=== PATIENT | male | born 1945 | race Caucasian/White ===

== ENCOUNTER → 2020-10-19 16:47 | Outpatient (CLI) | payer MEDICARE, SELFPAY ==
--- NOTE | 2020-10-19 16:49 | DI.CT.S_ITS ---
PROCEDURE: CT ABDOMEN PELVIS WO CON INDICATIONS: surgical planning prior to hernia repair TECHNIQUE: Noncontrast 5 mm thick sections acquired from the diaphragms to the symphysis. 5 mm coronal and sagittal reformats were then performed. For radiation dose reduction, the following was used: automated exposure control, adjustment of mA and/or kV according to patient size. COMPARISON: None. FINDINGS: ABDOMEN: Lung bases: Scattered subsegmental atelectasis and/or scarring. No focal consolidation. Heart: No significant findings. Liver: Normal. Gallbladder: Surgically absent Bile ducts: Normal. Pancreas: Normal. Spleen: Normal. Adrenals: Normal. Kidneys and Ureters: Normal. Stomach and duodenum: Normal. Bowel: Incidental colonic diverticulosis. Normal appendix. Other: No free fluid or air. Abdominal nodes: Normal. Aorta and IVC: Normal in size. Ventral wall: Supraumbilical right paramedian fat containing ventral hernia seen on image 25/2. This measures approximately 1.8 x 2.5 cm. Small periumbilical fat containing hernia seen on image 46/2. PELVIS: Bladder: Partially decompressed and otherwise unremarkable. Inguinal region: Small bilateral fat containing inguinal hernias although right slightly greater than left. Pelvic nodes: Normal. Bones: Spondylytic changes and facet arthropathy. No vertebral body compression fracture. Scoliosis also noted. IMPRESSION: Right paramedian fat containing supraumbilical ventral hernia, periumbilical and bilateral inguinal hernias Dictated by: Gunnar Barragan M.D. on 10/19/2020 at 17:18 Approved by: Gunnar Barragan M.D. on 10/19/2020 at 17:23
== END ==
PROVIDERS: PCP Family Medicine; Referring Provider Surgery; Visit Provider Surgery
DX: K40.20 Bilateral inguinal hernia, without obstruction or gangrene, not specified as recurrent (principal); K43.2 Incisional hernia without obstruction or gangrene; K42.9 Umbilical hernia without obstruction or gangrene; I25.10 Atherosclerotic heart disease of native coronary artery without angina pectoris; I10 Essential (primary) hypertension
CPT/HCPCS: 74176; 99214

== ENCOUNTER → 2020-11-04 11:58 | Outpatient (CLI) | payer MEDICARE, SELFPAY ==
[2020-11-04 12:35] LABS: COVID19 -Nasal RAPID Negative (Negative)
== END ==
PROVIDERS: PCP Family Medicine; Visit Provider Surgery
DX: Z20.822 Contact with and (suspected) exposure to COVID-19 (principal)
CPT/HCPCS: 87635; C9803

== ENCOUNTER 2020-11-07 10:35 | Day surgery (SDC) | payer MEDICARE, SELFPAY ==
[2020-11-01 13:10] VITALS: BMI 28.8
[2020-11-07] VITALS (7 sets, daily range): BP systolic 108–131; BP diastolic 40–82; PULSE 62–74; RESP 10–16; TEMP 36.5–37.4; O2SAT 93–97; BMI 27.9
[2020-11-07] MEDS: LACTATED RINGERS 1,000 ML 100 ML IV ×2 (11:17→14:39)
--- NOTE | 2020-11-07 11:44 | PM.PREOP ---
Pre-operative Note COVID-19 COVID-19 status: Negative Result date/Date tested (Pos, Neg/Pending): 11/04/20 Interval Note History & Physical reviewed/Exam performed by Physician: Yes Changes to H&P: No
[2020-11-07] MEDS: CEFAZOLIN 1 GM VIAL 2 GM IV (12:16)
--- NOTE | 2020-11-07 12:37 | SUR.OPER ---
Supine on padded OR bed, head on pillow, arms padded with gel and tucked at sides, legs uncrossed, safety belt at thigh, tape over blanket over lower legs .
[2020-11-07] MEDS: BUPIVACAINE 0.25% W/ EPI (PF) 10 ML VIAL 60 ML INJ (12:50)
[2020-11-07] MEDS: BUPIVACAINE LIPOSOME 266 MG/20 ML VIAL INJ (12:51)
--- NOTE | 2020-11-07 15:55 | P.OP_ITS ---
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, right upper quadrant ventral hernia) Procedure & Clinicians Procedure: Laparoscopic repair of bilateral inguinal hernias with mesh Removal of spermatic cord lipoma x2 Open primary repair of right upper quadrant ventral hernia Same procedure as scheduled: Yes Indications: Symptomatic inguinal and ventral hernias Surgeon: Christine Tillman Click Yes if Unassisted: Yes Anesthesia Type: General Operative Notes Findings: 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 Sequential compression devices were placed on both legs and turned on. Appropriate perioperative antibiotics were given prior to the start of surgery. General anesthesia was induced the patient was intubated. A Frankel catheter was placed sterilely in the bladder. The abdomen was prepped and draped in sterile fashion. Surgical time-out was conducted. Local anesthetic was injected under the skin just superior to the umbilicus and a 5 mm vertical incision was made at this site. The umbilical stalk was grasped with a Tae and elevated. A Veress needle was passed through the fascia into proper position. The position was tested with a saline drop test which was appropriate for intra-abdominal Veress needle placement. The abdomen was then insufflated in the usual fashion. Once insufflated to 15 mm Hg the Veress needle was removed and a 5 mm optical trocar was placed under direct vision using a 5 mm 30 degree scope. Once the camera was inside the abdomen I took a look around. There was no injury from port placement. Two additional ports were placed in a similar fashion in the right and left mid clavicular line at the level of the umbilicus, one handbreadth lateral to the umbilicus. The umbilical port was upsized to a 10mm port. Attention was turned to the pelvis, and both inguinal regions were evaluated. Beginning on the right side local anesthetic was in the infiltrated into the abd ominal wall using 0.25% Marcaine with epi, in the region of the expected peritoneal incision. Metzenbaum scissors attached to cautery were then used to incise the peritoneum transversely from the midline laterally to the ASIS, 10 cm superior to the inguinal hernia defect. The peritoneal flap was developed down to the inguinal hernia defects. When I reached the inguinal canal I found a large spermatic cord lipoma within an indirect inguinal defect. I dissected out the spermatic cord lipoma and removed it from the hernia defect. Once the flap had been fully developed and the cord structures were completely exposed, and the hernia defect had been fully evaluated, I then exposed the pubic tubercle and pushed down the bladder so that there was space for adequate mesh placement. A large 3DMax macro porous mesh was then brought into the field. I placed it through the 10 mm port and positioned it within the surgical defect covering the direct, indirect, and femoral space with 5 cm overlap in each direction. I then secured the mesh in 2 locations using dissolvable surgical tacks. Once the mesh was secured in place I brought up the peritoneal flap. There was no clam shelling or bending of the mesh when the peritoneal flap was brought up. I then secured the peritoneum up to the abdominal wall using the same surgical tacker, with dissolvable tacks. There was no gapping of the peritoneal flap or exposed mesh. Attention was then turned to the left side. Local anesthetic was in the infiltrated into the abdominal wall using 0.25% Marcaine with epi, in the region of the expected peritoneal incision. Metzenbaum scissors attached to cautery were then used to incise the peritoneum transversely from the midline laterally to the ASIS, 10 cm superior to the inguinal hernia defect. The peritoneal flap was developed down to the inguinal hernia defect. When I reached the inguinal canal I found a large spermatic cord lipoma within an indirect inguinal defect. I dissected out the spermatic cord lipoma and removed it from the hernia defect. Once the flap had been fully developed and the cord structures were completely exposed, and the hernia defect had been fully evaluated, I then exposed the pubic tubercle and pushed down the bladder so that there was space for adequate mesh placement. Another hernia defect was found in the femoral space. There was an incarcerated nodule of fat in the space, with associated blood vessels. I dissected this free, and placed clips across the associated vessels, prior to dividing the fat tissue. Once divided this was removed from the space with good hemostasis. A large 3DMax macro porous polypropelene mesh was then brought into the field. I placed it through the 10 mm port and positioned it within the surgical defect covering the direct, indirect, and femoral space with 5 cm overlap in each direction. I then secured the mesh in 2 locations using dissolvable surgical tacks. Once the mesh was secured in place I brought up the peritoneal flap. There was no clam shelling or bending of the mesh when the peritoneal flap was brought up. I then secured the peritoneum up to the abdominal wall using the same surgical tacker, with dissolvable tacks. There was no gapping of the peritoneal flap or exposed mesh. At this point the umbilical port site was closed with 0 Vicryl suture in the fascia using a Arturo-Georgie suture Passer. Insufflation was then removed from the abdomen, and the umbilical port site was closed with 3-0 Vicryl in the subcutaneous layers, and 4 Monocryl in the skin. The other 2 port sites were closed with 4 Monocryl in the skin. Each port site was sealed with Dermabond. Local anesthetic was given at each of the port sites and in the fascia. Attention was then turned to the right upper abdomen ventral hernia defect. At this point local anesthetic was injected using 0.25% Marcaine with epi, at the site of the planned incision. A 3cm oblique incision was then made in the skin overlying the hernia defect. Dissection was then carried down through the dermis and subcutaneous tissue, until the hernia sac was encountered. I dissected circumferentially around the hernia sac. I opened the hernia sac, and dissected back to the edge of the intact fascia. I closed the fascia primarily with running 0 Vicryl, and then reinforced it with interrupted figure of 8's using 0 Vicryl. I irrigated the wound, and then infiltrated the wound with 0.25% Marcaine with Epi and Exparel in small aliquots. A total of 60mL of 0.25% marcaine with epi was given for the entire case, and 2 0mL of Exparel was used for the entire case. I then closed the subcutaneous fat bringing it together with 3-0 Vicryl suture and closed the skin with subcuticular 4-0 Monocryl. The skin edges were then sealed with Dermabond. This concluded the procedure. At this point the needle sponge and instrument counts were correct. Patient was awakened from anesthesia and extubated. The Frankel catheter was removed, and the testicles were brought down to ensure they were in proper position. The patient was transferred to the postanesthesia care unit in stable condition. Complications: none Post-operative Condition: stable Disposition: PACU
[2020-11-07] MEDS: ACETAMINOPHEN 325 MG TABLET 975 MG PO (16:14)
== END 2020-11-07 17:15 | disposition home or self-care (01) ==
PROVIDERS: PCP Family Medicine; Referring Provider Surgery; Visit Provider Surgery
PROC: 0YQ64ZZ Repair Left Inguinal Region, Percutaneous Endoscopic Approach (ICD-10-PCS; CPT 49650; principal; 2020-11-07 11:45)
PROC: (CPT 49650; 2020-11-07 11:45)
DX: K40.20 Bilateral inguinal hernia, without obstruction or gangrene, not specified as recurrent (principal); K43.2 Incisional hernia without obstruction or gangrene; I25.10 Atherosclerotic heart disease of native coronary artery without angina pectoris; D17.6 Benign lipomatous neoplasm of spermatic cord
CPT/HCPCS: 49650; 49560; C1781; C9290; J0690; J1100; J2250; J2405; J2704; J3010

== ENCOUNTER → 2020-11-24 08:42 | Outpatient (CLI) | payer MEDICARE, SELFPAY ==
[2020-11-24 10:21] LABS: Add Manual Diff / Slide Review NO; Basophils Absolute Auto 100 /uL (0-100); Basophils Percent Auto 1.1 % (0-2); Eosinophils Absolute Auto 200 /uL (0-450); Hematocrit 42.6 % (41-53); Hemoglobin 14.5 g/dL (13.5-17.5); Lymphocytes Absolute Auto 1000 /uL (1100-4500); Lymphocytes Percent Auto 14.3 % (25-40); Mean Corpuscular HGB Conc 33.9 % (30-36); Mean Corpuscular Hemoglobin 33.1 PG (26-34); Mean Corpuscular Volume 97.4 fL (80-100); Monocytes Absolute Auto 800 /uL (0-900); Monocytes Percent Auto 10.8 % (3-14); Neutrophils Absolute Auto 5100 /uL (1500-7000); Neutrophils Percent Auto 70.8 % (50-75); Platelet Count 172 X10^3/uL (150-400); Red Blood Cell Count 4.38 X10^6/uL (4.5-5.9); Red Cell Distribution Width 13.1 % (11.6-14.8); White Blood Cell Count 7.2 X10^3/uL (4.5-11.0)
[2020-11-24 10:52] LABS: Erythrocyte Sedimentation Rate 14 MM/HR (0-15)
[2020-11-24 11:30] LABS: Alanine Aminotransferase 21 IU/L (<50); Albumin 3.9 g/dL (3.5-5.0); Albumin Globulin Ratio 1.4 (1.0-2.8); Alkaline Phosphatase 72 U/L (38-126); Aspartate Aminotransferase 29 IU/L (17-59); Bilirubin Total 1.4 mg/dL (0.2-1.3); Blood Urea Nitrogen 21 mg/dL (9-20); Calcium 9.4 mg/dL (8.4-10.2); Carbon Dioxide 23 mmol/L (22-32); Chloride 108 mmol/L (98-107); Cholesterol 142 mg/dL (140-199); Estimated Glomerular Filt Rate > 60.0 mL/min (>60); Globulin 2.7 g/dL (1.7-4.1); Glucose 101 mg/dL (80-110); HDL Cholesterol 44 mg/dL (40-60); HEMOLYSIS < 15 (0-50); LDL Cholesterol Calculated 70 mg/dL (<100); Potassium 4.3 mmol/L (3.4-5.1); Sodium 139 mmol/L (137-145); Total Protein 6.6 g/dL (6.3-8.2); Triglycerides 139 mg/dL (35-150)
[2020-11-24 11:35] LABS: High Sensitivity CRP - Cardiac 3.2 mg/L (1.0-3.0)
[2020-11-24 11:43] LABS: Vitamin D 25 Hydroxy (D3) 89.8 ng/mL (30.0-100.0)
[2020-11-24 11:54] LABS: Free T4, Direct Thyroxine 0.97 ng/dL (0.78-2.19)
[2020-11-24 12:21] LABS: Vitamin B12 763 pg/mL (239-931)
== END ==
PROVIDERS: PCP Family Medicine; Referring Provider Internal Medicine; Visit Provider Internal Medicine
DX: Z00.00 Encounter for general adult medical examination without abnormal findings (principal); E78.00 Pure hypercholesterolemia, unspecified; R10.9 Unspecified abdominal pain
CPT/HCPCS: 36415; 80053; 80061; 82306; 82607; 83036; 83090; 84439; 84443; 84481; 85025; 85651; 86140

== ENCOUNTER → 2020-12-29 07:46 | Outpatient (CLI) | payer MEDICARE, SELFPAY ==
[2020-12-29 08:35] LABS: Add Manual Diff / Slide Review NO; Basophils Absolute Auto 0 /uL (0-100); Basophils Percent Auto 0.5 % (0-2); Eosinophils Absolute Auto 200 /uL (0-450); Eosinophils Percent Auto 2.1 % (2-4); Hematocrit 42.3 % (41-53); Hemoglobin 14.1 g/dL (13.5-17.5); Lymphocytes Absolute Auto 1200 /uL (1100-4500); Mean Corpuscular HGB Conc 33.4 % (30-36); Mean Corpuscular Hemoglobin 32.3 PG (26-34); Mean Corpuscular Volume 96.7 fL (80-100); Monocytes Absolute Auto 800 /uL (0-900); Neutrophils Absolute Auto 5400 /uL (1500-7000); Neutrophils Percent Auto 71.4 % (50-75); Platelet Count 182 X10^3/uL (150-400); Red Blood Cell Count 4.37 X10^6/uL (4.5-5.9); Red Cell Distribution Width 13.5 % (11.6-14.8); White Blood Cell Count 7.5 X10^3/uL (4.5-11.0)
[2020-12-29 09:08] LABS: Alanine Aminotransferase 21 IU/L (<50); Albumin Globulin Ratio 1.4 (1.0-2.8); Alkaline Phosphatase 54 U/L (38-126); Aspartate Aminotransferase 31 IU/L (17-59); BUN Creatinine Ratio 19.6 (6-22); Bilirubin Total 0.9 mg/dL (0.2-1.3); Blood Urea Nitrogen 19 mg/dL (9-20); Calcium 9.2 mg/dL (8.4-10.2); Carbon Dioxide 24 mmol/L (22-32); Chloride 107 mmol/L (98-107); Cholesterol 181 mg/dL (140-199); Estimated Glomerular Filt Rate > 60.0 mL/min (>60); Globulin 2.9 g/dL (1.7-4.1); Glucose 103 mg/dL (80-110); HDL Cholesterol 45 mg/dL (40-60); HEMOLYSIS 34 (0-50); LDL Cholesterol Calculated 107 mg/dL (<100); Potassium 4.2 mmol/L (3.4-5.1); Sodium 138 mmol/L (137-145); Total Protein 6.9 g/dL (6.3-8.2); Triglycerides 145 mg/dL (35-150)
[2020-12-29 11:12] LABS: Creatinine Urine Random 151.7 mg/dL
[2020-12-29 11:17] LABS: Microalbumi Creatinin Ratio Ur 5.2 ug/mg CR (<30); Microalbumin Urine Random 0.8 mg/dL (0-1.6)
== END ==
PROVIDERS: PCP Family Medicine; Referring Provider Internal Medicine Interventional Cardiology; Visit Provider Internal Medicine Interventional Cardiology
DX: I25.10 Atherosclerotic heart disease of native coronary artery without angina pectoris (principal); I10 Essential (primary) hypertension
CPT/HCPCS: 36415; 80053; 80061; 82043; 82570; 85025

== ENCOUNTER → 2021-02-13 14:53 | Outpatient (CLI) | payer MEDICARE, SELFPAY ==
[2021-02-13 17:24] LABS: COVID19 -Nasal RAPID Negative (Negative)
== END ==
PROVIDERS: PCP Family Medicine; Visit Provider Nurse Practitioner Family
DX: Z01.812 Encounter for preprocedural laboratory examination (principal); Z20.822 Contact with and (suspected) exposure to COVID-19
CPT/HCPCS: 87635; C9803

== ENCOUNTER → 2021-02-15 08:02 | Outpatient (CLI) | payer MEDICARE, SELFPAY ==
--- NOTE | 2021-02-15 | DI.ECHO.S_ITS ---
[facility]---------+ [facility] +---------+ : : [address] : [place] [address] : : : : [id number] : : : : Phone: [phone]+ Echocardiogram Report + + :Name: GIACOMO PICKERING Study Date: 02/15/2021 Height: 66 in : :[facility] ReadingLocation: Weight: 182 lb : : Gender: Male BSA: 1.9 m2 : :: 1945 Age: 75 yrs BP: 153/94 mmHg: :Reason For Study: ATHEROSCLEROTIC HEART DISEASE OF [place] : :CORONARY ARTERY : :Ordering Physician: : :LOI RUBIO Performed By: Maria Ines Cespedes : :Referring: LOI RUBIO : + + Interpretation Summary Normal left ventricle size with ejection fraction 40%. There is a significant dyssynchronous contraction pattern, consistent with a conduction abnormality. Normal right ventricle and both atria. No valvular abnormality. Procedure: A two-dimensional transthoracic echocardiogram with color flow and Doppler was performed. The study quality was technically adequate. There is no prior echocardiogram noted for this patient. The patient had a bundle branch block rhythm during the exam. The heart rate ranged between 60-70 bpm during the study. Left Ventricle: The left ventricle is normal in size and wall thickness. The estimated left ventricular end diastolic volume is 121 ml. Left ventricular ejection fraction is estimated to be 40%. There is a significant dyssynchronous contraction pattern, consistent with a conduction abnormality. There are no other obvious focal wall motion abnormalities. Right Ventricle: The right ventricle is normal in size and function. Atria: Both atria are normal in size. There is no Doppler evidence for an interatrial shunt. Mitral Valve: The mitral valve is normal in structure and function. There is trace mitral regurgitation. Aortic Valve: The aortic valve is trileaflet. The aortic valve opens well. There is no aortic valve stenosis. No aortic regurgitation is present. Tricuspid Valve: The tricuspid valve is normal in structure and function. There is mild tricuspid regurgitation. The right ventricular systolic pressure is estimated to be at least 23 mmHg based on an estimated right atrial pressure of 3 mm Hg. Pulmonic Valve: The pulmonic valve is not well seen, but is grossly normal. There is no pulmonic valvular regurgitation. Great Vessels: The aortic root is normal size. The dimensions of the ascending aorta are normal. The IVC is of normal diameter and collapses greater than 50% with a sniff. This suggests a low right atrial pressure of 3 mm Hg. Pericardium/ Pleura There is no pericardial effusion. There is no pleural effusion. MMode/2D Measurements & Calculations LVIDd: 5.5 cm LVOT diam: 2.2 cm LVIDs: 4.5 cm Ao root diam: 3.4 cm FS: 17.7 % asc Aorta Diam: 3.0 cm EPSS: 1.6 cm Ao Arch Diam (Prox Trans): 3.1 cm IVSd: 0.70 cm LVPWd: 0.79 cm LV harvey. diameter/BSA (cm/m^2): 2.9 LV sys. diameter/BSA (cm/m^2): 2.4 LA A2 area: 19.3 cm2 RA long axis: 4.8 cm LA A4 area: 19.1 cm2 RA area: 15.2 cm2 LA length (vol): 5.3 cm RA vol: 41.2 ml LA vol: 59.3 ml RA : 21.5 ml/m2 LA vol index: 30.9 ml/m2 IVC diam: 1.3 cm RVD1 (basal): 3.6 cm TAPSE: 1.8 cm Doppler Measurements & Calculations Ao V2 max: 127.2 cm/sec LVOT Max Lalo: 90.4 cm/sec Ao V2 mean: 86.5 cm/sec LV V1 max P.3 mmHg Ao max P.5 mmHg LV V1 VTI: 17.5 cm Ao mean P.4 mmHg JAYE(I,D): 2.5 cm2 Ao V2 VTI: 25.7 cm JAYE(V,D): 2.6 cm2 sev ratio: 0.68 JAYE indexed to BSA (cm^2/m^2): 1.3 AI P1/2t: 686.0 msec AI dec slope: 122.3 cm/sec2 MV E max lalo: 48.8 cm/sec TR max lalo: 223.3 cm/sec MV A max lalo: 79.2 cm/sec TR max P.0 mmHg MV E/A: 0.62 PA V2 max: 123.2 cm/sec Med Peak E' Lalo: 5.5 cm/sec PA V2 mean: 85.1 cm/sec E/E' med: 8.8 PA mean P.2 mmHg Lat Peak E' Lalo: 5.8 cm/sec PA pr(Accel): 39.6 mmHg E/E' lat: 8.4 E/e' average: 8.6 MV dec time: 0.18 sec SV(OT): 65.1 ml Electronically signed by: Loi Carlos on Reading Physician:02/16/2021 03:13 PM
--- NOTE | 2021-02-15 19:10 | DI.NM.S_ITS ---
DATE OF SERVICE: 02/15/2021 PROCEDURE PERFORMED: Pharmacological perfusion study. INDICATIONS: CAD, status post PCI in the past, left bundle branch block. RADIOPHARMACEUTICAL: 24.4 millicurie technetium-99m Myoview IV was injected at stress and 13.0 millicurie technetium-99m Myoview IV was injected at rest. CARDIAC STRESS: The patient underwent IV Lexiscan perfusion study under the supervision of an attending staff. The patient received Lexiscan as per protocol. Remained hemodynamically stable. Baseline rhythm was sinus with left bundle branch block. During stress, no new significant arrhythmia is seen, other than rare PVCs or new ischemic changes. No chest pain or anginal symptoms. No aminophylline needed. RAW DATA: There is a increased subdiaphragmatic activity. There is a hot spot near the inferior border of the heart. The liver is at higher level than heart. GATED STUDY: Resting LV ejection fraction 51 percent and stress LV ejection fraction 63 percent with a resting end-diastolic volume 148 mL. TID ratio 0.91, which is within normal limits. Lung/heart ratio 0.22, which is within normal limits. MYOCARDIAL PERFUSION SCAN: Stress supine, resting supine and stress prone images were compared to each other. There appears to be predominantly fixed moderate to large size, moderate to severely decreased perfusion of inferior wall, as well as the entire septum, mid to distal anterior wall and the apex. No obvious reversible ischemia. CONCLUSION: 1. This is an abnormal myocardial perfusion study with moderate to severely decreased perfusion of inferior wall, entire septum, mid to distal anterior wall and apex. Anterolateral wall and inferolateral wall had normal myocardial perfusion. 2. Differential diagnosis: Multivessel myocardial infarction, however the patient has left bundle branch block. Left ventricular function almost preserved without any significant wall motion abnormalities on gated study. On raw data, there was a hot spot seen near the inferior border of the heart, in fact, involving the inferior border of the heart. Those findings could be due to left bundle branch block, as well as significant tissue attenuation artifact, as stated above. No obvious reversible ischemia. Clinical correlation is recommended. Juan Matthews - Shiva doc#: [id number]/job#: [id number] dd: 02/15/2021 17:30:00 dt: 02/15/2021 19:01:00 DICTATING MD/COPIES TO: Seht Vergara MD COPIES MNE: DAKOTAH;
== END ==
PROVIDERS: PCP Family Medicine; Referring Provider Internal Medicine Interventional Cardiology; Visit Provider Internal Medicine Interventional Cardiology
DX: I25.10 Atherosclerotic heart disease of native coronary artery without angina pectoris (principal); I44.7 Left bundle-branch block, unspecified
CPT/HCPCS: 78452; 93017; 93306; A9502; J2785

== ENCOUNTER → 2021-04-05 15:30 | Outpatient (CLI) | payer MEDICARE, SELFPAY ==
--- NOTE | 2021-04-05 15:31 | DI.US.S_ITS ---
PROCEDURE: US ABDOMEN LIMITED INDICATIONS: right inguinodynia TECHNIQUE: Real-time focused scanning was performed of the abdomen, with image documentation. COMPARISON: [facility], CT, CT ABDOMEN PELVIS WO CON, 10/19/2020, 17:11. FINDINGS: Scanning is performed at the area of clinical concern involving the right groin at the site of pain. Within the subcutaneous fat, there is a simple appearing fluid collection that measures 11 x 11 x 11 mm, without abnormal vascularity. Scanning is also performed of the right lower quadrant, at the site of hernia repair. At this site, there is no recurrent hernia seen, including with Valsalva maneuver. There is a simple appearing cyst without abnormal vascularity that measures 8 x 15 x 4 mm. IMPRESSION: No findings of hernia are seen. Nonvascular, simple appearing cysts are seen at the 2 areas of clinical concern. Dictated by: Oj Hill M.D. on 04/05/2021 at 15:38 Approved by: Oj Hill M.D. on 04/05/2021 at 15:39
== END ==
PROVIDERS: PCP Family Medicine; Referring Provider Family Medicine; Visit Provider Family Medicine
DX: R19.03 Right lower quadrant abdominal swelling, mass and lump (principal); Z98.890 Other specified postprocedural states; Z87.19 Personal history of other diseases of the digestive system
CPT/HCPCS: 76705

== ENCOUNTER → 2021-05-08 10:22 | Outpatient (CLI) | payer MEDICARE, SELFPAY ==
--- NOTE | 2021-05-08 10:24 | DI.CT.S_ITS ---
PROCEDURE: CT ABDOMEN PELVIS W CON INDICATIONS: ventral hernia TECHNIQUE: After the administration of oral and intravenous contrast, axial sections were acquired from the lung bases to the pubic symphysis. Coronal and sagittal reformats were performed. For radiation dose reduction, the following was used: automated exposure control, adjustment of mA and/or kV according to patient size. COMPARISON:[facility], US, US ABDOMEN LIMITED, 04/05/2021, 16:00. [facility], CT, CT ABDOMEN PELVIS WO CON, 10/19/2020, 17:11. FINDINGS: Image quality: Excellent. Lung bases: Unremarkable. Heart: No significant findings. ABDOMEN: Liver: Unremarkable. Gallbladder: Surgically removed. Biliary ducts: Unremarkable. Pancreas: Unremarkable. Spleen: Unremarkable. Adrenal Glands: Unremarkable. Kidneys and Ureters: Unremarkable. Stomach and Bowel: Stomach, small bowel loops, and colon are normal in caliber. Diverticulosis without diverticulitis. Peritoneum: No abnormal intraperitoneal fluid. No free air. Ventral Wall: A small fat containing ventral hernia is seen in the upper abdomen right of the midline anterior to the left hepatic lobe is present. The neck of the hernia measuring 3.1 cm transverse x 4.0 cm longitudinal. There is omental fat and mesenteric vessels within the hernia sac. There is a tiny fat containing umbilical hernia. Abdominal Nodes: No retroperitoneal or mesenteric adenopathy by size criteria. Vessels: Aorta and inferior vena cava are normal in size. PELVIS: Pelvic Organs: Prostate is enlarged. Bladder: Mild bladder wall thickening. Pelvic Nodes: No enlarged lymph nodes. Miscellaneous: No inguinal hernias are seen. There is a 0.9 cm soft tissue nodule in the right groin, correlating with a small cyst in the groin seen on ultrasound. Bones: Moderate scoliosis. Severe degenerative changes in lumbar spine.. IMPRESSION: 1. A small fat containing right upper abdominal wall ventral hernia and a tiny fat containing umbilical hernia. 2. No inguinal hernias. There is a 0.9 cm soft tissue nodule in the right groin, correlating with the ultrasound finding of a small cyst. 3. Diverticulosis without acute diverticulitis. 4. Small hiatal hernia. 5. Enlarged prostate. Mild bladder wall thickening suggests mild bladder outlet obstruction. Recommend clinical correlation. Dictated by: Raúl Nation M.D. on 05/08/2021 at 12:47 Approved by: Raúl Nation M.D. on 05/08/2021 at 14:51
[2021-05-08 11:06] LABS: BUN Creatinine Ratio 16.4 (6-22); Blood Urea Nitrogen 21 mg/dL (9-20); Estimated Glomerular Filt Rate 54.9 mL/min (>60)
[2021-05-10 14:13] LABS: Gabapentin 9.5 ug/mL (4.0-16.0)
== END ==
PROVIDERS: PCP Family Medicine; Referring Provider Surgery; Visit Provider Surgery
DX: K43.9 Ventral hernia without obstruction or gangrene (principal); K57.90 Diverticulosis of intestine, part unspecified, without perforation or abscess without bleeding; K44.9 Diaphragmatic hernia without obstruction or gangrene; N40.0 Benign prostatic hyperplasia without lower urinary tract symptoms; Z87.19 Personal history of other diseases of the digestive system; Z98.890 Other specified postprocedural states; Z90.49 Acquired absence of other specified parts of digestive tract
CPT/HCPCS: 36415; 74177; 80171; 82565; 84520

== ENCOUNTER 2021-06-05 09:44 | Day surgery (SDC) | payer MEDICARE, SELFPAY ==
--- NOTE | 2021-05-29 10:34 | SUR.PREOP ---
Pt notified of cancellation. Advised [facility] would be intouch to reshd at a later date
[2021-06-05] VITALS (7 sets, daily range): BP systolic 134–153; BP diastolic 78–90; PULSE 76–85; RESP 12–16; TEMP 36.3–36.6; O2SAT 92–97; BMI 28.8
[2021-06-05 10:51] LABS: COVID19 -Nasal RAPID Negative (Negative)
--- NOTE | 2021-06-05 11:04 | PM.HP.1 ---
History of Present Illness History of Present Illness Date Patient Seen: 06/05/21 Time Patient Seen: 11:04 Chief complaint: SDC Narrative: Mark is a 75-year-old gentleman who had a laparoscopic inguinal hernia repair as well as an open right upper quadrant incisional hernia repair without mesh in in November 2020. He has since developed a recurrent bulge the right upper quadrant location. He had a CT scan recently that showed a recurrent hernia containing some visceral fat. Patient History Medical History (Updated 06/05/21 @ 11:06 by Kingsley Salgado MD) Abdominal hernia Bilateral inguinal hernia CAD (coronary artery disease) Carpal tunnel syndrome Cataracts, bilateral Chronic back pain (~1977) CKD (chronic kidney disease) Hearing loss HLD (hyperlipidemia) Inguinal hernia LBBB (left bundle branch block) Suspected sleep apnea Tinnitus Surgical History (Updated 05/24/21 @ 10:24 by Taylor Mccormack RN) Anesthesia Hx of bilateral inguinal hernia repair (11/07/20) Hx of carpal tunnel repair Hx of cholecystectomy (~2019) Hx of heart artery stent (~2005) Hx of neck surgery (~2018) Family & Social History Family History Father Heart disease Sister Colon cancer Mother Cancer Grandmother Gallstones Social History: household members spouse Tobacco & Substance use: Smoking Status Former smoker alcohol intake current alcohol intake frequency a few times a month Substance Use Type does not use Meds Home Medications and Allergies Home Medications Medication Instructions Recorded Confirmed Type aspirin 81 mg tablet 81 mg PO DAILY 10/06/20 05/24/21 History atorvastatin 40 mg tablet 40 mg PO DAILY 10/06/20 05/24/21 History bisoprolol fumarate 5 mg tablet 5 mg PO DAILY 10/06/20 05/24/21 History cholecalciferol (vitamin D3) 25 25 mcg PO DAILY 10/19/20 05/24/21 History mcg (1,000 unit) capsule multivitamin 1 tab PO DAILY 10/19/20 05/24/21 History omeprazole 20 mg capsule,delayed 20 mg PO DAILY 10/19/20 05/24/21 History release gabapentin 300 mg capsule 600 mg PO TID #90 cap 04/07/21 05/24/21 Rx lisinopril 5 mg tablet 5 mg PO DAILY #90 tab 05/01/21 05/24/21 Rx Allergies Allergy/AdvReac Type Severity Reaction Status Date / Time Penicillins Allergy Severe Rash Verified 04/07/21 10:11 Exam Const General: healthy appearing Resp Effort & Inspection: normal respiratory effort GI Other: Recurrent ventral incisional hernia Objective Labs Labs: Laboratory Results - last 24 hr 06/05/21 09:48 SARS-CoV-2 (PCR) Negative Assessment & Plan Assessment and plan (1) Recurrent ventral incisional hernia: Status: Acute Plan 75-year-old man with a recurrent ventral incisional hernia. We reviewed risks and benefits of open hernia repair with mesh. He would like to proceed. COVID-19 COVID-19 status: Negative Result date/Date tested (Pos, Neg/Pending): 06/05/21 Time Spent With Patient Critical Care time: I spent a total of [] minutes of critical care time on this patient's care today; this time is exclusive of procedural time.
[2021-06-05] MEDS: LACTATED RINGERS 1,000 ML 42 ML IV ×2 (11:36→12:10)
[2021-06-05] MEDS: CEFAZOLIN 2 GM/20 ML SYRINGE IV (11:40)
--- NOTE | 2021-06-05 11:48 | SUR.OPER ---
Supine on padded OR bed, head on pillow, arms secured on padded arm boards at <90 degrees abduction, legs uncrossed, safety belt at thigh, tape over blanket over lower legs.
[2021-06-05] MEDS: LIDOCAINE 1% W/EPI 20 ML INJ (11:52)
[2021-06-05] MEDS: BUPIVACAINE 0.25% (PF) VIAL 30 ML INJ (11:52)
--- NOTE | 2021-06-05 13:29 | PM.OP.1 ---
Operative Date/Time/Diagnoses Date of procedure: 06/05/21 Time of procedure: 13:29 Pre-op diagnosis: Recurrent ventral incisional hernia Post-op diagnosis: same Procedure & Clinicians Procedure: Recurrent ventral incisional hernia repair with mesh Same procedure as scheduled: Yes Indications: Recurrent ventral incisional hernia Surgeon: Kingsley Salgado Click Yes if Unassisted: Yes Anesthesia Type: General Operative Notes Estimated Blood Loss (mL): 20 Procedure in detail: Ancef was administered. The patient was brought to the operating room, placed on the table in the supine position and general endotracheal anesthesia was induced. The abdomen was prepped and draped in the usual fashion. A time-out was performed. A 6 cm incision was made at the location of the old scar in the right upper quadrant and the old scar tissue was excised. Dissection was carried down to the hernia sac. The hernia sac was freed from the fascial ring and the peritoneal cavity was entered. There was no bowel or omentum adherent to the sac. We closed the peritoneum with a running 3-0 Vicryl. Lysis of adhesions was performed in order to properly identify the posterior sheath and the belly of the rectus muscle. The hernia was splitting the rectus muscle. Additional local was injected into the muscle belly. The posterior sheath and rectus muscle was closed with 3-0 Vicryl in an interrupted fashion. The anterior sheath was then closed with multiple interrupted 0 Ethibond sutures. The subcutaneous adipose tissue was cleared off of the anterior sheath circumferentially about 2 cm in each direction. A macro porous polypropylene mesh was trimmed to fit over the fascial closure and secured with Tisseel. Once the Tisseel was dried the subcutaneous adipose tissue was closed with interrupted 3-0 Vicryl sutures. The skin was closed with multiple interrupted 3-0 Vicryl dermal sutures followed by a running 4 Monocryl subcuticular closure. Steri-Strips were applied and an abdominal binder was applied. Post-operative Condition: stable Disposition: PACU
[2021-06-05] MEDS: OXYCODONE/ACETAMINOPHEN 5/325 TABLET 1 TAB PO (14:05)
== END 2021-06-05 14:30 | disposition home or self-care (01) ==
PROVIDERS: PCP Family Medicine; Referring Provider Surgery; Visit Provider Surgery
PROC: (CPT 49565; principal; 2021-06-05 11:45)
DX: K43.2 Incisional hernia without obstruction or gangrene (principal); I10 Essential (primary) hypertension; I25.10 Atherosclerotic heart disease of native coronary artery without angina pectoris; K21.9 Gastro-esophageal reflux disease without esophagitis; G47.33 Obstructive sleep apnea (adult) (pediatric); N18.9 Chronic kidney disease, unspecified; I44.7 Left bundle-branch block, unspecified; Z95.5 Presence of coronary angioplasty implant and graft; Z20.822 Contact with and (suspected) exposure to COVID-19
CPT/HCPCS: 49565; 49568; 87635; C1781; J0330; J0690; J1100; J2405; J2704; J3010

== ENCOUNTER → 2021-06-16 14:44 | Outpatient (CLI) | payer MEDICARE, SELFPAY ==
[2021-06-16 16:41] LABS: Alanine Aminotransferase 23 IU/L (<50); Albumin 4.1 g/dL (3.5-5.0); Albumin Globulin Ratio 1.5 (1.0-2.8); Alkaline Phosphatase 53 U/L (38-126); Aspartate Aminotransferase 31 IU/L (17-59); BUN Creatinine Ratio 13.3 (6-22); Bilirubin Total 1.2 mg/dL (0.2-1.3); Blood Urea Nitrogen 15 mg/dL (9-20); Calcium 9.1 mg/dL (8.4-10.2); Carbon Dioxide 25 mmol/L (22-32); Chloride 104 mmol/L (98-107); Estimated Glomerular Filt Rate > 60.0 mL/min (>60); Globulin 2.8 g/dL (1.7-4.1); Glucose 86 mg/dL (80-110); HEMOLYSIS 17 (0-50); Potassium 3.9 mmol/L (3.4-5.1); Sodium 137 mmol/L (137-145); Total Protein 6.9 g/dL (6.3-8.2)
== END ==
PROVIDERS: PCP Family Medicine; Referring Provider Family Medicine; Visit Provider Family Medicine
DX: R79.89 Other specified abnormal findings of blood chemistry (principal)
CPT/HCPCS: 36415; 80053

== ENCOUNTER → 2021-08-11 13:29 | Outpatient (CLI) | payer MEDICARE, SELFPAY ==
--- NOTE | 2021-08-11 13:33 | DI.RAD.S_ITS ---
PROCEDURE: XR HIP W PEL IF DONE RT 2V INDICATIONS: chronic right hip pain TECHNIQUE: AP pelvis with lateral view(s) of the right hip(s). COMPARISON: None. FINDINGS: Bones: No fractures or dislocations. Pelvic ring appears intact. No suspicious bony lesions. Mild joint space narrowing and periarticular osteophyte formation at the bilateral hip joints. Soft tissues: The visualized bowel gas pattern is normal. No suspicious soft tissue calcifications. IMPRESSION: Bilateral hip osteoarthritis. No acute fracture. No osseous lesion. If symptoms and/or clinical suspicion for pathology persist, further assessment with repeat, or advanced imaging (e.g., CT, MRI, or bone scan) may be helpful for further assessment. Dictated by: Aylin Lin M.D. on 08/11/2021 at 14:46 Approved by: Aylin Lin M.D. on 08/11/2021 at 14:47
--- NOTE | 2021-08-11 13:33 | DI.RAD.S_ITS ---
PROCEDURE: XR LUMBAR SPINE 2-3V INDICATIONS: chronic hip pain TECHNIQUE: 3 views of the lumbar spine were acquired. COMPARISON: None. FINDINGS: Bones: 5 exd-jyk-[id number] vertebrae are present. There is straightening of normal lumbar lordosis. Mild to moderate rightward curvature of lower lumbar spine centered at L4 level is seen. Degenerative endplate changes and bilateral facet arthrosis throughout lumbar spine is noted. No vertebral body compression fractures. No suspicious bony lesions. Soft tissues: Overlying bowel gas pattern is normal. No suspicious soft tissue calcifications. IMPRESSION: Degenerative disc disease throughout lumbar spine. No acute compression fracture or spondylolisthesis. [id number] scoliosis as above. Dictated by: Yovanny Caraballo M.D. on 08/11/2021 at 14:59 Approved by: Yovanny Caraballo M.D. on 08/11/2021 at 14:59
[2021-08-11 14:55] LABS: Add Manual Diff / Slide Review NO; Basophils Absolute Auto 100 /uL (0-100); Basophils Percent Auto 1.1 % (0-2); Eosinophils Absolute Auto 100 /uL (0-450); Eosinophils Percent Auto 1.4 % (2-4); Hematocrit 40.8 % (41-53); Lymphocytes Absolute Auto 1400 /uL (1100-4500); Lymphocytes Percent Auto 20.3 % (25-40); Mean Corpuscular HGB Conc 34.3 % (30-36); Mean Corpuscular Hemoglobin 32.3 PG (26-34); Mean Corpuscular Volume 94.1 fL (80-100); Monocytes Absolute Auto 700 /uL (0-900); Monocytes Percent Auto 11.2 % (3-14); Neutrophils Absolute Auto 4400 /uL (1500-7000); Platelet Count 163 X10^3/uL (150-400); Red Blood Cell Count 4.33 X10^6/uL (4.5-5.9); Red Cell Distribution Width 13.5 % (11.6-14.8); White Blood Cell Count 6.7 X10^3/uL (4.5-11.0)
[2021-08-11 15:10] LABS: Alanine Aminotransferase 23 IU/L (<50); Albumin 4.3 g/dL (3.5-5.0); Albumin Globulin Ratio 1.6 (1.0-2.8); Alkaline Phosphatase 54 U/L (38-126); Aspartate Aminotransferase 28 IU/L (17-59); BUN Creatinine Ratio 13.9 (6-22); Bilirubin Total 1.5 mg/dL (0.2-1.3); Blood Urea Nitrogen 19 mg/dL (9-20); Calcium 9.3 mg/dL (8.4-10.2); Carbon Dioxide 26 mmol/L (22-32); Chloride 109 mmol/L (98-107); Estimated Glomerular Filt Rate 50.7 mL/min (>60); Globulin 2.7 g/dL (1.7-4.1); Glucose 91 mg/dL (80-110); HEMOLYSIS < 15 (0-50); Potassium 4.1 mmol/L (3.4-5.1); Sodium 134 mmol/L (137-145)
== END ==
PROVIDERS: PCP Family Medicine; Referring Provider Family Medicine; Visit Provider Family Medicine
DX: I10 Essential (primary) hypertension (principal); Z12.5 Encounter for screening for malignant neoplasm of prostate; M54.9 Dorsalgia, unspecified; G89.29 Other chronic pain; M25.551 Pain in right hip
CPT/HCPCS: 36415; 72100; 73502; 80053; 85025; G0103

== ENCOUNTER → 2021-12-29 08:52 | Outpatient (CLI) | payer MEDICARE, SELFPAY ==
[2021-12-29 09:58] LABS: Alanine Aminotransferase 19 IU/L (<50); Albumin 4.5 g/dL (3.5-5.0); Albumin Globulin Ratio 1.9 (1.0-2.8); Alkaline Phosphatase 50 U/L (38-126); Aspartate Aminotransferase 26 IU/L (17-59); BUN Creatinine Ratio 20.4 (6-22); Bilirubin Total 1.7 mg/dL (0.2-1.3); Blood Urea Nitrogen 23 mg/dL (9-20); Carbon Dioxide 23 mmol/L (22-32); Chloride 107 mmol/L (98-107); Cholesterol 130 mg/dL (140-199); Estimated Glomerular Filt Rate > 60 mL/min (>60); Globulin 2.4 g/dL (1.7-4.1); Glucose 94 mg/dL (80-110); HDL Cholesterol 46 mg/dL (40-60); HEMOLYSIS < 15 (0-50); LDL Cholesterol Calculated 57 mg/dL (<100); Potassium 4.1 mmol/L (3.4-5.1); Sodium 140 mmol/L (137-145); Total Protein 6.9 g/dL (6.3-8.2); Triglycerides 133 mg/dL (35-150)
== END ==
PROVIDERS: PCP Family Medicine; Referring Provider Family Medicine; Visit Provider Family Medicine
DX: I10 Essential (primary) hypertension (principal); R17 Unspecified jaundice; G89.29 Other chronic pain; I25.10 Atherosclerotic heart disease of native coronary artery without angina pectoris; M25.551 Pain in right hip; R79.89 Other specified abnormal findings of blood chemistry
CPT/HCPCS: 36415; 80053; 80061; 82248

== ENCOUNTER → 2022-01-03 08:44 | Outpatient (CLI) | payer MEDICARE, SELFPAY ==
--- NOTE | 2022-01-03 08:45 | DI.MRI.S_ITS ---
PROCEDURE: MR LUMBAR SPINE WO CON INDICATIONS: chronic low back pain with right side radiculopathy TECHNIQUE: Noncontrast sagittal T1 spin echo and T2 fast echo, sagittal STIR, and T2 fast spin echo through the lumbar spine. In cases with scoliosis, additional coronal T2 fast spin echo may be performed. COMPARISON: [facility], CR, XR LUMBAR SPINE 2-3V, 08/11/2021, 13:37. FINDINGS: Image quality: Excellent. Alignment and Curvature: There is normal bony alignment. Mild convex right scoliosis. Bone Marrow: Mild Modic type 2 reactive endplate changes noted adjacent to the L1-L2, L2-L3 and L3-L4 discs. Mild mixed Modic type 1 and type 2 reactive endplate changes noted adjacent to the L5-S1 disc. No acute vertebral body compression fractures. Spinal Cord: Conus medullaris terminates at the L1-2 disc level. Visualized cord demonstrates normal signal and size. Paraspinous Soft Tissues: No paravertebral masses. T12-L1: Normal appearance. L1-L2: Loss of disc signal and height. Mild to moderate diffuse disc bulge. Mild narrowing of the central canal. Moderate right mild left neural foraminal narrowing. No neural compression. L2-L3: Loss of disc signal and height. Moderate, diffuse disc bulge. Small central disc protrusion. Mild bilateral facet hypertrophy. Mild to moderate narrowing of the central canal. Severe right and moderate left neural foraminal narrowing with slight compression of the exiting right L2 nerve root. L3-L4: Loss of disc signal. Mild to moderate diffuse disc bulge. Mild bilateral facet hypertrophy. Mild narrowing of the central canal. Moderate bilateral neural foraminal narrowing. No neural compression. L4-L5: Loss of disc signal and height. Mild to moderate diffuse disc bulge. Small right central disc protrusion. Mild bilateral facet hypertrophy. Mild narrowing of the central canal. Mild to moderate bilateral neural foraminal narrowing. No neural compression. L5-S1: Loss of disc signal. Mild, diffuse disc bulge. Mild bilateral facet hypertrophy. No central stenosis. Severe right and moderate left neural foraminal narrowing with slight compression of the exiting right L5 nerve root. IMPRESSION: 1. Multilevel degenerative disc disease. 2. Multilevel facet arthropathy. 3. No severe central canal narrowing. 4. Severe right L2-L3 and L5-S1 neural foraminal narrowing with slight compression of the exiting right L2 and right L5 nerve roots. Dictated by: Rubina Aguirre MD, PhD on 01/03/2022 at 12:17 Approved by: Rubina Aguirre MD, PhD on 01/03/2022 at 12:27
== END ==
PROVIDERS: PCP Family Medicine; Referring Provider Family Medicine; Visit Provider Family Medicine
DX: M51.16 Intervertebral disc disorders with radiculopathy, lumbar region (principal); M51.17 Intervertebral disc disorders with radiculopathy, lumbosacral region; M47.26 Other spondylosis with radiculopathy, lumbar region; M47.27 Other spondylosis with radiculopathy, lumbosacral region; M48.061 Spinal stenosis, lumbar region without neurogenic claudication; M48.07 Spinal stenosis, lumbosacral region; M25.551 Pain in right hip; G89.29 Other chronic pain
CPT/HCPCS: 72148

== ENCOUNTER 2022-03-06 12:40 | Outpatient (CLI) | payer MEDICARE, SELFPAY ==
[2022-03-06] VITALS (8 sets, daily range): BP systolic 130–165; BP diastolic 79–98; PULSE 66–74; RESP 12–22; TEMP 36.2; O2SAT 96–97
--- NOTE | 2022-03-06 12:42 | DI.RAD.S_ITS ---
PROCEDURE: PAIN L INTERLAMINAR/CAUDAL INJ INDICATIONS: SPONDYLOSIS COMPARISON: None. FINDINGS: Fluoroscopic spot filming was performed to verify placement of spinal needles at the right L2-3 level(s), as labeled on the films. Appropriate location(s) of the needle tip(s) was confirmed by injection of iodinated contrast. IMPRESSION: Right L2-3 foraminal injection. Dictated by: Lu Gary M.D. on 03/06/2022 at 18:15 Approved by: Lu Gary M.D. on 03/06/2022 at 18:16
[2022-03-06] MEDS: MIDAZOLAM 2 MG/2 ML VIAL IV (13:27)
[2022-03-06] MEDS: IOPAMIDOL 15 ML VIAL 3 ML INJ (13:33)
[2022-03-06] MEDS: BUPIVACAINE 0.25% (PF) VIAL 2 ML INJ (13:34)
[2022-03-06] MEDS: BETAMETHASONE 30 MG/5 ML MDV 12 MG IM (13:35)
[2022-03-06] MEDS: DEXAMETHASONE 10 MG/ML VIAL 20 MG INJ (13:35)
--- NOTE | 2022-03-06 13:42 | PM.PROC.IR.1 ---
Date/Time/Diagnoses Date of procedure: 03/06/22 Time of procedure: 13:42 Pre-procedure diagnosis: 1. HNP WITH RADICULAR FEATURES, 2. MULTILEVEL CENTRAL STENOSIS, Post-procedure diagnosis: same Procedure Notes Procedure: 1. FLUOROSCOPICALLY GUIDED CONTRAST CONTROLLED INTERLAMINAR EPIDURAL STEROID INJECTION - L2/3 Indications: Juan is referred by Dr. Claudio for treatment of Bilateral Foraminal Stenosis L>R LE symptoms. Physician: Anthony Zhang Total Fluoroscopy time (seconds): 9 Total sedation minutes: 11 Complications: none Procedure in detail & Post-procedure care: FINDINGS Multilevel Central Spinal Stenosis with Nerve Root Compression DESCRIPTION OF PROCEDURE Fluoroscopically guided, contrast-controlled L2/3 translaminar epidural steroid injection. Following review of allergy and review of potential side effects and complications, including, but not necessarily limited to, infection, allergic reaction, local tissue breakdown, temporary as well as permanent nerve injury, paralysis, stroke and possible , the patient indicated that the patient understood and agreed to proceed. An informed consent document was signed by the patient, witnessed by a nurse, and placed in the patient's chart. Additionally, other treatment options including modalities, medications, and physical therapy were reviewed with the patient. After review of previous anaesthesic history and IV conscious sedation the patient was deemed safe to proceed with today?s procedure with IV conscious sedation as ASA class II designation. Safety time-out was performed to confirm patient ID, procedure to be performed and site of procedure. IV sedation was accomplished with a combination of 2mg Versed administered by the RN after DO order, titrated to patient comfort during the course of the procedure while the patient remained responsive to all verbal commands. In the prone position, following sterile prep and drape of the lumbar region,the L2/3 translaminar space was identified fluoroscopically. The skin was anesthetized via a 25-gauge, 1.5-inch needle with 1% lidocaine solution. At this point, a 22-gauge short bevel spinal needle was atraumatically introduced and advanced under fluoroscopic guidance into the region of the L2/3 translaminar space. Depth was confirmed on lateral view. Radiological data, including multiple fluoroscopic views of the lumbar spine, reveal a spinal needle at the L2/3 translaminar space. Lateral views then show placement of the needle in the epidural space. Subsequent views show contrast material flowing superiorly and inferiorly in the epidural space. No vascular or intrathecal uptake is observed. At this point, using loss of resistance technique with saline and air, the epidural space was entered. This was confirmed following negative aspiration with injection of approximately 1.5 cc of Isovue 200, showing excellent epidural flow without vascular or intrathecal uptake. At this point, 1 cc of 1% lidocaine solution combined with 3cc or 20mg of dexamethasone and 6mg of betamethasone was injected without incident. The patient tolerated the procedure well without signs or symptoms of complications prior to transfer to the recovery area continued monitoring without incident. The patient was then transferred to the recovery area where they were observed for an appropriate period of time after the injection. The patient reported a VAS score of 6 prior to the procedure and a post-procedure VAS of 0. POST OP INSTRUCTIONS The patient was provided a Pain Log to continue to record their response to the target-specific procedure prior to follow-up visit with their referring physician. Additionally, specific post-injection care instructions and a contact number to our office were provided if concerns arise regarding possible complications associated with the procedure are suspected.
== END 2022-03-06 14:05 | disposition home or self-care (01) ==
PROVIDERS: PCP Family Medicine; Referring Provider Physical Medicine & Rehabilitation; Visit Provider Physical Medicine & Rehabilitation
DX: M51.16 Intervertebral disc disorders with radiculopathy, lumbar region (principal); M48.061 Spinal stenosis, lumbar region without neurogenic claudication
CPT/HCPCS: 62323; 99152; J0702; J1100; J2250; J3490

== ENCOUNTER → 2022-03-12 13:26 | Outpatient (CLI) | payer MEDICARE, SELFPAY ==
--- NOTE | 2022-03-12 13:27 | DI.RAD.S_ITS ---
PROCEDURE: XR HIP W PEL IF DONE RT 2V INDICATIONS: RIGHT HIP OSTEOARTHRITIS TECHNIQUE: 2 views of the hip were acquired. COMPARISON: [facility], CR, XR HIP W PEL IF DONE RT 2V, 08/11/2021, 13:37. FINDINGS: Bones: Moderate right and mild left hip arthrosis. Lumbosacral spondylosis partially seen. Soft tissues: No suspicious soft tissue calcifications or masses. IMPRESSION: Moderate right and mild left hip arthrosis. If there is high concern for further derangement, consider MRI evaluation. Dictated by: Polo Abdullahi M.D. on 03/12/2022 at 17:17 Approved by: Polo Abdullahi M.D. on 03/12/2022 at 17:18
== END ==
PROVIDERS: PCP Family Medicine; Referring Provider Family Medicine; Visit Provider Family Medicine
DX: M16.0 Bilateral primary osteoarthritis of hip (principal)
CPT/HCPCS: 73502

== ENCOUNTER 2022-06-01 09:45 | Outpatient (RCR) | payer MEDICARE, SELFPAY ==
--- NOTE | 2022-02-12 20:33 | PT.OIE ---
Current Diagnoses Other chronic pain (02/12/22) Pain in right hip (02/12/22) Lumbago with sciatica, right side (02/12/22) Lumbago with sciatica, left side (02/12/22) Past Medical History (Last Reviewed 01/24/22 @ 10:43 by Anthony Zhang DO) Abdominal hernia Bilateral inguinal hernia CAD (coronary artery disease) Carpal tunnel syndrome Cataracts, bilateral Chronic back pain (~1977) CKD (chronic kidney disease) Degenerative joint disease of right hip Hearing loss HLD (hyperlipidemia) Inguinal hernia LBBB (left bundle branch block) Lumbar radiculopathy Multilevel lumbosacral spondylosis with radiculopathy Suspected sleep apnea Tinnitus Past Surgical History (Last Reviewed 01/24/22 @ 10:43 by Anthony Zhang DO) Anesthesia Hx of bilateral inguinal hernia repair (11/07/20) Hx of carpal tunnel repair Hx of cholecystectomy (~2019) Hx of heart artery stent (~2005) Hx of neck surgery (~2018) Visit Care Team Role Provider Type Tim Claudio MD Attending Provider Physician Primary Care Provider Referring Provider Specialty: [facility] Address: [address] [place] [address] Email: [email or web address] Physical Therapy Initial Evaluation PT-OP-A Visit Information Start: 02/09/22 12:20 Freq: Status: Active Protocol: Document 02/12/22 08:57 AMB (Rec: 02/12/22 09:58 AMB [id number]) Out-Patient Physical Therapy Visit Information Visit Information Visit Type Initial Evaluation Visit Start Time 09:00 Visit Stop Time 09:45 Total Visit Minutes 45 Visit Number 1 Precautions Precautions Pt gets dizzy with lying completely flat without pillows, no vestibular cause was found during evaluation. PT-OP-B Current Condition Start: 02/09/22 12:20 Freq: Status: Active Protocol: Document 02/12/22 08:57 AMB (Rec: 02/12/22 09:58 AMB [id number]) Current Condition History of Current Condition Onset Date 3-4 years Current Complaints R anterior hip pain History of Current Condition STanding and walking increase back and right hip pain. Back has been a problem for a while , hip more recently but really has been years. Has had problems with the back since the 70's. Sitting/lying down helps the pain. Most concerned about pain in the front of the hip, not really the groin. Gets very dizzy when lying down flat, at least a year- motion sickness ( nausea), but is fine as long as he has some pillows. Treatment Goals Patient/Caregiver Goals Reduce anterior hip pain so can tolerate more walking/ standing. Personal Factors Other Personal Factors That May Effect Cardiac stent, C spine Therapy/Recovery laminectomy, carpal tunnel releases. PT-OP-C Subjective Start: 02/09/22 12:20 Freq: Status: Active Protocol: Document 02/12/22 09:00 AMB (Rec: 02/12/22 11:01 AMB [id number]) Patient Questionnaires Oswestry Low Back Index Oswestry Score 30 Oswestry Impairment 20 to 39% Impaired (Score 20- 39) PT-OP-J Posture/Palpation/Skin Start: 02/09/22 12:20 Freq: Status: Active Protocol: Document 02/12/22 09:00 AMB (Rec: 02/13/22 15:44 [facility] [id number]-) Posture Evaluation Comments Posture Comments Flat lumbar spine and forward head positioning PT-OP-K Range of Motion Start: 02/09/22 12:20 Freq: Status: Active Protocol: Document 02/12/22 09:00 AMB (Rec: 02/12/22 13:00 AMB [id number]) Lumbar Spine Range of Motion Lumbar Spine Active Degrees Flexion 60 Extension 5 Lateral Flexion Left 25 Lateral Flexion Right 15 Hip Goniometric Range of Motion Hip Right Passive Testing Position Supine Flexion w/Knee Flexed 108 Internal Rotation 0 External Rotation 35 Left Passive Flexion w/Knee Flexed 110 Internal Rotation 25 External Rotation 45 PT-OP-M Strength Start: 02/09/22 12:20 Freq: Status: Active Protocol: Document 02/12/22 09:00 AMB (Rec: 02/13/22 15:44 [facility] [id number]-) Hip Strength Hip Manual Muscle Testing Right Flexion (L2) 4- Good- Extension (S1) 4 Good Abduction 4 Good Left Flexion (L2) 4 Good Extension (S1) 4+ Good+ Abduction 4 Good Knee Strength Knee Manual Muscle Testing Right Flexion (S2) 5 Normal Extension (L3) 5 Normal Left Flexion (S2) 5 Normal Extension (L3) 5 Normal PT-OP-O Vestibular Start: 02/13/22 16:04 Freq: Status: Active Protocol: Document 02/13/22 20:25 AMB (Rec: 02/13/22 20:31 AMB [id number]-) Vestibular Assessment Positional Testing Nima-Hallpike Negative Left,Negative Right Comments Vestibular Comments Pt reported double vision with L dixhallpike but otherwise did not have dizziness or reproduction of sx that he gets when lying down flat. PT-OP-Q Treatments Start: 02/09/22 12:20 Freq: Status: Active Protocol: Document 02/12/22 09:00 AMB (Rec: 02/13/22 15:44 AMB [id number]-) Therapeutic Exercises Standing Exercises 1 Standing Exercise Name hip flexor stretch Side right Reps/Minutes 30x2 Comments gentle PT-OP-T Assessment and Plan Start: 02/09/22 12:20 Freq: Status: Active Protocol: Document 02/12/22 09:00 AMB (Rec: 02/13/22 16:03 AMB [id number]-) Physical Therapy Assessment Rehab Potential Rehabilitation Potential Good Evaluation Complexity Number of Personal Factors/Comorbidities 1-2 Number of Body Systems Impaired 4 or More Clinical Presentation at Evaluation Evolving Impairments Impairments Activity Tolerance,Functional Activities,Gait,Posture,ROM, Strength Goals Two Impairment Activity tolerance Short Term Goal (STG) Mark will move from sit to stand without hip pain. STG Duration 5 weeks Intermediate Goal (LTG) Mark will walk for 1 mile without an increase in baseline hip pain. LTG Duration 10 weeks One Impairment ROM Short Term Goal (STG) Mark will improve his hip flexion ROM to 115 degrees without an increase in pain. STG Duration 5 weeks Intermediate Goal (LTG) Mark will be independent and a HEP and self massage techniques to reduce his right hip pain. LTG Duration 10 weeks Assessment Summary Assessment Mark attends physical therapy with known lumbar and hip degenerative changes and long standing back pain. He had back pain most pronounced with MMT of the hip, and will therefore benefit from core stability training for his back pain. He is most concerned with his newer onset anterior hip pain. He did have tenderness and pain with stretching and palpation of iliopsoas and considerable loss of range with internal rotation and to a lesser degree hip flexion and external rotation. He will benefit from physical therapy to improve his standing and walking tolerance, improve his core stability and hip flexibility. Physical Therapy Plan Frequency and Duration Frequency of Treatment 2x/Week Duration of Treatment 10 weeks Plan of Care Start Date 02/12/22 Plan of Care End Date 04/23/22 Therapeutic Interventions Therapeutic Interventions Aquatic Therapy,Gait Training, Home Exercise Program,Manual Therapy,Neuromuscular Re- education,Self-Care/Home Management,Therapeutic Activities,Therapeutic Exercises Modalities Cold Pack/Ice Massage,Electric Stimulation,Hot Packs, Ultrasound Next Visit Focus/Plan Next Note Type Treatment Note Next Visit Plan Follow up on standing hip flexor stretch, begin core stabilization
--- NOTE | 2022-02-12 20:34 | PT.OPPOC ---
Physical, Occupational & Speech Therapy At [facility] Current Diagnoses Other chronic pain (02/12/22) Pain in right hip (02/12/22) Lumbago with sciatica, right side (02/12/22) Lumbago with sciatica, left side (02/12/22) Visit Care Team Role Provider Type Tim Claudio MD Attending Provider Physician Primary Care Provider Referring Provider Specialty: Family Practice Address: [address] [place] [address], [facility] Email: [email or web address] Plan Of Care PT-OP-T Assessment and Plan Start: 02/09/22 12:20 Freq: Status: Active Protocol: Document 02/12/22 09:00 AMB (Rec: 02/13/22 16:03 AMB [id number]) Physical Therapy Assessment Rehab Potential Rehabilitation Potential Good Evaluation Complexity Number of Personal Factors/Comorbidities 1-2 Number of Body Systems Impaired 4 or More Clinical Presentation at Evaluation Evolving Impairments Impairments Activity Tolerance,Functional Activities,Gait,Posture,ROM, Strength Goals Two Impairment Activity tolerance Short Term Goal (STG) Mark will move from sit to stand without hip pain. STG Duration 5 weeks [facility] Goal (LTG) Mark will walk for 1 mile without an increase in baseline hip pain. LTG Duration 10 weeks One Impairment ROM Short Term Goal (STG) Mark will improve his hip flexion ROM to 115 degrees without an increase in pain. STG Duration 5 weeks Sedimentationist Goal (LTG) Mark will be independent and a HEP and self massage techniques to reduce his right hip pain. LTG Duration 10 weeks Assessment Summary Assessment Mark attends physical therapy with known lumbar and hip degenerative changes and long standing back pain. He had back pain most pronounced with MMT of the hip, and will therefore benefit from core stability training for his back pain. He is most concerned with his newer onset anterior hip pain. He did have tenderness and pain with stretching and palpation of iliopsoas and considerable loss of range with internal rotation and to a lesser degree hip flexion and external rotation. He will benefit from physical therapy to improve his standing and walking tolerance, improve his core stability and hip flexibility. Physical Therapy Plan Frequency and Duration Frequency of Treatment 2x/Week Duration of Treatment 10 weeks Plan of Care Start Date 02/12/22 Plan of Care End Date 04/23/22 Therapeutic Interventions Therapeutic Interventions Aquatic Therapy,Gait Training, Home Exercise Program,Manual Therapy,Neuromuscular Re- education,Self-Care/Home Management,Therapeutic Activities,Therapeutic Exercises Modalities Cold Pack/Ice Massage,Electric Stimulation,Hot Packs, Ultrasound Next Visit Focus/Plan Next Note Type Treatment Note Next Visit Plan Follow up on standing hip flexor stretch, begin core stabilization Plan of Care Dates Plan of Care Start Date 02/12/22 Plan of Care End Date 04/23/22 Electronically Signed by: Taryn Mccollum, PT 02/13/220 If you are in agreement with this Plan of Care, please return a signed and dated copy. I have reviewed this Plan of Care and certify that the skilled therapy services above are required to meet the patient?s needs. Physician Signature Date Printed Name and Credentials Clinical Instructor Signature Printed Name and Credentials
--- NOTE | 2022-02-14 16:33 | PT.OTN ---
Current Diagnoses Other chronic pain (02/14/22) Pain in right hip (02/14/22) Lumbago with sciatica, right side (02/14/22) Lumbago with sciatica, left side (02/14/22) Physical Therapy Treatment Note PT-OP-A Visit Information Start: 02/09/22 12:20 Freq: Status: Active Protocol: Document 02/14/22 08:14 SAK (Rec: 02/14/22 09:04 SAK [id number]) Out-Patient Physical Therapy Visit Information Visit Information Visit Type Initial Evaluation Visit Start Time 08:15 Visit Stop Time 09:10 Total Visit Minutes 55 Visit Number 2 Precautions Precautions Pt gets dizzy with lying completely flat without pillows, no vestibular cause was found during evaluation. PT-OP-B Current Condition Start: 02/09/22 12:20 Freq: Status: Active Protocol: Document 02/12/22 08:57 AMB (Rec: 02/12/22 09:58 AMB [id number]) Current Condition History of Current Condition Onset Date 3-4 years Current Complaints R anterior hip pain History of Current Condition STanding and walking increase back and right hip pain. Back has been a problem for a while , hip more recently but really has been years. Has had problems with the back since the 70's. Sitting/lying down helps the pain. Most concerned about pain in the front of the hip, not really the groin. Gets very dizzy when lying down flat, at least a year- motion sickness ( nausea), but is fine as long as he has some pillows. Treatment Goals Patient/Caregiver Goals Reduce anterior hip pain so can tolerate more walking/ standing. Personal Factors Other Personal Factors That May Effect Cardiac stent, C spine Therapy/Recovery laminectomy, carpal tunnel releases. PT-OP-C Subjective Start: 02/09/22 12:20 Freq: Status: Active Protocol: Document 02/14/22 08:14 SAK (Rec: 02/14/22 09:04 SAK [id number]) OP-PT Subjective Patient Comments Patient Comments sore after first visit. States limping may be both due to pain as well as habit. PT-OP-J Posture/Palpation/Skin Start: 02/09/22 12:20 Freq: Status: Active Protocol: Document 02/12/22 09:00 AMB (Rec: 02/13/22 15:44 AMB [id number]) Posture Evaluation Comments Posture Comments Flat lumbar spine and forward head positioning PT-OP-K Range of Motion Start: 02/09/22 12:20 Freq: Status: Active Protocol: Document 02/12/22 09:00 AMB (Rec: 02/12/22 13:00 AMB [id number]) Lumbar Spine Range of Motion Lumbar Spine Active Degrees Flexion 60 Extension 5 Lateral Flexion Left 25 Lateral Flexion Right 15 Hip Goniometric Range of Motion Hip Right Passive Testing Position Supine Flexion w/Knee Flexed 108 Internal Rotation 0 External Rotation 35 Left Passive Flexion w/Knee Flexed 110 Internal Rotation 25 External Rotation 45 PT-OP-M Strength Start: 02/09/22 12:20 Freq: Status: Active Protocol: Document 02/12/22 09:00 AMB (Rec: 02/13/22 15:44 AMB [id number]) Hip Strength Hip Manual Muscle Testing Right Flexion (L2) 4- Good- Extension (S1) 4 Good Abduction 4 Good Left Flexion (L2) 4 Good Extension (S1) 4+ Good+ Abduction 4 Good Knee Strength Knee Manual Muscle Testing Right Flexion (S2) 5 Normal Extension (L3) 5 Normal Left Flexion (S2) 5 Normal Extension (L3) 5 Normal PT-OP-O Vestibular Start: 02/13/22 16:04 Freq: Status: Active Protocol: Document 02/13/22 20:25 AMB (Rec: 02/13/22 20:31 AMB [id number]) Vestibular Assessment Positional Testing Nima-Hallpike Negative Left,Negative Right Comments Vestibular Comments Pt reported double vision with L dixhallpike but otherwise did not have dizziness or reproduction of sx that he gets when lying down flat. PT-OP-Q Treatments Start: 02/09/22 12:20 Freq: Status: Active Protocol: Document 02/14/22 08:14 SAK (Rec: 02/14/22 09:04 SAK [id number]) Cardio Equipment Recumbent Stepper (Sci-Fit) Duration (Minutes) 5 Resistance 1 Other cues for neutral LE alignment Therapeutic Exercises Supine Exercises glut set Reps/Minutes 10x Comments cues for core engagement bent knee fall out Reps/Minutes 5x Comments cues for core engagement supine automatic core engagement Supine Exercise Name isometric resisted UE's (UE's at 90 deg flex) Resistance manual Reps/Minutes 5x Comments diagonal push 1 Supine Exercise Name SKTC Reps/Minutes 30x2 Standing Exercises resisted sidestepping Equipment Used yellow band Reps/Minutes 10 ft x 1 chair squzat Reps/Minutes 10x 2 Standing Exercise Name quad stretch Equipment Used chair Reps/Minutes 30 x 2 Comments gentle 1 Standing Exercise Name hip flexor stretch Side right Reps/Minutes 30x2 Comments gentle Gait Training Gait Activity 2 Description mirror for visual feedback Device Used none Level of Assistance verbal cues Surface firm Treatment Focus no limp Manual Therapy Treatment Soft Tissue Mobilization hip flexor Body Location right Mobilization Type Sustained Pressure Intensity/Depth Moderate Body Position Hooklying Self-Care/Home Management Treatment Education Patient Education Home Exercise Program,Pain Management PT-OP-T Assessment and Plan Start: 02/09/22 12:20 Freq: Status: Active Protocol: Document 02/14/22 08:14 [facility] (Rec: 02/14/22 09:04 [facility] [id number]) Physical Therapy Assessment Impairments Impairments Activity Tolerance,Functional Activities,Gait,Posture,ROM, Strength Goals Two Impairment Activity tolerance Short Term Goal (STG) Mark will move from sit to stand without hip pain. STG Duration 5 weeks Junior Account Manager Goal (LTG) Mark will walk for 1 mile without an increase in baseline hip pain. LTG Duration 10 weeks One Impairment ROM Short Term Goal (STG) Mark will improve his hip flexion ROM to 115 degrees without an increase in pain. STG Duration 5 weeks Junior Account Manager Goal (LTG) Mark will be independent and a HEP and self massage techniques to reduce his right hip pain. LTG Duration 10 weeks Assessment Summary Assessment Mark walked into PT with significant limp, though able to minimize with attention to gait, verbal and visual feedback. Progressed ther ex with hip strengthening and core strengthening/ stabilization with good tolerance. Trial hip flexor mobilization and ice pack to end treatment. Physical Therapy Plan Frequency and Duration Frequency of Treatment 2x/Week Duration of Treatment 10 weeks Plan of Care Start Date 02/12/22 Plan of Care End Date 04/23/22 Therapeutic Interventions Therapeutic Interventions Aquatic Therapy,Gait Training, Home Exercise Program,Manual Therapy,Neuromuscular Re- education,Self-Care/Home Management,Therapeutic Activities,Therapeutic Exercises Modalities Cold Pack/Ice Massage,Electric Stimulation,Hot Packs, Ultrasound Next Visit Focus/Plan Next Note Type Treatment Note Next Visit Plan assess response to today's treatment, progress as tolerated. Consider joint mobs right hip
--- NOTE | 2022-02-19 10:45 | PT.OTN ---
Current Diagnoses Other chronic pain (02/19/22) Pain in right hip (02/19/22) Lumbago with sciatica, right side (02/19/22) Lumbago with sciatica, left side (02/19/22) Physical Therapy Treatment Note PT-OP-A Visit Information Start: 02/09/22 12:20 Freq: Status: Active Protocol: Document 02/19/22 09:59 NBM (Rec: 02/19/22 10:36 NBM [id number]) Out-Patient Physical Therapy Visit Information Visit Information Visit Type Treatment Note Visit Start Time 09:47 Visit Stop Time 10:31 Total Visit Minutes 44 Visit Number 3 Number of VENEER MARKER Visits 1 PT-OP-B Current Condition Start: 02/09/22 12:20 Freq: Status: Active Protocol: Document 02/12/22 08:57 AMB (Rec: 02/12/22 09:58 AMB [id number]) Current Condition History of Current Condition Onset Date 3-4 years Current Complaints R anterior hip pain History of Current Condition STanding and walking increase back and right hip pain. Back has been a problem for a while , hip more recently but really has been years. Has had problems with the back since the 70's. Sitting/lying down helps the pain. Most concerned about pain in the front of the hip, not really the groin. Gets very dizzy when lying down flat, at least a year- motion sickness ( nausea), but is fine as long as he has some pillows. Treatment Goals Patient/Caregiver Goals Reduce anterior hip pain so can tolerate more walking/ standing. Personal Factors Other Personal Factors That May Effect Cardiac stent, C spine Therapy/Recovery laminectomy, carpal tunnel releases. PT-OP-C Subjective Start: 02/09/22 12:20 Freq: Status: Active Protocol: Document 02/19/22 09:59 NBM (Rec: 02/19/22 10:36 NBM [id number]) OP-PT Subjective Patient Comments Patient Comments Pt reports he had a good sore after last visit. He tried shortening his stride w/ walking but the hip pain was very painful and started sooner. PT-OP-J Posture/Palpation/Skin Start: 02/09/22 12:20 Freq: Status: Active Protocol: Document 02/12/22 09:00 AMB (Rec: 02/13/22 15:44 AMB [id number]) Posture Evaluation Comments Posture Comments Flat lumbar spine and forward head positioning PT-OP-K Range of Motion Start: 02/09/22 12:20 Freq: Status: Active Protocol: Document 02/12/22 09:00 AMB (Rec: 02/12/22 13:00 AMB [id number]) Lumbar Spine Range of Motion Lumbar Spine Active Degrees Flexion 60 Extension 5 Lateral Flexion Left 25 Lateral Flexion Right 15 Hip Goniometric Range of Motion Hip Right Passive Testing Position Supine Flexion w/Knee Flexed 108 Internal Rotation 0 External Rotation 35 Left Passive Flexion w/Knee Flexed 110 Internal Rotation 25 External Rotation 45 PT-OP-M Strength Start: 02/09/22 12:20 Freq: Status: Active Protocol: Document 02/12/22 09:00 AMB (Rec: 02/13/22 15:44 AMB [id number]) Hip Strength Hip Manual Muscle Testing Right Flexion (L2) 4- Good- Extension (S1) 4 Good Abduction 4 Good Left Flexion (L2) 4 Good Extension (S1) 4+ Good+ Abduction 4 Good Knee Strength Knee Manual Muscle Testing Right Flexion (S2) 5 Normal Extension (L3) 5 Normal Left Flexion (S2) 5 Normal Extension (L3) 5 Normal PT-OP-O Vestibular Start: 02/13/22 16:04 Freq: Status: Active Protocol: Document 02/13/22 20:25 AMB (Rec: 02/13/22 20:31 AMB [id number]) Vestibular Assessment Positional Testing [place]-Hallpike Negative Left,Negative Right Comments Vestibular Comments Pt reported double vision with L dixhallpike but otherwise did not have dizziness or reproduction of sx that he gets when lying down flat. PT-OP-Q Treatments Start: 02/09/22 12:20 Freq: Status: Active Protocol: Document 02/19/22 09:59 NBM (Rec: 02/19/22 10:36 NBM [id number]) Cardio Equipment Recumbent Stepper (Sci-Fit) Duration (Minutes) 6 Resistance 1 Other cues for neutral LE alignment Therapeutic Exercises Supine Exercises glut set Reps/Minutes 10x Comments cues for core engagement bent knee fall out Side bilateral Reps/Minutes 12x ea Comments tactile cues for core engagement Standing Exercises resisted sidestepping Equipment Used yellow band Reps/Minutes 10 ft x 4 chair squzat Reps/Minutes 2 x 10 Comments cues for knee alignment, hip hinge 2 Standing Exercise Name quad stretch - added to HEP Equipment Used chair>step so pt has MASSEUR/MASSEUSE like at home Reps/Minutes 30 x 2 Comments gentle 1 Standing Exercise Name hip flexor stretch Side right Reps/Minutes 30x2 Comments gentle Manual Therapy Treatment Soft Tissue Mobilization hip flexor Body Location right Mobilization Type Sustained Pressure Intensity/Depth Moderate Body Position Hooklying Comments illiopsoas release - good feedback response Self-Care/Home Management Treatment Education Patient Education Home Exercise Program Other Education Quad stretch w/ step and MASSEUR/MASSEUSE added to HEP - HO given PT-OP-T Assessment and Plan Start: 02/09/22 12:20 Freq: Status: Active Protocol: Document 02/19/22 09:59 NB (Rec: 02/19/22 10:36 NB [id number]) Physical Therapy Assessment Goals Two Impairment Activity tolerance Short Term Goal (STG) Skip will move from sit to stand without hip pain. STG Duration 5 weeks Long-Term Goal (LTG) Skip will walk for 1 mile without an increase in baseline hip pain. LTG Duration 10 weeks One Impairment ROM Short Term Goal (STG) Skip will improve his hip flexion ROM to 115 degrees without an increase in pain. STG Duration 5 weeks Knit Tubing Dyer Goal (LTG) Skip will be independent and a HEP and self massage techniques to reduce his right hip pain. LTG Duration 10 weeks Assessment Summary Assessment Decreased palpable tightness to hip flexors with manual therapy and good feedback response. Improved self- awareness of knee alignment w/ cueing and repetition. Pt challenged w/ core engagement w/ bent knee fall out ex. Quad stretch on stairs added to HEP - HO given. Physical Therapy Plan Next Visit Focus/Plan Next Note Type Treatment Note Next Visit Plan assess response to today's treatment, review HEP, progress as tolerated. Consider joint mobs right hip
--- NOTE | 2022-02-23 10:30 | PT.OTN ---
Current Diagnoses Other chronic pain (02/23/22) Pain in right hip (02/23/22) Lumbago with sciatica, right side (02/23/22) Lumbago with sciatica, left side (02/23/22) Physical Therapy Treatment Note PT-OP-A Visit Information Start: 02/09/22 12:20 Freq: Status: Active Protocol: Document 02/23/22 09:50 SP (Rec: 02/23/22 10:36 SP [id number]) Out-Patient Physical Therapy Visit Information Visit Information Visit Type Treatment Note Visit Start Time 09:50 Visit Stop Time 10:30 Total Visit Minutes 40 Visit Number 4 Number of BREAKFAST SERVER Visits 2 Precautions Precautions Pt gets dizzy with lying completely flat without pillows, no vestibular cause was found during evaluation. PT-OP-B Current Condition Start: 02/09/22 12:20 Freq: Status: Active Protocol: Document 02/12/22 08:57 AMB (Rec: 02/12/22 09:58 AMB [id number]) Current Condition History of Current Condition Onset Date 3-4 years Current Complaints R anterior hip pain History of Current Condition STanding and walking increase back and right hip pain. Back has been a problem for a while , hip more recently but really has been years. Has had problems with the back since the 70's. Sitting/lying down helps the pain. Most concerned about pain in the front of the hip, not really the groin. Gets very dizzy when lying down flat, at least a year- motion sickness ( nausea), but is fine as long as he has some pillows. Treatment Goals Patient/Caregiver Goals Reduce anterior hip pain so can tolerate more walking/ standing. Personal Factors Other Personal Factors That May Effect Cardiac stent, C spine Therapy/Recovery laminectomy, carpal tunnel releases. PT-OP-C Subjective Start: 02/09/22 12:20 Freq: Status: Active Protocol: Document 02/23/22 09:50 SP (Rec: 02/23/22 10:36 SP [id number]) OP-PT Subjective Patient Comments Patient Comments Pt reported still gets dizzy flat supine without pillows. He reported was really hurting miserable anterior R hip/ groin pain after last tx for 2 days affecting walking, sleeping positioning. He states is side sleeper and uses special pillow between legs. PT-OP-J Posture/Palpation/Skin Start: 02/09/22 12:20 Freq: Status: Active Protocol: Document 02/12/22 09:00 AMB (Rec: 02/13/22 15:44 AMB [id number]) Posture Evaluation Comments Posture Comments Flat lumbar spine and forward head positioning PT-OP-K Range of Motion Start: 02/09/22 12:20 Freq: Status: Active Protocol: Document 02/12/22 09:00 AMB (Rec: 02/12/22 13:00 AMB [id number]) Lumbar Spine Range of Motion Lumbar Spine Active Degrees Flexion 60 Extension 5 Lateral Flexion Left 25 Lateral Flexion Right 15 Hip Goniometric Range of Motion Hip Right Passive Testing Position Supine Flexion w/Knee Flexed 108 Internal Rotation 0 External Rotation 35 Left Passive Flexion w/Knee Flexed 110 Internal Rotation 25 External Rotation 45 PT-OP-M Strength Start: 02/09/22 12:20 Freq: Status: Active Protocol: Document 02/12/22 09:00 AMB (Rec: 02/13/22 15:44 AMB [id number]-) Hip Strength Hip Manual Muscle Testing Right Flexion (L2) 4- Good- Extension (S1) 4 Good Abduction 4 Good Left Flexion (L2) 4 Good Extension (S1) 4+ Good+ Abduction 4 Good Knee Strength Knee Manual Muscle Testing Right Flexion (S2) 5 Normal Extension (L3) 5 Normal Left Flexion (S2) 5 Normal Extension (L3) 5 Normal PT-OP-O Vestibular Start: 02/13/22 16:04 Freq: Status: Active Protocol: Document 02/13/22 20:25 AMB (Rec: 02/13/22 20:31 AMB [id number]-) Vestibular Assessment Positional Testing [place]-Hallpike Negative Left,Negative Right Comments Vestibular Comments Pt reported double vision with L dixhallpike but otherwise did not have dizziness or reproduction of sx that he gets when lying down flat. PT-OP-Q Treatments Start: 02/09/22 12:20 Freq: Status: Active Protocol: Document 02/23/22 09:50 SP (Rec: 02/23/22 10:36 SP [id number]) Cardio Equipment Recumbent Stepper (Sci-Fit) Duration (Minutes) 6 Resistance 2 Seat Position 10 Other good LE alignment, UEs/ LEs- 0 .80 miles Therapeutic Exercises Supine Exercises fig 4 stretch Supine Exercise Name added to HEP Side bilateral Equipment Used use strap on ankel Reps/Minutes 30 Comments intially ITB then got adductor stretch- zeferino shin stretch Supine Exercise Name added to HEP Side right Reps/Minutes 30 x2 Comments cued neutral TA needed LB allow anterior hip stretch bent knee fall out Supine Exercise Name HEP reviewed Side bilateral Reps/Minutes 12x ea Comments tactile cues for core engagement- little burning end range- told not far Manual Therapy Treatment Soft Tissue Mobilization hip flexor Body Location right iliacus, psoas, TFL, pectineus, glut med Mobilization Type Strumming,Sustained Pressure Intensity/Depth Moderate Body Position Hooklying Comments illiopsoas release - good feedback response, little sore over adductor and distal TFL better with time spent. Self-Care/Home Management Treatment Education Patient Education Home Exercise Program,Pain Management Other Education Intiated kip and fig 4 stretch, provided HOs and scanned in. PT-OP-T Assessment and Plan Start: 02/09/22 12:20 Freq: Status: Active Protocol: Document 02/23/22 09:50 SP (Rec: 02/23/22 10:36 SP [id number]) Physical Therapy Assessment Goals Two Impairment Activity tolerance Short Term Goal (STG) Skip will move from sit to stand without hip pain. STG Duration 5 weeks Assisted Goal (LTG) Skip will walk for 1 mile without an increase in baseline hip pain. LTG Duration 10 weeks One Impairment ROM Short Term Goal (STG) Skip will improve his hip flexion ROM to 115 degrees without an increase in pain. STG Duration 5 weeks Assisted Goal (LTG) Skip will be independent and a HEP and self massage techniques to reduce his right hip pain. LTG Duration 10 weeks Assessment Summary Assessment Pt reports feels better end and after tx, but has latent response. Pt reported little more movement post manual today, maybe little soreness R anterolateral hip with manual /stretch but not pain. Cues for proper form and mechanics painfree range, instructed continue HEP given in past. Physical Therapy Plan Frequency and Duration Frequency of Treatment 2x/Week Duration of Treatment 10 weeks Plan of Care Start Date 02/12/22 Plan of Care End Date 04/23/22 Therapeutic Interventions Therapeutic Interventions Aquatic Therapy,Gait Training, Home Exercise Program,Manual Therapy,Neuromuscular Re- education,Self-Care/Home Management,Therapeutic Activities,Therapeutic Exercises Modalities Cold Pack/Ice Massage,Electric Stimulation,Hot Packs, Ultrasound Next Visit Focus/Plan Next Note Type Treatment Note Next Visit Plan *Has latent response to new activities/tx. Review HEP. POC: Consider joint mobs right hip progress as tolerated.
--- NOTE | 2022-02-26 11:11 | PT.OTN ---
Current Diagnoses Other chronic pain (02/26/22) Pain in right hip (02/26/22) Lumbago with sciatica, right side (02/26/22) Lumbago with sciatica, left side (02/26/22) Physical Therapy Treatment Note PT-OP-A Visit Information Start: 02/09/22 12:20 Freq: Status: Active Protocol: Document 02/26/22 09:48 NBM (Rec: 02/26/22 11:11 NBM [id number]) Out-Patient Physical Therapy Visit Information Visit Information Visit Type Treatment Note Visit Start Time 09:48 Visit Stop Time 10:45 Total Visit Minutes 57 Visit Number 5 Number of GIS TECHNICIAN Visits 3 PT-OP-B Current Condition Start: 02/09/22 12:20 Freq: Status: Active Protocol: Document 02/12/22 08:57 AMB (Rec: 02/12/22 09:58 AMB [id number]) Current Condition History of Current Condition Onset Date 3-4 years Current Complaints R anterior hip pain History of Current Condition STanding and walking increase back and right hip pain. Back has been a problem for a while , hip more recently but really has been years. Has had problems with the back since the 70's. Sitting/lying down helps the pain. Most concerned about pain in the front of the hip, not really the groin. Gets very dizzy when lying down flat, at least a year- motion sickness ( nausea), but is fine as long as he has some pillows. Treatment Goals Patient/Caregiver Goals Reduce anterior hip pain so can tolerate more walking/ standing. Personal Factors Other Personal Factors That May Effect Cardiac stent, C spine Therapy/Recovery laminectomy, carpal tunnel releases. PT-OP-C Subjective Start: 02/09/22 12:20 Freq: Status: Active Protocol: Document 02/26/22 09:48 NBM (Rec: 02/26/22 11:11 NBM [id number]) OP-PT Subjective Patient Comments Patient Comments Pt reports R hip pain and soreness are affecting his sleep. He was sore after last treatment session and R hip is sore today. 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 He is sleeping on side w/ pillows between legs. PT-OP-J Posture/Palpation/Skin Start: 02/09/22 12:20 Freq: Status: Active Protocol: Document 02/12/22 09:00 AMB (Rec: 02/13/22 15:44 AMB [id number]) Posture Evaluation Comments Posture Comments Flat lumbar spine and forward head positioning PT-OP-K Range of Motion Start: 02/09/22 12:20 Freq: Status: Active Protocol: Document 02/12/22 09:00 AMB (Rec: 02/12/22 13:00 AMB [id number]) Lumbar Spine Range of Motion Lumbar Spine Active Degrees Flexion 60 Extension 5 Lateral Flexion Left 25 Lateral Flexion Right 15 Hip Goniometric Range of Motion Hip Right Passive Testing Position Supine Flexion w/Knee Flexed 108 Internal Rotation 0 External Rotation 35 Left Passive Flexion w/Knee Flexed 110 Internal Rotation 25 External Rotation 45 PT-OP-M Strength Start: 02/09/22 12:20 Freq: Status: Active Protocol: Document 02/12/22 09:00 AMB (Rec: 02/13/22 15:44 AMB [id number]) Hip Strength Hip Manual Muscle Testing Right Flexion (L2) 4- Good- Extension (S1) 4 Good Abduction 4 Good Left Flexion (L2) 4 Good Extension (S1) 4+ Good+ Abduction 4 Good Knee Strength Knee Manual Muscle Testing Right Flexion (S2) 5 Normal Extension (L3) 5 Normal Left Flexion (S2) 5 Normal Extension (L3) 5 Normal PT-OP-O Vestibular Start: 02/13/22 16:04 Freq: Status: Active Protocol: Document 02/13/22 20:25 AMB (Rec: 02/13/22 20:31 AMB [id number]-) Vestibular Assessment Positional Testing [place]ima-Hallpike Negative Left,Negative Right Comments Vestibular Comments Pt reported double vision with L dixhallpike but otherwise did not have dizziness or reproduction of sx that he gets when lying down flat. PT-OP-Q Treatments Start: 02/09/22 12:20 Freq: Status: Active Protocol: Document 02/26/22 09:48 NBM (Rec: 02/26/22 11:11 NBM [id number]) Cardio Equipment Recumbent Stepper (Sci-Fit) Duration (Minutes) 6 Resistance 2 Seat Position 10 Other good LE alignment, UEs/ LEs-1. 12 mi Therapeutic Exercises Supine Exercises glut set Reps/Minutes 10x Comments cues for core focus - bridge attempted dc'd d/t LBP bent knee fall out Side bilateral Reps/Minutes 12x ea Comments tactile cues for core engagement- challenging d/t LBP supine automatic core engagement Supine Exercise Name Tabletop core isometrics: Push /Cross/Pull - added to HEP Resistance manual Reps/Minutes x30s ea Comments Pt able to tolerate w/o increase in baseline symptoms 1 Supine Exercise Name SKTC - R side more uncomfortable than L Reps/Minutes 30x2 Comments Pt notes back is tender but not painful Standing Exercises Calf stretch Standing Exercise Name lunge position Side bilateral Equipment Used rail Reps/Minutes x 45s ea Comments cue for square hips resisted sidestepping Side bilateral Equipment Used yellow band Reps/Minutes 10 ft x 3 ea Comments cue to reach w/ heel/toes fwd Manual Therapy Treatment Soft Tissue Mobilization hip flexor Body Location right TFL, IT band, glute med Mobilization Type Strumming,Sustained Pressure Intensity/Depth Moderate Body Position Hooklying Self-Care/Home Management Treatment Education Patient Education Home Exercise Program,Pain Management Other Education Added tapletop core isometrics (Push, Cross, Pull) to HEP - HO given. Pt encouraged to avoid exercise or stretch into pain above baseline symptoms. PT-OP-R Modalities Start: 02/09/22 12:20 Freq: Status: Active Protocol: Document 02/26/22 09:48 NB (Rec: 02/26/22 11:11 [facility] [id number]) Electric Stimulation Electric Stimulation Interferential Current (IFC) Body Location Lumbar Duration (Minutes) 10 Intensity 13 Patient Position Sidelying Hot Pack/Cold Pack Treatment Cold Pack Location R hip Patient Position Sidelying Treatment Duration (minutes) 10 Patient Tolerance Good Comments during IFC to low back PT-OP-T Assessment and Plan Start: 02/09/22 12:20 Freq: Status: Active Protocol: Document 02/26/22 09:48 NEIL (Rec: 02/26/22 11:11 [facility] [id number]) Physical Therapy Assessment Goals Two Impairment Activity tolerance Short Term Goal (STG) Skip will move from sit to stand without hip pain. STG Duration 5 weeks Knitter Helper Goal (LTG) Skip will walk for 1 mile without an increase in baseline hip pain. LTG Duration 10 weeks One Impairment ROM Short Term Goal (STG) Skip will improve his hip flexion ROM to 115 degrees without an increase in pain. STG Duration 5 weeks Knitter Helper Goal (LTG) Mark will be independent and a HEP and self massage techniques to reduce his right hip pain. LTG Duration 10 weeks Assessment Summary Assessment Treatment focus on hip strengthening to improve R hip pain, core stability to improve low back pain, and IFC E-stim to low back for pain managemnt. Pt demosntrates R hip external rotation with resisted sidestepping which improves with initial cues. Treatment today largely pain- limited due to R hip pain or low back pain and is challenged to engage core with supine exercises. Pt was able to tolerated core isometrics - added to HEP and HO given. Physical Therapy Plan Frequency and Duration Frequency of Treatment 2x/Week Plan of Care Start Date 02/12/22 Therapeutic Interventions Therapeutic Interventions Aquatic Therapy,Gait Training, Home Exercise Program,Manual Therapy,Neuromuscular Re- education,Self-Care/Home Management,Therapeutic Activities,Therapeutic Exercises Modalities Cold Pack/Ice Massage,Electric Stimulation,Hot Packs, Ultrasound Next Visit Focus/Plan Next Note Type Treatment Note Next Visit Plan Assess response to last treatment/e-stim: Review supine HEP: Ferny flores, Figure 4, Tabletop core isometrics *Has latent response to new activities/tx. POC: Consider joint mobs right hip progress as tolerated.
--- NOTE | 2022-03-02 20:32 | PT.OTN ---
Current Diagnoses Other chronic pain (03/02/22) Pain in right hip (03/02/22) Lumbago with sciatica, right side (03/02/22) Lumbago with sciatica, left side (03/02/22) Physical Therapy Treatment Note PT-OP-A Visit Information Start: 02/09/22 12:20 Freq: Status: Active Protocol: Document 03/02/22 09:49 AMB (Rec: 03/02/22 10:32 AMB [id number]) Out-Patient Physical Therapy Visit Information Visit Information Visit Type Treatment Note Visit Start Time 09:48 Visit Stop Time 10:45 Total Visit Minutes 57 Visit Number 6 Number of FIELD COLLECTOR Visits 0 PT-OP-B Current Condition Start: 02/09/22 12:20 Freq: Status: Active Protocol: Document 02/12/22 08:57 AMB (Rec: 02/12/22 09:58 AMB [id number]) Current Condition History of Current Condition Onset Date 3-4 years Current Complaints R anterior hip pain History of Current Condition STanding and walking increase back and right hip pain. Back has been a problem for a while , hip more recently but really has been years. Has had problems with the back since the s. Sitting/lying down helps the pain. Most concerned about pain in the front of the hip, not really the groin. Gets very dizzy when lying down flat, at least a year- motion sickness ( nausea), but is fine as long as he has some pillows. Treatment Goals Patient/Caregiver Goals Reduce anterior hip pain so can tolerate more walking/ standing. Personal Factors Other Personal Factors That May Effect Cardiac stent, C spine Therapy/Recovery laminectomy, carpal tunnel releases. PT-OP-C Subjective Start: 02/09/22 12:20 Freq: Status: Active Protocol: Document 03/02/22 09:49 AMB (Rec: 03/02/22 10:32 AMB [id number]) OP-PT Subjective Patient Comments Patient Comments Pt is getting injections for the pain March 07. PT-OP-J Posture/Palpation/Skin Start: 02/09/22 12:20 Freq: Status: Active Protocol: Document 02/12/22 09:00 AMB (Rec: 02/13/22 15:44 AMB [id number]) Posture Evaluation Comments Posture Comments Flat lumbar spine and forward head positioning PT-OP-K Range of Motion Start: 02/09/22 12:20 Freq: Status: Active Protocol: Document 02/12/22 09:00 AMB (Rec: 02/12/22 13:00 AMB [id number]) Lumbar Spine Range of Motion Lumbar Spine Active Degrees Flexion 60 Extension 5 Lateral Flexion Left 25 Lateral Flexion Right 15 Hip Goniometric Range of Motion Hip Right Passive Testing Position Supine Flexion w/Knee Flexed 108 Internal Rotation 0 External Rotation 35 Left Passive Flexion w/Knee Flexed 110 Internal Rotation 25 External Rotation 45 PT-OP-M Strength Start: 02/09/22 12:20 Freq: Status: Active Protocol: Document 02/12/22 09:00 AMB (Rec: 02/13/22 15:44 AMB [id number]) Hip Strength Hip Manual Muscle Testing Right Flexion (L2) 4- Good- Extension (S1) 4 Good Abduction 4 Good Left Flexion (L2) 4 Good Extension (S1) 4+ Good+ Abduction 4 Good Knee Strength Knee Manual Muscle Testing Right Flexion (S2) 5 Normal Extension (L3) 5 Normal Left Flexion (S2) 5 Normal Extension (L3) 5 Normal PT-OP-O Vestibular Start: 02/13/22 16:04 Freq: Status: Active Protocol: Document 02/13/22 20:25 AMB (Rec: 02/13/22 20:31 AMB [id number]) Vestibular Assessment Positional Testing [place]-Hallpike Negative Left,Negative Right Comments Vestibular Comments Pt reported double vision with L dixhallpike but otherwise did not have dizziness or reproduction of sx that he gets when lying down flat. PT-OP-Q Treatments Start: 02/09/22 12:20 Freq: Status: Active Protocol: Document 03/02/22 09:49 AMB (Rec: 03/02/22 10:32 AMB [id number]) Cardio Equipment Recumbent Stepper (Sci-Fit) Duration (Minutes) 6 Resistance 2 Seat Position 10 Other good LE alignment, UEs/ LEs-1. 12 mi Therapeutic Exercises Supine Exercises fig 4 stretch Supine Exercise Name added to HEP Side bilateral Equipment Used use strap on ankel Reps/Minutes 30 Comments intially ITB then got adductor stretch- ok ferny stretch Supine Exercise Name added to HEP Side right Reps/Minutes 30 x2 Comments cued neutral TA needed LB allow anterior hip stretch 1 Supine Exercise Name SKTC - R side more uncomfortable than L Reps/Minutes 30x2 Comments Pt notes back is tender but not painful Standing Exercises Calf stretch Standing Exercise Name lunge position Side bilateral Equipment Used rail Reps/Minutes x 45s ea Comments cue for square hips 2 Standing Exercise Name quad stretch - added to HEP Equipment Used chair>step so pt has [employer] like at home Reps/Minutes 30 x 2 Comments gentle 1 Standing Exercise Name hip flexor stretch Side right Reps/Minutes 30x2 Comments gentle Manual Therapy Treatment Soft Tissue Mobilization hip flexor Body Location right TFL, IT band, glute med Mobilization Type Strumming,Sustained Pressure Intensity/Depth Moderate Body Position Hooklying PT-OP-R Modalities Start: 02/09/22 12:20 Freq: Status: Active Protocol: Document 03/02/22 09:45 AMB (Rec: 03/04/22 20:32 AMB [id number]) Electric Stimulation Electric Stimulation Interferential Current (IFC) Body Location Lumbar Duration (Minutes) 10 Intensity 13 Patient Position Sidelying Combined With Heat/Cold Cold Pack PT-OP-T Assessment and Plan Start: 02/09/22 12:20 Freq: Status: Active Protocol: Document 03/02/22 09:49 AMB (Rec: 03/02/22 10:32 AMB [id number]) Physical Therapy Assessment Goals Two Impairment Activity tolerance Short Term Goal (STG) Mark will move from sit to stand without hip pain. STG Duration 5 weeks Informaticist Goal (LTG) Mark will walk for 1 mile without an increase in baseline hip pain. LTG Duration 10 weeks One Impairment ROM Short Term Goal (STG) Mark will improve his hip flexion ROM to 115 degrees without an increase in pain. STG Duration 5 weeks Correction Goal (LTG) Mark will be independent and a HEP and self massage techniques to reduce his right hip pain. LTG Duration 10 weeks Assessment Summary Assessment Mark really has not had signficant change in pain/ function yet. He is getting an injection on Mar 07, and the timing of this could be beneficial, as hopefully he will be better able to tolerate PT after injection. Even gentle manual therapy over right hip continues to be painful for him. Did find IFC helpful and thinks has a TENS unit at home. Physical Therapy Plan Next Visit Focus/Plan Next Note Type Treatment Note Next Visit Plan Assess response to last treatment/e-stim: Review supine HEP: Ferny flores, Figure 4, Tabletop core isometrics *Has latent response to new activities/tx. POC: Consider joint mobs right hip progress as tolerated.
--- NOTE | 2022-03-05 18:19 | PT.OTN ---
Current Diagnoses Other chronic pain (03/05/22) Pain in right hip (03/05/22) Lumbago with sciatica, right side (03/05/22) Lumbago with sciatica, left side (03/05/22) Physical Therapy Treatment Note PT-OP-A Visit Information Start: 02/09/22 12:20 Freq: Status: Active Protocol: Document 03/05/22 09:51 NBM (Rec: 03/05/22 10:33 NBM [id number]) Out-Patient Physical Therapy Visit Information Visit Information Visit Type Treatment Note Visit Start Time 09:47 Visit Stop Time 10:40 Total Visit Minutes 53 Visit Number 7 Number of ROTOG[employer] PRESS OPERATOR Visits 1 PT-OP-B Current Condition Start: 02/09/22 12:20 Freq: Status: Active Protocol: Document 02/12/22 08:57 AMB (Rec: 02/12/22 09:58 AMB [id number]) Current Condition History of Current Condition Onset Date 3-4 years Current Complaints R anterior hip pain History of Current Condition STanding and walking increase back and right hip pain. Back has been a problem for a while , hip more recently but really has been years. Has had problems with the back since the 70's. Sitting/lying down helps the pain. Most concerned about pain in the front of the hip, not really the groin. Gets very dizzy when lying down flat, at least a year- motion sickness ( nausea), but is fine as long as he has some pillows. Treatment Goals Patient/Caregiver Goals Reduce anterior hip pain so can tolerate more walking/ standing. Personal Factors Other Personal Factors That May Effect Cardiac stent, C spine Therapy/Recovery laminectomy, carpal tunnel releases. PT-OP-C Subjective Start: 02/09/22 12:20 Freq: Status: Active Protocol: Document 03/05/22 09:51 NBM (Rec: 03/05/22 10:33 NBM [id number]) OP-PT Subjective Patient Comments Patient Comments Pt report R front hip pain high 6/10 today and radiating down the front of his right leg which is numb. He is not sure why and not been doing much at home, but has been doing stretches. He gets injection tomorrow so has not taken any pain medication . [place] so has not found TENS. PT-OP-J Posture/Palpation/Skin Start: 02/09/22 12:20 Freq: Status: Active Protocol: Document 02/12/22 09:00 AMB (Rec: 02/13/22 15:44 AMB [id number]-) Posture Evaluation Comments Posture Comments Flat lumbar spine and forward head positioning PT-OP-K Range of Motion Start: 02/09/22 12:20 Freq: Status: Active Protocol: Document 02/12/22 09:00 AMB (Rec: 02/12/22 13:00 AMB [id number]) Lumbar Spine Range of Motion Lumbar Spine Active Degrees Flexion 60 Extension 5 Lateral Flexion Left 25 Lateral Flexion Right 15 Hip Goniometric Range of Motion Hip Right Passive Testing Position Supine Flexion w/Knee Flexed 108 Internal Rotation 0 External Rotation 35 Left Passive Flexion w/Knee Flexed 110 Internal Rotation 25 External Rotation 45 PT-OP-M Strength Start: 02/09/22 12:20 Freq: Status: Active Protocol: Document 02/12/22 09:00 AMB (Rec: 02/13/22 15:44 AMB [id number]-) Hip Strength Hip Manual Muscle Testing Right Flexion (L2) 4- Good- Extension (S1) 4 Good Abduction 4 Good Left Flexion (L2) 4 Good Extension (S1) 4+ Good+ Abduction 4 Good Knee Strength Knee Manual Muscle Testing Right Flexion (S2) 5 Normal Extension (L3) 5 Normal Left Flexion (S2) 5 Normal Extension (L3) 5 Normal PT-OP-O Vestibular Start: 02/13/22 16:04 Freq: Status: Active Protocol: Document 02/13/22 20:25 AMB (Rec: 02/13/22 20:31 AMB [id number]-) Vestibular Assessment Positional Testing [place]-Hallpike Negative Left,Negative Right Comments Vestibular Comments Pt reported double vision with L dixhallpike but otherwise did not have dizziness or reproduction of sx that he gets when lying down flat. PT-OP-Q Treatments Start: 02/09/22 12:20 Freq: Status: Active Protocol: Document 03/05/22 09:51 NBM (Rec: 03/05/22 10:33 NBM [id number]) Cardio Equipment Recumbent Stepper (Sci-Fit) Duration (Minutes) 8 Resistance 2.0 Seat Position 10 Other good LE alignment, UEs/ LEs-1. 12 mi Therapeutic Exercises Supine Exercises LTR Side bilateral Equipment Used 65cm green physioball Reps/Minutes 3 min Comments improved range and tolerance w / repetition fig 4 stretch Supine Exercise Name cued pain-free range - limited today, no strap Side bilateral Equipment Used use strap on ankle Reps/Minutes 30 ferny stretch Supine Exercise Name attempted - dc'd d/t c/o R hip pain Side right Reps/Minutes 30 x2 Comments cued neutral TA needed LB allow anterior hip stretch bent knee fall out Side bilateral Reps/Minutes 15x ea Comments tactile cues for core engagement- challenging d/t LBP, cues for PPT supine automatic core engagement Supine Exercise Name Tabletop core isometrics: Push /Cross/Pull Resistance manual Reps/Minutes x30s ea Comments discussed Sidelying Exercises Open Book stretch Side left Equipment Used pillow support between knees/ ankles Reps/Minutes x3 Comments L s/l attempted, dc'd d/t c/o pain also w/ cue for TrA Self-Care/Home Management Treatment Education Patient Education Home Exercise Program,Pain Management Other Education Discussed sitting posture and core engagement w/ PPT in sitting, as pt has been sitting more than usual over the weekend PT-OP-R Modalities Start: 02/09/22 12:20 Freq: Status: Active Protocol: Document 03/05/22 09:51 [facility] (Rec: 03/05/22 10:33 [facility] [id number]) Electric Stimulation Electric Stimulation Interferential Current (IFC) Body Location Lumbar Duration (Minutes) 10 Intensity 12 Patient Position Sidelying Comments L s/l w/ pillow support between knees/ankles Hot Pack/Cold Pack Treatment Cold Pack Location R hip Patient Position Sidelying Treatment Duration (minutes) 10 Patient Tolerance Good Comments during IFC to low back PT-OP-T Assessment and Plan Start: 02/09/22 12:20 Freq: Status: Active Protocol: Document 03/05/22 09:51 NEIL (Rec: 03/05/22 10:33 [facility] [id number]) Physical Therapy Assessment Goals Two Impairment Activity tolerance Short Term Goal (STG) Skip will move from sit to stand without hip pain. STG Duration 5 weeks Residential Goal (LTG) Skip will walk for 1 mile without an increase in baseline hip pain. LTG Duration 10 weeks One Impairment ROM Short Term Goal (STG) Skijosh will improve his hip flexion ROM to 115 degrees without an increase in pain. STG Duration 5 weeks Residential Goal (LTG) Skip will be independent and a HEP and self massage techniques to reduce his right hip pain. LTG Duration 10 weeks Assessment Summary Assessment Pt presents with increased R hip pain today and treatment is pain-limited. Treatment focus on core stability and improving hip mobility. Pt requires consistent cues for deep breathing and posterior pelvic tilt due to lumbar hyperextension. Pt is unable to tolerate hip flexor stretch due to R anterior hip pain. Lower thoracic rotation ROM and pain improves with repetition. Open Book stretch is attempted w/ cueing for TrA but discontinued due to low back and hip pain down posterior of R thigh. Discussed sitting posture and core engagement w/ PPT in sitting, as pt has been sitting more than usual over the weekend, possibly contributing to pain presentation. Pt finds IFC and ice helpful. Pt is hopeful injection tomorrow will help rehabilitation. Physical Therapy Plan Frequency and Duration Frequency of Treatment 2x/Week Duration of treatment (weeks) 10 Plan of Care Start Date 02/12/22 Plan of Care End Date 04/23/22 Therapeutic Interventions Therapeutic Interventions Aquatic Therapy,Gait Training, Home Exercise Program,Manual Therapy,Neuromuscular Re- education,Self-Care/Home Management,Therapeutic Activities,Therapeutic Exercises Modalities Cold Pack/Ice Massage,Electric Stimulation,Hot Packs, Ultrasound Next Visit Focus/Plan Next Note Type Treatment Note Next Visit Plan Assess response to last treatment/e-stim: Review supine HEP as tolerated: Ferny flores, Figure 4, Tabletop core isometrics *Has latent response to new activities/tx. POC: Consider joint mobs right hip progress as tolerated.
--- NOTE | 2022-03-09 20:24 | PT.OTN ---
Current Diagnoses Other chronic pain (03/09/22) Pain in right hip (03/09/22) Lumbago with sciatica, right side (03/09/22) Lumbago with sciatica, left side (03/09/22) Physical Therapy Treatment Note PT-OP-A Visit Information Start: 02/09/22 12:20 Freq: Status: Active Protocol: Document 03/09/22 10:21 AMB (Rec: 03/09/22 10:31 AMB [id number]) Out-Patient Physical Therapy Visit Information Visit Information Visit Type Treatment Note Visit Start Time 09:47 Visit Stop Time 10:40 Total Visit Minutes 53 Visit Number 8 Number of BREASTFEEDING PROGRAM COORDINATOR Visits 0 PT-OP-B Current Condition Start: 02/09/22 12:20 Freq: Status: Active Protocol: Document 02/12/22 08:57 AMB (Rec: 02/12/22 09:58 AMB [id number]) Current Condition History of Current Condition Onset Date 3-4 years Current Complaints R anterior hip pain History of Current Condition STanding and walking increase back and right hip pain. Back has been a problem for a while , hip more recently but really has been years. Has had problems with the back since the 70s. Sitting/lying down helps the pain. Most concerned about pain in the front of the hip, not really the groin. Gets very dizzy when lying down flat, at least a year- motion sickness ( nausea), but is fine as long as he has some pillows. Treatment Goals Patient/Caregiver Goals Reduce anterior hip pain so can tolerate more walking/ standing. Personal Factors Other Personal Factors That May Effect Cardiac stent, C spine Therapy/Recovery laminectomy, carpal tunnel releases. PT-OP-C Subjective Start: 02/09/22 12:20 Freq: Status: Active Protocol: Document 03/09/22 10:21 AMB (Rec: 03/09/22 10:31 AMB [id number]) OP-PT Subjective Patient Comments Patient Comments hip 4/10 today. PT-OP-J Posture/Palpation/Skin Start: 02/09/22 12:20 Freq: Status: Active Protocol: Document 02/12/22 09:00 AMB (Rec: 02/13/22 15:44 AMB [id number]) Posture Evaluation Comments Posture Comments Flat lumbar spine and forward head positioning PT-OP-K Range of Motion Start: 02/09/22 12:20 Freq: Status: Active Protocol: Document 02/12/22 09:00 AMB (Rec: 02/12/22 13:00 AMB [id number]) Lumbar Spine Range of Motion Lumbar Spine Active Degrees Flexion 60 Extension 5 Lateral Flexion Left 25 Lateral Flexion Right 15 Hip Goniometric Range of Motion Hip Right Passive Testing Position Supine Flexion w/Knee Flexed 108 Internal Rotation 0 External Rotation 35 Left Passive Flexion w/Knee Flexed 110 Internal Rotation 25 External Rotation 45 PT-OP-M Strength Start: 02/09/22 12:20 Freq: Status: Active Protocol: Document 02/12/22 09:00 AMB (Rec: 02/13/22 15:44 AMB [id number]) Hip Strength Hip Manual Muscle Testing Right Flexion (L2) 4- Good- Extension (S1) 4 Good Abduction 4 Good Left Flexion (L2) 4 Good Extension (S1) 4+ Good+ Abduction 4 Good Knee Strength Knee Manual Muscle Testing Right Flexion (S2) 5 Normal Extension (L3) 5 Normal Left Flexion (S2) 5 Normal Extension (L3) 5 Normal PT-OP-O Vestibular Start: 02/13/22 16:04 Freq: Status: Active Protocol: Document 02/13/22 20:25 AMB (Rec: 02/13/22 20:31 AMB [id number] Vestibular Assessment Positional Testing [place]-Hallpike Negative Left,Negative Right Comments Vestibular Comments Pt reported double vision with L dixhallpike but otherwise did not have dizziness or reproduction of sx that he gets when lying down flat. PT-OP-Q Treatments Start: 02/09/22 12:20 Freq: Status: Active Protocol: Document 03/09/22 09:45 AMB (Rec: 03/11/22 20:24 AMB [id number]) Therapeutic Exercises Supine Exercises LTR Side bilateral Equipment Used 65cm green physioball Reps/Minutes 3 min Comments improved range and tolerance w / repetition ferny stretch Supine Exercise Name attempted -very minimal, really to just neutral hip extension Side right Reps/Minutes 30 x2 Comments cued neutral TA needed LB allow anterior hip stretch bent knee fall out Side bilateral Reps/Minutes 15x ea Comments tactile cues for core engagement- challenging d/t LBP, cues for PPT Manual Therapy Treatment Soft Tissue Mobilization hip flexor Body Location right iliopsoas Mobilization Type Strumming,Sustained Pressure Intensity/Depth Moderate Body Position Hooklying Joint Mobilizations 2 Joint R hip Direction inferior glide Grade III Body Position Hooklying Comments with mobilization belt 1 Joint R hip Direction AP Grade II Body Position Hooklying Reps/Duration s Manual Techniques long axis distraction Type R hip PT-OP-R Modalities Start: 02/09/22 12:20 Freq: Status: Active Protocol: Document 03/05/22 09:51 NBM (Rec: 03/05/22 10:33 NBM [id number]) Electric Stimulation Electric Stimulation Interferential Current (IFC) Body Location Lumbar Duration (Minutes) 10 Intensity 12 Patient Position Sidelying Comments L s/l w/ pillow support between knees/ankles Hot Pack/Cold Pack Treatment Cold Pack Location R hip Patient Position Sidelying Treatment Duration (minutes) 10 Patient Tolerance Good Comments during IFC to low back PT-OP-T Assessment and Plan Start: 02/09/22 12:20 Freq: Status: Active Protocol: Document 03/09/22 09:45 AMB (Rec: 03/11/22 20:24 AMB [id number]) Physical Therapy Assessment Goals Two Impairment Activity tolerance Short Term Goal (STG) Mark will move from sit to stand without hip pain. STG Duration 5 weeks Oil Winterizer Goal (LTG) Mark will walk for 1 mile without an increase in baseline hip pain. LTG Duration 10 weeks One Impairment ROM Short Term Goal (STG) Mark will improve his hip flexion ROM to 115 degrees without an increase in pain. STG Duration 5 weeks Oil Winterizer Goal (LTG) Mark will be independent and a HEP and self massage techniques to reduce his right hip pain. LTG Duration 10 weeks Assessment Summary Assessment Mark continues to have anterior hip pain, improved back pain after pain medicine epidural, but unfortunately hip is continuing to be painful. Pt considering intra articular hip injection in near future vs evaluation with orthopedics. Was able to briefly tolerate hip flexor stretches but really just to neutral hip positioning. Hip joint mobilizations better tolerated. IFC not done today due to time restrictions/ no aides available for clean up. Aquatic exercise discussed today, but pt very hesitant due to disliking cold water. Physical Therapy Plan Frequency and Duration Frequency of Treatment 2x/Week Duration of treatment (weeks) 10 Plan of Care Start Date 02/12/22 Plan of Care End Date 04/23/22 Therapeutic Interventions Therapeutic Interventions Aquatic Therapy,Gait Training, Home Exercise Program,Manual Therapy,Neuromuscular Re- education,Self-Care/Home Management,Therapeutic Activities,Therapeutic Exercises Modalities Cold Pack/Ice Massage,Electric Stimulation,Hot Packs, Ultrasound Next Visit Focus/Plan Next Note Type Treatment Note Next Visit Plan Assess response to last treatment/e-stim: Review supine HEP as tolerated: Ferny flores, Figure 4, Tabletop core isometrics *Has latent response to new activities/tx. POC: Consider joint mobs right hip progress as tolerated.
--- NOTE | 2022-03-14 10:20 | PT.OTN ---
Current Diagnoses Other chronic pain (03/14/22) Pain in right hip (03/14/22) Lumbago with sciatica, right side (03/14/22) Lumbago with sciatica, left side (03/14/22) Physical Therapy Treatment Note PT-OP-A Visit Information Start: 02/09/22 12:20 Freq: Status: Active Protocol: Document 03/14/22 07:25 AMB (Rec: 03/14/22 07:44 AMB [id number]) Out-Patient Physical Therapy Visit Information Visit Information Visit Type Treatment Note Visit Start Time 07:30 Visit Stop Time 08:15 Total Visit Minutes 45 Visit Number 9 Number of ENGRAVER SET UP OPERATOR Visits 0 PT-OP-B Current Condition Start: 02/09/22 12:20 Freq: Status: Active Protocol: Document 02/12/22 08:57 AMB (Rec: 02/12/22 09:58 AMB [id number]) Current Condition History of Current Condition Onset Date 3-4 years Current Complaints R anterior hip pain History of Current Condition STanding and walking increase back and right hip pain. Back has been a problem for a while , hip more recently but really has been years. Has had problems with the back since the 70's. Sitting/lying down helps the pain. Most concerned about pain in the front of the hip, not really the groin. Gets very dizzy when lying down flat, at least a year- motion sickness ( nausea), but is fine as long as he has some pillows. Treatment Goals Patient/Caregiver Goals Reduce anterior hip pain so can tolerate more walking/ standing. Personal Factors Other Personal Factors That May Effect Cardiac stent, C spine Therapy/Recovery laminectomy, carpal tunnel releases. PT-OP-C Subjective Start: 02/09/22 12:20 Freq: Status: Active Protocol: Document 03/14/22 07:25 AMB (Rec: 03/14/22 07:44 AMB [id number]) OP-PT Subjective Patient Comments Patient Comments Had an Xray- moderate arthritis in the R hip. PT-OP-J Posture/Palpation/Skin Start: 02/09/22 12:20 Freq: Status: Active Protocol: Document 02/12/22 09:00 AMB (Rec: 02/13/22 15:44 AMB [id number]) Posture Evaluation Comments Posture Comments Flat lumbar spine and forward head positioning PT-OP-K Range of Motion Start: 02/09/22 12:20 Freq: Status: Active Protocol: Document 02/12/22 09:00 AMB (Rec: 02/12/22 13:00 AMB [id number]) Lumbar Spine Range of Motion Lumbar Spine Active Degrees Flexion 60 Extension 5 Lateral Flexion Left 25 Lateral Flexion Right 15 Hip Goniometric Range of Motion Hip Right Passive Testing Position Supine Flexion w/Knee Flexed 108 Internal Rotation 0 External Rotation 35 Left Passive Flexion w/Knee Flexed 110 Internal Rotation 25 External Rotation 45 PT-OP-M Strength Start: 02/09/22 12:20 Freq: Status: Active Protocol: Document 02/12/22 09:00 AMB (Rec: 02/13/22 15:44 AMB [id number]) Hip Strength Hip Manual Muscle Testing Right Flexion (L2) 4- Good- Extension (S1) 4 Good Abduction 4 Good Left Flexion (L2) 4 Good Extension (S1) 4+ Good+ Abduction 4 Good Knee Strength Knee Manual Muscle Testing Right Flexion (S2) 5 Normal Extension (L3) 5 Normal Left Flexion (S2) 5 Normal Extension (L3) 5 Normal PT-OP-O Vestibular Start: 02/13/22 16:04 Freq: Status: Active Protocol: Document 02/13/22 20:25 AMB (Rec: 02/13/22 20:31 AMB [id number]) Vestibular Assessment Positional Testing [place]-Hallpike Negative Left,Negative Right Comments Vestibular Comments Pt reported double vision with L dixhallpike but otherwise did not have dizziness or reproduction of sx that he gets when lying down flat. PT-OP-Q Treatments Start: 02/09/22 12:20 Freq: Status: Active Protocol: Document 03/14/22 07:25 AMB (Rec: 03/14/22 07:44 AMB [id number]) Cardio Equipment Recumbent Stepper (Sci-Fit) Duration (Minutes) 8 Resistance 2.0 Seat Position 10 Other good LE alignment, UEs/ LEs-1. 12 mi Therapeutic Exercises Supine Exercises SLR Reps/Minutes 2x10 LTR Side bilateral Equipment Used 65cm green physioball Reps/Minutes 3 min Comments improved range and tolerance w / repetition fig 4 stretch Supine Exercise Name cued pain-free range - limited today, no strap Side bilateral Equipment Used use strap on ankle Reps/Minutes 30 bent knee fall out Side bilateral Reps/Minutes 15x ea Comments tactile cues for core engagement- challenging d/t LBP, cues for PPT supine automatic core engagement Supine Exercise Name Tabletop core isometrics: Push /Cross/Pull Resistance manual Reps/Minutes x30s ea Comments discussed Manual Therapy Treatment Soft Tissue Mobilization hip flexor Body Location right iliopsoas Mobilization Type Strumming,Sustained Pressure Intensity/Depth Moderate Body Position Hooklying Joint Mobilizations 2 Joint R hip Direction inferior glide Grade III Body Position Hooklying Comments with mobilization belt 1 Joint R hip Direction AP Grade II Body Position Hooklying Reps/Duration s Manual Techniques long axis distraction Type R hip PT-OP-R Modalities Start: 02/09/22 12:20 Freq: Status: Active Protocol: Document 03/14/22 10:05 AMB (Rec: 03/14/22 10:12 AMB [id number]) Electric Stimulation Electric Stimulation Interferential Current (IFC) Body Location Lumbar Duration (Minutes) 10 Intensity 12 Patient Position Sidelying Combined With Heat/Cold Cold Pack Comments L s/l w/ pillow support between knees/ankles PT-OP-T Assessment and Plan Start: 02/09/22 12:20 Freq: Status: Active Protocol: Document 03/14/22 07:25 AMB (Rec: 03/14/22 07:44 AMB [id number]) Physical Therapy Assessment Goals Two Impairment Activity tolerance Short Term Goal (STG) Skip will move from sit to stand without hip pain. STG Duration 5 weeks Kiln Firer Goal (LTG) Skip will walk for 1 mile without an increase in baseline hip pain. LTG Duration 10 weeks One Impairment ROM Short Term Goal (STG) Skip will improve his hip flexion ROM to 115 degrees without an increase in pain. STG Duration 5 weeks Retirement Goal (LTG) Skip will be independent and a HEP and self massage techniques to reduce his right hip pain. LTG Duration 10 weeks Assessment Summary Assessment Skip feels like the hip is a little better, but can still feel it. Going to see lizett Bernard in May for the hip. Does not think that PT makes it worse Physical Therapy Plan Next Visit Focus/Plan Next Note Type Treatment Note Next Visit Plan Assess response to last treatment/e-stim: Review supine HEP as tolerated: Ferny flores, Figure 4, Tabletop core isometrics *Has latent response to new activities/tx. POC: Consider joint mobs right hip progress as tolerated.
--- NOTE | 2022-03-16 08:17 | PT.OPPN ---
Current Diagnoses Other chronic pain (03/19/22) Pain in right hip (03/19/22) Lumbago with sciatica, right side (03/19/22) Lumbago with sciatica, left side (03/19/22) Physical Therapy Progress Note PT-OP-A Visit Information Start: 02/09/22 12:20 Freq: Status: Active Protocol: Document 03/16/22 14:30 AMB (Rec: 03/16/22 15:28 AMB [id number]) Out-Patient Physical Therapy Visit Information Visit Information Visit Type Progress Note Visit Start Time 14:30 Visit Stop Time 15:15 Total Visit Minutes 45 Visit Number 10 PT-OP-B Current Condition Start: 02/09/22 12:20 Freq: Status: Active Protocol: Document 02/12/22 08:57 AMB (Rec: 02/12/22 09:58 AMB [id number]) Current Condition History of Current Condition Onset Date 3-4 years Current Complaints R anterior hip pain History of Current Condition STanding and walking increase back and right hip pain. Back has been a problem for a while , hip more recently but really has been years. Has had problems with the back since the 70's. Sitting/lying down helps the pain. Most concerned about pain in the front of the hip, not really the groin. Gets very dizzy when lying down flat, at least a year- motion sickness ( nausea), but is fine as long as he has some pillows. Treatment Goals Patient/Caregiver Goals Reduce anterior hip pain so can tolerate more walking/ standing. Personal Factors Other Personal Factors That May Effect Cardiac stent, C spine Therapy/Recovery laminectomy, carpal tunnel releases. PT-OP-C Subjective Start: 02/09/22 12:20 Freq: Status: Active Protocol: Document 03/16/22 14:30 AMB (Rec: 03/16/22 15:29 AMB [id number]) OP-PT Subjective Patient Comments Patient Comments Pt reports hip is feeling a little better, back has been stiff though. PT-OP-J Posture/Palpation/Skin Start: 02/09/22 12:20 Freq: Status: Active Protocol: Document 02/12/22 09:00 AMB (Rec: 02/13/22 15:44 AMB [id number]) Posture Evaluation Comments Posture Comments Flat lumbar spine and forward head positioning PT-OP-K Range of Motion Start: 02/09/22 12:20 Freq: Status: Active Protocol: Document 02/12/22 09:00 AMB (Rec: 02/12/22 13:00 AMB [id number]) Lumbar Spine Range of Motion Lumbar Spine Active Degrees Flexion 60 Extension 5 Lateral Flexion Left 25 Lateral Flexion Right 15 Hip Goniometric Range of Motion Hip Measured in Degrees Right Passive Testing Position Supine Flexion w/Knee Flexed 108 Internal Rotation 0 External Rotation 35 Left Passive Flexion w/Knee Flexed 110 Internal Rotation 25 External Rotation 45 PT-OP-M Strength Start: 02/09/22 12:20 Freq: Status: Active Protocol: Document 02/12/22 09:00 AMB (Rec: 02/13/22 15:44 AMB [id number]) Hip Strength Hip Manual Muscle Testing Right Flexion (L2) 4- Good- Extension (S1) 4 Good Abduction 4 Good Left Flexion (L2) 4 Good Extension (S1) 4+ Good+ Abduction 4 Good Knee Strength Knee Manual Muscle Testing Right Flexion (S2) 5 Normal Extension (L3) 5 Normal Left Flexion (S2) 5 Normal Extension (L3) 5 Normal PT-OP-O Vestibular Start: 02/13/22 16:04 Freq: Status: Active Protocol: Document 02/13/22 20:25 AMB (Rec: 02/13/22 20:31 AMB [id number]) Vestibular Assessment Positional Testing [place]-Hallpike Negative Left,Negative Right Comments Vestibular Comments Pt reported double vision with L dixhallpike but otherwise did not have dizziness or reproduction of sx that he gets when lying down flat. PT-OP-T Assessment and Plan Start: 02/09/22 12:20 Freq: Status: Active Protocol: Document 03/16/22 14:30 AMB (Rec: 03/16/22 15:28 AMB [id number]) Physical Therapy Assessment Goals Two Impairment Activity tolerance Short Term Goal (STG) Skip will move from sit to stand without hip pain. STG Duration MET Residential Goal (LTG) Skip will walk for 1 mile without an increase in baseline hip pain. LTG Duration 10 weeks One Impairment ROM Short Term Goal (STG) Skip will improve his hip flexion ROM to 115 degrees without an increase in pain. STG Duration 5 weeks Residential Goal (LTG) Skip will be independent and a HEP and self massage techniques to reduce his right hip pain. LTG Duration 10 weeks Assessment Summary Assessment Overall pain is getting mildly better, hip can still flare up a lot and then it's bad. Going up and down a ladder is especially bad. reports hip pain is 2/10, but back is a problem. Physical Therapy Plan Next Visit Focus/Plan Next Note Type Treatment Note Next Visit Plan Assess response to last treatment/e-stim: Review supine HEP as tolerated: Ferny flores, Figure 4, Tabletop core isometrics *Has latent response to new activities/tx. POC: Consider joint mobs right hip progress as tolerated.
--- NOTE | 2022-03-16 15:29 | PT.OTN ---
Current Diagnoses Other chronic pain (03/16/22) Pain in right hip (03/16/22) Lumbago with sciatica, right side (03/16/22) Lumbago with sciatica, left side (03/16/22) Physical Therapy Treatment Note PT-OP-A Visit Information Start: 02/09/22 12:20 Freq: Status: Active Protocol: Document 03/16/22 14:30 AMB (Rec: 03/16/22 15:28 AMB [id number]) Out-Patient Physical Therapy Visit Information Visit Information Visit Type Progress Note Visit Start Time 14:30 Visit Stop Time 15:15 Total Visit Minutes 45 Visit Number 10 PT-OP-B Current Condition Start: 02/09/22 12:20 Freq: Status: Active Protocol: Document 02/12/22 08:57 AMB (Rec: 02/12/22 09:58 AMB [id number]) Current Condition History of Current Condition Onset Date 3-4 years Current Complaints R anterior hip pain History of Current Condition STanding and walking increase back and right hip pain. Back has been a problem for a while , hip more recently but really has been years. Has had problems with the back since the 70's. Sitting/lying down helps the pain. Most concerned about pain in the front of the hip, not really the groin. Gets very dizzy when lying down flat, at least a year- motion sickness ( nausea), but is fine as long as he has some pillows. Treatment Goals Patient/Caregiver Goals Reduce anterior hip pain so can tolerate more walking/ standing. Personal Factors Other Personal Factors That May Effect Cardiac stent, C spine Therapy/Recovery laminectomy, carpal tunnel releases. PT-OP-C Subjective Start: 02/09/22 12:20 Freq: Status: Active Protocol: Document 03/16/22 14:30 AMB (Rec: 03/16/22 15:29 AMB [id number]) OP-PT Subjective Patient Comments Patient Comments Pt reports hip is feeling a little better, back has been stiff though. PT-OP-J Posture/Palpation/Skin Start: 02/09/22 12:20 Freq: Status: Active Protocol: Document 02/12/22 09:00 AMB (Rec: 02/13/22 15:44 AMB [id number]) Posture Evaluation Comments Posture Comments Flat lumbar spine and forward head positioning PT-OP-K Range of Motion Start: 02/09/22 12:20 Freq: Status: Active Protocol: Document 02/12/22 09:00 AMB (Rec: 02/12/22 13:00 AMB [id number]) Lumbar Spine Range of Motion Lumbar Spine Active Degrees Flexion 60 Extension 5 Lateral Flexion Left 25 Lateral Flexion Right 15 Hip Goniometric Range of Motion Hip Right Passive Testing Position Supine Flexion w/Knee Flexed 108 Internal Rotation 0 External Rotation 35 Left Passive Flexion w/Knee Flexed 110 Internal Rotation 25 External Rotation 45 PT-OP-M Strength Start: 02/09/22 12:20 Freq: Status: Active Protocol: Document 02/12/22 09:00 AMB (Rec: 02/13/22 15:44 AMB [id number]) Hip Strength Hip Manual Muscle Testing Right Flexion (L2) 4- Good- Extension (S1) 4 Good Abduction 4 Good Left Flexion (L2) 4 Good Extension (S1) 4+ Good+ Abduction 4 Good Knee Strength Knee Manual Muscle Testing Right Flexion (S2) 5 Normal Extension (L3) 5 Normal Left Flexion (S2) 5 Normal Extension (L3) 5 Normal PT-OP-O Vestibular Start: 02/13/22 16:04 Freq: Status: Active Protocol: Document 02/13/22 20:25 AMB (Rec: 02/13/22 20:31 AMB [id number]) Vestibular Assessment Positional Testing [place]-Hallpike Negative Left,Negative Right Comments Vestibular Comments Pt reported double vision with L dixhallpike but otherwise did not have dizziness or reproduction of sx that he gets when lying down flat. PT-OP-Q Treatments Start: 02/09/22 12:20 Freq: Status: Active Protocol: Document 03/16/22 14:30 AMB (Rec: 03/16/22 15:28 AMB [id number]) Cardio Equipment Recumbent Stepper (Sci-Fit) Duration (Minutes) 8 Resistance 2.0 Seat Position 10 Other good LE alignment, UEs/ LEs-1. 12 mi Gym Equipment Shuttle Recovery Bilateral Squats Details 62 Reps/Time 2x12 Therapeutic Exercises Supine Exercises fig 4 stretch Supine Exercise Name cued pain-free range - limited today, no strap Side bilateral Equipment Used use strap on ankle Reps/Minutes 30 ferny stretch Supine Exercise Name attempted -very minimal, really to just neutral hip extension Side right Reps/Minutes 30 x2 Comments cued neutral TA needed LB allow anterior hip stretch Manual Therapy Treatment Soft Tissue Mobilization hip flexor Body Location right iliopsoas Mobilization Type Strumming,Sustained Pressure Intensity/Depth Moderate Body Position Hooklying PT-OP-R Modalities Start: 02/09/22 12:20 Freq: Status: Active Protocol: Document 03/14/22 10:05 AMB (Rec: 03/14/22 10:12 AMB [id number]) Electric Stimulation Electric Stimulation Interferential Current (IFC) Body Location Lumbar Duration (Minutes) 10 Intensity 12 Patient Position Sidelying Combined With Heat/Cold Cold Pack Comments L s/l w/ pillow support between knees/ankles PT-OP-T Assessment and Plan Start: 02/09/22 12:20 Freq: Status: Active Protocol: Document 03/16/22 14:30 AMB (Rec: 03/16/22 15:28 AMB [id number]) Physical Therapy Assessment Goals Two Impairment Activity tolerance Short Term Goal (STG) Skip will move from sit to stand without hip pain. STG Duration MET Mc[facility] Goal (LTG) Skip will walk for 1 mile without an increase in baseline hip pain. LTG Duration 10 weeks One Impairment ROM Short Term Goal (STG) Skip will improve his hip flexion ROM to 115 degrees without an increase in pain. 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 LTG Duration 10 weeks Assessment Summary Assessment Overall pain is getting mildly better, hip can still flare up a lot and then it's bad. Going up and down a ladder is especially bad. reports hip pain is 2/10, but back is a problem. Physical Therapy Plan Next Visit Focus/Plan Next Note Type Treatment Note Next Visit Plan Assess response to last treatment/e-stim: Review supine HEP as tolerated: Ferny flores, Figure 4, Tabletop core isometrics *Has latent response to new activities/tx. POC: Consider joint mobs right hip progress as tolerated.
--- NOTE | 2022-03-19 08:58 | PT.OTN ---
Current Diagnoses Other chronic pain (03/19/22) Pain in right hip (03/19/22) Lumbago with sciatica, right side (03/19/22) Lumbago with sciatica, left side (03/19/22) Physical Therapy Treatment Note PT-OP-A Visit Information Start: 02/09/22 12:20 Freq: Status: Active Protocol: Document 03/19/22 08:14 AMB (Rec: 03/19/22 08:54 AMB [id number]) Out-Patient Physical Therapy Visit Information Visit Information Visit Type Treatment Note Visit Start Time 08:15 Visit Stop Time 09:00 Total Visit Minutes 45 Visit Number 11 PT-OP-B Current Condition Start: 02/09/22 12:20 Freq: Status: Active Protocol: Document 02/12/22 08:57 AMB (Rec: 02/12/22 09:58 AMB [id number]) Current Condition History of Current Condition Onset Date 3-4 years Current Complaints R anterior hip pain History of Current Condition STanding and walking increase back and right hip pain. Back has been a problem for a while , hip more recently but really has been years. Has had problems with the back since the 70's. Sitting/lying down helps the pain. Most concerned about pain in the front of the hip, not really the groin. Gets very dizzy when lying down flat, at least a year- motion sickness ( nausea), but is fine as long as he has some pillows. Treatment Goals Patient/Caregiver Goals Reduce anterior hip pain so can tolerate more walking/ standing. Personal Factors Other Personal Factors That May Effect Cardiac stent, C spine Therapy/Recovery laminectomy, carpal tunnel releases. PT-OP-C Subjective Start: 02/09/22 12:20 Freq: Status: Active Protocol: Document 03/19/22 08:14 AMB (Rec: 03/19/22 08:54 AMB [id number]) OP-PT Subjective Patient Comments Patient Comments Hip isn't too bad today as it is early in the mornign. PT-OP-J Posture/Palpation/Skin Start: 02/09/22 12:20 Freq: Status: Active Protocol: Document 02/12/22 09:00 AMB (Rec: 02/13/22 15:44 AMB [id number]) Posture Evaluation Comments Posture Comments Flat lumbar spine and forward head positioning PT-OP-K Range of Motion Start: 02/09/22 12:20 Freq: Status: Active Protocol: Document 02/12/22 09:00 AMB (Rec: 02/12/22 13:00 AMB [id number]) Lumbar Spine Range of Motion Lumbar Spine Active Degrees Flexion 60 Extension 5 Lateral Flexion Left 25 Lateral Flexion Right 15 Hip Goniometric Range of Motion Hip Right Passive Testing Position Supine Flexion w/Knee Flexed 108 Internal Rotation 0 External Rotation 35 Left Passive Flexion w/Knee Flexed 110 Internal Rotation 25 External Rotation 45 PT-OP-M Strength Start: 02/09/22 12:20 Freq: Status: Active Protocol: Document 02/12/22 09:00 AMB (Rec: 02/13/22 15:44 AMB [id number]) Hip Strength Hip Manual Muscle Testing Right Flexion (L2) 4- Good- Extension (S1) 4 Good Abduction 4 Good Left Flexion (L2) 4 Good Extension (S1) 4+ Good+ Abduction 4 Good Knee Strength Knee Manual Muscle Testing Right Flexion (S2) 5 Normal Extension (L3) 5 Normal Left Flexion (S2) 5 Normal Extension (L3) 5 Normal PT-OP-O Vestibular Start: 02/13/22 16:04 Freq: Status: Active Protocol: Document 02/13/22 20:25 AMB (Rec: 02/13/22 20:31 AMB [id number]) Vestibular Assessment Positional Testing [place]-Hallpike Negative Left,Negative Right Comments Vestibular Comments Pt reported double vision with L dixhallpike but otherwise did not have dizziness or reproduction of sx that he gets when lying down flat. PT-OP-Q Treatments Start: 02/09/22 12:20 Freq: Status: Active Protocol: Document 03/19/22 08:14 AMB (Rec: 03/19/22 08:54 AMB [id number]) Cardio Equipment Recumbent Stepper (Sci-Fit) Duration (Minutes) 8 Resistance 2.0 Seat Position 10 Other good LE alignment, UEs/ LEs-1. 12 mi Therapeutic Exercises Supine Exercises SLR Reps/Minutes 2x10 LTR Side bilateral Equipment Used 65cm green physioball Reps/Minutes 3 min Comments improved range and tolerance w / repetition fig 4 stretch Supine Exercise Name cued pain-free range - limited today, no strap Side bilateral Equipment Used use strap on ankle Reps/Minutes 30 ferny stretch Supine Exercise Name attempted -very minimal, really to just neutral hip extension Side right Reps/Minutes 30 x2 Comments cued neutral TA needed LB allow anterior hip stretch bent knee fall out Side bilateral Reps/Minutes 15x ea Comments tactile cues for core engagement- challenging d/t LBP, cues for PPT Manual Therapy Treatment Soft Tissue Mobilization hip flexor Body Location right iliopsoas Mobilization Type Strumming,Sustained Pressure Intensity/Depth Moderate Body Position Hooklying Manual Techniques long axis distraction Type R hip PT-OP-R Modalities Start: 02/09/22 12:20 Freq: Status: Active Protocol: Document 03/14/22 10:05 AMB (Rec: 03/14/22 10:12 AMB [id number]) Electric Stimulation Electric Stimulation Interferential Current (IFC) Body Location Lumbar Duration (Minutes) 10 Intensity 12 Patient Position Sidelying Combined With Heat/Cold Cold Pack Comments L s/l w/ pillow support between knees/ankles PT-OP-T Assessment and Plan Start: 02/09/22 12:20 Freq: Status: Active Protocol: Document 03/19/22 08:14 AMB (Rec: 03/19/22 08:54 AMB [id number]) Physical Therapy Assessment Goals Two Impairment Activity tolerance Short Term Goal (STG) Skip will move from sit to stand without hip pain. STG Duration MET Intermediate Goal (LTG) Skip will walk for 1 mile without an increase in baseline hip pain. LTG Duration 10 weeks One Impairment ROM Short Term Goal (STG) Skip will improve his hip flexion ROM to 115 degrees without an increase in pain. STG Duration 5 weeks Intermediate Goal (LTG) Skip will be independent and a HEP and self massage techniques to reduce his right hip pain. LTG Duration 10 weeks Assessment Summary Assessment Overall hip is tolerable today , back has calmed back down. Physical Therapy Plan Next Visit Focus/Plan Next Note Type Treatment Note Next Visit Plan Assess response to last treatment/e-stim: Review supine HEP as tolerated: Ferny flores, Figure 4, Tabletop core isometrics *Has latent response to new activities/tx. POC: Consider joint mobs right hip progress as tolerated.
--- NOTE | 2022-03-21 11:00 | PT.OTN ---
Current Diagnoses Other chronic pain (03/21/22) Pain in right hip (03/21/22) Lumbago with sciatica, right side (03/21/22) Lumbago with sciatica, left side (03/21/22) Physical Therapy Treatment Note PT-OP-A Visit Information Start: 02/09/22 12:20 Freq: Status: Active Protocol: Document 03/21/22 09:55 AMB (Rec: 03/21/22 10:59 AMB [id number]) Out-Patient Physical Therapy Visit Information Visit Information Visit Type Treatment Note Visit Start Time 09:45 Visit Stop Time 10:30 Total Visit Minutes 45 Visit Number 12 PT-OP-B Current Condition Start: 02/09/22 12:20 Freq: Status: Active Protocol: Document 02/12/22 08:57 AMB (Rec: 02/12/22 09:58 AMB [id number]) Current Condition History of Current Condition Onset Date 3-4 years Current Complaints R anterior hip pain History of Current Condition STanding and walking increase back and right hip pain. Back has been a problem for a while , hip more recently but really has been years. Has had problems with the back since the 70's. Sitting/lying down helps the pain. Most concerned about pain in the front of the hip, not really the groin. Gets very dizzy when lying down flat, at least a year- motion sickness ( nausea), but is fine as long as he has some pillows. Treatment Goals Patient/Caregiver Goals Reduce anterior hip pain so can tolerate more walking/ standing. Personal Factors Other Personal Factors That May Effect Cardiac stent, C spine Therapy/Recovery laminectomy, carpal tunnel releases. PT-OP-C Subjective Start: 02/09/22 12:20 Freq: Status: Active Protocol: Document 03/21/22 09:55 AMB (Rec: 03/21/22 10:59 AMB [id number]) OP-PT Subjective Patient Comments Patient Comments Hip is hurting today. NOt as much nerve pain but more muscular pain. PT-OP-J Posture/Palpation/Skin Start: 02/09/22 12:20 Freq: Status: Active Protocol: Document 02/12/22 09:00 AMB (Rec: 02/13/22 15:44 AMB [id number]) Posture Evaluation Comments Posture Comments Flat lumbar spine and forward head positioning PT-OP-K Range of Motion Start: 02/09/22 12:20 Freq: Status: Active Protocol: Document 02/12/22 09:00 AMB (Rec: 02/12/22 13:00 AMB [id number]) Lumbar Spine Range of Motion Lumbar Spine Active Degrees Flexion 60 Extension 5 Lateral Flexion Left 25 Lateral Flexion Right 15 Hip Goniometric Range of Motion Hip Right Passive Testing Position Supine Flexion w/Knee Flexed 108 Internal Rotation 0 External Rotation 35 Left Passive Flexion w/Knee Flexed 110 Internal Rotation 25 External Rotation 45 PT-OP-M Strength Start: 02/09/22 12:20 Freq: Status: Active Protocol: Document 02/12/22 09:00 AMB (Rec: 02/13/22 15:44 AMB [id number]) Hip Strength Hip Manual Muscle Testing Right Flexion (L2) 4- Good- Extension (S1) 4 Good Abduction 4 Good Left Flexion (L2) 4 Good Extension (S1) 4+ Good+ Abduction 4 Good Knee Strength Knee Manual Muscle Testing Right Flexion (S2) 5 Normal Extension (L3) 5 Normal Left Flexion (S2) 5 Normal Extension (L3) 5 Normal PT-OP-O Vestibular Start: 02/13/22 16:04 Freq: Status: Active Protocol: Document 02/13/22 20:25 AMB (Rec: 02/13/22 20:31 AMB [id number]) Vestibular Assessment Positional Testing [place]-Hallpike Negative Left,Negative Right Comments Vestibular Comments Pt reported double vision with L dixhallpike but otherwise did not have dizziness or reproduction of sx that he gets when lying down flat. PT-OP-Q Treatments Start: 02/09/22 12:20 Freq: Status: Active Protocol: Document 03/21/22 09:55 AMB (Rec: 03/21/22 10:59 AMB [id number]) Therapeutic Exercises Supine Exercises LTR Side bilateral Equipment Used 65cm green physioball Reps/Minutes 3 min Comments improved range and tolerance w / repetition fig 4 stretch Supine Exercise Name cued pain-free range - limited today, no strap Side bilateral Equipment Used use strap on ankle Reps/Minutes 30 ferny stretch Supine Exercise Name attempted -very minimal, really to just neutral hip extension Side right Reps/Minutes 30 x2 Comments cued neutral TA needed LB allow anterior hip stretch bent knee fall out Side bilateral Reps/Minutes 15x ea Comments tactile cues for core engagement- challenging d/t LBP, cues for PPT Standing Exercises Calf stretch Standing Exercise Name lunge position Side bilateral Equipment Used rail Reps/Minutes x 45s ea Comments cue for square hips Manual Therapy Treatment Soft Tissue Mobilization hip flexor Body Location right iliopsoas Mobilization Type Strumming,Sustained Pressure Intensity/Depth Moderate Body Position Hooklying Joint Mobilizations 2 Joint R hip Direction inferior glide Grade III Body Position Hooklying Comments with mobilization belt 1 Joint R hip Direction AP Grade II Body Position Hooklying Reps/Duration s Manual Techniques long axis distraction Type R hip PT-OP-R Modalities Start: 02/09/22 12:20 Freq: Status: Active Protocol: Document 03/21/22 10:59 AMB (Rec: 03/21/22 11:00 AMB [id number]) Electric Stimulation Electric Stimulation Interferential Current (IFC) Body Location Lumbar Duration (Minutes) 10 Intensity 12 Patient Position Sidelying Combined With Heat/Cold Cold Pack Comments L s/l w/ pillow support between knees/ankles PT-OP-T Assessment and Plan Start: 02/09/22 12:20 Freq: Status: Active Protocol: Document 03/21/22 09:55 AMB (Rec: 03/21/22 10:59 AMB [id number]) Physical Therapy Assessment Goals Two Impairment Activity tolerance Short Term Goal (STG) Skip will move from sit to stand without hip pain. 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 LTG Duration 10 weeks One Impairment ROM Short Term Goal (STG) Skip will improve his hip flexion ROM to 115 degrees without an increase in pain. STG Duration 5 weeks Snf Goal (LTG) Skip will be independent and a HEP and self massage techniques to reduce his right hip pain. LTG Duration 10 weeks Assessment Summary Assessment Skip is noticing progress with intensity of hip pain. Will be going to [place] and encouraged to continue stretching, careful of sitting posutre while on vacation. Physical Therapy Plan Next Visit Focus/Plan Next Note Type Treatment Note Next Visit Plan Assess response to last treatment/e-stim: Review supine HEP as tolerated: Ferny stretch, Figure 4, Tabletop core isometrics *Has latent response to new activities/tx. POC: Consider joint mobs right hip progress as tolerated.
--- NOTE | 2022-03-26 12:49 | PT.OTN ---
Current Diagnoses Other chronic pain (03/26/22) Pain in right hip (03/26/22) Lumbago with sciatica, right side (03/26/22) Lumbago with sciatica, left side (03/26/22) Physical Therapy Treatment Note PT-OP-A Visit Information Start: 02/09/22 12:20 Freq: Status: Active Protocol: Document 03/26/22 09:54 AMB (Rec: 03/26/22 11:03 AMB [id number]) Out-Patient Physical Therapy Visit Information Visit Information Visit Type Treatment Note Visit Start Time 09:50 Visit Stop Time 10:30 Total Visit Minutes 40 Visit Number 13 PT-OP-B Current Condition Start: 02/09/22 12:20 Freq: Status: Active Protocol: Document 02/12/22 08:57 AMB (Rec: 02/12/22 09:58 AMB [id number]) Current Condition History of Current Condition Onset Date 3-4 years Current Complaints R anterior hip pain History of Current Condition STanding and walking increase back and right hip pain. Back has been a problem for a while , hip more recently but really has been years. Has had problems with the back since the 70's. Sitting/lying down helps the pain. Most concerned about pain in the front of the hip, not really the groin. Gets very dizzy when lying down flat, at least a year- motion sickness ( nausea), but is fine as long as he has some pillows. Treatment Goals Patient/Caregiver Goals Reduce anterior hip pain so can tolerate more walking/ standing. Personal Factors Other Personal Factors That May Effect Cardiac stent, C spine Therapy/Recovery laminectomy, carpal tunnel releases. PT-OP-C Subjective Start: 02/09/22 12:20 Freq: Status: Active Protocol: Document 03/26/22 09:54 AMB (Rec: 03/26/22 11:03 AMB [id number]) OP-PT Subjective Patient Comments Patient Comments Pt attends with some limping. PT-OP-J Posture/Palpation/Skin Start: 02/09/22 12:20 Freq: Status: Active Protocol: Document 02/12/22 09:00 AMB (Rec: 02/13/22 15:44 AMB [id number]) Posture Evaluation Comments Posture Comments Flat lumbar spine and forward head positioning PT-OP-K Range of Motion Start: 02/09/22 12:20 Freq: Status: Active Protocol: Document 02/12/22 09:00 AMB (Rec: 02/12/22 13:00 AMB [id number]) Lumbar Spine Range of Motion Lumbar Spine Active Degrees Flexion 60 Extension 5 Lateral Flexion Left 25 Lateral Flexion Right 15 Hip Goniometric Range of Motion Hip Right Passive Testing Position Supine Flexion w/Knee Flexed 108 Internal Rotation 0 External Rotation 35 Left Passive Flexion w/Knee Flexed 110 Internal Rotation 25 External Rotation 45 PT-OP-M Strength Start: 02/09/22 12:20 Freq: Status: Active Protocol: Document 02/12/22 09:00 AMB (Rec: 02/13/22 15:44 AMB [id number]) Hip Strength Hip Manual Muscle Testing Right Flexion (L2) 4- Good- Extension (S1) 4 Good Abduction 4 Good Left Flexion (L2) 4 Good Extension (S1) 4+ Good+ Abduction 4 Good Knee Strength Knee Manual Muscle Testing Right Flexion (S2) 5 Normal Extension (L3) 5 Normal Left Flexion (S2) 5 Normal Extension (L3) 5 Normal PT-OP-O Vestibular Start: 02/13/22 16:04 Freq: Status: Active Protocol: Document 02/13/22 20:25 AMB (Rec: 02/13/22 20:31 AMB [id number]) Vestibular Assessment Positional Testing [place]-Hallpike Negative Left,Negative Right Comments Vestibular Comments Pt reported double vision with L dixhallpike but otherwise did not have dizziness or reproduction of sx that he gets when lying down flat. PT-OP-Q Treatments Start: 02/09/22 12:20 Freq: Status: Active Protocol: Document 03/26/22 09:54 AMB (Rec: 03/26/22 11:03 AMB [id number]) Therapeutic Exercises Supine Exercises ferny stretch Supine Exercise Name attempted -very minimal, really to just neutral hip extension Side right Reps/Minutes 30 x2 Comments cued neutral TA needed LB allow anterior hip stretch glut set Reps/Minutes 10x Comments cues for core focus - bridge attempted dc'd d/t LBP bent knee fall out Side bilateral Reps/Minutes 15x ea Comments tactile cues for core engagement- challenging d/t LBP, cues for PPT 1 Supine Exercise Name posterior pelvic titl Comments increased back pain with multiple different cues. Sidelying Exercises clam Side right Reps/Minutes 2x10 Sitting Exercises hip flexor stretch Sitting Exercise Name leg off table Reps/Minutes 2x10 Manual Therapy Treatment Soft Tissue Mobilization hip flexor Body Location right iliopsoas Mobilization Type Strumming,Sustained Pressure Intensity/Depth Moderate Body Position Hooklying PT-OP-R Modalities Start: 02/09/22 12:20 Freq: Status: Active Protocol: Document 03/26/22 12:44 AMB (Rec: 03/26/22 12:44 AMB [id number]) Electric Stimulation Electric Stimulation Interferential Current (IFC) Body Location Lumbar Duration (Minutes) 10 Intensity 12 Patient Position Sidelying Combined With Heat/Cold Cold Pack Comments L s/l w/ pillow support between knees/ankles PT-OP-T Assessment and Plan Start: 02/09/22 12:20 Freq: Status: Active Protocol: Document 03/26/22 09:54 AMB (Rec: 03/26/22 11:03 AMB [id number]) Physical Therapy Assessment Goals Two Impairment Activity tolerance Short Term Goal (STG) Skip will move from sit to stand without hip pain. STG Duration MET [facility] Goal (LTG) Skip will walk for 1 mile without an increase in baseline hip pain. LTG Duration 10 weeks One Impairment ROM Short Term Goal (STG) Skip will improve his hip flexion ROM to 115 degrees without an increase in pain. 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 LTG Duration 10 weeks Assessment Summary Assessment Pt with difficulty with posterior pelvic tilt today, increased back pain even though pt has been having less back pain since injection. Does get burning with hip flexor stretch. Physical Therapy Plan Next Visit Focus/Plan Next Note Type Treatment Note Next Visit Plan Review supine HEP as tolerated : Ferny flores, Figure 4, Tabletop core isometrics *Has latent response to new activities/tx. POC: Consider joint mobs right hip progress as tolerated.
--- NOTE | 2022-04-17 21:44 | PT.OTN ---
Current Diagnoses Other chronic pain (04/17/22) Pain in right hip (04/17/22) Lumbago with sciatica, right side (04/17/22) Lumbago with sciatica, left side (04/17/22) Physical Therapy Treatment Note PT-OP-A Visit Information Start: 02/09/22 12:20 Freq: Status: Active Protocol: Document 04/17/22 09:50 AMB (Rec: 04/17/22 10:31 AMB [id number]) Out-Patient Physical Therapy Visit Information Visit Information Visit Type Treatment Note Visit Start Time 09:50 Visit Stop Time 10:30 Total Visit Minutes 40 Visit Number 14 PT-OP-B Current Condition Start: 02/09/22 12:20 Freq: Status: Active Protocol: Document 02/12/22 08:57 AMB (Rec: 02/12/22 09:58 AMB [id number]) Current Condition History of Current Condition Onset Date 3-4 years Current Complaints R anterior hip pain History of Current Condition STanding and walking increase back and right hip pain. Back has been a problem for a while , hip more recently but really has been years. Has had problems with the back since the 70's. Sitting/lying down helps the pain. Most concerned about pain in the front of the hip, not really the groin. Gets very dizzy when lying down flat, at least a year- motion sickness ( nausea), but is fine as long as he has some pillows. Treatment Goals Patient/Caregiver Goals Reduce anterior hip pain so can tolerate more walking/ standing. Personal Factors Other Personal Factors That May Effect Cardiac stent, C spine Therapy/Recovery laminectomy, carpal tunnel releases. PT-OP-C Subjective Start: 02/09/22 12:20 Freq: Status: Active Protocol: Document 04/17/22 09:50 AMB (Rec: 04/17/22 10:31 AMB [id number]) OP-PT Subjective Patient Comments Patient Comments Pt is considering hip replacement surgery. On the trip there were days where the hip was pretty bad, the back hasn't been too bad. Goign to talk with MD to see if he can get an ortho referral. PT-OP-J Posture/Palpation/Skin Start: 02/09/22 12:20 Freq: Status: Active Protocol: Document 02/12/22 09:00 AMB (Rec: 02/13/22 15:44 AMB [id number]) Posture Evaluation Comments Posture Comments Flat lumbar spine and forward head positioning PT-OP-K Range of Motion Start: 02/09/22 12:20 Freq: Status: Active Protocol: Document 02/12/22 09:00 AMB (Rec: 02/12/22 13:00 AMB [id number]) Lumbar Spine Range of Motion Lumbar Spine Active Degrees Flexion 60 Extension 5 Lateral Flexion Left 25 Lateral Flexion Right 15 Hip Goniometric Range of Motion Hip Right Passive Testing Position Supine Flexion w/Knee Flexed 108 Internal Rotation 0 External Rotation 35 Left Passive Flexion w/Knee Flexed 110 Internal Rotation 25 External Rotation 45 PT-OP-M Strength Start: 02/09/22 12:20 Freq: Status: Active Protocol: Document 02/12/22 09:00 AMB (Rec: 02/13/22 15:44 AMB [id number]) Hip Strength Hip Manual Muscle Testing Right Flexion (L2) 4- Good- Extension (S1) 4 Good Abduction 4 Good Left Flexion (L2) 4 Good Extension (S1) 4+ Good+ Abduction 4 Good Knee Strength Knee Manual Muscle Testing Right Flexion (S2) 5 Normal Extension (L3) 5 Normal Left Flexion (S2) 5 Normal Extension (L3) 5 Normal PT-OP-O Vestibular Start: 02/13/22 16:04 Freq: Status: Active Protocol: Document 02/13/22 20:25 AMB (Rec: 02/13/22 20:31 AMB [id number]-) Vestibular Assessment Positional Testing Nima-Hallpike Negative Left,Negative Right Comments Vestibular Comments Pt reported double vision with L dixhallpike but otherwise did not have dizziness or reproduction of sx that he gets when lying down flat. PT-OP-Q Treatments Start: 02/09/22 12:20 Freq: Status: Active Protocol: Document 04/17/22 09:45 AMB (Rec: 04/19/22 21:44 AMB [id number]-) Cardio Equipment Recumbent Stepper (Sci-Fit) Duration (Minutes) 8 Resistance 2.0 Seat Position 10 Other good LE alignment, UEs/ LEs-1. 12 mi Therapeutic Exercises Supine Exercises LTR Side bilateral Equipment Used 65cm green physioball Reps/Minutes 3 min Comments improved range and tolerance w / repetition fig 4 stretch Supine Exercise Name cued pain-free range - limited today, no strap Side bilateral Equipment Used use strap on ankle Reps/Minutes 30 ferny stretch Supine Exercise Name attempted -very minimal, really to just neutral hip extension Side right Reps/Minutes 30 x2 Comments cued neutral TA needed LB allow anterior hip stretch Manual Therapy Treatment Soft Tissue Mobilization hip flexor Body Location right iliopsoas Mobilization Type Strumming,Sustained Pressure Intensity/Depth Moderate Body Position Hooklying PT-OP-R Modalities Start: 02/09/22 12:20 Freq: Status: Active Protocol: Document 04/17/22 09:45 AMB (Rec: 04/19/22 21:31 AMB [id number]) Hot Pack/Cold Pack Treatment Cold Pack Location hip Treatment Duration (minutes) 10 PT-OP-T Assessment and Plan Start: 02/09/22 12:20 Freq: Status: Active Protocol: Document 04/17/22 09:50 AMB (Rec: 04/17/22 10:31 AMB [id number]) Physical Therapy Assessment Goals Two Impairment Activity tolerance Short Term Goal (STG) Skip will move from sit to stand without hip pain. STG Duration MET [facility] Goal (LTG) Skip will walk for 1 mile without an increase in baseline hip pain. LTG Duration 10 weeks One Impairment ROM Short Term Goal (STG) Skip will improve his hip flexion ROM to 115 degrees without an increase in pain. STG Duration 5 weeks [facility] Goal (LTG) Skip will be independent and a HEP and self massage techniques to reduce his right hip pain. LTG Duration 10 weeks Assessment Summary Assessment Discussed PT. Pt to continue stretching and strengthening, but if MD is receptive to referring to ortho, may hold on more PT until after surgery . However pt would benefit from review of HEP and progression at next visit and to discuss what his plans are. Physical Therapy Plan Frequency and Duration Frequency of Treatment 2x/Week Duration of treatment (weeks) 10 Plan of Care Start Date 02/12/22 Plan of Care End Date 04/23/22 Therapeutic Interventions Therapeutic Interventions Aquatic Therapy,Gait Training, Home Exercise Program,Manual Therapy,Neuromuscular Re- education,Self-Care/Home Management,Therapeutic Activities,Therapeutic Exercises Modalities Cold Pack/Ice Massage,Electric Stimulation,Hot Packs, Ultrasound Next Visit Focus/Plan Next Note Type Treatment Note Next Visit Plan Review supine HEP as tolerated : Ferny stretch, Figure 4, Tabletop core isometrics *Has latent response to new activities/tx. POC: Consider joint mobs right hip progress as tolerated.
--- NOTE | 2022-04-20 13:40 | PT.OTN ---
Current Diagnoses Other chronic pain (04/20/22) Pain in right hip (04/20/22) Lumbago with sciatica, right side (04/20/22) Lumbago with sciatica, left side (04/20/22) Physical Therapy Treatment Note PT-OP-A Visit Information Start: 02/09/22 12:20 Freq: Status: Active Protocol: Document 04/20/22 13:01 AMB (Rec: 04/20/22 13:38 AMB [id number]) Out-Patient Physical Therapy Visit Information Visit Information Visit Type Treatment Note Visit Start Time 13:00 Visit Stop Time 13:45 Total Visit Minutes 40 Visit Number 15 PT-OP-B Current Condition Start: 02/09/22 12:20 Freq: Status: Active Protocol: Document 02/12/22 08:57 AMB (Rec: 02/12/22 09:58 AMB [id number]) Current Condition History of Current Condition Onset Date 3-4 years Current Complaints R anterior hip pain History of Current Condition STanding and walking increase back and right hip pain. Back has been a problem for a while , hip more recently but really has been years. Has had problems with the back since the 70's. Sitting/lying down helps the pain. Most concerned about pain in the front of the hip, not really the groin. Gets very dizzy when lying down flat, at least a year- motion sickness ( nausea), but is fine as long as he has some pillows. Treatment Goals Patient/Caregiver Goals Reduce anterior hip pain so can tolerate more walking/ standing. Personal Factors Other Personal Factors That May Effect Cardiac stent, C spine Therapy/Recovery laminectomy, carpal tunnel releases. PT-OP-C Subjective Start: 02/09/22 12:20 Freq: Status: Active Protocol: Document 04/20/22 13:01 AMB (Rec: 04/20/22 13:38 AMB [id number]) OP-PT Subjective Patient Comments Patient Comments Pt is seeing pain mangement on Saturday and will decide about hip surgery then. PT-OP-J Posture/Palpation/Skin Start: 02/09/22 12:20 Freq: Status: Active Protocol: Document 02/12/22 09:00 AMB (Rec: 02/13/22 15:44 AMB [id number]) Posture Evaluation Comments Posture Comments Flat lumbar spine and forward head positioning PT-OP-K Range of Motion Start: 02/09/22 12:20 Freq: Status: Active Protocol: Document 02/12/22 09:00 AMB (Rec: 02/12/22 13:00 AMB [id number]) Lumbar Spine Range of Motion Lumbar Spine Active Degrees Flexion 60 Extension 5 Lateral Flexion Left 25 Lateral Flexion Right 15 Hip Goniometric Range of Motion Hip Right Passive Testing Position Supine Flexion w/Knee Flexed 108 Internal Rotation 0 External Rotation 35 Left Passive Flexion w/Knee Flexed 110 Internal Rotation 25 External Rotation 45 PT-OP-M Strength Start: 02/09/22 12:20 Freq: Status: Active Protocol: Document 02/12/22 09:00 AMB (Rec: 02/13/22 15:44 AMB [id number]) Hip Strength Hip Manual Muscle Testing Right Flexion (L2) 4- Good- Extension (S1) 4 Good Abduction 4 Good Left Flexion (L2) 4 Good Extension (S1) 4+ Good+ Abduction 4 Good Knee Strength Knee Manual Muscle Testing Right Flexion (S2) 5 Normal Extension (L3) 5 Normal Left Flexion (S2) 5 Normal Extension (L3) 5 Normal PT-OP-O Vestibular Start: 02/13/22 16:04 Freq: Status: Active Protocol: Document 02/13/22 20:25 AMB (Rec: 02/13/22 20:31 AMB [id number]) Vestibular Assessment Positional Testing Chuckey-Hallpike Negative Left,Negative Right Comments Vestibular Comments Pt reported double vision with L dixhallpike but otherwise did not have dizziness or reproduction of sx that he gets when lying down flat. PT-OP-Q Treatments Start: 02/09/22 12:20 Freq: Status: Active Protocol: Document 04/20/22 13:01 AMB (Rec: 04/20/22 13:38 AMB [id number]) Cardio Equipment Recumbent Stepper (Sci-Fit) Duration (Minutes) 8 Resistance 3.0 Seat Position 10 Other good LE alignment, UEs/ LEs-1. 12 mi Therapeutic Exercises Supine Exercises SLR Reps/Minutes 2x10 LTR Side bilateral Equipment Used 65cm green physioball Reps/Minutes 3 min Comments improved range and tolerance w / repetition fig 4 stretch Supine Exercise Name cued pain-free range - limited today, no strap Side bilateral Equipment Used use strap on ankle Reps/Minutes 30 ferny stretch Supine Exercise Name attempted -very minimal, really to just neutral hip extension Side right Reps/Minutes 30 x2 Comments cued neutral TA needed LB allow anterior hip stretch glut set Reps/Minutes 10x Comments cues for core focus - bridge attempted dc'd d/t LBP Manual Therapy Treatment Soft Tissue Mobilization hip flexor Body Location right iliopsoas Mobilization Type Strumming,Sustained Pressure Intensity/Depth Moderate Body Position Hooklying PT-OP-R Modalities Start: 02/09/22 12:20 Freq: Status: Active Protocol: Document 04/20/22 13:01 AMB (Rec: 04/20/22 13:38 AMB [id number]) Hot Pack/Cold Pack Treatment Cold Pack Location hip Treatment Duration (minutes) 10 PT-OP-T Assessment and Plan Start: 02/09/22 12:20 Freq: Status: Active Protocol: Document 04/20/22 13:01 AMB (Rec: 04/20/22 13:38 AMB [id number]) Physical Therapy Assessment Goals Two Impairment Activity tolerance Short Term Goal (STG) Skip will move from sit to stand without hip pain. STG Duration MET Assisted Goal (LTG) Skip will walk for 1 mile without an increase in baseline hip pain. LTG Duration 10 weeks One Impairment ROM Short Term Goal (STG) Skijosh will improve his hip flexion ROM to 115 degrees without an increase in pain. STG Duration Progress made 110 [employer] Goal (LTG) Skip will be independent and a HEP and self massage techniques to reduce his right hip pain. LTG Duration 10 weeks Assessment Summary Assessment Pt to continue with hip strengthening. Standing and twisting continues to be painful. Physical Therapy Plan Frequency and Duration Frequency of Treatment 2x/Week Duration of treatment (weeks) 10 Plan of Care Start Date 02/12/22 Plan of Care End Date 04/23/22 Therapeutic Interventions Therapeutic Interventions Aquatic Therapy,Gait Training, Home Exercise Program,Manual Therapy,Neuromuscular Re- education,Self-Care/Home Management,Therapeutic Activities,Therapeutic Exercises Modalities Cold Pack/Ice Massage,Electric Stimulation,Hot Packs, Ultrasound Next Visit Focus/Plan Next Note Type Treatment Note Next Visit Plan Review supine HEP as tolerated : Ferny stretch, Figure 4, Tabletop core isometrics *Has latent response to new activities/tx. POC: Consider joint mobs right hip progress as tolerated.
--- NOTE | 2022-04-24 12:58 | PT.OTN ---
Current Diagnoses Other chronic pain (04/24/22) Pain in right hip (04/24/22) Lumbago with sciatica, right side (04/24/22) Lumbago with sciatica, left side (04/24/22) Physical Therapy Treatment Note PT-OP-A Visit Information Start: 02/09/22 12:20 Freq: Status: Active Protocol: Document 04/24/22 09:52 AMB (Rec: 04/24/22 10:29 AMB [id number]) Out-Patient Physical Therapy Visit Information Visit Information Visit Type Progress Note Visit Start Time 09:45 Visit Stop Time 10:30 Total Visit Minutes 45 Visit Number 16 PT-OP-B Current Condition Start: 02/09/22 12:20 Freq: Status: Active Protocol: Document 02/12/22 08:57 AMB (Rec: 02/12/22 09:58 AMB [id number]) Current Condition History of Current Condition Onset Date 3-4 years Current Complaints R anterior hip pain History of Current Condition STanding and walking increase back and right hip pain. Back has been a problem for a while , hip more recently but really has been years. Has had problems with the back since the 70's. Sitting/lying down helps the pain. Most concerned about pain in the front of the hip, not really the groin. Gets very dizzy when lying down flat, at least a year- motion sickness ( nausea), but is fine as long as he has some pillows. Treatment Goals Patient/Caregiver Goals Reduce anterior hip pain so can tolerate more walking/ standing. Personal Factors Other Personal Factors That May Effect Cardiac stent, C spine Therapy/Recovery laminectomy, carpal tunnel releases. PT-OP-C Subjective Start: 02/09/22 12:20 Freq: Status: Active Protocol: Document 04/24/22 09:52 AMB (Rec: 04/24/22 10:29 AMB [id number]) OP-PT Subjective Patient Comments Patient Comments Pt saw pain specialist, waiting for insurance authorization for injection and orthopedic surgeon. PT-OP-J Posture/Palpation/Skin Start: 02/09/22 12:20 Freq: Status: Active Protocol: Document 02/12/22 09:00 AMB (Rec: 02/13/22 15:44 AMB [id number]) Posture Evaluation Comments Posture Comments Flat lumbar spine and forward head positioning PT-OP-K Range of Motion Start: 02/09/22 12:20 Freq: Status: Active Protocol: Document 02/12/22 09:00 AMB (Rec: 02/12/22 13:00 AMB [id number]) Lumbar Spine Range of Motion Lumbar Spine Active Degrees Flexion 60 Extension 5 Lateral Flexion Left 25 Lateral Flexion Right 15 Hip Goniometric Range of Motion Hip Right Passive Testing Position Supine Flexion w/Knee Flexed 108 Internal Rotation 0 External Rotation 35 Left Passive Flexion w/Knee Flexed 110 Internal Rotation 25 External Rotation 45 PT-OP-M Strength Start: 02/09/22 12:20 Freq: Status: Active Protocol: Document 02/12/22 09:00 AMB (Rec: 02/13/22 15:44 AMB [id number]) Hip Strength Hip Manual Muscle Testing Right Flexion (L2) 4- Good- Extension (S1) 4 Good Abduction 4 Good Left Flexion (L2) 4 Good Extension (S1) 4+ Good+ Abduction 4 Good Knee Strength Knee Manual Muscle Testing Right Flexion (S2) 5 Normal Extension (L3) 5 Normal Left Flexion (S2) 5 Normal Extension (L3) 5 Normal PT-OP-O Vestibular Start: 02/13/22 16:04 Freq: Status: Active Protocol: Document 02/13/22 20:25 AMB (Rec: 02/13/22 20:31 AMB [id number]) Vestibular Assessment Positional Testing Nima-Hallpike Negative Left,Negative Right Comments Vestibular Comments Pt reported double vision with L dixhallpike but otherwise did not have dizziness or reproduction of sx that he gets when lying down flat. PT-OP-Q Treatments Start: 02/09/22 12:20 Freq: Status: Active Protocol: Document 04/24/22 09:45 AMB (Rec: 04/24/22 12:57 AMB [id number]) Cardio Equipment Recumbent Stepper (Sci-Fit) Duration (Minutes) 8 Resistance 3.0 Seat Position 10 Other good LE alignment, UEs/ LEs-1. 12 mi Therapeutic Exercises Supine Exercises ferny stretch Supine Exercise Name better- tolerance today Side right Reps/Minutes 30 x2 Comments cued neutral TA needed LB allow anterior hip stretch Standing Exercises chair squzat Reps/Minutes 3 x 10 Comments cues for knee alignment, hip hinge 1 Standing Exercise Name hip flexor stretch Side right Reps/Minutes 30x2 Comments gentle Manual Therapy Treatment Soft Tissue Mobilization hip flexor Body Location right iliopsoas Mobilization Type Strumming,Sustained Pressure Intensity/Depth Moderate Body Position Hooklying PT-OP-R Modalities Start: 02/09/22 12:20 Freq: Status: Active Protocol: Document 04/24/22 09:45 AMB (Rec: 04/24/22 12:58 AMB [id number]) Hot Pack/Cold Pack Treatment Cold Pack Location hip Treatment Duration (minutes) 10 PT-OP-T Assessment and Plan Start: 02/09/22 12:20 Freq: Status: Active Protocol: Document 04/24/22 09:52 AMB (Rec: 04/24/22 10:29 AMB [id number]) Physical Therapy Assessment Goals Two Impairment Activity tolerance Short Term Goal (STG) Skip will move from sit to stand without hip pain. STG Duration MET [employer] Snipper Goal (LTG) Skip will walk for 1 mile without an increase in baseline hip pain. LTG Duration 10 weeks One Impairment ROM Short Term Goal (STG) Skip will improve his hip flexion ROM to 115 degrees without an increase in pain. STG Duration Progress made 110 Bean Snipper Goal (LTG) Skip will be independent and a HEP and self massage techniques to reduce his right hip pain. LTG Duration 10 weeks Assessment Summary Assessment Pt reports he is making concious effort to avoid twisting the hip and that is helping with the pain. Physical Therapy Plan Frequency and Duration Frequency of Treatment 2x/Week Duration of treatment (weeks) 8 Plan of Care Start Date 04/24/22 Plan of Care End Date 06/19/22 Therapeutic Interventions Therapeutic Interventions Aquatic Therapy,Gait Training, Home Exercise Program,Manual Therapy,Neuromuscular Re- education,Self-Care/Home Management,Therapeutic Activities,Therapeutic Exercises Modalities Cold Pack/Ice Massage,Electric Stimulation,Hot Packs, Ultrasound Next Visit Focus/Plan Next Note Type Treatment Note Next Visit Plan Review supine HEP as tolerated : Ferny flores, Figure 4, Tabletop core isometrics *Has latent response to new activities/tx. POC: Consider joint mobs right hip progress as tolerated.
--- NOTE | 2022-04-24 22:41 | PT.OTN ---
Current Diagnoses Other chronic pain (04/24/22) Pain in right hip (04/24/22) Lumbago with sciatica, right side (04/24/22) Lumbago with sciatica, left side (04/24/22) Physical Therapy Treatment Note PT-OP-A Visit Information Start: 02/09/22 12:20 Freq: Status: Active Protocol: Document 04/24/22 09:52 AMB (Rec: 04/24/22 10:29 AMB [id number]) Out-Patient Physical Therapy Visit Information Visit Information Visit Type Progress Note Visit Start Time 09:45 Visit Stop Time 10:30 Total Visit Minutes 45 Visit Number 16 PT-OP-B Current Condition Start: 02/09/22 12:20 Freq: Status: Active Protocol: Document 02/12/22 08:57 AMB (Rec: 02/12/22 09:58 AMB [id number]) Current Condition History of Current Condition Onset Date 3-4 years Current Complaints R anterior hip pain History of Current Condition STanding and walking increase back and right hip pain. Back has been a problem for a while , hip more recently but really has been years. Has had problems with the back since the 70's. Sitting/lying down helps the pain. Most concerned about pain in the front of the hip, not really the groin. Gets very dizzy when lying down flat, at least a year- motion sickness ( nausea), but is fine as long as he has some pillows. Treatment Goals Patient/Caregiver Goals Reduce anterior hip pain so can tolerate more walking/ standing. Personal Factors Other Personal Factors That May Effect Cardiac stent, C spine Therapy/Recovery laminectomy, carpal tunnel releases. PT-OP-C Subjective Start: 02/09/22 12:20 Freq: Status: Active Protocol: Document 04/24/22 09:52 AMB (Rec: 04/24/22 10:29 AMB [id number]) OP-PT Subjective Patient Comments Patient Comments Pt saw pain specialist, waiting for insurance authorization for injection and orthopedic surgeon. PT-OP-J Posture/Palpation/Skin Start: 02/09/22 12:20 Freq: Status: Active Protocol: Document 02/12/22 09:00 AMB (Rec: 02/13/22 15:44 AMB [id number]) Posture Evaluation Comments Posture Comments Flat lumbar spine and forward head positioning PT-OP-K Range of Motion Start: 02/09/22 12:20 Freq: Status: Active Protocol: Document 02/12/22 09:00 AMB (Rec: 02/12/22 13:00 AMB [id number]) Lumbar Spine Range of Motion Lumbar Spine Active Degrees Flexion 60 Extension 5 Lateral Flexion Left 25 Lateral Flexion Right 15 Hip Goniometric Range of Motion Hip Right Passive Testing Position Supine Flexion w/Knee Flexed 108 Internal Rotation 0 External Rotation 35 Left Passive Flexion w/Knee Flexed 110 Internal Rotation 25 External Rotation 45 PT-OP-M Strength Start: 02/09/22 12:20 Freq: Status: Active Protocol: Document 02/12/22 09:00 AMB (Rec: 02/13/22 15:44 AMB [id number]) Hip Strength Hip Manual Muscle Testing Right Flexion (L2) 4- Good- Extension (S1) 4 Good Abduction 4 Good Left Flexion (L2) 4 Good Extension (S1) 4+ Good+ Abduction 4 Good Knee Strength Knee Manual Muscle Testing Right Flexion (S2) 5 Normal Extension (L3) 5 Normal Left Flexion (S2) 5 Normal Extension (L3) 5 Normal PT-OP-O Vestibular Start: 02/13/22 16:04 Freq: Status: Active Protocol: Document 02/13/22 20:25 AMB (Rec: 02/13/22 20:31 AMB [id number]) Vestibular Assessment Positional Testing [place]-Hallpike Negative Left,Negative Right Comments Vestibular Comments Pt reported double vision with L dixhallpike but otherwise did not have dizziness or reproduction of sx that he gets when lying down flat. PT-OP-Q Treatments Start: 02/09/22 12:20 Freq: Status: Active Protocol: Document 04/24/22 09:45 AMB (Rec: 04/24/22 12:57 AMB [id number]) Cardio Equipment Recumbent Stepper (Sci-Fit) Duration (Minutes) 8 Resistance 3.0 Seat Position 10 Other good LE alignment, UEs/ LEs-1. 12 mi Therapeutic Exercises Supine Exercises ferny stretch Supine Exercise Name better- tolerance today Side right Reps/Minutes 30 x2 Comments cued neutral TA needed LB allow anterior hip stretch Standing Exercises chair squzat Reps/Minutes 3 x 10 Comments cues for knee alignment, hip hinge 1 Standing Exercise Name hip flexor stretch Side right Reps/Minutes 30x2 Comments gentle Manual Therapy Treatment Soft Tissue Mobilization hip flexor Body Location right iliopsoas Mobilization Type Strumming,Sustained Pressure Intensity/Depth Moderate Body Position Hooklying PT-OP-R Modalities Start: 02/09/22 12:20 Freq: Status: Active Protocol: Document 04/24/22 09:45 AMB (Rec: 04/24/22 12:58 AMB [id number]) Hot Pack/Cold Pack Treatment Cold Pack Location hip Treatment Duration (minutes) 10 PT-OP-T Assessment and Plan Start: 02/09/22 12:20 Freq: Status: Active Protocol: Document 04/24/22 09:52 AMB (Rec: 04/24/22 10:29 AMB [id number]) Physical Therapy Assessment Goals Two Impairment Activity tolerance Short Term Goal (STG) Skip will move from sit to stand without hip pain. STG Duration MET Commercial Sewing Instructor Goal (LTG) Skip will walk for 1 mile without an increase in baseline hip pain. LTG Duration 10 weeks One Impairment ROM Short Term Goal (STG) Skip will improve his hip flexion ROM to 115 degrees without an increase in pain. STG Duration Progress made 110 Commercial Sewing Instructor Goal (LTG) Skip will be independent and a HEP and self massage techniques to reduce his right hip pain. LTG Duration 10 weeks Assessment Summary Assessment Pt reports he is making concious effort to avoid twisting the hip and that is helping with the pain. Overall pt improving his ROM, but pain continues with twisting activities and can be quite painful. Overall progress is slow, pt considering injection planning on seeing orthopedic surgery to consider hip replacement, as most days he has some antalgic gait and it is difficult to want to walk for any distance due to the pain. Hip extension ROM is improving slowly, but pain if he twists wrong remains. Physical Therapy Plan Frequency and Duration Frequency of Treatment 2x/Week Duration of treatment (weeks) 8 Plan of Care Start Date 04/24/22 Plan of Care End Date 06/19/22 Therapeutic Interventions Therapeutic Interventions Aquatic Therapy,Gait Training, Home Exercise Program,Manual Therapy,Neuromuscular Re- education,Self-Care/Home Management,Therapeutic Activities,Therapeutic Exercises Modalities Cold Pack/Ice Massage,Electric Stimulation,Hot Packs, Ultrasound Next Visit Focus/Plan Next Note Type Treatment Note Next Visit Plan Review supine HEP as tolerated : Ferny stretch, Figure 4, Tabletop core isometrics *Has latent response to new activities/tx. POC: Consider joint mobs right hip progress as tolerated.
--- NOTE | 2022-04-24 22:42 | PT.OPPOC ---
Physical, Occupational & Speech Therapy At [facility] Current Diagnoses Other chronic pain (04/24/22) Pain in right hip (04/24/22) Lumbago with sciatica, right side (04/24/22) Lumbago with sciatica, left side (04/24/22) Visit Care Team Role Provider Type Tim Claudio MD Attending Provider Physician Primary Care Provider Referring Provider Specialty: Family Practice Address: [address] [place] [address], [facility] Email: [email or web address] Plan Of Care PT-OP-T Assessment and Plan Start: 02/09/22 12:20 Freq: Status: Active Protocol: Document 04/24/22 09:52 AMB (Rec: 04/24/22 10:29 AMB [id number]) Physical Therapy Assessment Goals Two Impairment Activity tolerance Short Term Goal (STG) Skip will move from sit to stand without hip pain. STG Duration MET International Specialist Goal (LTG) Skip will walk for 1 mile without an increase in baseline hip pain. LTG Duration 10 weeks One Impairment ROM Short Term Goal (STG) Skip will improve his hip flexion ROM to 115 degrees without an increase in pain. STG Duration Progress made 110 International Specialist Goal (LTG) Skip will be independent and a HEP and self massage techniques to reduce his right hip pain. LTG Duration 10 weeks Assessment Summary Assessment Pt reports he is making concious effort to avoid twisting the hip and that is helping with the pain. Overall pt improving his ROM, but pain continues with twisting activities and can be quite painful. Overall progress is slow, pt considering injection planning on seeing orthopedic surgery to consider hip replacement, as most days he has some antalgic gait and it is difficult to want to walk for any distance due to the pain. Hip extension ROM is improving slowly, but pain if he twists wrong remains. Physical Therapy Plan Frequency and Duration Frequency of Treatment 2x/Week Duration of treatment (weeks) 8 Plan of Care Start Date 04/24/22 Plan of Care End Date 06/19/22 Therapeutic Interventions Therapeutic Interventions Aquatic Therapy,Gait Training, Home Exercise Program,Manual Therapy,Neuromuscular Re- education,Self-Care/Home Management,Therapeutic Activities,Therapeutic Exercises Modalities Cold Pack/Ice Massage,Electric Stimulation,Hot Packs, Ultrasound Next Visit Focus/Plan Next Note Type Treatment Note Next Visit Plan Review supine HEP as tolerated : Ferny flores, Figure 4, Tabletop core isometrics *Has latent response to new activities/tx. POC: Consider joint mobs right hip progress as tolerated. Plan of Care Dates Plan of Care Start Date 04/24/22 Plan of Care End Date 06/19/22 Electronically Signed by: Taryn Mccollum, PT 04/29/22 [id number] If you are in agreement with this Plan of Care, please return a signed and dated copy. I have reviewed this Plan of Care and certify that the skilled therapy services above are required to meet the patient?s needs. Physician Signature Date Printed Name and Credentials Clinical Instructor Signature Printed Name and Credentials
--- NOTE | 2022-05-01 10:38 | PT.OTN ---
Current Diagnoses Other chronic pain (05/01/22) Pain in right hip (05/01/22) Lumbago with sciatica, right side (05/01/22) Lumbago with sciatica, left side (05/01/22) Physical Therapy Treatment Note PT-OP-A Visit Information Start: 02/09/22 12:20 Freq: Status: Active Protocol: Document 05/01/22 09:50 AMB (Rec: 05/01/22 10:37 AMB [id number]) Out-Patient Physical Therapy Visit Information Visit Information Visit Type Treatment Note Visit Start Time 09:45 Visit Stop Time 10:30 Total Visit Minutes 45 Visit Number 17 PT-OP-B Current Condition Start: 02/09/22 12:20 Freq: Status: Active Protocol: Document 02/12/22 08:57 AMB (Rec: 02/12/22 09:58 AMB [id number]) Current Condition History of Current Condition Onset Date 3-4 years Current Complaints R anterior hip pain History of Current Condition STanding and walking increase back and right hip pain. Back has been a problem for a while , hip more recently but really has been years. Has had problems with the back since the 70's. Sitting/lying down helps the pain. Most concerned about pain in the front of the hip, not really the groin. Gets very dizzy when lying down flat, at least a year- motion sickness ( nausea), but is fine as long as he has some pillows. Treatment Goals Patient/Caregiver Goals Reduce anterior hip pain so can tolerate more walking/ standing. Personal Factors Other Personal Factors That May Effect Cardiac stent, C spine Therapy/Recovery laminectomy, carpal tunnel releases. PT-OP-C Subjective Start: 02/09/22 12:20 Freq: Status: Active Protocol: Document 05/01/22 09:50 AMB (Rec: 05/01/22 10:37 AMB [id number]) OP-PT Subjective Patient Comments Patient Comments Pt went to over the weekend went for some long walks and did ok. Does need to take some breaks. Is sore after PT . PT-OP-J Posture/Palpation/Skin Start: 02/09/22 12:20 Freq: Status: Active Protocol: Document 02/12/22 09:00 AMB (Rec: 02/13/22 15:44 AMB [id number]-) Posture Evaluation Comments Posture Comments Flat lumbar spine and forward head positioning PT-OP-K Range of Motion Start: 02/09/22 12:20 Freq: Status: Active Protocol: Document 02/12/22 09:00 AMB (Rec: 02/12/22 13:00 AMB [id number]) Lumbar Spine Range of Motion Lumbar Spine Active Degrees Flexion 60 Extension 5 Lateral Flexion Left 25 Lateral Flexion Right 15 Hip Goniometric Range of Motion Hip Right Passive Testing Position Supine Flexion w/Knee Flexed 108 Internal Rotation 0 External Rotation 35 Left Passive Flexion w/Knee Flexed 110 Internal Rotation 25 External Rotation 45 PT-OP-M Strength Start: 02/09/22 12:20 Freq: Status: Active Protocol: Document 02/12/22 09:00 AMB (Rec: 02/13/22 15:44 AMB [id number]-) Hip Strength Hip Manual Muscle Testing Right Flexion (L2) 4- Good- Extension (S1) 4 Good Abduction 4 Good Left Flexion (L2) 4 Good Extension (S1) 4+ Good+ Abduction 4 Good Knee Strength Knee Manual Muscle Testing Right Flexion (S2) 5 Normal Extension (L3) 5 Normal Left Flexion (S2) 5 Normal Extension (L3) 5 Normal PT-OP-O Vestibular Start: 02/13/22 16:04 Freq: Status: Active Protocol: Document 02/13/22 20:25 AMB (Rec: 02/13/22 20:31 AMB [id number]-) Vestibular Assessment Positional Testing [place]-Hallpike Negative Left,Negative Right Comments Vestibular Comments Pt reported double vision with L dixhallpike but otherwise did not have dizziness or reproduction of sx that he gets when lying down flat. PT-OP-Q Treatments Start: 02/09/22 12:20 Freq: Status: Active Protocol: Document 05/01/22 09:50 AMB (Rec: 05/01/22 10:37 AMB [id number]) Cardio Equipment Recumbent Stepper (Sci-Fit) Duration (Minutes) 8 Resistance 3.0 Seat Position 10 Other good LE alignment, UEs/ LEs-1. 12 mi Therapeutic Exercises Supine Exercises SLR Reps/Minutes 2x10 LTR Side bilateral Equipment Used 65cm green physioball Reps/Minutes 3 min Comments improved range and tolerance w / repetition ferny stretch Supine Exercise Name better- tolerance today Side right Reps/Minutes 30 x2 Comments cued neutral TA needed LB allow anterior hip stretch Sidelying Exercises clam Side right Reps/Minutes 2x10 Standing Exercises resisted sidestepping Side bilateral Equipment Used yellow band Reps/Minutes 10 ft x 3 ea Comments cue to reach w/ heel/toes fwd chair squzat Reps/Minutes 3 x 10 Comments cues for knee alignment, hip hinge Manual Therapy Treatment Soft Tissue Mobilization hip flexor Body Location right iliopsoas, adductor Mobilization Type Strumming,Sustained Pressure Intensity/Depth Moderate Body Position Hooklying PT-OP-R Modalities Start: 02/09/22 12:20 Freq: Status: Active Protocol: Document 05/01/22 09:50 AMB (Rec: 05/01/22 10:37 AMB [id number]) Hot Pack/Cold Pack Treatment Cold Pack Location hip Treatment Duration (minutes) 10 PT-OP-T Assessment and Plan Start: 02/09/22 12:20 Freq: Status: Active Protocol: Document 05/01/22 09:50 AMB (Rec: 05/01/22 10:37 AMB [id number]) Physical Therapy Assessment Goals Two Impairment Activity tolerance Short Term Goal (STG) Skip will move from sit to stand without hip pain. STG Duration MET Hot Car Operator Goal (LTG) Skip will walk for 1 mile without an increase in baseline hip pain. LTG Duration 10 weeks One Impairment ROM Short Term Goal (STG) Skip will improve his hip flexion ROM to 115 degrees without an increase in pain. STG Duration Progress made 110 Longterm Goal (LTG) Skip will be independent and a HEP and self massage techniques to reduce his right hip pain. LTG Duration 10 weeks Assessment Summary Assessment Pt felt fatigue with sidestepping and SLR but is toleraing more resistance. Encouraged pt to avoid ladder for Kristine lights. Physical Therapy Plan Frequency and Duration Frequency of Treatment 2x/Week Duration of treatment (weeks) 8 Plan of Care Start Date 04/24/22 Plan of Care End Date 06/19/22 Therapeutic Interventions Therapeutic Interventions Aquatic Therapy,Gait Training, Home Exercise Program,Manual Therapy,Neuromuscular Re- education,Self-Care/Home Management,Therapeutic Activities,Therapeutic Exercises Modalities Cold Pack/Ice Massage,Electric Stimulation,Hot Packs, Ultrasound Next Visit Focus/Plan Next Note Type Treatment Note Next Visit Plan Review supine HEP as tolerated : Ferny flores, Figure 4, Tabletop core isometrics *Has latent response to new activities/tx. POC: Consider joint mobs right hip progress as tolerated.
--- NOTE | 2022-05-04 22:17 | PT.OTN ---
Current Diagnoses Other chronic pain (05/04/22) Pain in right hip (05/04/22) Lumbago with sciatica, right side (05/04/22) Lumbago with sciatica, left side (05/04/22) Physical Therapy Treatment Note PT-OP-A Visit Information Start: 02/09/22 12:20 Freq: Status: Active Protocol: Document 05/04/22 09:45 AMB (Rec: 05/04/22 10:34 AMB [id number]) Out-Patient Physical Therapy Visit Information Visit Information Visit Type Treatment Note Visit Start Time 09:45 Visit Stop Time 10:30 Total Visit Minutes 45 Visit Number 18 PT-OP-B Current Condition Start: 02/09/22 12:20 Freq: Status: Active Protocol: Document 02/12/22 08:57 AMB (Rec: 02/12/22 09:58 AMB [id number]) Current Condition History of Current Condition Onset Date 3-4 years Current Complaints R anterior hip pain History of Current Condition STanding and walking increase back and right hip pain. Back has been a problem for a while , hip more recently but really has been years. Has had problems with the back since the 70's. Sitting/lying down helps the pain. Most concerned about pain in the front of the hip, not really the groin. Gets very dizzy when lying down flat, at least a year- motion sickness ( nausea), but is fine as long as he has some pillows. Treatment Goals Patient/Caregiver Goals Reduce anterior hip pain so can tolerate more walking/ standing. Personal Factors Other Personal Factors That May Effect Cardiac stent, C spine Therapy/Recovery laminectomy, carpal tunnel releases. PT-OP-C Subjective Start: 02/09/22 12:20 Freq: Status: Active Protocol: Document 05/04/22 09:45 AMB (Rec: 05/04/22 10:34 AMB [id number]) OP-PT Subjective Patient Comments Patient Comments Pt reports increased hip pain last night. Was up on his feet a lot yesterday and thinks maybe that was the problem. Seeing ortho on Saturday. PT-OP-J Posture/Palpation/Skin Start: 02/09/22 12:20 Freq: Status: Active Protocol: Document 02/12/22 09:00 AMB (Rec: 02/13/22 15:44 AMB [id number]-) Posture Evaluation Comments Posture Comments Flat lumbar spine and forward head positioning PT-OP-K Range of Motion Start: 02/09/22 12:20 Freq: Status: Active Protocol: Document 02/12/22 09:00 AMB (Rec: 02/12/22 13:00 AMB [id number]) Lumbar Spine Range of Motion Lumbar Spine Active Degrees Flexion 60 Extension 5 Lateral Flexion Left 25 Lateral Flexion Right 15 Hip Goniometric Range of Motion Hip Right Passive Testing Position Supine Flexion w/Knee Flexed 108 Internal Rotation 0 External Rotation 35 Left Passive Flexion w/Knee Flexed 110 Internal Rotation 25 External Rotation 45 PT-OP-M Strength Start: 02/09/22 12:20 Freq: Status: Active Protocol: Document 02/12/22 09:00 AMB (Rec: 02/13/22 15:44 AMB [id number]-) Hip Strength Hip Manual Muscle Testing Right Flexion (L2) 4- Good- Extension (S1) 4 Good Abduction 4 Good Left Flexion (L2) 4 Good Extension (S1) 4+ Good+ Abduction 4 Good Knee Strength Knee Manual Muscle Testing Right Flexion (S2) 5 Normal Extension (L3) 5 Normal Left Flexion (S2) 5 Normal Extension (L3) 5 Normal PT-OP-O Vestibular Start: 02/13/22 16:04 Freq: Status: Active Protocol: Document 02/13/22 20:25 AMB (Rec: 02/13/22 20:31 AMB [id number]-) Vestibular Assessment Positional Testing [place]-Hallpike Negative Left,Negative Right Comments Vestibular Comments Pt reported double vision with L dixhallpike but otherwise did not have dizziness or reproduction of sx that he gets when lying down flat. PT-OP-Q Treatments Start: 02/09/22 12:20 Freq: Status: Active Protocol: Document 05/04/22 09:45 AMB (Rec: 05/04/22 10:34 AMB [id number]) Cardio Equipment Recumbent Stepper (Sci-Fit) Duration (Minutes) 8 Resistance 2 Seat Position 10 Other good LE alignment, UEs/ LEs-1. 12 mi Therapeutic Exercises Supine Exercises LTR Side bilateral Equipment Used 65cm green physioball Reps/Minutes 3 min Comments improved range and tolerance w / repetition ferny stretch Supine Exercise Name better- tolerance today Side right Reps/Minutes 30 x2 Comments cued neutral TA needed LB allow anterior hip stretch Manual Therapy Treatment Soft Tissue Mobilization hip flexor Body Location right iliopsoas, adductor Mobilization Type Strumming,Sustained Pressure Intensity/Depth Moderate Body Position Hooklying Joint Mobilizations 2 Joint R hip Direction inferior glide Grade III Body Position Hooklying Comments with mobilization belt PT-OP-R Modalities Start: 02/09/22 12:20 Freq: Status: Active Protocol: Document 05/01/22 09:50 AMB (Rec: 05/01/22 10:37 AMB [id number]) Hot Pack/Cold Pack Treatment Cold Pack Location hip Treatment Duration (minutes) 10 PT-OP-T Assessment and Plan Start: 02/09/22 12:20 Freq: Status: Active Protocol: Document 05/04/22 09:45 AMB (Rec: 05/06/22 22:17 AMB [id number]) Physical Therapy Assessment Goals Two Impairment Activity tolerance Short Term Goal (STG) Skip will move from sit to stand without hip pain. STG Duration MET Assistant Clinical Nurse Manager Goal (LTG) Skip will walk for 1 mile without an increase in baseline hip pain. LTG Duration 10 weeks One Impairment ROM Short Term Goal (STG) Skip will improve his hip flexion ROM to 115 degrees without an increase in pain. STG Duration Progress made 110 Correction Goal (LTG) Skip will be independent and a HEP and self massage techniques to reduce his right hip pain. LTG Duration 10 weeks Assessment Summary Assessment Pt with less tolerance to exercise today since he feels he overdid it at home, walking , lifting Kristine decoration boxes encouraged to continue stretching. Pt to see ortho, discuss plan after that. Physical Therapy Plan Frequency and Duration Frequency of Treatment 2x/Week Duration of treatment (weeks) 8 Plan of Care Start Date 04/24/22 Plan of Care End Date 06/19/22 Therapeutic Interventions Therapeutic Interventions Aquatic Therapy,Gait Training, Home Exercise Program,Manual Therapy,Neuromuscular Re- education,Self-Care/Home Management,Therapeutic Activities,Therapeutic Exercises Modalities Cold Pack/Ice Massage,Electric Stimulation,Hot Packs, Ultrasound Next Visit Focus/Plan Next Note Type Treatment Note Next Visit Plan Review supine HEP as tolerated : Ferny stretch, Figure 4, Tabletop core isometrics *Has latent response to new activities/tx. POC: Consider joint mobs right hip progress as tolerated.
--- NOTE | 2022-05-08 10:35 | PT.OTN ---
Current Diagnoses Other chronic pain (05/08/22) Pain in right hip (05/08/22) Lumbago with sciatica, right side (05/08/22) Lumbago with sciatica, left side (05/08/22) Physical Therapy Treatment Note PT-OP-A Visit Information Start: 02/09/22 12:20 Freq: Status: Active Protocol: Document 05/08/22 09:45 AMB (Rec: 05/08/22 10:34 AMB [id number]) Out-Patient Physical Therapy Visit Information Visit Information Visit Type Treatment Note Visit Start Time 09:45 Visit Stop Time 10:30 Total Visit Minutes 45 Visit Number 19 PT-OP-B Current Condition Start: 02/09/22 12:20 Freq: Status: Active Protocol: Document 02/12/22 08:57 AMB (Rec: 02/12/22 09:58 AMB [id number]) Current Condition History of Current Condition Onset Date 3-4 years Current Complaints R anterior hip pain History of Current Condition STanding and walking increase back and right hip pain. Back has been a problem for a while , hip more recently but really has been years. Has had problems with the back since the 70's. Sitting/lying down helps the pain. Most concerned about pain in the front of the hip, not really the groin. Gets very dizzy when lying down flat, at least a year- motion sickness ( nausea), but is fine as long as he has some pillows. Treatment Goals Patient/Caregiver Goals Reduce anterior hip pain so can tolerate more walking/ standing. Personal Factors Other Personal Factors That May Effect Cardiac stent, C spine Therapy/Recovery laminectomy, carpal tunnel releases. PT-OP-C Subjective Start: 02/09/22 12:20 Freq: Status: Active Protocol: Document 05/08/22 09:45 AMB (Rec: 05/08/22 10:34 AMB [id number]) OP-PT Subjective Patient Comments Patient Comments Went shopping yesterday and the hip wasn't too bad. Did see ortho, but not someone who does hips, so has to wait to see Dr. West in early June . PT-OP-J Posture/Palpation/Skin Start: 02/09/22 12:20 Freq: Status: Active Protocol: Document 02/12/22 09:00 AMB (Rec: 02/13/22 15:44 AMB [id number]) Posture Evaluation Comments Posture Comments Flat lumbar spine and forward head positioning PT-OP-K Range of Motion Start: 02/09/22 12:20 Freq: Status: Active Protocol: Document 02/12/22 09:00 AMB (Rec: 02/12/22 13:00 AMB [id number]) Lumbar Spine Range of Motion Lumbar Spine Active Degrees Flexion 60 Extension 5 Lateral Flexion Left 25 Lateral Flexion Right 15 Hip Goniometric Range of Motion Hip Right Passive Testing Position Supine Flexion w/Knee Flexed 108 Internal Rotation 0 External Rotation 35 Left Passive Flexion w/Knee Flexed 110 Internal Rotation 25 External Rotation 45 PT-OP-M Strength Start: 02/09/22 12:20 Freq: Status: Active Protocol: Document 02/12/22 09:00 AMB (Rec: 02/13/22 15:44 AMB [id number]) Hip Strength Hip Manual Muscle Testing Right Flexion (L2) 4- Good- Extension (S1) 4 Good Abduction 4 Good Left Flexion (L2) 4 Good Extension (S1) 4+ Good+ Abduction 4 Good Knee Strength Knee Manual Muscle Testing Right Flexion (S2) 5 Normal Extension (L3) 5 Normal Left Flexion (S2) 5 Normal Extension (L3) 5 Normal PT-OP-O Vestibular Start: 02/13/22 16:04 Freq: Status: Active Protocol: Document 02/13/22 20:25 AMB (Rec: 02/13/22 20:31 AMB [id number]) Vestibular Assessment Positional Testing Nima-Hallpike Negative Left,Negative Right Comments Vestibular Comments Pt reported double vision with L dixhallpike but otherwise did not have dizziness or reproduction of sx that he gets when lying down flat. PT-OP-Q Treatments Start: 02/09/22 12:20 Freq: Status: Active Protocol: Document 05/08/22 09:45 AMB (Rec: 05/08/22 10:34 AMB [id number]) Therapeutic Exercises Supine Exercises LTR Side bilateral Equipment Used 65cm green physioball Reps/Minutes 3 min Comments improved range and tolerance w / repetition ferny stretch Supine Exercise Name better- tolerance today Side right Reps/Minutes 30 x2 Comments cued neutral TA needed LB allow anterior hip stretch Sitting Exercises hip flexor stretch Sitting Exercise Name leg off table Reps/Minutes 2x10 Standing Exercises Calf stretch Standing Exercise Name lunge position Side bilateral Equipment Used rail Reps/Minutes x 45s ea Comments cue for square hips resisted sidestepping Side bilateral Equipment Used yellow band Reps/Minutes 10 ft x 3 ea Comments cue to reach w/ heel/toes fwd chair squzat Reps/Minutes 3 x 10 Comments cues for knee alignment, hip hinge Manual Therapy Treatment Soft Tissue Mobilization hip flexor Body Location right iliopsoas, adductor Mobilization Type Strumming,Sustained Pressure Intensity/Depth Moderate Body Position Hooklying PT-OP-R Modalities Start: 02/09/22 12:20 Freq: Status: Active Protocol: Document 05/08/22 10:34 AMB (Rec: 05/08/22 10:35 AMB [id number]) Hot Pack/Cold Pack Treatment Cold Pack Location R hip Treatment Duration (minutes) 10 PT-OP-T Assessment and Plan Start: 02/09/22 12:20 Freq: Status: Active Protocol: Document 05/08/22 09:45 AMB (Rec: 05/08/22 10:34 AMB [id number]) Physical Therapy Assessment Goals Two Impairment Activity tolerance Short Term Goal (STG) Mark will move from sit to stand without hip pain. STG Duration [facility] Goal (LTG) Skijosh will walk for 1 mile without an increase in baseline hip pain. LTG Duration 10 weeks One Impairment ROM Short Term Goal (STG) Mark will improve his hip flexion ROM to 115 degrees without an increase in pain. STG Duration Progress made 110 [employer] Economist Goal (LTG) Mark will be independent and a HEP and self massage techniques to reduce his right hip pain. LTG Duration 10 weeks Assessment Summary Assessment Mark is noticing increases ability to walk around big stores without as much hip pain. Continues to be interested in hip surgery, meeting with surgeon in a month. Physical Therapy Plan Frequency and Duration Frequency of Treatment 2x/Week Duration of treatment (weeks) 8 Plan of Care Start Date 04/24/22 Plan of Care End Date 06/19/22 Therapeutic Interventions Therapeutic Interventions Aquatic Therapy,Gait Training, Home Exercise Program,Manual Therapy,Neuromuscular Re- education,Self-Care/Home Management,Therapeutic Activities,Therapeutic Exercises Modalities Cold Pack/Ice Massage,Electric Stimulation,Hot Packs, Ultrasound Next Visit Focus/Plan Next Note Type Treatment Note Next Visit Plan Review supine HEP as tolerated : Ferny flores, Figure 4, Tabletop core isometrics *Has latent response to new activities/tx. POC: Consider joint mobs right hip progress as tolerated.
--- NOTE | 2022-05-11 10:28 | PT.OTN ---
Current Diagnoses Other chronic pain (05/11/22) Pain in right hip (05/11/22) Lumbago with sciatica, right side (05/11/22) Lumbago with sciatica, left side (05/11/22) Physical Therapy Treatment Note PT-OP-A Visit Information Start: 02/09/22 12:20 Freq: Status: Active Protocol: Document 05/11/22 09:48 AMB (Rec: 05/11/22 10:28 AMB [id number]) Out-Patient Physical Therapy Visit Information Visit Information Visit Type Treatment Note Visit Start Time 09:45 Visit Stop Time 10:30 Total Visit Minutes 45 Visit Number 20 PT-OP-B Current Condition Start: 02/09/22 12:20 Freq: Status: Active Protocol: Document 02/12/22 08:57 AMB (Rec: 02/12/22 09:58 AMB [id number]) Current Condition History of Current Condition Onset Date 3-4 years Current Complaints R anterior hip pain History of Current Condition STanding and walking increase back and right hip pain. Back has been a problem for a while , hip more recently but really has been years. Has had problems with the back since the 70's. Sitting/lying down helps the pain. Most concerned about pain in the front of the hip, not really the groin. Gets very dizzy when lying down flat, at least a year- motion sickness ( nausea), but is fine as long as he has some pillows. Treatment Goals Patient/Caregiver Goals Reduce anterior hip pain so can tolerate more walking/ standing. Personal Factors Other Personal Factors That May Effect Cardiac stent, C spine Therapy/Recovery laminectomy, carpal tunnel releases. PT-OP-C Subjective Start: 02/09/22 12:20 Freq: Status: Active Protocol: Document 05/11/22 09:48 AMB (Rec: 05/11/22 10:28 AMB [id number]) OP-PT Subjective Patient Comments Patient Comments [place] hip pain today when twisting the leg to put it in the shoe. PT-OP-J Posture/Palpation/Skin Start: 02/09/22 12:20 Freq: Status: Active Protocol: Document 02/12/22 09:00 AMB (Rec: 02/13/22 15:44 AMB [id number]) Posture Evaluation Comments Posture Comments Flat lumbar spine and forward head positioning PT-OP-K Range of Motion Start: 02/09/22 12:20 Freq: Status: Active Protocol: Document 02/12/22 09:00 AMB (Rec: 02/12/22 13:00 AMB [id number]) Lumbar Spine Range of Motion Lumbar Spine Active Degrees Flexion 60 Extension 5 Lateral Flexion Left 25 Lateral Flexion Right 15 Hip Goniometric Range of Motion Hip Right Passive Testing Position Supine Flexion w/Knee Flexed 108 Internal Rotation 0 External Rotation 35 Left Passive Flexion w/Knee Flexed 110 Internal Rotation 25 External Rotation 45 PT-OP-M Strength Start: 02/09/22 12:20 Freq: Status: Active Protocol: Document 02/12/22 09:00 AMB (Rec: 02/13/22 15:44 AMB [id number]) Hip Strength Hip Manual Muscle Testing Right Flexion (L2) 4- Good- Extension (S1) 4 Good Abduction 4 Good Left Flexion (L2) 4 Good Extension (S1) 4+ Good+ Abduction 4 Good Knee Strength Knee Manual Muscle Testing Right Flexion (S2) 5 Normal Extension (L3) 5 Normal Left Flexion (S2) 5 Normal Extension (L3) 5 Normal PT-OP-O Vestibular Start: 02/13/22 16:04 Freq: Status: Active Protocol: Document 02/13/22 20:25 AMB (Rec: 02/13/22 20:31 AMB [id number]) Vestibular Assessment Positional Testing Nima-Hallpike Negative Left,Negative Right Comments Vestibular Comments Pt reported double vision with L dixhallpike but otherwise did not have dizziness or reproduction of sx that he gets when lying down flat. PT-OP-Q Treatments Start: 02/09/22 12:20 Freq: Status: Active Protocol: Document 05/11/22 09:48 AMB (Rec: 05/11/22 10:28 AMB [id number]) Cardio Equipment Recumbent Stepper (Sci-Fit) Duration (Minutes) 8 Resistance 3 Seat Position 10 Other good LE alignment, UEs/ LEs-1. 12 mi Therapeutic Exercises Supine Exercises LTR Side bilateral Equipment Used 65cm green physioball Reps/Minutes 3 min Comments improved range and tolerance w / repetition fig 4 stretch Supine Exercise Name cued pain-free range - limited today, no strap Side bilateral Equipment Used use strap on ankle Reps/Minutes 30 kip stretch Supine Exercise Name better- tolerance today Side right Reps/Minutes 30 x2 Comments cued neutral TA needed LB allow anterior hip stretch bent knee fall out Side bilateral Reps/Minutes 15x ea Comments tactile cues for core engagement- challenging d/t LBP, cues for PPT Manual Therapy Treatment Soft Tissue Mobilization hip flexor Body Location right iliopsoas, adductor Mobilization Type Strumming,Sustained Pressure Intensity/Depth Moderate Body Position Hooklying Joint Mobilizations 2 Joint R hip Direction inferior glide Grade III Body Position Hooklying Comments with mobilization belt 1 Joint R hip Direction AP Grade II Body Position Hooklying Reps/Duration s PT-OP-R Modalities Start: 02/09/22 12:20 Freq: Status: Active Protocol: Document 05/11/22 10:28 AMB (Rec: 05/11/22 10:28 AMB [id number]) Hot Pack/Cold Pack Treatment Cold Pack Location R hip Treatment Duration (minutes) 10 PT-OP-T Assessment and Plan Start: 02/09/22 12:20 Freq: Status: Active Protocol: Document 05/11/22 09:48 AMB (Rec: 05/11/22 10:28 AMB [id number]) Physical Therapy Assessment Goals Two Impairment Activity tolerance Short Term Goal (STG) Skip will move from sit to stand without hip pain. STG Duration [facility] [employer] Goal (LTG) Skip will walk for 1 mile without an increase in baseline hip pain. LTG Duration 10 weeks One Impairment ROM Short Term Goal (STG) Skip will improve his hip flexion ROM to 115 degrees without an increase in pain. STG Duration Progress made 110 Custodial Goal (LTG) Skip will be independent and a HEP and self massage techniques to reduce his right hip pain. LTG Duration 10 weeks Physical Therapy Plan Frequency and Duration Frequency of Treatment 2x/Week Duration of treatment (weeks) 8 Plan of Care Start Date 04/24/22 Plan of Care End Date 06/19/22 Therapeutic Interventions Therapeutic Interventions Aquatic Therapy,Gait Training, Home Exercise Program,Manual Therapy,Neuromuscular Re- education,Self-Care/Home Management,Therapeutic Activities,Therapeutic Exercises Modalities Cold Pack/Ice Massage,Electric Stimulation,Hot Packs, Ultrasound Next Visit Focus/Plan Next Note Type Treatment Note Next Visit Plan Work on rotational tolerance at the hip
--- NOTE | 2022-05-15 10:25 | PT.OTN ---
Current Diagnoses Other chronic pain (05/15/22) Pain in right hip (05/15/22) Lumbago with sciatica, right side (05/15/22) Lumbago with sciatica, left side (05/15/22) Physical Therapy Treatment Note PT-OP-A Visit Information Start: 02/09/22 12:20 Freq: Status: Active Protocol: Document 05/15/22 09:47 AMB (Rec: 05/15/22 10:24 AMB [id number]) Out-Patient Physical Therapy Visit Information Visit Information Visit Type Treatment Note Visit Start Time 09:45 Visit Stop Time 10:30 Total Visit Minutes 45 Visit Number 21 PT-OP-B Current Condition Start: 02/09/22 12:20 Freq: Status: Active Protocol: Document 02/12/22 08:57 AMB (Rec: 02/12/22 09:58 AMB [id number]) Current Condition History of Current Condition Onset Date 3-4 years Current Complaints R anterior hip pain History of Current Condition STanding and walking increase back and right hip pain. Back has been a problem for a while , hip more recently but really has been years. Has had problems with the back since the 70's. Sitting/lying down helps the pain. Most concerned about pain in the front of the hip, not really the groin. Gets very dizzy when lying down flat, at least a year- motion sickness ( nausea), but is fine as long as he has some pillows. Treatment Goals Patient/Caregiver Goals Reduce anterior hip pain so can tolerate more walking/ standing. Personal Factors Other Personal Factors That May Effect Cardiac stent, C spine Therapy/Recovery laminectomy, carpal tunnel releases. PT-OP-C Subjective Start: 02/09/22 12:20 Freq: Status: Active Protocol: Document 05/15/22 09:47 AMB (Rec: 05/15/22 10:24 AMB [id number]) OP-PT Subjective Patient Comments Patient Comments Has been feeling ok back and hip nobles. PT-OP-J Posture/Palpation/Skin Start: 02/09/22 12:20 Freq: Status: Active Protocol: Document 02/12/22 09:00 AMB (Rec: 02/13/22 15:44 AMB [id number]) Posture Evaluation Comments Posture Comments Flat lumbar spine and forward head positioning PT-OP-K Range of Motion Start: 02/09/22 12:20 Freq: Status: Active Protocol: Document 02/12/22 09:00 AMB (Rec: 02/12/22 13:00 AMB [id number]) Lumbar Spine Range of Motion Lumbar Spine Active Degrees Flexion 60 Extension 5 Lateral Flexion Left 25 Lateral Flexion Right 15 Hip Goniometric Range of Motion Hip Right Passive Testing Position Supine Flexion w/Knee Flexed 108 Internal Rotation 0 External Rotation 35 Left Passive Flexion w/Knee Flexed 110 Internal Rotation 25 External Rotation 45 PT-OP-M Strength Start: 02/09/22 12:20 Freq: Status: Active Protocol: Document 02/12/22 09:00 AMB (Rec: 02/13/22 15:44 AMB [id number]) Hip Strength Hip Manual Muscle Testing Right Flexion (L2) 4- Good- Extension (S1) 4 Good Abduction 4 Good Left Flexion (L2) 4 Good Extension (S1) 4+ Good+ Abduction 4 Good Knee Strength Knee Manual Muscle Testing Right Flexion (S2) 5 Normal Extension (L3) 5 Normal Left Flexion (S2) 5 Normal Extension (L3) 5 Normal PT-OP-O Vestibular Start: 02/13/22 16:04 Freq: Status: Active Protocol: Document 02/13/22 20:25 AMB (Rec: 02/13/22 20:31 AMB [id number]) Vestibular Assessment Positional Testing Nima-Hallpike Negative Left,Negative Right Comments Vestibular Comments Pt reported double vision with L dixhallpike but otherwise did not have dizziness or reproduction of sx that he gets when lying down flat. PT-OP-Q Treatments Start: 02/09/22 12:20 Freq: Status: Active Protocol: Document 05/15/22 09:47 AMB (Rec: 05/15/22 10:24 AMB [id number]) Cardio Equipment Recumbent Stepper (Sci-Fit) Duration (Minutes) 8 Resistance 3 Seat Position 10 Other good LE alignment, UEs/ LEs-1. 12 mi Therapeutic Exercises Supine Exercises LTR Side bilateral Equipment Used 65cm green physioball Reps/Minutes 3 min Comments improved range and tolerance w / repetition kip stretch Supine Exercise Name better- tolerance today Side right Reps/Minutes 30 x2 Comments cued neutral TA needed LB allow anterior hip stretch bent knee fall out Side bilateral Reps/Minutes 15x ea Comments tactile cues for core engagement- challenging d/t LBP, cues for PPT Sidelying Exercises clam Side right Reps/Minutes 2x10 Standing Exercises hamstring stretch Standing Exercise Name on stair Reps/Minutes 30x2 Calf stretch Standing Exercise Name lunge position Side bilateral Equipment Used rail Reps/Minutes x 45s ea Comments cue for square hips 2 Standing Exercise Name quad stretch - added to HEP Equipment Used chair>step so pt has GLOBAL REGULATORY LEAD like at home Reps/Minutes 30 x 2 Comments gentle 1 Standing Exercise Name hip flexor stretch Side right Reps/Minutes 30x2 Comments gentle Manual Therapy Treatment Soft Tissue Mobilization hip flexor Body Location right iliopsoas, adductor Mobilization Type Strumming,Sustained Pressure Intensity/Depth Moderate Body Position Hooklying Joint Mobilizations 2 Joint R hip Direction inferior glide Grade III Body Position Hooklying Comments with mobilization belt 1 Joint R hip Direction AP Grade II Body Position Hooklying Manual Techniques long axis distraction Type R hip PT-OP-R Modalities Start: 02/09/22 12:20 Freq: Status: Active Protocol: Document 05/15/22 09:47 AMB (Rec: 05/15/22 10:24 AMB [id number]) Hot Pack/Cold Pack Treatment Cold Pack Location R hip Treatment Duration (minutes) 10 PT-OP-T Assessment and Plan Start: 02/09/22 12:20 Freq: Status: Active Protocol: Document 05/15/22 09:47 AMB (Rec: 05/15/22 10:24 AMB [id number]) Physical Therapy Assessment Goals Two Impairment Activity tolerance Short Term Goal (STG) Mark will move from sit to stand without hip pain. STG Duration MET [employer] Servicer Goal (LTG) Mark will walk for 1 mile without an increase in baseline hip pain. LTG Duration 10 weeks One Impairment ROM Short Term Goal (STG) Mark will improve his hip flexion ROM to 115 degrees without an increase in pain. STG Duration Progress made 110 Inter [employer] Servicer Goal (LTG) Mark will be independent and a HEP and self massage techniques to reduce his right hip pain. LTG Duration 10 weeks Assessment Summary Assessment Mark is doing well, tolerating more strengthening and stretching. Did have pain in hip when returning to neutral from hip flexor stretch, but pain passed quickly. Physical Therapy Plan Frequency and Duration Frequency of Treatment 2x/Week Duration of treatment (weeks) 8 Plan of Care Start Date 04/24/22 Plan of Care End Date 06/19/22 Therapeutic Interventions Therapeutic Interventions Aquatic Therapy,Gait Training, Home Exercise Program,Manual Therapy,Neuromuscular Re- education,Self-Care/Home Management,Therapeutic Activities,Therapeutic Exercises Modalities Cold Pack/Ice Massage,Electric Stimulation,Hot Packs, Ultrasound Next Visit Focus/Plan Next Note Type Treatment Note Next Visit Plan Work on rotational tolerance at the hip
--- NOTE | 2022-05-18 14:01 | PT.OTN ---
Current Diagnoses Other chronic pain (05/18/22) Pain in right hip (05/18/22) Lumbago with sciatica, right side (05/18/22) Lumbago with sciatica, left side (05/18/22) Physical Therapy Treatment Note PT-OP-A Visit Information Start: 02/09/22 12:20 Freq: Status: Active Protocol: Document 05/18/22 09:45 AMB (Rec: 05/18/22 10:23 AMB [id number]) Out-Patient Physical Therapy Visit Information Visit Information Visit Type Treatment Note Visit Start Time 09:45 Visit Stop Time 10:30 Total Visit Minutes 45 Visit Number 22 PT-OP-B Current Condition Start: 02/09/22 12:20 Freq: Status: Active Protocol: Document 02/12/22 08:57 AMB (Rec: 02/12/22 09:58 AMB [id number]) Current Condition History of Current Condition Onset Date 3-4 years Current Complaints R anterior hip pain History of Current Condition STanding and walking increase back and right hip pain. Back has been a problem for a while , hip more recently but really has been years. Has had problems with the back since the 70's. Sitting/lying down helps the pain. Most concerned about pain in the front of the hip, not really the groin. Gets very dizzy when lying down flat, at least a year- motion sickness ( nausea), but is fine as long as he has some pillows. Treatment Goals Patient/Caregiver Goals Reduce anterior hip pain so can tolerate more walking/ standing. Personal Factors Other Personal Factors That May Effect Cardiac stent, C spine Therapy/Recovery laminectomy, carpal tunnel releases. PT-OP-C Subjective Start: 02/09/22 12:20 Freq: Status: Active Protocol: Document 05/18/22 09:45 AMB (Rec: 05/18/22 14:00 AMB [id number]) OP-PT Subjective Patient Comments Patient Comments Skip reports he has been trying not to think about the hip too much. PT-OP-J Posture/Palpation/Skin Start: 02/09/22 12:20 Freq: Status: Active Protocol: Document 02/12/22 09:00 AMB (Rec: 02/13/22 15:44 AMB [id number]) Posture Evaluation Comments Posture Comments Flat lumbar spine and forward head positioning PT-OP-K Range of Motion Start: 02/09/22 12:20 Freq: Status: Active Protocol: Document 02/12/22 09:00 AMB (Rec: 02/12/22 13:00 AMB [id number]) Lumbar Spine Range of Motion Lumbar Spine Active Degrees Flexion 60 Extension 5 Lateral Flexion Left 25 Lateral Flexion Right 15 Hip Goniometric Range of Motion Hip Right Passive Testing Position Supine Flexion w/Knee Flexed 108 Internal Rotation 0 External Rotation 35 Left Passive Flexion w/Knee Flexed 110 Internal Rotation 25 External Rotation 45 PT-OP-M Strength Start: 02/09/22 12:20 Freq: Status: Active Protocol: Document 02/12/22 09:00 AMB (Rec: 02/13/22 15:44 AMB [id number]) Hip Strength Hip Manual Muscle Testing Right Flexion (L2) 4- Good- Extension (S1) 4 Good Abduction 4 Good Left Flexion (L2) 4 Good Extension (S1) 4+ Good+ Abduction 4 Good Knee Strength Knee Manual Muscle Testing Right Flexion (S2) 5 Normal Extension (L3) 5 Normal Left Flexion (S2) 5 Normal Extension (L3) 5 Normal PT-OP-O Vestibular Start: 02/13/22 16:04 Freq: Status: Active Protocol: Document 02/13/22 20:25 AMB (Rec: 02/13/22 20:31 AMB [id number]) Vestibular Assessment Positional Testing [place]-Hallpike Negative Left,Negative Right Comments Vestibular Comments Pt reported double vision with L dixhallpike but otherwise did not have dizziness or reproduction of sx that he gets when lying down flat. PT-OP-Q Treatments Start: 02/09/22 12:20 Freq: Status: Active Protocol: Document 05/18/22 09:45 AMB (Rec: 05/18/22 14:00 AMB [id number]) Cardio Equipment Recumbent Stepper (Sci-Fit) Duration (Minutes) 8 Resistance 3 Seat Position 10 Other good LE alignment, UEs/ LEs-1. 12 mi Therapeutic Exercises Supine Exercises SLR Reps/Minutes 2x10 LTR Side bilateral Equipment Used 65cm green physioball Reps/Minutes 3 min Comments improved range and tolerance w / repetition fig 4 stretch Supine Exercise Name cued pain-free range - limited today, no strap Side bilateral Equipment Used use strap on ankle Reps/Minutes 30 bent knee fall out Side bilateral Resistance #3 band Reps/Minutes 15x ea Comments tactile cues for core engagement- challenging d/t LBP, cues for PPT Sidelying Exercises clam Side right Reps/Minutes 2x10 Sitting Exercises hip flexor stretch Sitting Exercise Name leg off table Reps/Minutes 2x10 PT-OP-R Modalities Start: 02/09/22 12:20 Freq: Status: Active Protocol: Document 05/15/22 09:47 AMB (Rec: 05/15/22 10:24 AMB [id number]) Hot Pack/Cold Pack Treatment Cold Pack Location R hip Treatment Duration (minutes) 10 PT-OP-T Assessment and Plan Start: 02/09/22 12:20 Freq: Status: Active Protocol: Document 05/18/22 09:45 AMB (Rec: 05/18/22 14:00 AMB [id number]) Physical Therapy Assessment Goals Two Impairment Activity tolerance Short Term Goal (STG) Mark will move from sit to stand without hip pain. STG Duration MET Medical Payment Poster Goal (LTG) Mark will walk for 1 mile without an increase in baseline hip pain. LTG Duration 10 weeks One Impairment ROM Short Term Goal (STG) Mark will improve his hip flexion ROM to 115 degrees without an increase in pain. STG Duration Progress made 110 Alf Goal (LTG) Mark will be independent and a HEP and self massage techniques to reduce his right hip pain. LTG Duration 10 weeks Assessment Summary Assessment Mark is doing better, tolerated exercises well today . Still going to see ortho later this month. Would continue to benefit from strengthening. Physical Therapy Plan Frequency and Duration Frequency of Treatment 2x/Week Duration of treatment (weeks) 8 Plan of Care Start Date 04/24/22 Plan of Care End Date 06/19/22 Therapeutic Interventions Therapeutic Interventions Aquatic Therapy,Gait Training, Home Exercise Program,Manual Therapy,Neuromuscular Re- education,Self-Care/Home Management,Therapeutic Activities,Therapeutic Exercises Modalities Cold Pack/Ice Massage,Electric Stimulation,Hot Packs, Ultrasound Next Visit Focus/Plan Next Note Type Treatment Note Next Visit Plan Work on rotational tolerance at the hip
--- NOTE | 2022-05-29 11:00 | PT.OTN ---
Current Diagnoses Other chronic pain (05/29/22) Pain in right hip (05/29/22) Lumbago with sciatica, right side (05/29/22) Lumbago with sciatica, left side (05/29/22) Physical Therapy Treatment Note PT-OP-A Visit Information Start: 02/09/22 12:20 Freq: Status: Active Protocol: Document 05/29/22 09:05 AMB (Rec: 05/29/22 09:23 AMB [id number]) Out-Patient Physical Therapy Visit Information Visit Information Visit Type Treatment Note Visit Start Time 09:00 Visit Stop Time 09:45 Total Visit Minutes 45 Visit Number 23 PT-OP-B Current Condition Start: 02/09/22 12:20 Freq: Status: Active Protocol: Document 02/12/22 08:57 AMB (Rec: 02/12/22 09:58 AMB [id number]) Current Condition History of Current Condition Onset Date 3-4 years Current Complaints R anterior hip pain History of Current Condition STanding and walking increase back and right hip pain. Back has been a problem for a while , hip more recently but really has been years. Has had problems with the back since the 70's. Sitting/lying down helps the pain. Most concerned about pain in the front of the hip, not really the groin. Gets very dizzy when lying down flat, at least a year- motion sickness ( nausea), but is fine as long as he has some pillows. Treatment Goals Patient/Caregiver Goals Reduce anterior hip pain so can tolerate more walking/ standing. Personal Factors Other Personal Factors That May Effect Cardiac stent, C spine Therapy/Recovery laminectomy, carpal tunnel releases. PT-OP-C Subjective Start: 02/09/22 12:20 Freq: Status: Active Protocol: Document 05/29/22 09:05 AMB (Rec: 05/29/22 09:23 AMB [id number]) OP-PT Subjective Patient Comments Patient Comments Pt states the hip is a lot different then it was, better was able to walk [place] [employer] [place] PT-OP-J Posture/Palpation/Skin Start: 02/09/22 12:20 Freq: Status: Active Protocol: Document 02/12/22 09:00 AMB (Rec: 02/13/22 15:44 AMB [id number]) Posture Evaluation Comments Posture Comments Flat lumbar spine and forward head positioning PT-OP-K Range of Motion Start: 02/09/22 12:20 Freq: Status: Active Protocol: Document 02/12/22 09:00 AMB (Rec: 02/12/22 13:00 AMB [id number]) Lumbar Spine Range of Motion Lumbar Spine Active Degrees Flexion 60 Extension 5 Lateral Flexion Left 25 Lateral Flexion Right 15 Hip Goniometric Range of Motion Hip Right Passive Testing Position Supine Flexion w/Knee Flexed 108 Internal Rotation 0 External Rotation 35 Left Passive Flexion w/Knee Flexed 110 Internal Rotation 25 External Rotation 45 PT-OP-M Strength Start: 02/09/22 12:20 Freq: Status: Active Protocol: Document 02/12/22 09:00 AMB (Rec: 02/13/22 15:44 AMB [id number]) Hip Strength Hip Manual Muscle Testing Right Flexion (L2) 4- Good- Extension (S1) 4 Good Abduction 4 Good Left Flexion (L2) 4 Good Extension (S1) 4+ Good+ Abduction 4 Good Knee Strength Knee Manual Muscle Testing Right Flexion (S2) 5 Normal Extension (L3) 5 Normal Left Flexion (S2) 5 Normal Extension (L3) 5 Normal PT-OP-O Vestibular Start: 02/13/22 16:04 Freq: Status: Active Protocol: Document 02/13/22 20:25 AMB (Rec: 02/13/22 20:31 AMB [id number]) Vestibular Assessment Positional Testing [place]-Hallpike Negative Left,Negative Right Comments Vestibular Comments Pt reported double vision with L dixhallpike but otherwise did not have dizziness or reproduction of sx that he gets when lying down flat. PT-OP-Q Treatments Start: 02/09/22 12:20 Freq: Status: Active Protocol: Document 05/29/22 09:05 AMB (Rec: 05/29/22 09:23 AMB [id number]) Cardio Equipment Recumbent Stepper (Sci-Fit) Duration (Minutes) 8 Resistance 3 Seat Position 10 Other good LE alignment, UEs/ LEs-1. 12 mi Therapeutic Exercises Supine Exercises LTR Side bilateral Equipment Used 65cm green physioball Reps/Minutes 3 min Comments improved range and tolerance w / repetition fig 4 stretch Supine Exercise Name cued pain-free range - limited today, no strap Side bilateral Equipment Used use strap on ankle Reps/Minutes 30 kip stretch Supine Exercise Name better- tolerance today Side right Reps/Minutes 30 x2 Comments cued neutral TA needed LB allow anterior hip stretch Sidelying Exercises clam Side right Reps/Minutes 2x10 Standing Exercises hamstring stretch Standing Exercise Name on stair Reps/Minutes 30x2 Calf stretch Standing Exercise Name lunge position Side bilateral Equipment Used rail Reps/Minutes x 45s ea Comments cue for square hips resisted sidestepping Side bilateral Equipment Used yellow band Reps/Minutes 10 ft x 3 ea Comments cue to reach w/ heel/toes fwd 2 Standing Exercise Name quad stretch - added to HEP Equipment Used chair>step so pt has MECHANICAL CAR CHECKER like at home Reps/Minutes 30 x 2 Comments gentle 1 Standing Exercise Name hip flexor stretch Side right Reps/Minutes 30x2 Comments gentle Manual Therapy Treatment Soft Tissue Mobilization hip flexor Body Location right iliopsoas, adductor Mobilization Type Strumming,Sustained Pressure Intensity/Depth Moderate Body Position Hooklying Joint Mobilizations 2 Joint R hip Direction inferior glide Grade III Body Position Hooklying Comments with mobilization belt 1 Joint R hip Direction AP Grade II Body Position Hooklying PT-OP-R Modalities Start: 02/09/22 12:20 Freq: Status: Active Protocol: Document 05/15/22 09:47 AMB (Rec: 05/15/22 10:24 AMB [id number]) Hot Pack/Cold Pack Treatment Cold Pack Location R hip Treatment Duration (minutes) 10 PT-OP-T Assessment and Plan Start: 02/09/22 12:20 Freq: Status: Active Protocol: Document 05/29/22 09:05 AMB (Rec: 05/29/22 09:23 AMB [id number]) Physical Therapy Assessment Goals Two Impairment Activity tolerance Short Term Goal (STG) Mark will move from sit to stand without hip pain. STG Duration MET Usp Goal (LTG) Mark will walk for 1 mile without an increase in baseline hip pain. LTG Duration 10 weeks One Impairment ROM Short Term Goal (STG) Mark will improve his hip flexion ROM to 115 degrees without an increase in pain. STG Duration Progress made 110 Reimbursement Analyst Goal (LTG) Mark will be independent and a HEP and self massage techniques to reduce his right hip pain. LTG Duration 10 weeks Assessment Summary Assessment Mark is tolerating more, but continues to get sharp pain with certain movements so is going to see ortho in a couple of weeks. Physical Therapy Plan Frequency and Duration Frequency of Treatment 2x/Week Duration of treatment (weeks) 8 Plan of Care Start Date 04/24/22 Plan of Care End Date 06/19/22 Therapeutic Interventions Therapeutic Interventions Aquatic Therapy,Gait Training, Home Exercise Program,Manual Therapy,Neuromuscular Re- education,Self-Care/Home Management,Therapeutic Activities,Therapeutic Exercises Modalities Cold Pack/Ice Massage,Electric Stimulation,Hot Packs, Ultrasound Next Visit Focus/Plan Next Note Type Treatment Note Next Visit Plan Work on rotational tolerance at the hip
--- NOTE | 2022-06-01 15:00 | PT.OTN ---
Current Diagnoses Other chronic pain (06/01/22) Pain in right hip (06/01/22) Lumbago with sciatica, right side (06/01/22) Lumbago with sciatica, left side (06/01/22) Physical Therapy Treatment Note PT-OP-A Visit Information Start: 02/09/22 12:20 Freq: Status: Active Protocol: Document 06/01/22 09:50 AMB (Rec: 06/01/22 10:19 AMB [id number]) Out-Patient Physical Therapy Visit Information Visit Information Visit Type Treatment Note Visit Start Time 09:45 Visit Stop Time 10:30 Total Visit Minutes 45 Visit Number 24 PT-OP-B Current Condition Start: 02/09/22 12:20 Freq: Status: Active Protocol: Document 02/12/22 08:57 AMB (Rec: 02/12/22 09:58 AMB [id number]) Current Condition History of Current Condition Onset Date 3-4 years Current Complaints R anterior hip pain History of Current Condition STanding and walking increase back and right hip pain. Back has been a problem for a while , hip more recently but really has been years. Has had problems with the back since the 70's. Sitting/lying down helps the pain. Most concerned about pain in the front of the hip, not really the groin. Gets very dizzy when lying down flat, at least a year- motion sickness ( nausea), but is fine as long as he has some pillows. Treatment Goals Patient/Caregiver Goals Reduce anterior hip pain so can tolerate more walking/ standing. Personal Factors Other Personal Factors That May Effect Cardiac stent, C spine Therapy/Recovery laminectomy, carpal tunnel releases. PT-OP-C Subjective Start: 02/09/22 12:20 Freq: Status: Active Protocol: Document 06/01/22 09:50 AMB (Rec: 06/01/22 10:19 AMB [id number]) OP-PT Subjective Patient Comments Patient Comments Pt reports the hip is overall feeling better, but it can still be problematic if he rotates the leg the wrong way and then the pain can be sharp . PT-OP-J Posture/Palpation/Skin Start: 02/09/22 12:20 Freq: Status: Active Protocol: Document 02/12/22 09:00 AMB (Rec: 02/13/22 15:44 AMB [id number]) Posture Evaluation Comments Posture Comments Flat lumbar spine and forward head positioning PT-OP-K Range of Motion Start: 02/09/22 12:20 Freq: Status: Active Protocol: Document 02/12/22 09:00 AMB (Rec: 02/12/22 13:00 AMB [id number]) Lumbar Spine Range of Motion Lumbar Spine Active Degrees Flexion 60 Extension 5 Lateral Flexion Left 25 Lateral Flexion Right 15 Hip Goniometric Range of Motion Hip Right Passive Testing Position Supine Flexion w/Knee Flexed 108 Internal Rotation 0 External Rotation 35 Left Passive Flexion w/Knee Flexed 110 Internal Rotation 25 External Rotation 45 PT-OP-M Strength Start: 02/09/22 12:20 Freq: Status: Active Protocol: Document 02/12/22 09:00 AMB (Rec: 02/13/22 15:44 AMB [id number]) Hip Strength Hip Manual Muscle Testing Right Flexion (L2) 4- Good- Extension (S1) 4 Good Abduction 4 Good Left Flexion (L2) 4 Good Extension (S1) 4+ Good+ Abduction 4 Good Knee Strength Knee Manual Muscle Testing Right Flexion (S2) 5 Normal Extension (L3) 5 Normal Left Flexion (S2) 5 Normal Extension (L3) 5 Normal PT-OP-O Vestibular Start: 02/13/22 16:04 Freq: Status: Active Protocol: Document 02/13/22 20:25 AMB (Rec: 02/13/22 20:31 AMB [id number]) Vestibular Assessment Positional Testing [place]-Hallpike Negative Left,Negative Right Comments Vestibular Comments Pt reported double vision with L dixhallpike but otherwise did not have dizziness or reproduction of sx that he gets when lying down flat. PT-OP-Q Treatments Start: 02/09/22 12:20 Freq: Status: Active Protocol: Document 06/01/22 09:50 AMB (Rec: 06/01/22 10:19 AMB [id number]) Cardio Equipment Recumbent Stepper (Sci-Fit) Duration (Minutes) 10 Resistance 5 Seat Position 10 Other good LE alignment, UEs/ LEs-1. 12 mi Therapeutic Exercises Supine Exercises LTR Side bilateral Equipment Used 65cm green physioball Reps/Minutes 3 min Comments improved range and tolerance w / repetition Sidelying Exercises clam Side right Reps/Minutes 2x10 Standing Exercises hamstring stretch Standing Exercise Name on stair Reps/Minutes 30x2 Calf stretch Standing Exercise Name lunge position Side bilateral Equipment Used rail Reps/Minutes x 45s ea Comments cue for square hips resisted sidestepping Side bilateral Equipment Used yellow band Reps/Minutes 10 ft x 3 ea Comments cue to reach w/ heel/toes fwd Manual Therapy Treatment Soft Tissue Mobilization hip flexor Body Location right iliopsoas, adductor Mobilization Type Strumming,Sustained Pressure Intensity/Depth Moderate Body Position Hooklying Joint Mobilizations 1 Joint R hip Direction AP Grade II Body Position Hooklying PT-OP-R Modalities Start: 02/09/22 12:20 Freq: Status: Active Protocol: Document 05/15/22 09:47 AMB (Rec: 05/15/22 10:24 AMB [id number]) Hot Pack/Cold Pack Treatment Cold Pack Location R hip Treatment Duration (minutes) 10 PT-OP-T Assessment and Plan Start: 02/09/22 12:20 Freq: Status: Active Protocol: Document 06/01/22 09:50 AMB (Rec: 06/01/22 10:19 AMB [id number]) Physical Therapy Assessment Goals Two Impairment Activity tolerance Short Term Goal (STG) Skip will move from sit to stand without hip pain. STG Duration MET Fdc Goal (LTG) Skip will walk for 1 mile without an increase in baseline hip pain. LTG Duration MET One Impairment ROM Short Term Goal (STG) Skip will improve his hip flexion ROM to 115 degrees without an increase in pain. STG Duration MET Dental Chair Assembler Goal (LTG) Skip will be independent and a HEP and self massage techniques to reduce his right hip pain. LTG Duration MET Assessment Summary Assessment 5 degrees of IR, and 114 degrees of flexion in the right hip. Pt can still feel some discomfort at and range but overall improved range. Pt continues to be careful to avoid twisting motions and is therefore going to be evaluated by ortho. He is doing his HEP focusing on stretching and glute/hip abduction strengthening. Depending on ortho recommendation he would be welcome to return before/after hip replacement surgery if that is the route he chooses. Physical Therapy Plan Frequency and Duration Frequency of Treatment 2x/Week Duration of treatment (weeks) 8 Plan of Care Start Date 04/24/22 Plan of Care End Date 06/19/22 Therapeutic Interventions Therapeutic Interventions Aquatic Therapy,Gait Training, Home Exercise Program,Manual Therapy,Neuromuscular Re- education,Self-Care/Home Management,Therapeutic Activities,Therapeutic Exercises Modalities Cold Pack/Ice Massage,Electric Stimulation,Hot Packs, Ultrasound Discharge Physical Therapy Discharge Reasons Plateau in Progress
--- NOTE | 2022-06-01 16:00 | PT.OPDS ---
Current Diagnoses Other chronic pain (06/01/22) Pain in right hip (06/01/22) Lumbago with sciatica, right side (06/01/22) Lumbago with sciatica, left side (06/01/22) Visit Care Team Role Provider Type Tim Claudio MD Attending Provider Physician Primary Care Provider Referring Provider Specialty: [facility] Practice Address: [address] [place] [address] Email: [email or web address] Visit Number Visit Number 24 Discharge Summary PT-OP-B Current Condition Start: 02/09/22 12:20 Freq: Status: Active Protocol: Document 02/12/22 08:57 AMB (Rec: 02/12/22 09:58 AMB [id number]) Current Condition History of Current Condition Onset Date 3-4 years Current Complaints R anterior hip pain History of Current Condition STanding and walking increase back and right hip pain. Back has been a problem for a while , hip more recently but really has been years. Has had problems with the back since the 70s. Sitting/lying down helps the pain. Most concerned about pain in the front of the hip, not really the groin. Gets very dizzy when lying down flat, at least a year- motion sickness ( nausea), but is fine as long as he has some pillows. Treatment Goals Patient/Caregiver Goals Reduce anterior hip pain so can tolerate more walking/ standing. Personal Factors Other Personal Factors That May Effect Cardiac stent, C spine Therapy/Recovery laminectomy, carpal tunnel releases. PT-OP-C Subjective Start: 02/09/22 12:20 Freq: Status: Active Protocol: Document 06/01/22 09:50 AMB (Rec: 06/01/22 10:19 AMB [id number]) OP-PT Subjective Patient Comments Patient Comments Pt reports the hip is overall feeling better, but it can still be problematic if he rotates the leg the wrong way and then the pain can be sharp . PT-OP-J Posture/Palpation/Skin Start: 02/09/22 12:20 Freq: Status: Active Protocol: Document 02/12/22 09:00 AMB (Rec: 02/13/22 15:44 AMB [id number]) Posture Evaluation Comments Posture Comments Flat lumbar spine and forward head positioning PT-OP-K Range of Motion Start: 02/09/22 12:20 Freq: Status: Active Protocol: Document 02/12/22 09:00 AMB (Rec: 02/12/22 13:00 AMB [id number]) Lumbar Spine Range of Motion Lumbar Spine Active Degrees Flexion 60 Extension 5 Lateral Flexion Left 25 Lateral Flexion Right 15 Hip Goniometric Range of Motion Hip Right Passive Testing Position Supine Flexion w/Knee Flexed 108 Internal Rotation 0 External Rotation 35 Left Passive Flexion w/Knee Flexed 110 Internal Rotation 25 External Rotation 45 PT-OP-M Strength Start: 02/09/22 12:20 Freq: Status: Active Protocol: Document 02/12/22 09:00 AMB (Rec: 02/13/22 15:44 AMB [id number]) Hip Strength Hip Manual Muscle Testing Right Flexion (L2) 4- Good- Extension (S1) 4 Good Abduction 4 Good Left Flexion (L2) 4 Good Extension (S1) 4+ Good+ Abduction 4 Good Knee Strength Knee Manual Muscle Testing Right Flexion (S2) 5 Normal Extension (L3) 5 Normal Left Flexion (S2) 5 Normal Extension (L3) 5 Normal PT-OP-O Vestibular Start: 02/13/22 16:04 Freq: Status: Active Protocol: Document 02/13/22 20:25 AMB (Rec: 02/13/22 20:31 AMB [id number]) Vestibular Assessment Positional Testing Nima-Hallpike Negative Left,Negative Right Comments Vestibular Comments Pt reported double vision with L dixhallpike but otherwise did not have dizziness or reproduction of sx that he gets when lying down flat. PT-OP-T Assessment and Plan Start: 02/09/22 12:20 Freq: Status: Active Protocol: Document 06/01/22 09:50 AMB (Rec: 06/01/22 10:19 AMB [id number]) Physical Therapy Assessment Goals Two Impairment Activity tolerance Short Term Goal (STG) Skip will move from sit to stand without hip pain. STG Duration MET Longterm Goal (LTG) Skip will walk for 1 mile without an increase in baseline hip pain. LTG Duration MET One Impairment ROM Short Term Goal (STG) Skip will improve his hip flexion ROM to 115 degrees without an increase in pain. STG Duration MET Forming Machine Upkeep Mechanic Helper Goal (LTG) Skip will be independent and a HEP and self massage techniques to reduce his right hip pain. LTG Duration MET Assessment Summary Assessment 5 degrees of IR, and 114 degrees of flexion in the right hip. Pt can still feel some discomfort at and range but overall improved range. Pt continues to be careful to avoid twisting motions and is therefore going to be evaluated by ortho. He is doing his HEP focusing on stretching and glute/hip abduction strengthening. Depending on ortho recommendation he would be welcome to return before/after hip replacement surgery if that is the route he chooses. Physical Therapy Plan Frequency and Duration Frequency of Treatment 2x/Week Duration of treatment (weeks) 8 Plan of Care Start Date 04/24/22 Plan of Care End Date 06/19/22 Therapeutic Interventions Therapeutic Interventions Aquatic Therapy,Gait Training, Home Exercise Program,Manual Therapy,Neuromuscular Re- education,Self-Care/Home Management,Therapeutic Activities,Therapeutic Exercises Modalities Cold Pack/Ice Massage,Electric Stimulation,Hot Packs, Ultrasound Discharge Physical Therapy Discharge Reasons Plateau in Progress
--- NOTE | 2022-06-01 16:00 | PT.OPDS ---
Current Diagnoses Other chronic pain (06/01/22) Pain in right hip (06/01/22) Lumbago with sciatica, right side (06/01/22) Lumbago with sciatica, left side (06/01/22) Visit Care Team Role Provider Type Tim Claudio MD Attending Provider Physician Primary Care Provider Referring Provider Specialty: [facility] Practice Address: [address] [place] [address] Email: [email or web address] Visit Number Visit Number 24 Discharge Summary PT-OP-B Current Condition Start: 02/09/22 12:20 Freq: Status: Active Protocol: Document 02/12/22 08:57 AMB (Rec: 02/12/22 09:58 AMB [id number]) Current Condition History of Current Condition Onset Date 3-4 years Current Complaints R anterior hip pain History of Current Condition STanding and walking increase back and right hip pain. Back has been a problem for a while , hip more recently but really has been years. Has had problems with the back since the 70s. Sitting/lying down helps the pain. Most concerned about pain in the front of the hip, not really the groin. Gets very dizzy when lying down flat, at least a year- motion sickness ( nausea), but is fine as long as he has some pillows. Treatment Goals Patient/Caregiver Goals Reduce anterior hip pain so can tolerate more walking/ standing. Personal Factors Other Personal Factors That May Effect Cardiac stent, C spine Therapy/Recovery laminectomy, carpal tunnel releases. PT-OP-C Subjective Start: 02/09/22 12:20 Freq: Status: Active Protocol: Document 06/01/22 09:50 AMB (Rec: 06/01/22 10:19 AMB [id number]) OP-PT Subjective Patient Comments Patient Comments Pt reports the hip is overall feeling better, but it can still be problematic if he rotates the leg the wrong way and then the pain can be sharp . PT-OP-J Posture/Palpation/Skin Start: 02/09/22 12:20 Freq: Status: Active Protocol: Document 02/12/22 09:00 AMB (Rec: 02/13/22 15:44 AMB [id number]) Posture Evaluation Comments Posture Comments Flat lumbar spine and forward head positioning PT-OP-K Range of Motion Start: 02/09/22 12:20 Freq: Status: Active Protocol: Document 02/12/22 09:00 AMB (Rec: 02/12/22 13:00 AMB [id number]) Lumbar Spine Range of Motion Lumbar Spine Active Degrees Flexion 60 Extension 5 Lateral Flexion Left 25 Lateral Flexion Right 15 Hip Goniometric Range of Motion Hip Right Passive Testing Position Supine Flexion w/Knee Flexed 108 Internal Rotation 0 External Rotation 35 Left Passive Flexion w/Knee Flexed 110 Internal Rotation 25 External Rotation 45 PT-OP-M Strength Start: 02/09/22 12:20 Freq: Status: Active Protocol: Document 02/12/22 09:00 AMB (Rec: 02/13/22 15:44 AMB [id number]) Hip Strength Hip Manual Muscle Testing Right Flexion (L2) 4- Good- Extension (S1) 4 Good Abduction 4 Good Left Flexion (L2) 4 Good Extension (S1) 4+ Good+ Abduction 4 Good Knee Strength Knee Manual Muscle Testing Right Flexion (S2) 5 Normal Extension (L3) 5 Normal Left Flexion (S2) 5 Normal Extension (L3) 5 Normal PT-OP-O Vestibular Start: 02/13/22 16:04 Freq: Status: Active Protocol: Document 02/13/22 20:25 AMB (Rec: 02/13/22 20:31 AMB [id number]) Vestibular Assessment Positional Testing Nima-Hallpike Negative Left,Negative Right Comments Vestibular Comments Pt reported double vision with L dixhallpike but otherwise did not have dizziness or reproduction of sx that he gets when lying down flat. PT-OP-T Assessment and Plan Start: 02/09/22 12:20 Freq: Status: Active Protocol: Document 06/01/22 09:50 AMB (Rec: 06/01/22 10:19 AMB [id number]) Physical Therapy Assessment Goals Two Impairment Activity tolerance Short Term Goal (STG) Skip will move from sit to stand without hip pain. STG Duration MET Long-Term Goal (LTG) Skip will walk for 1 mile without an increase in baseline hip pain. LTG Duration MET One Impairment ROM Short Term Goal (STG) Skip will improve his hip flexion ROM to 115 degrees without an increase in pain. STG Duration MET Composer Teaching Artist Goal (LTG) Skip will be independent and a HEP and self massage techniques to reduce his right hip pain. LTG Duration MET Assessment Summary Assessment 5 degrees of IR, and 114 degrees of flexion in the right hip. Pt can still feel some discomfort at and range but overall improved range. Pt continues to be careful to avoid twisting motions and is therefore going to be evaluated by ortho. He is doing his HEP focusing on stretching and glute/hip abduction strengthening. Depending on ortho recommendation he would be welcome to return before/after hip replacement surgery if that is the route he chooses. Physical Therapy Plan Frequency and Duration Frequency of Treatment 2x/Week Duration of treatment (weeks) 8 Plan of Care Start Date 04/24/22 Plan of Care End Date 06/19/22 Therapeutic Interventions Therapeutic Interventions Aquatic Therapy,Gait Training, Home Exercise Program,Manual Therapy,Neuromuscular Re- education,Self-Care/Home Management,Therapeutic Activities,Therapeutic Exercises Modalities Cold Pack/Ice Massage,Electric Stimulation,Hot Packs, Ultrasound Discharge Physical Therapy Discharge Reasons Plateau in Progress
== END 2022-06-12 09:13 | disposition home or self-care (01) ==
LOC: PHYS 09:45
PROVIDERS: PCP Family Medicine; Referring Provider Family Medicine; Visit Provider Family Medicine
DX: G89.29 Other chronic pain (principal); M25.551 Pain in right hip; M54.41 Lumbago with sciatica, right side; M54.42 Lumbago with sciatica, left side
CPT/HCPCS: 97010; 97014; 97110; 97140; 97162; 97535; G0283

== ENCOUNTER → 2022-06-05 07:37 | Outpatient (CLI) | payer MEDICARE, SELFPAY ==
[2022-06-05 08:34] LABS: Alanine Aminotransferase 26 IU/L (<50); BUN Creatinine Ratio 15.1 (6-22); Blood Urea Nitrogen 16 mg/dL (9-20); Calcium 9.1 mg/dL (8.4-10.2); Carbon Dioxide 24 mmol/L (22-32); Chloride 105 mmol/L (98-107); Cholesterol 132 mg/dL (140-199); Estimated Glomerular Filt Rate > 60 mL/min (>60); Glucose 102 mg/dL (80-110); HDL Cholesterol 49 mg/dL (40-60); HEMOLYSIS < 15 (0-50); LDL Cholesterol Calculated 51 mg/dL (<100); Potassium 4.1 mmol/L (3.4-5.1); Sodium 140 mmol/L (137-145); Triglycerides 159 mg/dL (35-150)
== END ==
PROVIDERS: PCP Family Medicine; Referring Provider Internal Medicine Interventional Cardiology; Visit Provider Internal Medicine Interventional Cardiology
DX: I25.10 Atherosclerotic heart disease of native coronary artery without angina pectoris (principal); E78.2 Mixed hyperlipidemia
CPT/HCPCS: 36415; 80048; 80061; 84460

== ENCOUNTER → 2022-06-14 10:55 | Outpatient (CLI) | payer MEDICARE, SELFPAY ==
[2022-06-14 11:43] LABS: Add Manual Diff / Slide Review NO; Basophils Absolute Auto 100 /uL (0-100); Basophils Percent Auto 0.8 % (0-2); Eosinophils Absolute Auto 200 /uL (0-450); Eosinophils Percent Auto 2.3 % (2-4); Hematocrit 44.8 % (41-53); Hemoglobin 15.6 g/dL (13.5-17.5); Lymphocytes Absolute Auto 1400 /uL (1100-4500); Lymphocytes Percent Auto 18.7 % (25-40); Mean Corpuscular HGB Conc 34.9 % (30-36); Mean Corpuscular Hemoglobin 32.9 PG (26-34); Mean Corpuscular Volume 94.3 fL (80-100); Monocytes Absolute Auto 800 /uL (0-900); Monocytes Percent Auto 10.2 % (3-14); Neutrophils Absolute Auto 5200 /uL (1500-7000); Platelet Count 173 X10^3/uL (150-400); Red Blood Cell Count 4.75 X10^6/uL (4.5-5.9); Red Cell Distribution Width 13.8 % (11.6-14.8); White Blood Cell Count 7.6 X10^3/uL (4.5-11.0)
[2022-06-14 12:05] LABS: INR 1.1 (0.9-1.3); Prothrombin Time 12.8 SECONDS (10.1-12.7)
[2022-06-14 12:08] LABS: PTT Partial Thromboplastin Tim 31 SECONDS (26-36)
[2022-06-14 12:12] LABS: BUN Creatinine Ratio 16.8 (6-22); Blood Urea Nitrogen 20 mg/dL (9-20); Calcium 9.2 mg/dL (8.4-10.2); Carbon Dioxide 25 mmol/L (22-32); Chloride 104 mmol/L (98-107); Estimated Glomerular Filt Rate > 60 mL/min (>60); Glucose 92 mg/dL (80-110); HEMOLYSIS < 15 (0-50); Potassium 4.3 mmol/L (3.4-5.1); Sodium 138 mmol/L (137-145)
== END ==
PROVIDERS: PCP Family Medicine; Referring Provider Orthopaedic Surgery; Visit Provider Orthopaedic Surgery
DX: Z51.81 Encounter for therapeutic drug level monitoring (principal); Z01.812 Encounter for preprocedural laboratory examination
CPT/HCPCS: 36415; 80048; 85025; 85610; 85730

== ENCOUNTER 2022-08-03 09:30 | Observation (INO) | payer MEDICARE, SELFPAY ==
[2022-07-23 09:40] VITALS: BMI 28.9
[2022-08-02] VITALS (13 sets, daily range): BP systolic 111–148; BP diastolic 62–88; PULSE 68–86; RESP 14–18; TEMP 35.6–37.7; O2SAT 77–98; BMI 29.0; BMI 29.7
--- NOTE | 2022-08-02 06:00 | DI.RAD.S_ITS ---
PROCEDURE: XR HIP W PEL IF DONE RT 2V INDICATIONS: YADIRA INNER OP FILMS TECHNIQUE: Single-view of the hip acquired. COMPARISON: [facility], CR, XR HIP W PEL IF DONE RT 2V, 03/12/2022, 13:48. FINDINGS: Bones: Single fluoroscopic image demonstrates intraoperative right total hip arthroplasty. IMPRESSION: Single intraoperative image of a right total hip arthroplasty. Dictated by: Lu Gary M.D. on 08/02/2022 at 12:47 Approved by: Lu Gary M.D. on 08/02/2022 at 12:48
[2022-08-02] MEDS: VANCOMYCIN 1,000 MG/200 ML PIGGYBACK 200 MG IV (06:53)
[2022-08-02] MEDS: ACETAMINOPHEN 325 MG TABLET 975 MG PO (07:13)
[2022-08-02] MEDS: CELECOXIB 200 MG CAPSULE PO (07:13)
[2022-08-02 07:15] LABS: COVID19 -Nasal RAPID Negative (Negative)
[2022-08-02] MEDS: LACTATED RINGERS 1,000 ML 42 ML IV ×2 (07:15→09:02)
--- NOTE | 2022-08-02 07:46 | PM.PREOP ---
Pre-operative Note COVID-19 COVID-19 status: Negative Interval Note History & Physical reviewed/Exam performed by Physician: Yes Changes to H&P: No
--- NOTE | 2022-08-02 07:47 | P.OP_ITS ---
Operative Date/Time/Diagnoses Date of procedure: 08/02/22 Time of procedure: 07:50 Pre-op diagnosis: right hip OA Post-op diagnosis: same Procedure & Clinicians Procedure: right total hip arthroplasty anterior approach Same procedure as scheduled: Yes Indications: The patient has had progressively worsening right hip pain with radiographic c hanges consistent with arthritis. Non-operative management has failed and the patient has requested total hip replacement. The risks, benefits and alternatives to surgery were discussed with the patient prior to proceeding. Risks discussed included, but were not limited to, failure to relieve pain, leg length discrepancy, dislocation, stiffness, infection, nerve damage, deep venous thrombosis, pulmonary embolism, stroke, coma, heart attack, permanent paralysis and , as well as the potential need for eventual revision of the prosthetic. Surgeon: Mikayla West Consumer Relations Complaint Clerk: Joana Candelaria Click Yes if Unassisted: Yes Anesthesia Type: General Operative Notes Findings: Severe right hip arthritis, hard bone, adequate stability moderate canal bleeding Closure Type: primary Specimen(s): none sent Prosthetic devices, grafts, tissues, transplants, or devices: [employer]hew R3 54, neutral poly liner,one 6.5 mm screw, size 6 high offset anthology a fit, 36+ 0 cobalt Estimated Blood Loss (mL): 250 Blood products transfused: none Procedure in detail: The patient was brought to the operating room. Patient was carefully positioned in the supine position. Time-out was performed and antibiotics were given. Anesthesia was induced. He was positioned in the on the table in order to allow hyperextension of the hip. The right lower extremity was prepped and draped in a standard sterile fashion. An anterior right hip incision was made 1 fingerbreadth lateral to the anterior superior iliac spine and extended distally towards the greater trochanter. Dissection was carried out through skin and subcutaneous tissues. Superficial hemostasis was achieved. The fascia over the tensor fascia yisel was defined and incised with a knife. Two Allis clamps were used to grasp the fascia. Tensor fascia yisel was retracted laterally. A gelpi retractor was placed. Dissection was carried out down along the neck. The circumflex vessels were carefully identified and cauterized with the Aqua Mantis. There was good visualization of the femoral neck. A Cobra was placed superior to the neck and the gluteus fibers were carefully stripped from that superior aspect of the capsule. A 2nd retractor was placed along the inferior aspect of the neck. The rectus insertion along the capsule was partially released. A 3rd retractor that was then gently placed over the rim of the acetabulum under the rectus. Capsule was carefully incised and released from the intertrochanteric line circumferentially superior to the mid sagittal line and inferiorly to the mid sagittal line until the lesser trochanter was palpable. A tag stitch was p laced both in the superior and inferior limb of the capsular insertion. Along the acetabulum capsule was also released up to the mid sagittal 12:00 position. A portion of the labrum was resected. A saw was used to perform an osteotomy at the level of the intertrochanteric line and the junction of the superior femoral neck leaving approximately 1 finger breath of residual inferior neck above the lesser trochanter. A 2nd cut was made along the femoral neck at the base of the head and a napkin ring of neck was removed. Corkscrew was placed in the femoral head and the head was removed without difficulty. Retractors were then repositioned around the acetabulum. Residual labrum was resected and additional osteophytes were removed. A reamer that was 4 mm below the templated size was placed by hand in the acetabulum and it was reamed to centralize the acetabulum. It was then reamed up to 2 under the templated size and fluoroscopy was brought in to confirm the position of the reaming and depth of reaming. I reamed 1 under the anticipated size. A trial cup was placed and noted that it was appropriately sized and fluoroscopy confirmed position and depth. The component was open and inserted without difficulty fluoroscopic imaging was used to confirm that the cup had been adequately seated and was well positioned. It was further stabilized with a single screw. Neutral poly liner was placed. The cup was tested and noted to be stable. Attention was then directed to the femur. The femur was gently hyperextended additional capsular release was performed as needed in order to allow adequate visualization of the proximal femur with elevation of the femur. Patient was placed in a hyperextended slightly adducted position with maximum external rotation. Box osteotome was used to check for any residual neck as well as sclerotic bone along the trochanter. [place] pepper was placed in the femur. Additional broaching was performed. Canal finder was used to determine the alignment of the canal and position. Size 1 broach was placed. The canal was then appropriately broached up to the templated size as long as there was adequate stability of the broach and serial advancement of the broach without excessive impingement. Specific attention was directed at avoiding varus attempting to direct the distal aspect of the broach more anteriorly and avoiding excessive anteversion. Trial reduction showed acceptable range of motion, good stability, no posterior impingement, anabaptist of leg length and appropriate lateral shuck. I also hyperflexed the hip and checked that there was no impingement anteriorly and there was good stability with flexion, adduction and internal rotation. There was moderate active bleeding from the intramedullary canal during the broaching. We irrigated it with normal saline. Ultimately I used FloSeal at the time that I place the femoral prosthesis. There was no active arterial bleeding in the wound but there was some generalized ooze. Additional FloSeal was also placed in the wound. Marcaine was injected. The stem was placed without difficulty. Repeat trial reduction and x-ray showed acceptable overall position, length, and no evidence of the femoral fracture. Final head was placed. Wound was meticulously irrigated with normal saline. The hip was reduced and additional Marcaine was injected. The capsule was closed with interrupted nonabsorbable sutures. The fascia of the tensor was closed with interrupted and running Vicryl. No drain was placed. Any tensor fascia yisel muscle that appeared to be contused or injured which was a minimal amount was carefully resected. Capsule around the tensor was injected with Marcaine. The skin was closed with barbed stitches for the subcutaneous tissue and skin. We also used surgical glue. The wound was dressed sterilely. The wound was meticulously irrigated with normal saline. Patient was transferred to recovery room in satisfactory condition. Complications: none Post-operative Condition: stable Disposition: Acute Care Plan for aftercare: The patient will be maintained on a standard total hip replacement protocol with weight bearing as tolerated and anterior hip precautions. The patient will receive Aspirin and sequential compression devices for DVT prophylaxis. The patient will be discharged home when safe for the home environment.
[2022-08-02] MEDS: CEFAZOLIN 2 GM/100 ML PREMIX 100 ML IV ×3 (07:59→23:36)
[2022-08-02] MEDS: TRANEXAMIC ACID 1,000 MG VIAL 2000 MG INJ ×2 (08:24→10:32)
--- NOTE | 2022-08-02 08:36 | SUR.OPER ---
Supine on padded [place] table with bilateral legs secured in padded positioning boots and suspended in positioning spars, operative leg in traction per surgeon. Head on one pillow. Arm on non-operative side secured on padded armboard <90 degrees abduction. Arm on operative side padded and resting across chest then secured with tape over sheet and a soft padded strap wrapped around wrist and tied to table. Padded perineal post in place per surgeon.
[2022-08-02] MEDS: MORPHINE 4 MG/ML INJ SUBCUT (08:41)
[2022-08-02] MEDS: BUPIVACAINE 0.5% W/ EPI (PF) 10 ML VIAL 30 ML INJ (08:42)
--- NOTE | 2022-08-02 10:37 | DI.RAD.S_ITS ---
PROCEDURE: XR HIP W PEL IF DONE RT 2V INDICATIONS: RIGHT ANTERIOR TOTAL HIP TECHNIQUE: 2 view(s) of the hip acquired. COMPARISON: [facility], [place], XR HIP W PEL IF DONE RT 2V, 08/02/2022, 10:33. FINDINGS: Bones: Patient is status post right total hip arthroplasty, with hardware components in expected positions. The hip joint appears congruent. The visualized bony structures appear intact. Soft tissues: Overlying postoperative changes are noted. No suspicious soft tissue densities. IMPRESSION: Expected postoperative appearance. Dictated by: Lu Gary M.D. on 08/02/2022 at 11:50 Approved by: Lu Gary M.D. on 08/02/2022 at 11:50
[2022-08-02] MEDS: LACTATED RINGERS 1,000 ML 125 ML IV ×2 (12:05→21:03)
[2022-08-02] MEDS: OXYCODONE IR 5 MG TABLET PO ×2 (15:36→21:10)
[2022-08-02] MEDS: GABAPENTIN 300 MG CAPSULE PO ×2 (15:37→21:10)
--- NOTE | 2022-08-02 16:50 | PC.NURSE ---
Patient still needs to do stairs. PT said she will have to do it tomorrow. Pt also does not feel safe going home without doing stairs.
--- NOTE | 2022-08-02 17:09 | PT.IIE ---
Current Diagnoses Unilateral primary osteoarthritis, right hip (08/02/22) Surgery Performed Operation Date: 08/02/22 07:45 Actual Procedures p Total Hip Arthroplasty/Anterior Approach(Right) - Mikayla West MD Surgical History (Last Updated 07/23/22 @ 11:36 by Taylor Mccormack, RN) Anesthesia H/O vasectomy Hx of bilateral cataract extraction Hx of bilateral inguinal hernia repair (11/07/20) Hx of carpal tunnel repair Hx of cholecystectomy (~2019) Hx of heart artery stent (~2005) Hx of neck surgery (~2018) Medical History (Last Updated 07/23/22 @ 10:17 by Taylor Mccormack, RN) Abdominal hernia Bilateral inguinal hernia CAD (coronary artery disease) Carpal tunnel syndrome Cataracts, bilateral Chronic back pain (~1977) Degenerative joint disease of right hip Hearing loss HLD (hyperlipidemia) Inguinal hernia LBBB (left bundle branch block) Lumbar radiculopathy Multilevel lumbosacral spondylosis with radiculopathy Obstructive sleep apnea of adult SCOTTIE (obstructive sleep apnea) Suspected sleep apnea Tinnitus Physical Therapy Inpatient Evaluation/Re-Eval M1 PT/OT-IP Prior Functional Status Start: 08/02/22 16:18 Freq: NEEDED Status: Active Protocol: Document 08/02/22 16:19 [facility] (Rec: 08/02/22 17:08 [facility] [id number]) Medical Review Prior Functional Status Medical History Reviewed Yes Diet/Fluid Consistency Regular Activities of Daily Living and IADL's pt was ind with ADL's prior to surgery Social History Household Members spouse Living Arrangements House Number of Floors (Floors) Two Floors Number of Stairs To Enter/Railing? 2 steps with railing Home Environment Standard Height Toilet,Tub/ Shower Home Equipment Front Wheel Walker Employment Status Retired M2 PT-IP Current Condition Start: 08/02/22 16:18 Freq: NEEDED Status: Active Protocol: Document 08/02/22 16:19 [facility] (Rec: 08/02/22 17:08 [facility] [id number]) Physical Therapy Current Condition Current Condition Evaluation Date 08/02/22 Treatment Diagnosis s/p R YADIRA anterior approach Onset Date 08/02/22 M3 PT-IP Subjective Start: 08/02/22 16:18 Freq: NEEDED Status: Active Protocol: Document 08/02/22 16:19 [facility] (Rec: 08/02/22 17:08 [facility] [id number]) Subjective Physical Therapy Visit Type Type Initial Evaluation Visit Start Time 16:20 Visit Stop Time 16:55 Total Visit Minutes 35 Physical Therapy Visit Comments Patient Comments pt reports his pain is a 5/10 at this point and he is ready to work with PT. He notes he needs to use the bathroom Therapy Pain Assessment Pain When Pain Assessed At Rest Pain Present Pain Present Pain Reported Location Right Hip Intensity 5 Scale Used Numeric (0 - 10) M4 PT-IP Mobility and Gait Start: 08/02/22 16:18 Freq: NEEDED Status: Active Protocol: Document 08/02/22 16:19 [facility] (Rec: 08/02/22 17:08 [facility] [id number]) PT-Bed Mobility Assessment Rolling Type of Rolling Roll to Right Level of Assist Contact Guard Assistance Supine to Sit Supine to Sit Minimal Assistance Scooting Scooting to Edge of Bed Contact Guard Assistance PT-Transfer Assessment Sit to and From Stand Sit to and from Stand Contact Guard Assistance Equipment Transfer Assistive Device Gait Belt,Front Wheeled Walker Orthotic/Prosthetic Devices or Brace: No Transfers Transfer Destination Toilet Transfer Technique pt ambulated with FWW Transfer Ability Level of Assist Contact Guard Assistance Comments Mobility Comments pt is mainly CGA for mobility, he did require min A for supine to sit transfer. He was able to ambulate to the bathroom to void and then ambulated to the bedside chair . He was positioned comfortably in the chair with call light within reach and ice placed over his right anterior hip. Gait Assessment Gait Gait Assistance Required: Contact Guard Assist Distance (Feet) 10 Able to Maintain Weight Bearing Status Yes During Gait Assistive Devices Assistive Device Gait Belt,Front Wheeled Walker Gait Deviations General Gait Pattern Decreased Stride Length,Step- to Gait Factors Limiting Gait Function Factors Limiting Gait Function Decreased Activity Tolerance, Decreased Strength,Limited Range of Motion,Pain Comments Gait Comments pt is ambulating with CGA with fww PT-Balance Assessment Sitting Balance and Reactions Static Sitting Balance Ability Good Dynamic Sitting Balance Ability Good Standing Balance and Reactions Static Standing Balance Ability Good Dynamic Standing Balance Ability Good M5 PT-IP Objective Assessments Start: 08/02/22 16:18 Freq: NEEDED Status: Active Protocol: Document 08/02/22 16:19 [facility] (Rec: 08/02/22 17:08 [facility] [id number]) Orientation Orientation/Cognition Level of Alertness Alert Gross Range of Motion Upper Extremity ROM Assessment Within Functional Limits Lower Extremity ROM Assessment Right Impaired Strength Upper Extremity Strength Assessment Within Functional Limits Lower Extremity Strength Assessment Right Impaired Coordination Assessment Gross Coordination Gross Coordination WNL Muscle Tone Muscle Tone WNL Yes M6 PT-IP Treatment Start: 08/02/22 16:18 Freq: NEEDED Status: Active Protocol: Document 08/02/22 16:19 [facility] (Rec: 08/02/22 17:08 [facility] [id number]) Physical Therapy Treatment Exercises Exercises Ankle Pumps,Gluteal Sets,Quad Sets,Heel Slides Education Education Provided Precautions,Post-Op Packet, Safety Brace Education Caregiver M7 PT-IP Assessment and Plan Start: 08/02/22 16:18 Freq: NEEDED Status: Active Protocol: Document 08/02/22 16:19 [facility] (Rec: 08/02/22 17:08 [facility] [id number]) PT Summary Assessment and Plan Potential Rehabilitation Potential Excellent Status of Condition at Evaluation Stable Summary Impairments Pain,ROM,Strength,Balance,Bed Mobility,Transfers,Gait, Activity Tolerance Assessment Summary 77 year old male s/p day 1 YADIRA anterior approach R hip, pt did well with mobilization out of bed with CGA-Min A for supine to sit. He transfered with fww and CGA, ambulated to the bathroom and was able to stand to void and then ambulated to the bed side chair. He was not ready to attempt stairs today so this needs to be done prior to DC in the AM. His hip precautions were reviewed and he understands then well. He was given a HEP handout and exercises were reviewed. Pt will be DC most likely tomorrow with his Goals Bed Mobility Goal Standby Assistance Transfer Goal Standby Assistance Gait Distance 100 Other Goals pt will safely ambulate up and down 2 steps prior to DC Days to Meet Goals 5 Frequency of Treatment Frequency Of Treatment Twice a Day Treatment Plan Physical Therapy Treatment Plan Bed Mobility Training,Transfer Training,Gait Training, Therapeutic Exercise Other Recommendations and Next Treatment Do steps with pt next teatment Focus . Pt most likely leaving in the AM if PT can see first thing tomorrow Precautions Anterior Hip Precautions No Hip Extension,No Hip External Rotation Weight Bearing Status Weight Bearing Status Full Weight Bearing Recommendations To Nursing Amount of Assist Needed 1 Person Assist Discharge Recommendations PT Discharge Recommendations Home with Assistance Transportation Needs at Discharge Private Vehicle
[2022-08-02] MEDS: IBUPROFEN 400 MG TABLET PO ×2 (17:24→23:37)
[2022-08-02] MEDS: ACETAMINOPHEN 325 MG TABLET 650 MG PO ×2 (17:24→23:36)
[2022-08-02] MEDS: OXYCODONE IR 10 MG TABLET PO (18:41)
[2022-08-02] MEDS: DOCUSATE 100 MG CAPSULE PO (21:10)
[2022-08-02] MEDS: ASPIRIN EC 81 MG TABLET PO (21:10)
[2022-08-03 00:42] VITALS: BP 80/44; PULSE 89; RESP 18; TEMP 38.3; O2SAT 93
[2022-08-03 02:51] VITALS: BP 124/72; PULSE 85; RESP 18; TEMP 37; O2SAT 97
[2022-08-03 04:46] LABS: Hematocrit 34.6 % (41-53); Hemoglobin 11.8 g/dL (13.5-17.5)
[2022-08-03] MEDS: ACETAMINOPHEN 325 MG TABLET 650 MG PO ×2 (06:23→12:46)
[2022-08-03] MEDS: IBUPROFEN 400 MG TABLET PO ×2 (06:23→12:46)
[2022-08-03] MEDS: PANTOPRAZOLE DR 20 MG TABLET PO (06:24)
[2022-08-03 07:35] VITALS: BP 125/68; PULSE 90; RESP 16; TEMP 37.6; O2SAT 94
--- NOTE | 2022-08-03 07:37 | PM.DS.1 ---
History of Present Illness History of Present Illness Date Patient Seen: 08/03/22 Time Patient Seen: 07:37 Chief complaint: RIGHT YADIRA ANTERIOR Narrative: Patient is complaining of [id number] right hip pain this morning. His main complaint is headache, but denies dizziness or lightheadedness. He notes it is not particularly worse when he sits up. He usually drinks 2-3 cups of coffee a day and he is not had coffee for the last 36 hours. We will get him a cup of coffee this morning. He had he is not worked with physical therapy yet, he has stairs at home. Overall he is feeling well and would like to be discharged home today. Discharge Providers Provider Discharge Date: 08/03/22 Primary care physician: Tim Claudio MD Consults: 08/02/22 06:00 Consult to Anesthesiology Routine Comment: Consulting Provider: Anesthesiologist Reason for consultation: Regional block for post operative pain control 08/02/22 11:50 Consult to Discharge Planning Routine Comment: Consult to Physical Therapy Evaluate & Treat Comment: Physician Instructions: post op YADIRA protocol Discharge provider: Destiney Mitchell PA-C Summary Hospital Course Discharge Diagnosis: Right hip osteoarthritis Hospital Course: Operative Date/Time/Diagnoses Date of procedure: 08/02/22 Time of procedure: 07:50 Procedure & Clinicians Procedure: right total hip arthroplasty anterior approach Same procedure as scheduled: Yes Indications: The patient has had progressively worsening right hip pain with radiographic changes consistent with arthritis. Non-operative management has failed and the patient has requested total hip replacement. The risks, benefits and alternatives to surgery were discussed with the patient prior to proceeding. Risks discussed included, but were not limited to, failure to relieve pain, leg length discrepancy, dislocation, stiffness, infection, nerve damage, deep venous thrombosis, pulmonary embolism, stroke, coma, heart attack, permanent paralysis and , as well as the potential need for eventual revision of the prosthetic. Surgeon: Mikayla West Cartridge Loading Operator: Joana Candelaria Click Yes if Unassisted: Yes Anesthesia Type: General Operative Notes Findings: Severe right hip arthritis, hard bone, adequate stability moderate canal bleeding Closure Type: primary Specimen(s): none sent Prosthetic devices, grafts, tissues, transplants, or devices: West and Nephew R3 54, neutral poly liner,one 6.5 mm screw, size 6 high offset anthology a fit, 36+ 0 cobalt Estimated Blood Loss (mL): 250 Blood products transfused: none Status at Discharge Cognitive/behavioral status at discharge: at baseline, oriented Functional status at discharge: uses cane/walker Overall status at discharge: patient is progressing back to baseline Exam Vital Signs (past 8 hours): - 08/03/22 00:42 08/03/22 02:51 Temperature 100.9 F H 98.6 F Pulse Rate 89 85 Respiratory Rate 18 18 Blood Pressure 80/44 L 124/72 Pulse Oximetry 93 97 Oxygen Flow Rate 0 Oxygen Delivery Method Room Air Oxygen Flow Rate 0 Narrative Exam Narrative: Pleasant 77-year-old male, resting comfortably in bed, no acute distress. Right hip anterior incision with Aquacel dressing in place is clean, dry, intact. No surrounding erythema, induration, or raúl pus. Bilateral lower extremity: Motor functions are grossly intact, sensation is grossly intact to light touch, calves are soft and nontender to palpation. Objective Labs 08/03/22 04:27 Labs: Laboratory Results - last 24 hr 08/03/22 04:27 Hgb 11.8 L Hct 34.6 L PFSH Medical History Abdominal hernia Bilateral inguinal hernia CAD (coronary artery disease) Carpal tunnel syndrome Cataracts, bilateral Chronic back pain (~1977) Degenerative joint disease of right hip Hearing loss HLD (hyperlipidemia) Inguinal hernia LBBB (left bundle branch block) Lumbar radiculopathy Multilevel lumbosacral spondylosis with radiculopathy Obstructive sleep apnea of adult SCOTTIE (obstructive sleep apnea) Suspected sleep apnea Tinnitus Surgical History Anesthesia H/O vasectomy Hx of bilateral cataract extraction Hx of bilateral inguinal hernia repair (11/07/20) Hx of carpal tunnel repair Hx of cholecystectomy (~2019) Hx of heart artery stent (~2005) Hx of neck surgery (~2018) Family History Father Heart disease Sister Colon cancer Mother Cancer Grandmother Gallstones Social History marital status: household members: spouse occupational status: previously employed Smoking Status: Former smoker alcohol intake: current substance use type: does not use Discharge Assessment & Plan Assessment and Plan Assessment: -stable status post right total hip arthroplasty, anterior approach -hypotension, currently asymptomatic Plan of Treatment: -mobilize with PT. Weightbearing as tolerated with front wheel walker cane. Maintain anterior hip precautions x6 weeks -continue with multimodal pain management -aspirin 81 mg b.i.d. x6 weeks for DVT prophylaxis -hold lisinopril this morning until diastolic blood pressures greater than 80 -DC home today once cleared by PT Discharge Plan Discharge Plan Patient Disposition: Home Provider Discharge Comment: Discharge to home if cleared by therapy and able to urinate. Discharge orders & Medications Discharge Orders: Discharge (Order); Ordered 08/03/22 Ordered By: Destiney Mitchell Prescriptions: New aspirin 81 mg Tablet,Delayed Release (Dr/Ec) 81 mg PO BID Qty: 90 0RF polyethylene glycol 3350 17 gram Powder In Packet 17 gm PO DAILY PRN (Reason: Constipation) Qty: 20 0RF ibuprofen 400 mg Tablet 400 mg PO Q6HR Qty: 100 0RF oxycodone 5 mg Tablet 5 mg PO Q3HR PRN (Reason: Pain, Moderate (4-6)) Qty: 40 0RF Continued (DME) Parking Permit... See Rx Instructions .Route .MEDSUPPLY Qty: 1 0RF Rx Instructions: I find this patient to be medically disabled and qualified for disabled Parking as indicated, and signed, on the Accompanying Disabled parking Application for Individuals. rosuvastatin 10 mg tablet 10 mg PO DAILY Qty: 90 3RF gabapentin 300 mg capsule 300 mg PO TID Qty: 90 3RF celecoxib [Celebrex] 200 mg capsule 200 mg PO DAILY Qty: 30 2RF aspirin 81 mg tablet 81 mg PO DAILY omega-3 fatty acids 1,000 mg capsule 2,000 mg PO DAILY lisinopril 5 mg tablet 5 mg PO DAILY Qty: 90 3RF omeprazole 20 mg capsule,delayed release(DR/EC) 20 mg PO DAILY Qty: 90 3RF multivitamin Tablet 1 tab PO DAILY cholecalciferol (vitamin D3) 25 mcg (1,000 unit) capsule 15,000 unit PO DAILY diazepam [Valium] 10 mg tablet 10 mg PO .COMPLEX MDD 3 tabs PRN (Reason: 1-2 prior to MRI and for possible steroid flare) Qty: 10 0RF Rx Instructions: 10 mg PO PRN; Follow up/Referrals: Tim Claudio MD [Primary Care Provider] - Mikayla West MD [Physician] - As previously scheduled (10-14 days for postoperative visit) Diet/Activity/Treatments Diet: Diet as Tolerated Activity: Walk multiple times a day. Cold/Heat Therapy: Apply ice to hip multiple times a day. Other treatments: Medications: -Aspirin 81mg twice daily x6 weeks to prevent blood clots. -OTC Tylenol 500 mg 1 tablet every 4 hours as needed for pain/fever. Max 6 tablets per day. -Celebrex daily for pain/inflammation. -Oxycodone 5 mg take 1-2 tablets every 4 hours as needed for moderate-severe pain (narcotic pain medication). -Vistaril (hydroxyine) 25mg 1 tab every 4 hours as needed for spasms/pain/nausea. -As needed medications: -Ducolax and /or MiraLax as needed for constipation from narcotic pain medications. -Pepcid AC as needed for stomach upset (usually from aspirin or ibuprofen). Dressing/Wound care: -Keep Aquacell dressing in place until postoperative follow-up office visit. -Okay to shower. Keep wound out of direct water stream. No soaking or submerging until all the scabs fall off (approximately 6 weeks). -No lotions, ointments, or scar creams directly to the incision until the wound is healed (4-6 weeks), -Please call the office if dressing becomes wet, soiled, or saturated. Activities: -Maintain anterior hip precautions x6 weeks. -Weight-bearing as tolerated. Use front wheeled walker, and progress to cane when safe. -Continue with home exercises as directed by your physical therapist. -Elevate ?toes above the nose if you have significant swelling in your lower leg. (A wedge pillow is easiest.) -Ice your incision as needed for pain/inflammation/swelling. Protect your skin with a folded pillowcase. Follow-up: -Follow-up with your surgeon or PA in the office in 10-14 days after surgery. -Follow-up with your surgeon 6 weeks postoperatively. Call the office if you have chest pain, shortness of breath, significant swelling that will not resolve with elevating, fever over 101?, significantly worsening pain, or are concerned you might need to go to the Emergency Room. [facility]: [phone] Skin/Wound/Dressing Care Report to your healthcare provider any signs of infection, such as:: chills, fever, night sweats, increased pain, unusual drainage and unusual redness Dressing: Leave dressing on. Okay to shower. Visit Report/Discharge Packet Instructions: DI for Hip Replacement Stand Alone Forms: Patient Portal/API, Surgery Discharge Discharge Data Primary Care Provider: Tim Claudio Attending Provider: Mikayla West VTE Deep Vein Thrombosis/Pulmonary Embolism Present on Admission: No
[2022-08-03] MEDS: GABAPENTIN 300 MG CAPSULE PO (08:32)
[2022-08-03] MEDS: ATORVASTATIN 20 MG TABLET PO (08:32)
[2022-08-03] MEDS: ASPIRIN EC 81 MG TABLET PO (08:32)
[2022-08-03] MEDS: DOCUSATE 100 MG CAPSULE PO (08:32)
[2022-08-03] MEDS: CHOLECALCIFEROL (VITAMIN D3) 1,000 UNIT TABLET 1000 UNIT PO (08:32)
[2022-08-03] MEDS: MULTIVITAMIN 1 TABLET 1 TAB PO (08:33)
[2022-08-03] MEDS: FISH OIL 1,000 MG CAPSULE 2000 MG PO (08:33)
--- NOTE | 2022-08-03 11:48 | PT.IPTN ---
Current Diagnoses Unilateral primary osteoarthritis, right hip (08/03/22) Surgery Performed Operation Date: 08/02/22 07:45 Actual Procedures p Total Hip Arthroplasty/Anterior Approach(Right) - Mikayla West MD Physical Therapy Treatment Note M2 PT-IP Current Condition Start: 08/02/22 16:18 Freq: NEEDED Status: Discharge Protocol: Document 08/03/22 10:50 LRN (Rec: 08/03/22 13:06 LRN [id number]) Physical Therapy Current Condition Current Condition Evaluation Date 08/02/22 Treatment Diagnosis s/p R YADIRA anterior approach Onset Date 08/02/22 M3 PT-IP Subjective Start: 08/02/22 16:18 Freq: NEEDED Status: Discharge Protocol: Document 08/03/22 10:50 LRN (Rec: 08/03/22 13:06 LRN [id number]) Subjective Physical Therapy Visit Type Type Treatment Note Visit Start Time 10:50 Visit Stop Time 11:45 Total Visit Minutes 55 Physical Therapy Visit Comments Patient Comments Pain rated 5/10 Therapy Pain Assessment Pain When Pain Assessed At Rest Pain Present Pain Present Pain Reported Location Right Hip Intensity 5 Scale Used Numeric (0 - 10) M4 PT-IP Mobility and Gait Start: 08/02/22 16:18 Freq: NEEDED Status: Discharge Protocol: Document 08/03/22 10:50 LRN (Rec: 08/03/22 13:06 LRN [id number]) PT-Bed Mobility Assessment Rolling Type of Rolling Roll to Right Level of Assist Standby Assistance Supine to Sit Supine to Sit Independent,Standby Assistance Scooting Scooting to Edge of Bed Independent PT-Transfer Assessment Sit to and From Stand Sit to and from Stand Independent Equipment Transfer Assistive Device Gait Belt,Front Wheeled Walker Orthotic/Prosthetic Devices or Brace: No Transfer Ability Level of Assist Independent,Standby Assistance Comments Mobility Comments Pt required v. cuing for first attempt, but was independent with remaining transfers. Gait Assessment Gait Gait Assistance Required: Independent,Standby Assistance ,1 Person Assist Distance (Feet) 50 Assistive Devices Assistive Device Gait Belt,Front Wheeled Walker Gait Deviations General Gait Pattern Decreased Stride Length,Step- to Gait Factors Limiting Gait Function Factors Limiting Gait Function Decreased Activity Tolerance, Decreased Strength,Limited Range of Motion,Pain Comments Gait Comments Pt ambs with step to gait. V. cuing given to stay w/in center of walker and to do step to gait. Gt is with WBing as tolerated. Stair Climbing Assessment Evaluation Level of Assist On Stairs Independent Devices Stair Climbing Assistive Devices Left Railing,Right Railing Technique/Endurance Stair Climbing Direction Ascend and Descend Number of Steps Climbed 4 Stair Climbing Set # Repetitions (reps) 1 Comments Stair Climbing Comments Pt given training for proper step to gait pattern, and needed training to use hands of UE's for WBing vs Forearms. Gait is WBAT. PT-Balance Assessment Sitting Balance and Reactions Static Sitting Balance Ability Good Dynamic Sitting Balance Ability Good Standing Balance and Reactions Static Standing Balance Ability Good Dynamic Standing Balance Ability Good M5 PT-IP Objective Assessments Start: 08/02/22 16:18 Freq: NEEDED Status: Discharge Protocol: Document 08/02/22 16:19 AMH (Rec: 08/02/22 17:08 AMH [id number]) Orientation Orientation/Cognition Level of Alertness Alert Gross Range of Motion Upper Extremity ROM Assessment Within Functional Limits Lower Extremity ROM Assessment Right Impaired Strength Upper Extremity Strength Assessment Within Functional Limits Lower Extremity Strength Assessment Right Impaired Coordination Assessment Gross Coordination Gross Coordination WNL Muscle Tone Muscle Tone WNL Yes M6 PT-IP Treatment Start: 08/02/22 16:18 Freq: NEEDED Status: Discharge Protocol: Document 08/03/22 10:50 LRN (Rec: 08/03/22 13:06 LRN [id number]) Physical Therapy Treatment Exercises Exercises Ankle Pumps,Gluteal Sets,Quad Sets,Heel Slides,Short Arc Quads Education Education Provided Precautions,Weight Bearing Status,Safety M7 PT-IP Assessment and Plan Start: 08/02/22 16:18 Freq: NEEDED Status: Discharge Protocol: Document 08/03/22 10:50 LRN (Rec: 08/03/22 13:06 LRN [id number]) PT Summary Assessment and Plan Potential Rehabilitation Potential Excellent Status of Condition at Evaluation Stable Summary Impairments Pain,ROM,Strength,Balance,Gait ,Activity Tolerance Assessment Summary 77 year old male s/p day 2 YADIRA anterior approach R hip. His hip precautions were reviewed. Exercises were reviewed. Pt was able to ambulate up/down 4 steps independently and showed independence with gait after stair training; therefore the pt is safe to be DC'd with his Goals Bed Mobility Goal Standby Assistance Transfer Goal Standby Assistance Gait Distance 100 Other Goals pt will safely ambulate up and down 2 steps prior to DC Frequency of Treatment Frequency Of Treatment Discharge Precautions Anterior Hip Precautions No Hip Extension,No Hip External Rotation Weight Bearing Status Weight Bearing Status Weight Bear as Tolerated Recommendations To Nursing Amount of Assist Needed 1 Person Assist Discharge Recommendations PT Discharge Recommendations Home with Assistance Transportation Needs at Discharge Private Vehicle
[2022-08-03] MEDS: OXYCODONE IR 10 MG TABLET PO (12:46)
--- NOTE | 2022-08-03 12:55 | CM.DANOTE ---
Discharge Planning/Care Management CM Discharge Assessment Start: 08/03/22 12:52 Freq: Status: Active Protocol: Document 08/03/22 12:52 JUANY (Rec: 08/03/22 12:55 JUANY [id number]) Discharge Planning Assessment Assigned Fruit Peeler RANJAN Biswas DPOA/Assigned Designee Name Kathya Matthews, spouse Contact Information [phone] Advance Directives? Yes Advance Directives on File Yes History Provided By Patient,Medical Record Prior Living Arrangements House Household Members spouse Type of transporation used prior to Drives own vehicle admit Independent with ADL's Yes Is patient alert and oriented? Yes Patient/Family Preference OP PT Therapy Barriers to Discharge No Comment 77 yo male, resident of [place], POD1 from right total hip arthroplasty, anterior approach by Dr West. Patient has planned for discharge home w/spouse and family to assist and PT has cleared patient for this plan. No needs identified from this CM team Discharge Plan Home Transportation Arrangement Spouse Referrals Initiated None needed Additional Comment Outpatient PT
--- NOTE | 2022-08-03 13:06 | PC.NURSE ---
Discharge Note Patient A&O, VSS, RA, no complaints of pain/discomfort. Discharge packet reviewed with patient, all questions/concerns addressed. PIV discontinued. Patient able to dress self and pack all belongings with spouse's assistance. Patient taken down via wheelchair to POV.
== END 2022-08-03 13:05 | disposition home or self-care (01) ==
LOC: OR 10:19 → AC 10:19
PROVIDERS: Admitting Provider Orthopaedic Surgery; Family Provider Family Medicine; PCP Family Medicine; Referring Provider Orthopaedic Surgery; Visit Provider Orthopaedic Surgery
PROC: (CPT 27130; principal; 2022-08-02 07:45)
DX: M16.11 Unilateral primary osteoarthritis, right hip (principal); I11.0 Hypertensive heart disease with heart failure; E78.5 Hyperlipidemia, unspecified; Z20.822 Contact with and (suspected) exposure to COVID-19
CPT/HCPCS: 27130; 36415; 73502; 76000; 85014; 85018; 87635; 97110; 97116; 97161; 97530; C1776; C9803; G0378; A9270; J0690; J2250; J2270; J2704; J3010

== ENCOUNTER → 2022-09-01 08:34 | Outpatient (CLI) | payer MEDICARE, SELFPAY ==
[2022-08-02 11:51] VITALS: BMI 29.7
[2022-09-01 10:23] LABS: Alanine Aminotransferase 20 IU/L (<50); BUN Creatinine Ratio 17.1 (6-22); Blood Urea Nitrogen 19 mg/dL (9-20); Calcium 9.4 mg/dL (8.4-10.2); Carbon Dioxide 25 mmol/L (22-32); Chloride 105 mmol/L (98-107); Cholesterol 111 mg/dL (140-199); Estimated Glomerular Filt Rate > 60 mL/min (>60); Glucose 101 mg/dL (80-110); HDL Cholesterol 47 mg/dL (40-60); HEMOLYSIS < 15 (0-50); LDL Cholesterol Calculated 39 mg/dL (<100); Potassium 4.3 mmol/L (3.4-5.1); Sodium 139 mmol/L (137-145); Triglycerides 126 mg/dL (35-150)
== END ==
PROVIDERS: Family Provider Family Medicine; PCP Family Medicine; Referring Provider Internal Medicine Interventional Cardiology; Visit Provider Internal Medicine Interventional Cardiology
DX: I25.10 Atherosclerotic heart disease of native coronary artery without angina pectoris (principal)
CPT/HCPCS: 36415; 80048; 80061; 84460

== ENCOUNTER 2022-09-21 08:15 | Outpatient (RCR) | payer MEDICARE, SELFPAY ==
--- NOTE | 2022-07-02 18:08 | PT.OIE ---
Current Diagnoses Unilateral primary osteoarthritis, right hip (07/02/22) Past Medical History (Last Reviewed 04/23/22 @ 09:04 by Anthony Zhang DO) Abdominal hernia Bilateral inguinal hernia CAD (coronary artery disease) Carpal tunnel syndrome Cataracts, bilateral Chronic back pain (~1977) CKD (chronic kidney disease) Degenerative joint disease of right hip Hearing loss HLD (hyperlipidemia) Inguinal hernia LBBB (left bundle branch block) Lumbar radiculopathy Multilevel lumbosacral spondylosis with radiculopathy Obstructive sleep apnea of adult Suspected sleep apnea Tinnitus Past Surgical History (Last Reviewed 04/23/22 @ 09:04 by Anthony Zhang DO) Anesthesia Hx of bilateral inguinal hernia repair (11/07/20) Hx of carpal tunnel repair Hx of cholecystectomy (~2019) Hx of heart artery stent (~2005) Hx of neck surgery (~2018) Visit Care Team Role Provider Type Tim Claudio MD Family Provider Physician Primary Care Provider Specialty: Family Practice Address: [address] [place] [address], [id number] Email: [email or web address] Mikayla West MD Attending Provider Physician Referring Provider Specialty: Orthopedics Orthopedic Surgery Address: [address] [place] [address], [id number] Email: [email or web address] Initial Evaluation PT-OP-A Visit Information Start: 07/02/22 12:45 Freq: Status: Active Protocol: Document 07/02/22 13:52 LRN (Rec: 07/02/22 15:07 LRN [id number]) Out-Patient Physical Therapy Visit Information Visit Information Visit Type Initial Evaluation Visit Start Time 13:52 Visit Stop Time 14:48 Total Visit Minutes 56 Visit Number 1 Evaluation Information Evaluation Date 07/02/22 Precautions Precautions Pt gets dizzy with lying completely flat without pillows, no vestibular cause. Neck double laminectomy ~2017 PT-OP-B Current Condition Start: 07/02/22 12:45 Freq: Status: Active Protocol: Document 07/02/22 13:52 LRN (Rec: 07/02/22 15:07 LRN [id number]) Current Condition History of Current Condition Onset Date 4-5 yrs ago. Current Complaints R hip pain radiating down the back of leg walking & ADLs. History of Current Condition Pt Scheduled for R YADIRA surgery 08/02/22. He had PT last year to get more mobility out of the R hip in prep for the surgery. Pt found PT helpful to lessen the R hip pain and improve mobility. Had friend who recovered from an anterior YADIRA and reports he was up walking/hiking 6 days after surgery, so pt hopes for same outcome. 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 Has 21 stairs from 1st floor to 2nd. 1 railing on R side ascending. Ambs stairs normal. Prior Treatments and Tests Physical therapy Mar to May 2022. Future Testing and Treatments Planned R YADIRA anterior approach 08/02/22 . Treatment Goals Patient/Caregiver Goals Pt goals is to get rid of pain , walk normal, walk trails with , and be ready for travel to [place] in mid-october. Personal Factors Other Personal Factors That May Effect History of back pain with Therapy/Recovery epidural 03/2022. Controlled HBP, Cardiac stent placed 2005, [place] Carpal tunnel release, Hernia of R abdomen from gall bladder surgery - 2019, 2020, Inguinal Hernia surgery bilaterally, Gall bladder removed-1999. PT-OP-C Subjective Start: 07/02/22 12:45 Freq: Status: Active Protocol: Document 07/02/22 13:52 LRN (Rec: 07/02/22 15:07 LRN [id number]) Patient Questionnaires Lower Extremity Functional Scale LEFS Score 63 LEFS Impairment 1 to 19% Impaired (Score 63-79 ) OP-PT Pain Assessment Pain Assessment Grid Paper Pain Assessment Grid Completed Yes Location R hip Pain Location Details Anterior and lateral hip radiating into posterior & lateral Intensity 5 Scale Used Numeric (0 - 10) Description Aching,Burning Frequency Frequent Other Pain Aggravating Factors Sleeping on the R hip. Pain Alleviating Factors Inactivity PT-OP-E Functional Tests Start: 07/02/22 12:45 Freq: Status: Active Protocol: Document 07/02/22 13:52 LRN (Rec: 07/02/22 15:07 LRN [id number]) Functional Tests 30 Second Sit to Stand Test Score 8 Comments Exam room chair used. Norm is 11-17 for ages 75-79 yo males. Timed Up and Go (TUG) Score 11 Comments Exam room chair used. Norm is 11.6 secs for ages 70-79 yo males TUG Impairment Rating 1 to <20% Impaired (Score 11) PT-OP-K Range of Motion Start: 07/02/22 12:45 Freq: Status: Active Protocol: Document 07/02/22 13:52 LRN (Rec: 07/02/22 15:07 LRN [id number]) Hip Goniometric Range of Motion Hip Right Passive Hip ROM WFL No Testing Position Supine Flexion w/Knee Flexed 110 Straight Leg Raise 80 Abduction 10 Internal Rotation 10 External Rotation 50 Left Passive Hip ROM WFL Yes Testing Position Supine Flexion w/Knee Flexed 120 Straight Leg Raise 70 Abduction 29 Internal Rotation 20 External Rotation 60 PT-OP-M Strength Start: 07/02/22 12:45 Freq: Status: Active Protocol: Document 07/02/22 13:52 LRN (Rec: 07/02/22 15:07 LRN [id number]) Hip Strength Hip Manual Muscle Testing Right Comments Generally 5/5. Left Adduction 3 Fair Comments Generally 5/5 except as indicated above. PT-OP-Q Treatments Start: 07/02/22 12:45 Freq: Status: Active Protocol: Document 07/02/22 13:52 LRN (Rec: 07/02/22 15:07 LRN [id number]) Self-Care/Home Management Treatment Education Patient Education Joint Protection Other Education AMb w/FWW & crutches Amb on stairs Pt Education with discussion given for: Transfers in/out of bed Anterior YADIRA Precautions. Discussed use of hose wrapper. Pt able to get up/down from regular chair without difficulty; therefore getting up/down from regular commode is not expected to be difficult. Discussed results of evaluation, goals, and plan of care (POC). Pt agreeable to goals and POC. Activities Self-Care/Home Management Activities Issued post-op anterior YADIRA precautions. Recommended pt continue HEP as previously instructed during his prior therapy program. Included ankle pumps and knee flex/ext sitting. PT-OP-T Assessment and Plan Start: 07/02/22 12:45 Freq: Status: Active Protocol: Document 07/02/22 13:52 LRN (Rec: 07/02/22 15:07 LRN [id number]) Physical Therapy Assessment Rehab Potential Rehabilitation Potential Good Evaluation Complexity Number of Personal Factors/Comorbidities 3 or More Number of Body Systems Impaired 4 or More Clinical Presentation at Evaluation Evolving Impairments Impairments Activity Tolerance,Gait,Pain, ROM,Transfers Goals Four Impairment Decreased Activity tolerance Impairment Pt not able to walk trails with spouse. Pt not prepared to participate in travel to [place] due to difficulty/R hip pain with walking. Short Term Goal (STG) Improve R hip strength to no less than 3/5 post-op. STG Duration 08/17/22 Half-Way Goal (LTG) Improve tolerance to walking/ hiking with pt feeling ready to walk on trails and prepared to participate in his planned trip to [place] in October. LTG Duration 10/05/22 Three Impairment Antalgic gait. Impairment 30 sec STS = 8x (Norm is 11-17 for ages 75-79 yo males.) TUG score is 11 secs (Norm is 11.6 secs for ages 70-79 yo males) Short Term Goal (STG) Pt will be able to ambulate without the use an assistive device with normal gait mechanics. STG Duration 08/17/22 Print Shop Stenographer Goal (LTG) Pt will be able to ambulate stairs with step over step pattern 21 stairs with 1 railing on R side ascending. LTG Duration 10/05/22 Two Impairment R hip pain/decreased LE function Impairment R hip/LE posterior and lateral pain rated 4-5/10. LEFS is 63/80 = 1-19% impaired . Short Term Goal (STG) Decrease R hip pain to baseline (4-5/10) or less post surgically. STG Duration 08/17/22 Half-Way Goal (LTG) Improve function to pre-op baseline or more per LEFS score of 63 or greater and improve endurance per 30 sec STS test of 11-17x or greater. LTG Duration 10/05/22 One Impairment Lacks appropriate self care HEP. Short Term Goal (STG) Pt will be educated in R hip care (YADIRA precautions and self care pain management), proper use of assistive devices for gait and stair ambulation. STG Duration 07/02/22 Print Shop Stenographer Goal (LTG) Pt will be independent with a self care HEP of hip/core strengthening and balance ex's to achieve baseline gait ability and confidence. LTG Duration 10/05/22 Assessment Summary Assessment Pt presents for a pre-op assessment for his R anterior YADIRA surgery scheduled for ; and training for post-op care. Most of pt appointment was spent on pt education and training for post-op care. Pt did demonstrate the ability to ambulate independently with antalgic gait and was independent in functional mobility for transfers. The pt was very receptive to information and training given . It was recommended that the pt obtain a FWW or crutches for use with post-operative gait. He was I/S to continue pre-op strengthening ex's as I /S in his most recent physical therapy rehab program, with addition of ankle pumps and active knee flex/ext ROM. He appeared to have a good understanding of reviewed post -op mvmt precautions. The pt demonstrated limited R hip mobility but strength was normal except for L hip AD. Pt will greatly benefit from skilled outpatient PT upon d/c home with from the hospital after his R anterior YADIRA when deemed appropriate. Physical Therapy Plan Frequency and Duration Frequency of Treatment 2x/Week Plan of Care Start Date 07/02/22 Plan of Care End Date 10/05/22 Therapeutic Interventions Therapeutic Interventions Balance Training,Gait Training ,Home Exercise Program,Manual Therapy,Neuromuscular Re- education,Patient/Caregiver Education,Self-Care/Home Management,Soft Tissue Mobilization,Taping, Therapeutic Activities, Therapeutic Exercises Modalities Cold Pack/Ice Massage,Hot Packs Next Visit Focus/Plan Next Note Type Treatment Note Next Visit Plan R anterior YADIRA rehabilitation post-op surgery. Pt to be Re -Evaluated post-op R anterior YADIRA, and goals modified as needed. Rehab to consist of ROM, strengthening, gait & stair training, transfer training, endurance and aerobic exercise when appropriate.
--- NOTE | 2022-07-02 18:09 | PT.OPPOC ---
Physical, Occupational & Speech Therapy At [facility] Current Diagnoses Unilateral primary osteoarthritis, right hip (07/02/22) Visit Care Team Role Provider Type Tim Claudio MD Family Provider Physician Primary Care Provider Specialty: Family Practice Address: [address] [place] [address], [id number] Email: [email or web address] Mikayla West MD Attending Provider Physician Referring Provider Specialty: Orthopedics Orthopedic Surgery Address: [address] [place] [address], [id number] Email: [email or web address] Plan Of Care PT-OP-T Assessment and Plan Start: 07/02/22 12:45 Freq: Status: Active Protocol: Document 07/02/22 13:52 LRN (Rec: 07/02/22 15:07 LRN [id number]) Physical Therapy Assessment Rehab Potential Rehabilitation Potential Good Evaluation Complexity Number of Personal Factors/Comorbidities 3 or More Number of Body Systems Impaired 4 or More Clinical Presentation at Evaluation Evolving Impairments Impairments Activity Tolerance,Gait,Pain, ROM,Transfers Goals Four Impairment Decreased Activity tolerance Impairment Pt not able to walk trails with spouse. Pt not prepared to participate in travel to [place] due to difficulty/R hip pain with walking. Short Term Goal (STG) Improve R hip strength to no less than 3/5 post-op. STG Duration 08/17/22 Plant Protection Officer Goal (LTG) Improve tolerance to walking/ hiking with pt feeling ready to walk on trails and prepared to participate in his planned trip to [place] in October. LTG Duration 10/05/22 Three Impairment Antalgic gait. Impairment 30 sec STS = 8x (Norm is 11-17 for ages 75-79 yo males.) TUG score is 11 secs (Norm is 11.6 secs for ages 70-79 yo males) Short Term Goal (STG) Pt will be able to ambulate without the use an assistive device with normal gait mechanics. STG Duration 08/17/22 Plant Protection Officer Goal (LTG) Pt will be able to ambulate stairs with step over step pattern 21 stairs with 1 railing on R side ascending. LTG Duration 10/05/22 Two Impairment R hip pain/decreased LE function Impairment R hip/LE posterior and lateral pain rated 4-5/10. LEFS is 63/80 = 1-19% impaired . Short Term Goal (STG) Decrease R hip pain to baseline (4-5/10) or less post surgically. STG Duration 08/17/22 Plant Protection Officer Goal (LTG) Improve function to pre-op baseline or more per LEFS score of 63 or greater and improve endurance per 30 sec STS test of 11-17x or greater. LTG Duration 10/05/22 One Impairment Lacks appropriate self care HEP. Short Term Goal (STG) Pt will be educated in R hip care (YADIRA precautions and self care pain management), proper use of assistive devices for gait and stair ambulation. STG Duration 07/02/22 Assisted Goal (LTG) Pt will be independent with a self care HEP of hip/core strengthening and balance ex's to achieve baseline gait ability and confidence. LTG Duration 10/05/22 Assessment Summary Assessment Pt presents for a pre-op assessment for his R anterior YADIRA surgery scheduled for ; and training for post-op care. Most of pt appointment was spent on pt education and training for post-op care. Pt did demonstrate the ability to ambulate independently with antalgic gait and was independent in functional mobility for transfers. The pt was very receptive to information and training given . It was recommended that the pt obtain a FWW or crutches for use with post-operative gait. He was I/S to continue pre-op strengthening ex's as I /S in his most recent physical therapy rehab program, with addition of ankle pumps and active knee flex/ext ROM. He appeared to have a good understanding of reviewed post -op mvmt precautions. The pt demonstrated limited R hip mobility but strength was normal except for L hip AD. Pt will greatly benefit from skilled outpatient PT upon d/c home with from the hospital after his R anterior YADIRA when deemed appropriate. Physical Therapy Plan Frequency and Duration Frequency of Treatment 2x/Week Plan of Care Start Date 07/02/22 Plan of Care End Date 10/05/22 Therapeutic Interventions Therapeutic Interventions Balance Training,Gait Training ,Home Exercise Program,Manual Therapy,Neuromuscular Re- education,Patient/Caregiver Education,Self-Care/Home Management,Soft Tissue Mobilization,Taping, Therapeutic Activities, Therapeutic Exercises Modalities Cold Pack/Ice Massage,Hot Packs Next Visit Focus/Plan Next Note Type Treatment Note Next Visit Plan R anterior YADIRA rehabilitation post-op surgery. Pt to be Re -Evaluated post-op R anterior YADIRA, and goals modified as needed. Rehab to consist of ROM, strengthening, gait & stair training, transfer training, endurance and aerobic exercise when appropriate. Plan of Care Dates Plan of Care Start Date 07/02/22 Plan of Care End Date 10/05/22 Electronically Signed by: Lu Rodriguez, PT 07/03/22 5250 If you are in agreement with this Plan of Care, please return a signed and dated copy. I have reviewed this Plan of Care and certify that the skilled therapy services above are required to meet the patient?s needs. Physician Signature Date Printed Name and Credentials Clinical Instructor Signature Printed Name and Credentials
--- NOTE | 2022-08-14 16:28 | PT.OTRE ---
Current Diagnoses Unilateral primary osteoarthritis, right hip (08/14/22) Past Medical History (Last Reviewed 08/03/22 @ 07:40 by Destiney Mitchell PA-C) Abdominal hernia Bilateral inguinal hernia CAD (coronary artery disease) Carpal tunnel syndrome Cataracts, bilateral Chronic back pain (~1977) Degenerative joint disease of right hip Hearing loss HLD (hyperlipidemia) Inguinal hernia LBBB (left bundle branch block) Lumbar radiculopathy Multilevel lumbosacral spondylosis with radiculopathy Obstructive sleep apnea of adult SCOTTIE (obstructive sleep apnea) Suspected sleep apnea Tinnitus Surgical History (Last Reviewed 08/03/22 @ 07:40 by Destiney Mitchell PA-C) Anesthesia H/O vasectomy Hx of bilateral cataract extraction Hx of bilateral inguinal hernia repair (11/07/20) Hx of carpal tunnel repair Hx of cholecystectomy (~2019) Hx of heart artery stent (~2005) Hx of neck surgery (~2018) Visit Care Team Role Provider Type Tim Claudio MD Family Provider Physician Primary Care Provider Specialty: Family Practice Address: [address] [place] [address], [id number] Email: [email or web address] Mikayla West MD Attending Provider Physician Referring Provider Specialty: Orthopedics Orthopedic Surgery Address: [address] [place] [address], [id number] Email: [email or web address] Physical Therapy Re-Evaluation PT-OP-A Visit Information Start: 07/02/22 12:45 Freq: Status: Active Protocol: Document 08/14/22 09:45 AMB (Rec: 08/14/22 10:25 AMB [id number]) Out-Patient Physical Therapy Visit Information Visit Information Visit Type Re-Evaluation Visit Start Time 09:45 Visit Stop Time 10:30 Total Visit Minutes 45 Visit Number 2 PT-OP-B Current Condition Start: 07/02/22 12:45 Freq: Status: Active Protocol: Document 08/14/22 09:45 AMB (Rec: 08/14/22 10:25 AMB [id number]) Current Condition History of Current Condition Onset Date 08/02/22 Current Complaints Anterior approach YADIRA History of Current Condition Anterior surgery 08/02/22. Noticing pain/burning in R quad. Difficulty with ambulation and getting shoe on and off. PT-OP-C Subjective Start: 07/02/22 12:45 Freq: Status: Active Protocol: Document 07/02/22 13:52 LRN (Rec: 07/02/22 15:07 LRN [id number]) Patient Questionnaires Lower Extremity Functional Scale LEFS Score 63 LEFS Impairment 1 to 19% Impaired (Score 63-79 ) OP-PT Pain Assessment Pain Assessment Grid Paper Pain Assessment Grid Completed Yes Location R hip Pain Location Details Anterior and lateral hip radiating into posterior & lateral Intensity 5 Scale Used Numeric (0 - 10) Description Aching,Burning Frequency Frequent Other Pain Aggravating Factors Sleeping on the R hip. Pain Alleviating Factors Inactivity PT-OP-E Functional Tests Start: 07/02/22 12:45 Freq: Status: Active Protocol: Document 07/02/22 13:52 LRN (Rec: 07/02/22 15:07 LRN [id number]) Functional Tests 30 Second Sit to Stand Test Score 8 Comments Exam room chair used. Norm is 11-17 for ages 75-79 yo males. Timed Up and Go (TUG) Score 11 Comments Exam room chair used. Norm is 11.6 secs for ages 70-79 yo males TUG Impairment Rating 1 to <20% Impaired (Score 11) PT-OP-K Range of Motion Start: 07/02/22 12:45 Freq: Status: Active Protocol: Document 08/14/22 09:45 AMB (Rec: 08/14/22 10:25 AMB [id number]) Hip Goniometric Range of Motion Hip Measured in Degrees Right Passive Flexion w/Knee Flexed 95 Left Passive Flexion w/Knee Flexed 115 PT-OP-M Strength Start: 07/02/22 12:45 Freq: Status: Active Protocol: Document 08/14/22 09:45 AMB (Rec: 08/14/22 10:25 AMB [id number]) Hip Strength Hip Manual Muscle Testing Right Flexion (L2) 3 Fair Extension (S1) 4 Good PT-OP-Q Treatments Start: 07/02/22 12:45 Freq: Status: Active Protocol: Document 08/14/22 09:45 AMB (Rec: 08/14/22 12:57 AMB [id number]) Therapeutic Exercises Supine Exercises PPT Side bilateral Reps/Minutes 2x10 PT-OP-T Assessment and Plan Start: 07/02/22 12:45 Freq: Status: Active Protocol: Document 08/14/22 09:45 AMB (Rec: 08/14/22 10:25 AMB [id number]) Physical Therapy Assessment Goals Four Impairment Decreased Activity tolerance Impairment Pt not able to walk trails with spouse. Pt not prepared to participate in travel to [place] due to difficulty/R hip pain with walking. Short Term Goal (STG) Improve R hip strength to no less than 3/5 post-op. STG Duration 08/17/22 Senior Care Goal (LTG) Improve tolerance to walking/ hiking with pt feeling ready to walk on trails and prepared to participate in his planned trip to [place] in October. LTG Duration 10/05/22 Three Impairment Antalgic gait. Impairment 30 sec STS = 8x (Norm is 11-17 for ages 75-79 yo males.) TUG score is 11 secs (Norm is 11.6 secs for ages 70-79 yo males) Short Term Goal (STG) Pt will be able to ambulate without the use an assistive device with normal gait mechanics. STG Duration 08/17/22 Loading Unit Operator Crimping Goal (LTG) Pt will be able to ambulate stairs with step over step pattern 21 stairs with 1 railing on R side ascending. LTG Duration 10/05/22 Two Impairment R hip pain/decreased LE function Impairment R hip/LE posterior and lateral pain rated 4-5/10. LEFS is 63/80 = 1-19% impaired . Short Term Goal (STG) Decrease R hip pain to baseline (4-5/10) or less post surgically. STG Duration 08/17/22 Loading Unit Operator Crimping Goal (LTG) Improve function to pre-op baseline or more per LEFS score of 63 or greater and improve endurance per 30 sec STS test of 11-17x or greater. LTG Duration 10/05/22 One Impairment Lacks appropriate self care HEP. Short Term Goal (STG) Pt will be educated in R hip care (YADIRA precautions and self care pain management), proper use of assistive devices for gait and stair ambulation. STG Duration 07/02/22 Loading Unit Operator Crimping Goal (LTG) Pt will be independent with a self care HEP of hip/core strengthening and balance ex's to achieve baseline gait ability and confidence. LTG Duration 10/05/22 Assessment Summary Assessment Skip returns to physical therapy. He was not using a SPC, states he has been working on not limping, is concerned about leg length discrepancy, but does endorse having scoliosis. Overall is doing well, with weakness and reduced ROM as would be expected, will benefit from continued PT to progress his strengthening so he can ambulate without antalgia over uneven surfaces as needed. Physical Therapy Plan Frequency and Duration Frequency of Treatment 2x/Week Plan of Care Start Date 07/02/22 Plan of Care End Date 10/05/22 Therapeutic Interventions Therapeutic Interventions Balance Training,Gait Training ,Home Exercise Program,Manual Therapy,Neuromuscular Re- education,Patient/Caregiver Education,Self-Care/Home Management,Soft Tissue Mobilization,Taping, Therapeutic Activities, Therapeutic Exercises Modalities Cold Pack/Ice Massage,Hot Packs Next Visit Focus/Plan Next Note Type Treatment Note Next Visit Plan Rehab to consist of ROM, strengthening, gait & stair training, transfer training, endurance and aerobic exercise when appropriate.
--- NOTE | 2022-08-14 16:29 | PT.OPPOC ---
Physical, Occupational & Speech Therapy At [facility] Current Diagnoses Unilateral primary osteoarthritis, right hip (08/14/22) Visit Care Team Role Provider Type Tim Claudio MD Family Provider Physician Primary Care Provider Specialty: Family Practice Address: [address] [place] [address], [id number] Email: [email or web address] Mikayla West MD Attending Provider Physician Referring Provider Specialty: Orthopedics Orthopedic Surgery Address: [address] [place] [address], [id number] Email: [email or web address] Plan Of Care PT-OP-T Assessment and Plan Start: 07/02/22 12:45 Freq: Status: Active Protocol: Document 08/14/22 09:45 AMB (Rec: 08/14/22 10:25 AMB [id number]) Physical Therapy Assessment Goals Four Impairment Decreased Activity tolerance Impairment Pt not able to walk trails with spouse. Pt not prepared to participate in travel to [place] due to difficulty/R hip pain with walking. Short Term Goal (STG) Improve R hip strength to no less than 3/5 post-op. STG Duration 08/17/22 Long-Term Goal (LTG) Improve tolerance to walking/ hiking with pt feeling ready to walk on trails and prepared to participate in his planned trip to [place] in October. LTG Duration 10/05/22 Three Impairment Antalgic gait. Impairment 30 sec STS = 8x (Norm is 11-17 for ages 75-79 yo males.) TUG score is 11 secs (Norm is 11.6 secs for ages 70-79 yo males) Short Term Goal (STG) Pt will be able to ambulate without the use an assistive device with normal gait mechanics. STG Duration 08/17/22 Long-Term Goal (LTG) Pt will be able to ambulate stairs with step over step pattern 21 stairs with 1 railing on R side ascending. LTG Duration 10/05/22 Two Impairment R hip pain/decreased LE function Impairment R hip/LE posterior and lateral pain rated 4-5/10. LEFS is 63/80 = 1-19% impaired . Short Term Goal (STG) Decrease R hip pain to baseline (4-5/10) or less post surgically. STG Duration 08/17/22 Long-Term Goal (LTG) Improve function to pre-op baseline or more per LEFS score of 63 or greater and improve endurance per 30 sec STS test of 11-17x or greater. LTG Duration 10/05/22 One Impairment Lacks appropriate self care HEP. Short Term Goal (STG) Pt will be educated in R hip care (YADIRA precautions and self care pain management), proper use of assistive devices for gait and stair ambulation. STG Duration 07/02/22 Social Worker Delinquency Prevention Goal (LTG) Pt will be independent with a self care HEP of hip/core strengthening and balance ex's to achieve baseline gait ability and confidence. LTG Duration 10/05/22 Assessment Summary Assessment Skip returns to physical therapy. He was not using a SPC, states he has been working on not limping, is concerned about leg length discrepancy, but does endorse having scoliosis. Overall is doing well, with weakness and reduced ROM as would be expected, will benefit from continued PT to progress his strengthening so he can ambulate without antalgia over uneven surfaces as needed. Physical Therapy Plan Frequency and Duration Frequency of Treatment 2x/Week Plan of Care Start Date 07/02/22 Plan of Care End Date 10/05/22 Therapeutic Interventions Therapeutic Interventions Balance Training,Gait Training ,Home Exercise Program,Manual Therapy,Neuromuscular Re- education,Patient/Caregiver Education,Self-Care/Home Management,Soft Tissue Mobilization,Taping, Therapeutic Activities, Therapeutic Exercises Modalities Cold Pack/Ice Massage,Hot Packs Next Visit Focus/Plan Next Note Type Treatment Note Next Visit Plan Rehab to consist of ROM, strengthening, gait & stair training, transfer training, endurance and aerobic exercise when appropriate. Plan of Care Dates Plan of Care Start Date 07/02/22 Plan of Care End Date 10/05/22 Electronically Signed by: Taryn Mccollum, PT 08/14/22 1093 If you are in agreement with this Plan of Care, please return a signed and dated copy. I have reviewed this Plan of Care and certify that the skilled therapy services above are required to meet the patient?s needs. Physician Signature Date Printed Name and Credentials Clinical Instructor Signature Printed Name and Credentials
--- NOTE | 2022-08-17 14:29 | PT-OP ANOTE ---
No show: pt very apologetic. States apt was not in his technical planner and did not get a reminder call.
--- NOTE | 2022-08-21 16:03 | PT.OTN ---
Current Diagnoses Unilateral primary osteoarthritis, right hip (08/21/22) Physical Therapy Treatment Note PT-OP-A Visit Information Start: 07/02/22 12:45 Freq: Status: Active Protocol: Document 08/21/22 08:16 AMB (Rec: 08/21/22 09:03 AMB [id number]) Out-Patient Physical Therapy Visit Information Visit Information Visit Type Treatment Note Visit Start Time 08:15 Visit Stop Time 09:00 Total Visit Minutes 45 Visit Number 3 PT-OP-B Current Condition Start: 07/02/22 12:45 Freq: Status: Active Protocol: Document 08/21/22 08:16 AMB (Rec: 08/21/22 09:03 AMB [id number]) Current Condition History of Current Condition Onset Date 08/02/22 Current Complaints R Anterior approach YADIRA History of Current Condition Anterior surgery 08/02/22. Noticing pain/burning in R quad. Difficulty with ambulation and getting shoe on and off. PT-OP-C Subjective Start: 07/02/22 12:45 Freq: Status: Active Protocol: Document 07/02/22 13:52 LRN (Rec: 07/02/22 15:07 LRN [id number]) Patient Questionnaires Lower Extremity Functional Scale LEFS Score 63 LEFS Impairment 1 to 19% Impaired (Score 63-79 ) OP-PT Pain Assessment Pain Assessment Grid Paper Pain Assessment Grid Completed Yes Location R hip Pain Location Details Anterior and lateral hip radiating into posterior & lateral Intensity 5 Scale Used Numeric (0 - 10) Description Aching,Burning Frequency Frequent Other Pain Aggravating Factors Sleeping on the R hip. Pain Alleviating Factors Inactivity PT-OP-E Functional Tests Start: 07/02/22 12:45 Freq: Status: Active Protocol: Document 07/02/22 13:52 LRN (Rec: 07/02/22 15:07 LRN [id number]) Functional Tests 30 Second Sit to Stand Test Score 8 Comments Exam room chair used. Norm is 11-17 for ages 75-79 yo males. Timed Up and Go (TUG) Score 11 Comments Exam room chair used. Norm is 11.6 secs for ages 70-79 yo males TUG Impairment Rating 1 to <20% Impaired (Score 11) PT-OP-K Range of Motion Start: 07/02/22 12:45 Freq: Status: Active Protocol: Document 08/14/22 09:45 AMB (Rec: 08/14/22 10:25 AMB [id number]) Hip Goniometric Range of Motion Hip Right Passive Flexion w/Knee Flexed 95 Left Passive Flexion w/Knee Flexed 115 PT-OP-M Strength Start: 07/02/22 12:45 Freq: Status: Active Protocol: Document 08/14/22 09:45 AMB (Rec: 08/14/22 10:25 AMB [id number]) Hip Strength Hip Manual Muscle Testing Right Flexion (L2) 3 Fair Extension (S1) 4 Good PT-OP-Q Treatments Start: 07/02/22 12:45 Freq: Status: Active Protocol: Document 08/21/22 08:16 AMB (Rec: 08/21/22 09:03 AMB [id number]) Cardio Equipment Recumbent Elliptical ([employer]) Duration (Minutes) 5 Therapeutic Exercises Supine Exercises bridge Supine Exercise Name with theraband around knees Resistance #2 Reps/Minutes 2x10 PPT Side bilateral Reps/Minutes 2x10 Standing Exercises squat Standing Exercise Name gentle at railing Reps/Minutes 10 lunge Standing Exercise Name gentle at railing Reps/Minutes 10x2 1 Standing Exercise Name sit to stand Reps/Minutes 10 Manual Therapy Treatment Soft Tissue Mobilization R hip Body Location IT Band, hip flexor PT-OP-T Assessment and Plan Start: 07/02/22 12:45 Freq: Status: Active Protocol: Document 08/21/22 08:16 AMB (Rec: 08/21/22 09:03 AMB [id number]) Physical Therapy Assessment Goals Four Impairment Decreased Activity tolerance Impairment Pt not able to walk trails with spouse. Pt not prepared to participate in travel to [place] due to difficulty/R hip pain with walking. Short Term Goal (STG) Improve R hip strength to no less than 3/5 post-op. STG Duration 08/17/22 Fdc Goal (LTG) Improve tolerance to walking/ hiking with pt feeling ready to walk on trails and prepared to participate in his planned trip to [place] in October. LTG Duration 10/05/22 Three Impairment Antalgic gait. Impairment 30 sec STS = 8x (Norm is 11-17 for ages 75-79 yo males.) TUG score is 11 secs (Norm is 11.6 secs for ages 70-79 yo males) Short Term Goal (STG) Pt will be able to ambulate without the use an assistive device with normal gait mechanics. STG Duration 08/17/22 Deputy Treasurer Goal (LTG) Pt will be able to ambulate stairs with step over step pattern 21 stairs with 1 railing on R side ascending. LTG Duration 10/05/22 Two Impairment R hip pain/decreased LE function Impairment R hip/LE posterior and lateral pain rated 4-5/10. LEFS is 63/80 = 1-19% impaired . Short Term Goal (STG) Decrease R hip pain to baseline (4-5/10) or less post surgically. STG Duration 08/17/22 Fdc Goal (LTG) Improve function to pre-op baseline or more per LEFS score of 63 or greater and improve endurance per 30 sec STS test of 11-17x or greater. LTG Duration 10/05/22 One Impairment Lacks appropriate self care HEP. Short Term Goal (STG) Pt will be educated in R hip care (YADIRA precautions and self care pain management), proper use of assistive devices for gait and stair ambulation. STG Duration 07/02/22 Deputy Treasurer Goal (LTG) Pt will be independent with a self care HEP of hip/core strengthening and balance ex's to achieve baseline gait ability and confidence. LTG Duration 10/05/22 Assessment Summary Assessment Skip tolerated increased resistance exercises well. Is having soem discomfort sleeping on the right Physical Therapy Plan Frequency and Duration Frequency of Treatment 2x/Week Plan of Care Start Date 07/02/22 Plan of Care End Date 10/05/22 Therapeutic Interventions Therapeutic Interventions Balance Training,Gait Training ,Home Exercise Program,Manual Therapy,Neuromuscular Re- education,Patient/Caregiver Education,Self-Care/Home Management,Soft Tissue Mobilization,Taping, Therapeutic Activities, Therapeutic Exercises Modalities Cold Pack/Ice Massage,Hot Packs
--- NOTE | 2022-08-24 13:55 | PT.OTN ---
Current Diagnoses Unilateral primary osteoarthritis, right hip (08/24/22) Physical Therapy Treatment Note PT-OP-A Visit Information Start: 07/02/22 12:45 Freq: Status: Active Protocol: Document 08/24/22 13:02 AMB (Rec: 08/24/22 13:26 AMB [id number]) Out-Patient Physical Therapy Visit Information Visit Information Visit Type Treatment Note Visit Start Time 13:00 Visit Stop Time 13:45 Total Visit Minutes 45 Visit Number 4 PT-OP-B Current Condition Start: 07/02/22 12:45 Freq: Status: Active Protocol: Document 08/21/22 08:16 AMB (Rec: 08/21/22 09:03 AMB [id number]) Current Condition History of Current Condition Onset Date 08/02/22 Current Complaints R Anterior approach YADIRA History of Current Condition Anterior surgery 08/02/22. Noticing pain/burning in R quad. Difficulty with ambulation and getting shoe on and off. PT-OP-C Subjective Start: 07/02/22 12:45 Freq: Status: Active Protocol: Document 08/24/22 13:02 AMB (Rec: 08/24/22 13:26 AMB [id number]) OP-PT Subjective Patient Comments Patient Comments Skip reports no increased sx after last visit, so noticing some stiffness with first step after being stationary for a while. PT-OP-E Functional Tests Start: 07/02/22 12:45 Freq: Status: Active Protocol: Document 07/02/22 13:52 LRN (Rec: 07/02/22 15:07 LRN [id number]) Functional Tests 30 Second Sit to Stand Test Score 8 Comments Exam room chair used. Norm is 11-17 for ages 75-79 yo males. Timed Up and Go (TUG) Score 11 Comments Exam room chair used. Norm is 11.6 secs for ages 70-79 yo males TUG Impairment Rating 1 to <20% Impaired (Score 11) PT-OP-K Range of Motion Start: 07/02/22 12:45 Freq: Status: Active Protocol: Document 08/14/22 09:45 AMB (Rec: 08/14/22 10:25 AMB [id number]) Hip Goniometric Range of Motion Hip Right Passive Flexion w/Knee Flexed 95 Left Passive Flexion w/Knee Flexed 115 PT-OP-M Strength Start: 07/02/22 12:45 Freq: Status: Active Protocol: Document 08/14/22 09:45 AMB (Rec: 08/14/22 10:25 AMB [id number]) Hip Strength Hip Manual Muscle Testing Right Flexion (L2) 3 Fair Extension (S1) 4 Good PT-OP-Q Treatments Start: 07/02/22 12:45 Freq: Status: Active Protocol: Document 08/24/22 13:02 AMB (Rec: 08/24/22 13:26 AMB [id number]) Therapeutic Exercises Supine Exercises bridge Supine Exercise Name with theraband around knees Resistance #2 Reps/Minutes 2x10 Sidelying Exercises clam Side right Reps/Minutes 2x10 Standing Exercises squat Standing Exercise Name gentle at railing Reps/Minutes 10 lunge Standing Exercise Name gentle at railing--forward and lateral Reps/Minutes 10x2 1 Standing Exercise Name sit to stand Reps/Minutes 10 Manual Therapy Treatment Soft Tissue Mobilization R hip Body Location IT Band, hip flexor PT-OP-T Assessment and Plan Start: 07/02/22 12:45 Freq: Status: Active Protocol: Document 08/24/22 13:02 AMB (Rec: 08/24/22 13:26 AMB [id number]) Physical Therapy Assessment Goals Four Impairment Decreased Activity tolerance Impairment Pt not able to walk trails with spouse. Pt not prepared to participate in travel to [place] due to difficulty/R hip pain with walking. Short Term Goal (STG) Improve R hip strength to no less than 3/5 post-op. STG Duration 08/17/22 Exercise Science Instructor Goal (LTG) Improve tolerance to walking/ hiking with pt feeling ready to walk on trails and prepared to participate in his planned trip to [place] in October. LTG Duration 10/05/22 Three Impairment Antalgic gait. Impairment 30 sec STS = 8x (Norm is 11-17 for ages 75-79 yo males.) TUG score is 11 secs (Norm is 11.6 secs for ages 70-79 yo males) Short Term Goal (STG) Pt will be able to ambulate without the use an assistive device with normal gait mechanics. STG Duration 08/17/22 Mcc Goal (LTG) Pt will be able to ambulate stairs with step over step pattern 21 stairs with 1 railing on R side ascending. LTG Duration 10/05/22 Two Impairment R hip pain/decreased LE function Impairment R hip/LE posterior and lateral pain rated 4-5/10. LEFS is 63/80 = 1-19% impaired . Short Term Goal (STG) Decrease R hip pain to baseline (4-5/10) or less post surgically. STG Duration 08/17/22 Mcc Goal (LTG) Improve function to pre-op baseline or more per LEFS score of 63 or greater and improve endurance per 30 sec STS test of 11-17x or greater. LTG Duration 10/05/22 One Impairment Lacks appropriate self care HEP. Short Term Goal (STG) Pt will be educated in R hip care (YADIRA precautions and self care pain management), proper use of assistive devices for gait and stair ambulation. STG Duration 07/02/22 Mcc Goal (LTG) Pt will be independent with a self care HEP of hip/core strengthening and balance ex's to achieve baseline gait ability and confidence. LTG Duration 10/05/22 Assessment Summary Assessment Skip is doing well, tolerating more and more exercises without pain. Lateral movements are weak. Physical Therapy Plan Frequency and Duration Frequency of Treatment 2x/Week Plan of Care Start Date 07/02/22 Plan of Care End Date 10/05/22 Therapeutic Interventions Therapeutic Interventions Balance Training,Gait Training ,Home Exercise Program,Manual Therapy,Neuromuscular Re- education,Patient/Caregiver Education,Self-Care/Home Management,Soft Tissue Mobilization,Taping, Therapeutic Activities, Therapeutic Exercises Modalities Cold Pack/Ice Massage,Hot Packs Next Visit Focus/Plan Next Note Type Treatment Note Next Visit Plan Rehab to consist of ROM, strengthening, gait & stair training, transfer training, endurance and aerobic exercise when appropriate.
--- NOTE | 2022-08-28 09:03 | PT.OTN ---
Current Diagnoses Unilateral primary osteoarthritis, right hip (08/28/22) Physical Therapy Treatment Note PT-OP-A Visit Information Start: 07/02/22 12:45 Freq: Status: Active Protocol: Document 08/28/22 08:16 AMB (Rec: 08/28/22 09:02 AMB [id number]) Out-Patient Physical Therapy Visit Information Visit Information Visit Type Treatment Note Visit Start Time 08:15 Visit Stop Time 09:00 Total Visit Minutes 45 Visit Number 5 PT-OP-B Current Condition Start: 07/02/22 12:45 Freq: Status: Active Protocol: Document 08/21/22 08:16 AMB (Rec: 08/21/22 09:03 AMB [id number]) Current Condition History of Current Condition Onset Date 08/02/22 Current Complaints R Anterior approach YADIRA History of Current Condition Anterior surgery 08/02/22. Noticing pain/burning in R quad. Difficulty with ambulation and getting shoe on and off. PT-OP-C Subjective Start: 07/02/22 12:45 Freq: Status: Active Protocol: Document 08/28/22 08:16 AMB (Rec: 08/28/22 09:02 AMB [id number]) OP-PT Subjective Patient Comments Patient Comments Skip reports hip is doing well , a bit concerned about difficulty kneeling on the right knee. PT-OP-E Functional Tests Start: 07/02/22 12:45 Freq: Status: Active Protocol: Document 07/02/22 13:52 LRN (Rec: 07/02/22 15:07 LRN [id number]) Functional Tests 30 Second Sit to Stand Test Score 8 Comments Exam room chair used. Norm is 11-17 for ages 75-79 yo males. Timed Up and Go (TUG) Score 11 Comments Exam room chair used. Norm is 11.6 secs for ages 70-79 yo males TUG Impairment Rating 1 to <20% Impaired (Score 11) PT-OP-K Range of Motion Start: 07/02/22 12:45 Freq: Status: Active Protocol: Document 08/14/22 09:45 AMB (Rec: 08/14/22 10:25 AMB [id number]) Hip Goniometric Range of Motion Hip Right Passive Flexion w/Knee Flexed 95 Left Passive Flexion w/Knee Flexed 115 PT-OP-M Strength Start: 07/02/22 12:45 Freq: Status: Active Protocol: Document 08/14/22 09:45 AMB (Rec: 08/14/22 10:25 AMB [id number]) Hip Strength Hip Manual Muscle Testing Right Flexion (L2) 3 Fair Extension (S1) 4 Good PT-OP-Q Treatments Start: 07/02/22 12:45 Freq: Status: Active Protocol: Document 08/28/22 08:16 AMB (Rec: 08/28/22 09:02 AMB [id number]) Cardio Equipment Recumbent Elliptical ([employer]) Duration (Minutes) 5 Resistance 5 Therapeutic Exercises Supine Exercises bridge Supine Exercise Name with theraband around knees Resistance #2 Reps/Minutes 2x10 PPT Side bilateral Reps/Minutes 2x10 Sidelying Exercises clam Side right Reps/Minutes 2x10 Standing Exercises squat Standing Exercise Name gentle at railing Reps/Minutes 10 lunge Standing Exercise Name gentle at railing--forward and lateral Reps/Minutes 10x6 1 Standing Exercise Name sit to stand Reps/Minutes 10 Manual Therapy Treatment Soft Tissue Mobilization R hip Body Location IT Band, hip flexor, quad PT-OP-T Assessment and Plan Start: 07/02/22 12:45 Freq: Status: Active Protocol: Document 08/28/22 08:16 AMB (Rec: 08/28/22 09:02 AMB [id number]) Physical Therapy Assessment Goals Four Impairment Decreased Activity tolerance Impairment Pt not able to walk trails with spouse. Pt not prepared to participate in travel to [place] due to difficulty/R hip pain with walking. Short Term Goal (STG) Improve R hip strength to no less than 3/5 post-op. STG Duration 08/17/22 Usp Goal (LTG) Improve tolerance to walking/ hiking with pt feeling ready to walk on trails and prepared to participate in his planned trip to [place] in October. LTG Duration 10/05/22 Three Impairment Antalgic gait. Impairment 30 sec STS = 8x (Norm is 11-17 for ages 75-79 yo males.) TUG score is 11 secs (Norm is 11.6 secs for ages 70-79 yo males) Short Term Goal (STG) Pt will be able to ambulate without the use an assistive device with normal gait mechanics. STG Duration 08/17/22 Molding Engineer Goal (LTG) Pt will be able to ambulate stairs with step over step pattern 21 stairs with 1 railing on R side ascending. LTG Duration 10/05/22 Two Impairment R hip pain/decreased LE function Impairment R hip/LE posterior and lateral pain rated 4-5/10. LEFS is 63/80 = 1-19% impaired . Short Term Goal (STG) Decrease R hip pain to baseline (4-5/10) or less post surgically. STG Duration 08/17/22 Molding Engineer Goal (LTG) Improve function to pre-op baseline or more per LEFS score of 63 or greater and improve endurance per 30 sec STS test of 11-17x or greater. LTG Duration 10/05/22 One Impairment Lacks appropriate self care HEP. Short Term Goal (STG) Pt will be educated in R hip care (YADIRA precautions and self care pain management), proper use of assistive devices for gait and stair ambulation. STG Duration 07/02/22 Usp Goal (LTG) Pt will be independent with a self care HEP of hip/core strengthening and balance ex's to achieve baseline gait ability and confidence. LTG Duration 10/05/22 Assessment Summary Assessment Mark is having some tightness in his quads. Does have difficulty with kneeling a lot of tightness with knee flexion. Physical Therapy Plan Frequency and Duration Frequency of Treatment 2x/Week Plan of Care Start Date 07/02/22 Plan of Care End Date 10/05/22 Therapeutic Interventions Therapeutic Interventions Balance Training,Gait Training ,Home Exercise Program,Manual Therapy,Neuromuscular Re- education,Patient/Caregiver Education,Self-Care/Home Management,Soft Tissue Mobilization,Taping, Therapeutic Activities, Therapeutic Exercises Modalities Cold Pack/Ice Massage,Hot Packs Next Visit Focus/Plan Next Note Type Treatment Note Next Visit Plan Rehab to consist of ROM, strengthening, gait & stair training, transfer training, endurance and aerobic exercise when appropriate.
--- NOTE | 2022-08-31 09:00 | PT.OTN ---
Current Diagnoses Unilateral primary osteoarthritis, right hip (08/31/22) Physical Therapy Treatment Note PT-OP-A Visit Information Start: 07/02/22 12:45 Freq: Status: Active Protocol: Document 08/31/22 08:17 AMB (Rec: 08/31/22 09:00 AMB [id number]) Out-Patient Physical Therapy Visit Information Visit Information Visit Type Treatment Note Visit Start Time 08:15 Visit Stop Time 09:00 Total Visit Minutes 45 Visit Number 6 PT-OP-B Current Condition Start: 07/02/22 12:45 Freq: Status: Active Protocol: Document 08/21/22 08:16 AMB (Rec: 08/21/22 09:03 AMB [id number]) Current Condition History of Current Condition Onset Date 08/02/22 Current Complaints R Anterior approach YADIRA History of Current Condition Anterior surgery 08/02/22. Noticing pain/burning in R quad. Difficulty with ambulation and getting shoe on and off. PT-OP-C Subjective Start: 07/02/22 12:45 Freq: Status: Active Protocol: Document 08/31/22 08:17 AMB (Rec: 08/31/22 09:00 AMB [id number]) OP-PT Subjective Patient Comments Patient Comments NOticing some hip flexor discomfort PT-OP-E Functional Tests Start: 07/02/22 12:45 Freq: Status: Active Protocol: Document 07/02/22 13:52 LRN (Rec: 07/02/22 15:07 LRN [id number]) Functional Tests 30 Second Sit to Stand Test Score 8 Comments Exam room chair used. Norm is 11-17 for ages 75-79 yo males. Timed Up and Go (TUG) Score 11 Comments Exam room chair used. Norm is 11.6 secs for ages 70-79 yo males TUG Impairment Rating 1 to <20% Impaired (Score 11) PT-OP-K Range of Motion Start: 07/02/22 12:45 Freq: Status: Active Protocol: Document 08/14/22 09:45 AMB (Rec: 08/14/22 10:25 AMB [id number]) Hip Goniometric Range of Motion Hip Right Passive Flexion w/Knee Flexed 95 Left Passive Flexion w/Knee Flexed 115 PT-OP-M Strength Start: 07/02/22 12:45 Freq: Status: Active Protocol: Document 08/14/22 09:45 AMB (Rec: 03/14/23 10:25 AMB [id number]) Hip Strength Hip Manual Muscle Testing Right Flexion (L2) 3 Fair Extension (S1) 4 Good PT-OP-Q Treatments Start: 07/02/22 12:45 Freq: Status: Active Protocol: Document 08/31/22 08:17 AMB (Rec: 08/31/22 09:00 AMB [id number]) Cardio Equipment Recumbent Elliptical (Biodex) Duration (Minutes) 7 Resistance 5 Therapeutic Exercises Supine Exercises hip flexor stretch Supine Exercise Name gentle Reps/Minutes 30x2 bridge Supine Exercise Name with theraband around knees Resistance #2 Reps/Minutes 2x10 PPT Side bilateral Reps/Minutes 2x10 Sidelying Exercises clam Side right Reps/Minutes 2x10 Standing Exercises squat Standing Exercise Name gentle at railing Reps/Minutes 10 Comments added sidestepping with band lunge Standing Exercise Name gentle at railing--forward and lateral Reps/Minutes 10x6 1 Standing Exercise Name sit to stand Reps/Minutes 10 Gait Training Gait Activity smooth terrain Comments working on reducing compensations Manual Therapy Treatment Soft Tissue Mobilization R hip Body Location IT Band, hip flexor, quad PT-OP-T Assessment and Plan Start: 07/02/22 12:45 Freq: Status: Active Protocol: Document 08/31/22 08:17 AMB (Rec: 08/31/22 09:00 AMB [id number]) Physical Therapy Assessment Goals Four Impairment Decreased Activity tolerance Impairment Pt not able to walk trails with spouse. Pt not prepared to participate in travel to [place] due to difficulty/R hip pain with walking. Short Term Goal (STG) Improve R hip strength to no less than 3/5 post-op. STG Duration 08/17/22 Hl7 Developer Goal (LTG) Improve tolerance to walking/ hiking with pt feeling ready to walk on trails and prepared to participate in his planned trip to [place] in October. LTG Duration 10/05/22 Three Impairment Antalgic gait. Impairment 30 sec STS = 8x (Norm is 11-17 for ages 75-79 yo males.) TUG score is 11 secs (Norm is 11.6 secs for ages 70-79 yo males) Short Term Goal (STG) Pt will be able to ambulate without the use an assistive device with normal gait mechanics. STG Duration 08/17/22 [facility]dc Goal (LTG) Pt will be able to ambulate stairs with step over step pattern 21 stairs with 1 railing on R side ascending. LTG Duration 10/05/22 Two Impairment R hip pain/decreased LE function Impairment R hip/LE posterior and lateral pain rated 4-5/10. LEFS is 63/80 = 1-19% impaired . Short Term Goal (STG) Decrease R hip pain to baseline (4-5/10) or less post surgically. STG Duration 08/17/22 Hl7 Developer Goal (LTG) Improve function to pre-op baseline or more per LEFS score of 63 or greater and improve endurance per 30 sec STS test of 11-17x or greater. LTG Duration 10/05/22 One Impairment Lacks appropriate self care HEP. Short Term Goal (STG) Pt will be educated in R hip care (YADIRA precautions and self care pain management), proper use of assistive devices for gait and stair ambulation. STG Duration 07/02/22 Hl7 Developer Goal (LTG) Pt will be independent with a self care HEP of hip/core strengthening and balance ex's to achieve baseline gait ability and confidence. LTG Duration 10/05/22 Assessment Summary Assessment Skip continues to have tightness in quad/hip flexors. Worked on gait mechanics today. Scoliosis does impact gait certianly, better gait and higher speeds. Physical Therapy Plan Frequency and Duration Frequency of Treatment 2x/Week Plan of Care Start Date 07/02/22 Plan of Care End Date 10/05/22 Therapeutic Interventions Therapeutic Interventions Balance Training,Gait Training ,Home Exercise Program,Manual Therapy,Neuromuscular Re- education,Patient/Caregiver Education,Self-Care/Home Management,Soft Tissue Mobilization,Taping, Therapeutic Activities, Therapeutic Exercises Modalities Cold Pack/Ice Massage,Hot Packs Next Visit Focus/Plan Next Note Type Treatment Note Next Visit Plan Rehab to consist of ROM, strengthening, gait & stair. Gentle hip flexor stretching. Working on unlearning old antalgic gait patterns.
--- NOTE | 2022-09-04 09:06 | PT.OTN ---
Current Diagnoses Unilateral primary osteoarthritis, right hip (09/04/22) Physical Therapy Treatment Note PT-OP-A Visit Information Start: 07/02/22 12:45 Freq: Status: Active Protocol: Document 09/04/22 08:23 AMB (Rec: 09/04/22 09:05 AMB [id number]) Out-Patient Physical Therapy Visit Information Visit Information Visit Type Treatment Note Visit Start Time 08:15 Visit Stop Time 09:00 Total Visit Minutes 45 Visit Number 7 PT-OP-B Current Condition Start: 07/02/22 12:45 Freq: Status: Active Protocol: Document 08/21/22 08:16 AMB (Rec: 08/21/22 09:03 AMB [id number]) Current Condition History of Current Condition Onset Date 08/02/22 Current Complaints R Anterior approach YADIRA History of Current Condition Anterior surgery 08/02/22. Noticing pain/burning in R quad. Difficulty with ambulation and getting shoe on and off. PT-OP-C Subjective Start: 07/02/22 12:45 Freq: Status: Active Protocol: Document 09/04/22 08:23 AMB (Rec: 09/04/22 09:05 AMB [id number]) OP-PT Subjective Patient Comments Patient Comments Weakness with hip flexor limits getting the foot up on to things. PT-OP-E Functional Tests Start: 07/02/22 12:45 Freq: Status: Active Protocol: Document 07/02/22 13:52 LRN (Rec: 07/02/22 15:07 LRN [id number]) Functional Tests 30 Second Sit to Stand Test Score 8 Comments Exam room chair used. Norm is 11-17 for ages 75-79 yo males. Timed Up and Go (TUG) Score 11 Comments Exam room chair used. Norm is 11.6 secs for ages 70-79 yo males TUG Impairment Rating 1 to <20% Impaired (Score 11) PT-OP-K Range of Motion Start: 07/02/22 12:45 Freq: Status: Active Protocol: Document 08/14/22 09:45 AMB (Rec: 08/14/22 10:25 AMB [id number]) Hip Goniometric Range of Motion Hip Right Passive Flexion w/Knee Flexed 95 Left Passive Flexion w/Knee Flexed 115 PT-OP-M Strength Start: 07/02/22 12:45 Freq: Status: Active Protocol: Document 08/14/22 09:45 AMB (Rec: 08/14/22 10:25 AMB [id number]) Hip Strength Hip Manual Muscle Testing Right Flexion (L2) 3 Fair Extension (S1) 4 Good PT-OP-Q Treatments Start: 07/02/22 12:45 Freq: Status: Active Protocol: Document 09/04/22 08:23 AMB (Rec: 09/04/22 09:05 AMB [id number]) Cardio Equipment Recumbent Elliptical (B[employer] Gentlemen) Duration (Minutes) 7 Resistance 5 Therapeutic Exercises Standing Exercises squat Standing Exercise Name gentle at railing Reps/Minutes 10 Comments added sidestepping with band lunge Standing Exercise Name gentle at railing--forward and lateral Reps/Minutes 10x6 1 Standing Exercise Name sit to stand Reps/Minutes 10 Manual Therapy Treatment Soft Tissue Mobilization R hip Body Location IT Band, hip flexor, quad PT-OP-T Assessment and Plan Start: 07/02/22 12:45 Freq: Status: Active Protocol: Document 09/04/22 08:23 AMB (Rec: 09/04/22 09:05 AMB [id number]) Physical Therapy Assessment Goals Four Impairment Decreased Activity tolerance Impairment Pt not able to walk trails with spouse. Pt not prepared to participate in travel to [place] due to difficulty/R hip pain with walking. Short Term Goal (STG) Improve R hip strength to no less than 3/5 post-op. STG Duration 08/17/22 Bench Manager Goal (LTG) Improve tolerance to walking/ hiking with pt feeling ready to walk on trails and prepared to participate in his planned trip to [place] in October. LTG Duration 10/05/22 Three Impairment Antalgic gait. Impairment 30 sec STS = 8x (Norm is 11-17 for ages 75-79 yo males.) TUG score is 11 secs (Norm is 11.6 secs for ages 70-79 yo males) Short Term Goal (STG) Pt will be able to ambulate without the use an assistive device with normal gait mechanics. STG Duration 08/17/22 Bench Manager Goal (LTG) Pt will be able to ambulate stairs with step over step pattern 21 stairs with 1 railing on R side ascending. LTG Duration 10/05/22 Two Impairment R hip pain/decreased LE function Impairment R hip/LE posterior and lateral pain rated 4-5/10. LEFS is 63/80 = 1-19% impaired . Short Term Goal (STG) Decrease R hip pain to baseline (4-5/10) or less post surgically. STG Duration 08/17/22 Bench Manager Goal (LTG) Improve function to pre-op baseline or more per LEFS score of 63 or greater and improve endurance per 30 sec STS test of 11-17x or greater. LTG Duration 10/05/22 One Impairment Lacks appropriate self care HEP. Short Term Goal (STG) Pt will be educated in R hip care (YADIRA precautions and self care pain management), proper use of assistive devices for gait and stair ambulation. STG Duration 07/02/22 Shelter Goal (LTG) Pt will be independent with a self care HEP of hip/core strengthening and balance ex's to achieve baseline gait ability and confidence. LTG Duration 10/05/22 Assessment Summary Assessment Skip could consider putting an orthotic in the L shoe as he continues to have concerns with his scoliosis re L leg feeling short. Did feel better with superfeet in L leg . Did discuss custom orthotic vs external build up of shoe. Continue to progress strengthening of glutes. Physical Therapy Plan Frequency and Duration Frequency of Treatment 2x/Week Plan of Care Start Date 07/02/22 Plan of Care End Date 10/05/22 Therapeutic Interventions Therapeutic Interventions Balance Training,Gait Training ,Home Exercise Program,Manual Therapy,Neuromuscular Re- education,Patient/Caregiver Education,Self-Care/Home Management,Soft Tissue Mobilization,Taping, Therapeutic Activities, Therapeutic Exercises Modalities Cold Pack/Ice Massage,Hot Packs Next Visit Focus/Plan Next Note Type Treatment Note Next Visit Plan Rehab to consist of ROM, strengthening, gait & stair. Gentle hip flexor stretching. Working on unlearning old antalgic gait patterns.
--- NOTE | 2022-09-07 21:13 | PT.OTN ---
Current Diagnoses Unilateral primary osteoarthritis, right hip (09/07/22) Physical Therapy Treatment Note PT-OP-A Visit Information Start: 07/02/22 12:45 Freq: Status: Active Protocol: Document 09/07/22 08:15 AMB (Rec: 09/08/22 11:14 AMB [id number]) Out-Patient Physical Therapy Visit Information Visit Information Visit Type Treatment Note Visit Start Time 08:15 Visit Stop Time 09:00 Total Visit Minutes 45 Visit Number 8 PT-OP-B Current Condition Start: 07/02/22 12:45 Freq: Status: Active Protocol: Document 08/21/22 08:16 AMB (Rec: 08/21/22 09:03 AMB [id number]) Current Condition History of Current Condition Onset Date 08/02/22 Current Complaints R Anterior approach YADIRA History of Current Condition Anterior surgery 08/02/22. Noticing pain/burning in R quad. Difficulty with ambulation and getting shoe on and off. PT-OP-C Subjective Start: 07/02/22 12:45 Freq: Status: Active Protocol: Document 09/04/22 08:23 AMB (Rec: 09/04/22 09:05 AMB [id number]) OP-PT Subjective Patient Comments Patient Comments Weakness with hip flexor limits getting the foot up on to things. PT-OP-E Functional Tests Start: 07/02/22 12:45 Freq: Status: Active Protocol: Document 07/02/22 13:52 LRN (Rec: 07/02/22 15:07 LRN [id number]) Functional Tests 30 Second Sit to Stand Test Score 8 Comments Exam room chair used. Norm is 11-17 for ages 75-79 yo males. Timed Up and Go (TUG) Score 11 Comments Exam room chair used. Norm is 11.6 secs for ages 70-79 yo males TUG Impairment Rating 1 to <20% Impaired (Score 11) PT-OP-K Range of Motion Start: 07/02/22 12:45 Freq: Status: Active Protocol: Document 08/14/22 09:45 AMB (Rec: 08/14/22 10:25 AMB [id number]) Hip Goniometric Range of Motion Hip Right Passive Flexion w/Knee Flexed 95 Left Passive Flexion w/Knee Flexed 115 PT-OP-M Strength Start: 07/02/22 12:45 Freq: Status: Active Protocol: Document 08/14/22 09:45 AMB (Rec: 08/14/22 10:25 AMB [id number]) Hip Strength Hip Manual Muscle Testing Right Flexion (L2) 3 Fair Extension (S1) 4 Good PT-OP-Q Treatments Start: 07/02/22 12:45 Freq: Status: Active Protocol: Document 09/07/22 08:15 AMB (Rec: 09/09/22 21:13 AMB [id number]-) Cardio Equipment Recumbent Stepper (Sci-Fit) Duration (Minutes) 10 Resistance 5 Seat Position 10 Other good LE alignment, UEs/ LEs-1. 12 mi Therapeutic Exercises Supine Exercises hip flexor stretch Supine Exercise Name gentle, really just to neutral , more of a quad stretch Reps/Minutes 30x2 Sidelying Exercises clam Side right Resistance green t band Reps/Minutes 2x10 Standing Exercises squat Standing Exercise Name gentle at railing Reps/Minutes 10 Comments added sidestepping with band lunge Standing Exercise Name gentle at railing--forward and lateral Reps/Minutes 10x6 Manual Therapy Treatment Soft Tissue Mobilization R hip Body Location IT Band, hip flexor, quad PT-OP-T Assessment and Plan Start: 07/02/22 12:45 Freq: Status: Active Protocol: Document 09/07/22 08:15 AMB (Rec: 09/09/22 21:13 AMB [id number]-) Physical Therapy Assessment Goals Four Impairment Decreased Activity tolerance Impairment Pt not able to walk trails with spouse. Pt not prepared to participate in travel to [place] due to difficulty/R hip pain with walking. Short Term Goal (STG) Improve R hip strength to no less than 3/5 post-op. STG Duration 08/17/22 Penitentiary Goal (LTG) Improve tolerance to walking/ hiking with pt feeling ready to walk on trails and prepared to participate in his planned trip to [place] in October. LTG Duration 10/05/22 Three Impairment Antalgic gait. Impairment 30 sec STS = 8x (Norm is 11-17 for ages 75-79 yo males.) TUG score is 11 secs (Norm is 11.6 secs for ages 70-79 yo males) Short Term Goal (STG) Pt will be able to ambulate without the use an assistive device with normal gait mechanics. STG Duration 08/17/22 Penitentiary Goal (LTG) Pt will be able to ambulate stairs with step over step pattern 21 stairs with 1 railing on R side ascending. LTG Duration 10/05/22 Two Impairment R hip pain/decreased LE function Impairment R hip/LE posterior and lateral pain rated 4-5/10. LEFS is 63/80 = 1-19% impaired . Short Term Goal (STG) Decrease R hip pain to baseline (4-5/10) or less post surgically. STG Duration 08/17/22 Penitentiary Goal (LTG) Improve function to pre-op baseline or more per LEFS score of 63 or greater and improve endurance per 30 sec STS test of 11-17x or greater. LTG Duration 10/05/22 One Impairment Lacks appropriate self care HEP. Short Term Goal (STG) Pt will be educated in R hip care (YADIRA precautions and self care pain management), proper use of assistive devices for gait and stair ambulation. STG Duration 07/02/22 Penitentiary Goal (LTG) Pt will be independent with a self care HEP of hip/core strengthening and balance ex's to achieve baseline gait ability and confidence. LTG Duration 10/05/22 Assessment Summary Assessment Mark continues to have 3-4/10 pain in anterior hip, is being more mindful of his walking Physical Therapy Plan Frequency and Duration Frequency of Treatment 2x/Week Plan of Care Start Date 07/02/22 Plan of Care End Date 10/05/22 Therapeutic Interventions Therapeutic Interventions Balance Training,Gait Training ,Home Exercise Program,Manual Therapy,Neuromuscular Re- education,Patient/Caregiver Education,Self-Care/Home Management,Soft Tissue Mobilization,Taping, Therapeutic Activities, Therapeutic Exercises Modalities Cold Pack/Ice Massage,Hot Packs Next Visit Focus/Plan Next Note Type Treatment Note Next Visit Plan Rehab to consist of ROM, strengthening, gait & stair. Gentle hip flexor stretching. Working on unlearning old antalgic gait patterns.
--- NOTE | 2022-09-11 13:25 | PT.OTN ---
Current Diagnoses Unilateral primary osteoarthritis, right hip (09/11/22) Physical Therapy Treatment Note PT-OP-A Visit Information Start: 07/02/22 12:45 Freq: Status: Active Protocol: Document 09/11/22 08:18 AMB (Rec: 09/11/22 08:58 AMB [id number]) Out-Patient Physical Therapy Visit Information Visit Information Visit Type Treatment Note Visit Start Time 08:15 Visit Stop Time 09:00 Total Visit Minutes 45 Visit Number 9 PT-OP-B Current Condition Start: 07/02/22 12:45 Freq: Status: Active Protocol: Document 08/21/22 08:16 AMB (Rec: 08/21/22 09:03 AMB [id number]) Current Condition History of Current Condition Onset Date 08/02/22 Current Complaints R Anterior approach YADIRA History of Current Condition Anterior surgery 08/02/22. Noticing pain/burning in R quad. Difficulty with ambulation and getting shoe on and off. PT-OP-C Subjective Start: 07/02/22 12:45 Freq: Status: Active Protocol: Document 09/11/22 08:18 AMB (Rec: 09/11/22 08:58 AMB [id number]) OP-PT Subjective Patient Comments Patient Comments Pt reports PT-OP-E Functional Tests Start: 07/02/22 12:45 Freq: Status: Active Protocol: Document 07/02/22 13:52 LRN (Rec: 07/02/22 15:07 LRN [id number]) Functional Tests 30 Second Sit to Stand Test Score 8 Comments Exam room chair used. Norm is 11-17 for ages 75-79 yo males. Timed Up and Go (TUG) Score 11 Comments Exam room chair used. Norm is 11.6 secs for ages 70-79 yo males TUG Impairment Rating 1 to <20% Impaired (Score 11) PT-OP-K Range of Motion Start: 07/02/22 12:45 Freq: Status: Active Protocol: Document 08/14/22 09:45 AMB (Rec: 08/14/22 10:25 AMB [id number]) Hip Goniometric Range of Motion Hip Right Passive Flexion w/Knee Flexed 95 Left Passive Flexion w/Knee Flexed 115 PT-OP-M Strength Start: 07/02/22 12:45 Freq: Status: Active Protocol: Document 08/14/22 09:45 AMB (Rec: 08/14/22 10:25 AMB [id number]) Hip Strength Hip Manual Muscle Testing Right Flexion (L2) 3 Fair Extension (S1) 4 Good PT-OP-Q Treatments Start: 07/02/22 12:45 Freq: Status: Active Protocol: Document 09/11/22 13:10 AMB (Rec: 09/11/22 13:23 AMB [id number]) Cardio Equipment Recumbent Stepper (Sci-Fit) Duration (Minutes) 10 Resistance 5 Seat Position 10 Other good LE alignment, UEs/ LEs-1. 12 mi Therapeutic Exercises Supine Exercises hip flexor stretch Supine Exercise Name gentle, really just to neutral , more of a quad stretch Reps/Minutes 30x2 Standing Exercises sidestepping Standing Exercise Name red band Reps/Minutes 4x10 ea direction squat Standing Exercise Name gentle at railing Reps/Minutes 10 Comments added sidestepping with band Other Exercises hurdles Other Exercise Name good, no pain wiht hip flex Reps/Minutes 5 min Manual Therapy Treatment Soft Tissue Mobilization R hip Body Location IT Band, hip flexor, quad PT-OP-T Assessment and Plan Start: 07/02/22 12:45 Freq: Status: Active Protocol: Document 09/11/22 08:18 AMB (Rec: 09/11/22 08:58 AMB [id number]) Physical Therapy Assessment Goals Four Impairment Decreased Activity tolerance Impairment Pt not able to walk trails with spouse. Pt not prepared to participate in travel to [place] due to difficulty/R hip pain with walking. Short Term Goal (STG) Improve R hip strength to no less than 3/5 post-op. STG Duration 08/17/22 [facility] Goal (LTG) Improve tolerance to walking/ hiking with pt feeling ready to walk on trails and prepared to participate in his planned trip to [place] in October. LTG Duration 10/05/22 Three Impairment Antalgic gait. Impairment 30 sec STS = 8x (Norm is 11-17 for ages 75-79 yo males.) TUG score is 11 secs (Norm is 11.6 secs for ages 70-79 yo males) Short Term Goal (STG) Pt will be able to ambulate without the use an assistive device with normal gait mechanics. STG Duration 08/17/22 Specialty Molder Goal (LTG) Pt will be able to ambulate stairs with step over step pattern 21 stairs with 1 railing on R side ascending. LTG Duration 10/05/22 Two Impairment R hip pain/decreased LE function Impairment R hip/LE posterior and lateral pain rated 4-5/10. LEFS is 63/80 = 1-19% impaired . Short Term Goal (STG) Decrease R hip pain to baseline (4-5/10) or less post surgically. STG Duration 08/17/22 [facility] Goal (LTG) Improve function to pre-op baseline or more per LEFS score of 63 or greater and improve endurance per 30 sec STS test of 11-17x or greater. LTG Duration 10/05/22 One Impairment Lacks appropriate self care HEP. Short Term Goal (STG) Pt will be educated in R hip care (YADIRA precautions and self care pain management), proper use of assistive devices for gait and stair ambulation. STG Duration 07/02/22 [facility] Goal (LTG) Pt will be independent with a self care HEP of hip/core strengthening and balance ex's to achieve baseline gait ability and confidence. LTG Duration 10/05/22 Assessment Summary Assessment 0-1/10 pain over the weekend. 5/10 in the hip with PT when doing sidestepping. Overall improving, but hip abduction is still weak. Physical Therapy Plan Frequency and Duration Frequency of Treatment 2x/Week Plan of Care Start Date 07/02/22 Plan of Care End Date 10/05/22 Therapeutic Interventions Therapeutic Interventions Balance Training,Gait Training ,Home Exercise Program,Manual Therapy,Neuromuscular Re- education,Patient/Caregiver Education,Self-Care/Home Management,Soft Tissue Mobilization,Taping, Therapeutic Activities, Therapeutic Exercises Modalities Cold Pack/Ice Massage,Hot Packs Next Visit Focus/Plan Next Note Type Treatment Note Next Visit Plan Rehab to consist of ROM, strengthening, gait & stair. Gentle hip flexor stretching. Working on unlearning old antalgic gait patterns.
--- NOTE | 2022-09-14 09:04 | PT.OTN ---
Current Diagnoses Unilateral primary osteoarthritis, right hip (09/14/22) Physical Therapy Treatment Note PT-OP-A Visit Information Start: 07/02/22 12:45 Freq: Status: Active Protocol: Document 09/14/22 08:19 AMB (Rec: 09/14/22 09:02 AMB [id number]) Out-Patient Physical Therapy Visit Information Visit Information Visit Type Progress Note Visit Start Time 08:15 Visit Stop Time 09:00 Total Visit Minutes 45 Visit Number 10 PT-OP-B Current Condition Start: 07/02/22 12:45 Freq: Status: Active Protocol: Document 08/21/22 08:16 AMB (Rec: 08/21/22 09:03 AMB [id number]) Current Condition History of Current Condition Onset Date 08/02/22 Current Complaints R Anterior approach YADIRA History of Current Condition Anterior surgery 08/02/22. Noticing pain/burning in R quad. Difficulty with ambulation and getting shoe on and off. PT-OP-C Subjective Start: 07/02/22 12:45 Freq: Status: Active Protocol: Document 09/14/22 08:19 AMB (Rec: 09/14/22 09:02 AMB [id number]) OP-PT Subjective Patient Comments Patient Comments Pt saw ortho and is doing well . Cleared to return to life as normal but don't run or jump. PT-OP-E Functional Tests Start: 07/02/22 12:45 Freq: Status: Active Protocol: Document 07/02/22 13:52 LRN (Rec: 07/02/22 15:07 LRN [id number]) Functional Tests 30 Second Sit to Stand Test Score 8 Comments Exam room chair used. Norm is 11-17 for ages 75-79 yo males. Timed Up and Go (TUG) Score 11 Comments Exam room chair used. Norm is 11.6 secs for ages 70-79 yo males TUG Impairment Rating 1 to <20% Impaired (Score 11) PT-OP-K Range of Motion Start: 07/02/22 12:45 Freq: Status: Active Protocol: Document 08/14/22 09:45 AMB (Rec: 08/14/22 10:25 AMB [id number]) Hip Goniometric Range of Motion Hip Right Passive Flexion w/Knee Flexed 95 Left Passive Flexion w/Knee Flexed 115 PT-OP-M Strength Start: 07/02/22 12:45 Freq: Status: Active Protocol: Document 08/14/22 09:45 AMB (Rec: 08/14/22 10:25 AMB [id number]) Hip Strength Hip Manual Muscle Testing Right Flexion (L2) 3 Fair Extension (S1) 4 Good PT-OP-Q Treatments Start: 07/02/22 12:45 Freq: Status: Active Protocol: Document 09/14/22 08:19 AMB (Rec: 09/14/22 09:02 AMB [id number]) Cardio Equipment Recumbent Stepper (Sci-Fit) Duration (Minutes) 10 Resistance 5 Seat Position 10 Other good LE alignment, UEs/ LEs-1. 12 mi Therapeutic Exercises Supine Exercises IT band stretch Reps/Minutes 30x2 hip flexor stretch Supine Exercise Name gentle, really just to neutral , more of a quad stretch Reps/Minutes 30x2 Standing Exercises sidestepping Standing Exercise Name red band Reps/Minutes 4x10 ea direction squat Standing Exercise Name gentle at railing Reps/Minutes 10 Comments added sidestepping with band lunge Standing Exercise Name gentle at railing--forward and lateral Reps/Minutes 10x6 Other Exercises hurdles Other Exercise Name good, no pain wiht hip flex Reps/Minutes 5 min Manual Therapy Treatment Soft Tissue Mobilization R hip Body Location IT Band, hip flexor, quad PT-OP-T Assessment and Plan Start: 07/02/22 12:45 Freq: Status: Active Protocol: Document 09/14/22 08:19 AMB (Rec: 09/14/22 09:02 AMB [id number]) Physical Therapy Assessment Goals Four Impairment Decreased Activity tolerance Impairment Pt not able to walk trails with spouse. Pt not prepared to participate in travel to [place] due to difficulty/R hip pain with walking. Short Term Goal (STG) Improve R hip strength to no less than 3/5 post-op. STG Duration MET Fpc Goal (LTG) Improve tolerance to walking/ hiking with pt feeling ready to walk on trails and prepared to participate in his planned trip to [place] in October. LTG Duration 10/05/22 Three Impairment Antalgic gait. Impairment 30 sec STS = 8x (Norm is 11-17 for ages 75-79 yo males.) TUG score is 11 secs (Norm is 11.6 secs for ages 70-79 yo males) Short Term Goal (STG) Pt will be able to ambulate without the use an assistive device with normal gait mechanics. STG Duration MET Fpc Goal (LTG) Pt will be able to ambulate stairs with step over step pattern 21 stairs with 1 railing on R side ascending. LTG Duration MET Two Impairment R hip pain/decreased LE function Impairment R hip/LE posterior and lateral pain rated 4-5/10. LEFS is 63/80 = 1-19% impaired . Short Term Goal (STG) Decrease R hip pain to baseline (4-5/10) or less post surgically. STG Duration MET Fpc Goal (LTG) Improve function to pre-op baseline or more per LEFS score of 63 or greater and improve endurance per 30 sec STS test of 11-17x or greater. LTG Duration 10/05/22 One Impairment Lacks appropriate self care HEP. Short Term Goal (STG) Pt will be educated in R hip care (YADIRA precautions and self care pain management), proper use of assistive devices for gait and stair ambulation. STG Duration MET Oral Surgery Assistant Goal (LTG) Pt will be independent with a self care HEP of hip/core strengthening and balance ex's to achieve baseline gait ability and confidence. LTG Duration 10/05/22 Assessment Summary Assessment Skip is doing well today, encouraged in continuing stretches. Gait is improving, progressed stretching today to really work hip flexor and quad now that ortho says no more precuations. Physical Therapy Plan Frequency and Duration Frequency of Treatment 2x/Week Plan of Care Start Date 07/02/22 Plan of Care End Date 10/05/22 Therapeutic Interventions Therapeutic Interventions Balance Training,Gait Training ,Home Exercise Program,Manual Therapy,Neuromuscular Re- education,Patient/Caregiver Education,Self-Care/Home Management,Soft Tissue Mobilization,Taping, Therapeutic Activities, Therapeutic Exercises Modalities Cold Pack/Ice Massage,Hot Packs
--- NOTE | 2022-09-18 08:56 | PT.OTN ---
Current Diagnoses Unilateral primary osteoarthritis, right hip (09/18/22) Physical Therapy Treatment Note PT-OP-A Visit Information Start: 07/02/22 12:45 Freq: Status: Active Protocol: Document 09/18/22 08:19 AMB (Rec: 09/18/22 08:55 AMB [id number]) Out-Patient Physical Therapy Visit Information Visit Information Visit Type Treatment Note Visit Start Time 08:15 Visit Stop Time 09:00 Total Visit Minutes 45 Visit Number 11 PT-OP-B Current Condition Start: 07/02/22 12:45 Freq: Status: Active Protocol: Document 08/21/22 08:16 AMB (Rec: 08/21/22 09:03 AMB [id number]) Current Condition History of Current Condition Onset Date 08/02/22 Current Complaints R Anterior approach YADIRA History of Current Condition Anterior surgery 08/02/22. Noticing pain/burning in R quad. Difficulty with ambulation and getting shoe on and off. PT-OP-C Subjective Start: 07/02/22 12:45 Freq: Status: Active Protocol: Document 09/18/22 08:19 AMB (Rec: 09/18/22 08:55 AMB [id number]) OP-PT Subjective Patient Comments Patient Comments Pt reports he has been walking more and the hip has been a little sore over the lateral leg. PT-OP-E Functional Tests Start: 07/02/22 12:45 Freq: Status: Active Protocol: Document 07/02/22 13:52 LRN (Rec: 07/02/22 15:07 LRN [id number]) Functional Tests 30 Second Sit to Stand Test Score 8 Comments Exam room chair used. Norm is 11-17 for ages 75-79 yo males. Timed Up and Go (TUG) Score 11 Comments Exam room chair used. Norm is 11.6 secs for ages 70-79 yo males TUG Impairment Rating 1 to <20% Impaired (Score 11) PT-OP-K Range of Motion Start: 07/02/22 12:45 Freq: Status: Active Protocol: Document 08/14/22 09:45 AMB (Rec: 08/14/22 10:25 AMB [id number]) Hip Goniometric Range of Motion Hip Right Passive Flexion w/Knee Flexed 95 Left Passive Flexion w/Knee Flexed 115 PT-OP-M Strength Start: 07/02/22 12:45 Freq: Status: Active Protocol: Document 08/14/22 09:45 AMB (Rec: 08/14/22 10:25 AMB [id number]) Hip Strength Hip Manual Muscle Testing Right Flexion (L2) 3 Fair Extension (S1) 4 Good PT-OP-Q Treatments Start: 07/02/22 12:45 Freq: Status: Active Protocol: Document 09/18/22 08:19 AMB (Rec: 09/18/22 08:55 AMB [id number]) Cardio Equipment Recumbent Stepper (Sci-Fit) Duration (Minutes) 10 Resistance 5 Seat Position 10 Other good LE alignment, UEs/ LEs-1. 12 mi Therapeutic Exercises Supine Exercises IT band stretch Reps/Minutes 30x2 hip flexor stretch Supine Exercise Name gentle, really just to neutral , more of a quad stretch Reps/Minutes 30x2 Standing Exercises IT band stretch Standing Exercise Name standing at railing Reps/Minutes 30x3 sidestepping Standing Exercise Name red band Reps/Minutes 4x10 ea direction squat Standing Exercise Name gentle at railing Reps/Minutes 10 Comments added sidestepping with band lunge Standing Exercise Name gentle at railing--forward and lateral Reps/Minutes 10x6 Other Exercises hurdles Other Exercise Name good, no pain wiht hip flex Reps/Minutes 10 min Comments sidestepping, forward with foam pods Manual Therapy Treatment Soft Tissue Mobilization R hip Body Location IT Band, hip flexor, quad Comments with hip flexion, passive IT band stretch therapist provided PT-OP-T Assessment and Plan Start: 07/02/22 12:45 Freq: Status: Active Protocol: Document 09/18/22 08:19 AMB (Rec: 09/18/22 08:55 AMB [id number]) Physical Therapy Assessment Goals Four Impairment Decreased Activity tolerance Impairment Pt not able to walk trails with spouse. Pt not prepared to participate in travel to [place] due to difficulty/R hip pain with walking. Short Term Goal (STG) Improve R hip strength to no less than 3/5 post-op. STG Duration MET Chief Estimator Goal (LTG) Improve tolerance to walking/ hiking with pt feeling ready to walk on trails and prepared to participate in his planned trip to [place] in October. LTG Duration 10/05/22 Three Impairment Antalgic gait. Impairment 30 sec STS = 8x (Norm is 11-17 for ages 75-79 yo males.) TUG score is 11 secs (Norm is 11.6 secs for ages 70-79 yo males) Short Term Goal (STG) Pt will be able to ambulate without the use an assistive device with normal gait mechanics. STG Duration MET Halfway Goal (LTG) Pt will be able to ambulate stairs with step over step pattern 21 stairs with 1 railing on R side ascending. LTG Duration MET Two Impairment R hip pain/decreased LE function Impairment R hip/LE posterior and lateral pain rated 4-5/10. LEFS is 63/80 = 1-19% impaired . Short Term Goal (STG) Decrease R hip pain to baseline (4-5/10) or less post surgically. STG Duration MET Halfway Goal (LTG) Improve function to pre-op baseline or more per LEFS score of 63 or greater and improve endurance per 30 sec STS test of 11-17x or greater. LTG Duration 10/05/22 One Impairment Lacks appropriate self care HEP. Short Term Goal (STG) Pt will be educated in R hip care (YADIRA precautions and self care pain management), proper use of assistive devices for gait and stair ambulation. STG Duration MET Chief Estimator Goal (LTG) Pt will be independent with a self care HEP of hip/core strengthening and balance ex's to achieve baseline gait ability and confidence. LTG Duration 10/05/22 Assessment Summary Assessment Mark is doing well, does continue to have mild discomfort in anterior and lateral hip but mild and manageable at this point. Physical Therapy Plan Frequency and Duration Frequency of Treatment 2x/Week Plan of Care Start Date 07/02/22 Plan of Care End Date 10/05/22 Therapeutic Interventions Therapeutic Interventions Balance Training,Gait Training ,Home Exercise Program,Manual Therapy,Neuromuscular Re- education,Patient/Caregiver Education,Self-Care/Home Management,Soft Tissue Mobilization,Taping, Therapeutic Activities, Therapeutic Exercises Modalities Cold Pack/Ice Massage,Hot Packs Next Visit Focus/Plan Next Note Type Treatment Note Next Visit Plan Rehab to consist of ROM, strengthening, gait & stair. Gentle hip flexor stretching. Working on unlearning old antalgic gait patterns.
--- NOTE | 2022-09-21 08:47 | PT.OTN ---
Current Diagnoses Unilateral primary osteoarthritis, right hip (09/21/22) Physical Therapy Treatment Note PT-OP-A Visit Information Start: 07/02/22 12:45 Freq: Status: Active Protocol: Document 09/21/22 08:17 AMB (Rec: 09/21/22 08:35 AMB [id number]) Out-Patient Physical Therapy Visit Information Visit Information Visit Type Treatment Note Visit Note pt needed to leave early for MD appt Visit Start Time 08:15 Visit Stop Time 08:35 Total Visit Minutes 20 Visit Number 12 PT-OP-B Current Condition Start: 07/02/22 12:45 Freq: Status: Active Protocol: Document 08/21/22 08:16 AMB (Rec: 08/21/22 09:03 AMB [id number]) Current Condition History of Current Condition Onset Date 08/02/22 Current Complaints R Anterior approach YADIRA History of Current Condition Anterior surgery 08/02/22. Noticing pain/burning in R quad. Difficulty with ambulation and getting shoe on and off. PT-OP-C Subjective Start: 07/02/22 12:45 Freq: Status: Active Protocol: Document 09/21/22 08:17 AMB (Rec: 09/21/22 08:35 AMB [id number]) OP-PT Subjective Patient Comments Patient Comments Pt reports he does get a little pain in the anterior hip when he walks for a long time on uneven terrrain. PT-OP-E Functional Tests Start: 07/02/22 12:45 Freq: Status: Active Protocol: Document 07/02/22 13:52 LRN (Rec: 07/02/22 15:07 LRN [id number]) Functional Tests 30 Second Sit to Stand Test Score 8 Comments Exam room chair used. Norm is 11-17 for ages 75-79 yo males. Timed Up and Go (TUG) Score 11 Comments Exam room chair used. Norm is 11.6 secs for ages 70-79 yo males TUG Impairment Rating 1 to <20% Impaired (Score 11) PT-OP-K Range of Motion Start: 07/02/22 12:45 Freq: Status: Active Protocol: Document 08/14/22 09:45 AMB (Rec: 08/14/22 10:25 AMB [id number]) Hip Goniometric Range of Motion Hip Right Passive Flexion w/Knee Flexed 95 Left Passive Flexion w/Knee Flexed 115 PT-OP-M Strength Start: 07/02/22 12:45 Freq: Status: Active Protocol: Document 08/14/22 09:45 AMB (Rec: 08/14/22 10:25 AMB [id number]) Hip Strength Hip Manual Muscle Testing Right Flexion (L2) 3 Fair Extension (S1) 4 Good PT-OP-Q Treatments Start: 07/02/22 12:45 Freq: Status: Active Protocol: Document 09/21/22 08:17 AMB (Rec: 09/21/22 08:35 AMB [id number]) Therapeutic Exercises Standing Exercises quad stretch Reps/Minutes 30x2 squat Standing Exercise Name full- careful with rotation ( ER) can increase pinching Reps/Minutes 10 Comments to slat pickler 10# crate PT-OP-T Assessment and Plan Start: 07/02/22 12:45 Freq: Status: Active Protocol: Document 09/21/22 08:17 AMB (Rec: 09/21/22 08:35 AMB [id number]) Physical Therapy Assessment Goals Four Impairment Decreased Activity tolerance Impairment Pt not able to walk trails with spouse. Pt not prepared to participate in travel to [place] due to difficulty/R hip pain with walking. Short Term Goal (STG) Improve R hip strength to no less than 3/5 post-op. STG Duration MET Driver Helper Goal (LTG) Improve tolerance to walking/ hiking with pt feeling ready to walk on trails and prepared to participate in his planned trip to [place] in October. LTG Duration Walking more than miles Three Impairment Antalgic gait. Impairment 30 sec STS = 8x (Norm is 11-17 for ages 75-79 yo males.) TUG score is 11 secs (Norm is 11.6 secs for ages 70-79 yo males) Short Term Goal (STG) Pt will be able to ambulate without the use an assistive device with normal gait mechanics. STG Duration MET Driver Helper Goal (LTG) Pt will be able to ambulate stairs with step over step pattern 21 stairs with 1 railing on R side ascending. LTG Duration MET Two Impairment R hip pain/decreased LE function Impairment R hip/LE posterior and lateral pain rated 4-5/10. LEFS is 63/80 = 1-19% impaired . Short Term Goal (STG) Decrease R hip pain to baseline (4-5/10) or less post surgically. STG Duration MET Driver Helper Goal (LTG) Improve function to pre-op baseline or more per LEFS score of 63 or greater and improve endurance per 30 sec STS test of 11-17x or greater. LTG Duration MET One Impairment Lacks appropriate self care HEP. Short Term Goal (STG) Pt will be educated in R hip care (YADIRA precautions and self care pain management), proper use of assistive devices for gait and stair ambulation. STG Duration MET Driver Helper Goal (LTG) Pt will be independent with a self care HEP of hip/core strengthening and balance ex's to achieve baseline gait ability and confidence. LTG Duration MET Assessment Summary Assessment Pt to continue with gentel quad/hip flexor stretching due to continued hip flexor tightness with extended walking over uneven terrain. Otherwise doing very well and ready for discharge to independent HEP. Physical Therapy Plan Frequency and Duration Frequency of Treatment 2x/Week Plan of Care Start Date 07/02/22 Plan of Care End Date 10/05/22 Therapeutic Interventions Therapeutic Interventions Balance Training,Gait Training ,Home Exercise Program,Manual Therapy,Neuromuscular Re- education,Patient/Caregiver Education,Self-Care/Home Management,Soft Tissue Mobilization,Taping, Therapeutic Activities, Therapeutic Exercises Modalities Cold Pack/Ice Massage,Hot Packs Next Visit Focus/Plan Next Note Type Treatment Note Next Visit Plan Rehab to consist of ROM, strengthening, gait & stair. Gentle hip flexor stretching. Working on unlearning old antalgic gait patterns.
== END 2022-09-21 11:58 | disposition home or self-care (01) ==
LOC: PHYS 08:15
PROVIDERS: Family Provider Family Medicine; PCP Family Medicine; Referring Provider Orthopaedic Surgery; Visit Provider Orthopaedic Surgery
DX: M16.11 Unilateral primary osteoarthritis, right hip (principal)
CPT/HCPCS: 97110; 97140; 97162; 97164; 97535

== ENCOUNTER → 2022-11-27 10:16 | Outpatient (CLI) | payer MEDICARE, SELFPAY ==
[2022-08-02 11:51] VITALS: BMI 29.7
[2022-11-27 12:14] LABS: Occult Blood 1 Negative (Negative)
[2022-11-27 15:54] LABS: Clostridium Difficile Tox PCR Negative for C. diff (Negative)
== END ==
PROVIDERS: Family Provider Family Medicine; PCP Family Medicine; Referring Provider Nurse Practitioner Family; Visit Provider Nurse Practitioner Family
DX: R19.5 Other fecal abnormalities (principal)
CPT/HCPCS: 82270; 87045; 87177; 87329; 87493; 87899

== ENCOUNTER → 2023-02-05 08:56 | Outpatient (CLI) | payer MEDICARE, SELFPAY ==
[2022-11-27 10:29] VITALS: BMI 29.7
[2023-02-05 10:02] LABS: Cholesterol 131 mg/dL (140-199); HDL Cholesterol 42 mg/dL (40-60); LDL Cholesterol Calculated 69 mg/dL (<100); Triglycerides 102 mg/dL (35-150)
== END ==
PROVIDERS: Family Provider Family Medicine; PCP Family Medicine; Referring Provider Internal Medicine Interventional Cardiology; Visit Provider Internal Medicine Interventional Cardiology
DX: I25.10 Atherosclerotic heart disease of native coronary artery without angina pectoris (principal)
CPT/HCPCS: 36415; 80061

== ENCOUNTER → 2023-06-06 12:22 | Outpatient (CLI) | payer MEDICARE, SELFPAY ==
[2022-11-27 10:29] VITALS: BMI 29.7
--- NOTE | 2023-06-06 | DI.MRI.S_ITS ---
PROCEDURE: MR LUMBAR SPINE WO CON INDICATIONS: Spondylosis with radiculopathy, lumbar region TECHNIQUE: Noncontrast sagittal T1 spin echo and T2 fast echo, sagittal STIR, and T2 fast spin echo through the lumbar spine. In cases with scoliosis, additional coronal T2 fast spin echo may be performed. COMPARISON: [facility], CT, CT ABDOMEN PELVIS W CON, 05/08/2021, 11:26. [facility], MR, MR LUMBAR SPINE WO CON, 01/03/2022, 9:34. FINDINGS: Image quality: Excellent. Alignment and Curvature: Levocurvature centered at L4. Leftward listhesis of L2 on L3 measuring 12 mm. Trace retrolisthesis of L2 on L3 and L3 on L4 and L5 on S1. Bone Marrow: Marrow is of normal overall signal. No acute vertebral body compression fractures. Spinal Cord: Conus medullaris terminates at the L1-L2 level. Visualized cord demonstrates normal signal and size. Paraspinous Soft Tissues: No paravertebral masses. T12-L1: Normal appearance. L1-L2: No significant change. Severe chronic disc height loss. Facet hypertrophy. No canal stenosis or significant foraminal stenosis. L2-L3: No significant change. Severe chronic disc height loss. Posterior disc plus osteophyte with associated small shallow inferior disc extrusion. Bilateral facet hypertrophy. Mild canal stenosis. The right L2 nerve root appears to travel through the foramen before the foraminal narrowing occurs period there is moderate left foraminal narrowing. L3-L4: No significant change. Severe disc height loss. Posterior disc post osteophyte. Facet hypertrophy. No significant canal stenosis. No significant right foraminal narrowing. Moderate left foraminal narrowing with mild flattening deformity on the exiting left L3 nerve root. L4-L5: No significant change. Diffuse disc bulge, eccentric to the right. Facet hypertrophy. No significant central canal stenosis. No significant foraminal stenosis. L5-S1: No significant change. Retrolisthesis of L5 on S1. Facet hypertrophy. Posterior osteophyte. No canal stenosis. Moderate to severe bilateral foraminal narrowing with a mild degree of bilateral foraminal L5 nerve root impingement. IMPRESSION: 1. Stable findings. 2. Underlying scoliotic curvature and multilevel facet arthropathy and multilevel degenerative disc space loss. 3. There is mild canal stenosis at L2-L3. No significant canal stenosis at other levels. 4. Multilevel foraminal narrowing as described above. Findings include moderate to severe bilateral foraminal narrowing at L5-S1 with a degree of foraminal L5 nerve root impingement bilaterally. Dictated by: Imer Pittman M.D. on 06/06/2023 at 18:19 Approved by: Imer Pittman M.D. on 06/06/2023 at 18:30
== END ==
LOC: MRI 12:22
PROVIDERS: Family Provider Family Medicine; PCP Family Medicine; Referring Provider Orthopaedic Surgery; Visit Provider Orthopaedic Surgery
DX: M47.26 Other spondylosis with radiculopathy, lumbar region (principal); M47.27 Other spondylosis with radiculopathy, lumbosacral region; M48.061 Spinal stenosis, lumbar region without neurogenic claudication; M48.07 Spinal stenosis, lumbosacral region; M41.9 Scoliosis, unspecified
CPT/HCPCS: 72148

== ENCOUNTER → 2023-06-14 10:19 | Outpatient (CLI) | payer MEDICARE, SELFPAY ==
[2022-11-27 10:29] VITALS: BMI 29.7
[2023-06-14 11:04] LABS: Add Manual Diff / Slide Review NO; Basophils Absolute Auto 100 /uL (0-100); Basophils Percent Auto 1.1 % (0-2); Eosinophils Absolute Auto 100 /uL (0-450); Eosinophils Percent Auto 2.2 % (2-4); Hematocrit 43.5 % (41-53); Hemoglobin 14.7 g/dL (13.5-17.5); Lymphocytes Absolute Auto 1200 /uL (1100-4500); Lymphocytes Percent Auto 17.6 % (25-40); Mean Corpuscular HGB Conc 33.8 % (30-36); Mean Corpuscular Hemoglobin 32.6 PG (26-34); Mean Corpuscular Volume 96.3 fL (80-100); Monocytes Absolute Auto 800 /uL (0-900); Monocytes Percent Auto 12.3 % (3-14); Neutrophils Absolute Auto 4400 /uL (1500-7000); Neutrophils Percent Auto 66.8 % (50-75); Platelet Count 173 X10^3/uL (150-400); Red Blood Cell Count 4.51 X10^6/uL (4.5-5.9); Red Cell Distribution Width 13.7 % (11.6-14.8); White Blood Cell Count 6.6 X10^3/uL (4.5-11.0)
[2023-06-14 11:22] LABS: Alanine Aminotransferase 23 IU/L (<50); Albumin 4.2 g/dL (3.5-5.0); Albumin Globulin Ratio 1.4 (1.0-2.8); Alkaline Phosphatase 44 U/L (38-126); Aspartate Aminotransferase 31 IU/L (17-59); BUN Creatinine Ratio 15.3 (6-22); Bilirubin Total 2.2 mg/dL (0.2-1.3); Blood Urea Nitrogen 18 mg/dL (9-20); Calcium 9.8 mg/dL (8.4-10.2); Carbon Dioxide 26 mmol/L (22-32); Chloride 104 mmol/L (98-107); Cholesterol 145 mg/dL (140-199); Estimated Glomerular Filt Rate > 60 mL/min (>60); Globulin 2.9 g/dL (1.7-4.1); Glucose 99 mg/dL (80-110); HDL Cholesterol 47 mg/dL (40-60); HEMOLYSIS < 15 (0-50); LDL Cholesterol Calculated 73 mg/dL (<100); Potassium 4.3 mmol/L (3.4-5.1); Sodium 136 mmol/L (137-145); Total Protein 7.1 g/dL (6.3-8.2); Triglycerides 125 mg/dL (35-150)
[2023-06-14 11:26] LABS: HEMOLYSIS < 15 (0-50); Iron 157 ug/dL (49-181)
[2023-06-14 11:39] LABS: Percent Iron Saturation 56 % (20-50); Total Iron Binding Capacity 282 ug/dL (261-462); Transferrin 240 mg/dL (206-381)
[2023-06-14 11:55] LABS: Prostate Specific Antigen Scrn 4.52 ng/mL (0.1-4.0)
[2023-06-14 11:59] LABS: Ferritin 34 ng/mL (18-464); TSH w/ Reflex to FT4 2.81 uIU/mL (0.47-4.68)
[2023-06-14 12:10] LABS: Creatinine Urine Random 213.7 mg/dL
[2023-06-14 12:14] LABS: Microalbumi Creatinin Ratio Ur 2.8 ug/mg CR (<30); Microalbumin Urine Random 0.6 mg/dL (0-1.6)
[2023-06-14 12:14] LABS: Vitamin B12 772 pg/mL (239-931)
== END ==
LOC: LAB 10:20
PROVIDERS: Family Provider Family Medicine; PCP Family Medicine; Referring Provider Family Medicine; Visit Provider Family Medicine
DX: I10 Essential (primary) hypertension (principal); Z12.5 Encounter for screening for malignant neoplasm of prostate; I25.10 Atherosclerotic heart disease of native coronary artery without angina pectoris; M54.9 Dorsalgia, unspecified; G89.29 Other chronic pain; M54.16 Radiculopathy, lumbar region; R41.3 Other amnesia
CPT/HCPCS: 36415; 80053; 80061; 82043; 82570; 82607; 82728; 83540; 83550; 84443; 85025; G0103

== ENCOUNTER 2023-10-08 11:02 | Emergency (ER) | payer MEDICARE, SELFPAY ==
[2022-11-27 10:29] VITALS: BMI 29.7
[2023-10-08] VITALS (27 sets, daily range): BP systolic 121–140; BP diastolic 70–88; PULSE 67–93; RESP 16–25; TEMP 36.6–36.8; O2SAT 93–96; BMI 28.5
--- NOTE | 2023-10-08 11:06 | DI.RAD.S_ITS ---
PROCEDURE: XR CHEST 1V INDICATIONS: chest pain TECHNIQUE: One view of the chest was acquired. COMPARISON: None. FINDINGS: Surgical changes and devices: None. Lungs and pleura: Lungs are clear. No pleural effusions or pneumothorax. Mediastinum: Mediastinal contours appear normal. Heart size is normal. Bones and chest wall: No suspicious bony lesions. Overlying soft tissues appear unremarkable. IMPRESSION: No acute cardiopulmonary abnormality is seen. Dictated by: Imer Pittman M.D. on 10/08/2023 at 11:45 Approved by: Imer Pittman M.D. on 10/08/2023 at 11:46
[2023-10-08 11:35] LABS: Add Manual Diff / Slide Review NO; Basophils Absolute Auto 100 /uL (0-100); Eosinophils Absolute Auto 100 /uL (0-450); Hematocrit 47.1 % (41-53); Hemoglobin 16.1 g/dL (13.5-17.5); Lymphocytes Absolute Auto 1600 /uL (1100-4500); Lymphocytes Percent Auto 22.4 % (25-40); Mean Corpuscular HGB Conc 34.2 % (30-36); Mean Corpuscular Volume 96.5 fL (80-100); Monocytes Absolute Auto 900 /uL (0-900); Monocytes Percent Auto 13.1 % (3-14); Neutrophils Absolute Auto 4400 /uL (1500-7000); Neutrophils Percent Auto 61.5 % (50-75); Platelet Count 190 X10^3/uL (150-400); Red Blood Cell Count 4.88 X10^6/uL (4.5-5.9); White Blood Cell Count 7.1 X10^3/uL (4.5-11.0)
[2023-10-08 11:42] LABS: Prothrombin Time 11.5 SECONDS (9.4-12.5)
[2023-10-08] MEDS: ASPIRIN 81 MG CHEW TAB 324 MG PO (11:44)
[2023-10-08 11:45] LABS: PTT Partial Thromboplastin Tim 23 SECONDS (25.1-36.5)
[2023-10-08 11:48] LABS: Alanine Aminotransferase 24 IU/L (<50); Albumin 4.7 g/dL (3.5-5.0); Albumin Globulin Ratio 1.5 (1.0-2.8); Alkaline Phosphatase 48 U/L (38-126); Aspartate Aminotransferase 37 IU/L (17-59); BUN Creatinine Ratio 13.9 (6-22); Bilirubin Total 1.3 mg/dL (0.2-1.3); Blood Urea Nitrogen 16 mg/dL (9-20); Calcium 9.5 mg/dL (8.4-10.2); Carbon Dioxide 21 mmol/L (22-32); Chloride 109 mmol/L (98-107); Creatine Kinase 92 U/L (55-170); Estimated Glomerular Filt Rate > 60 mL/min (>60); Globulin 3.1 g/dL (1.7-4.1); Glucose 121 mg/dL (80-110); Lipase 115 U/L (23-300); Magnesium 1.9 mg/dL (1.6-2.3); Sodium 139 mmol/L (137-145); Total Protein 7.8 g/dL (6.3-8.2)
[2023-10-08 11:49] LABS: HEMOLYSIS 90 (0-50)
[2023-10-08 11:50] LABS: Potassium 4.3 mmol/L (3.4-5.1)
--- NOTE | 2023-10-08 11:56 | ED_ITS ---
HPI - Chest Pain General Chief Complaint: Chest Pain Stated Complaint: chest pains Time Seen by Provider: 10/08/23 11:45 Source: patient and family Mode of arrival: Ambulatory Limitations: no limitations History of Present Illness HPI narrative: Patient here with . Complains of left-sided chest achy sharp pain nonreproducible it radiates to left arm. 3/10 pain. Occurred about 1 hour ago. Still having discomfort. No nausea dyspnea no syncope. No diaphoresis. Patient had Lisa stent placed 2005 in [place]. Has been doing well since then. Patient sees [facility] cardiology dr galvan, has appointment with him next week in the office. Last stress test February 15, 2021 here. Myocardial perfusion scan and echocardiogram were done. It was abnormal. However no heart catheterization following it. Has been doing well since then. In addition, September 20, 2023 patient was on vacation and had sudden onset while riding a bus of dysarthria as well as right upper extremity numbness and weakness. This lasted about 5 minutes. It resolved. Never had a headache. No prior history of stroke. Related Data Home Medications Medication Instructions Recorded Confirmed aspirin 81 mg tablet 81 mg PO DAILY 10/06/20 10/14/23 multivitamin 1 tab PO DAILY 10/19/20 10/14/23 cholecalciferol (vitamin D3) 25 15,000 unit PO DAILY 12/27/21 10/14/23 mcg (1,000 unit) capsule metoprolol succinate 50 mg 50 mg PO DAILY 10/14/23 10/14/23 tablet,extended release 24 hr ticagrelor 90 mg tablet 90 mg PO Q12H 10/14/23 10/14/23 Previous Rx's Medication Instructions Recorded Parking Permit... #1 ea 10/04/21 lisinopril 5 mg tablet 5 mg PO DAILY #90 tabs 12/27/21 rosuvastatin 10 mg tablet 10 mg PO DAILY #90 tabs 03/26/22 gabapentin 300 mg capsule See Rx Instructions .Route 11/27/22 .COMPLEX #240 caps sildenafil 50 mg tablet 50 mg PO DAILY PRN sexual activity 06/18/23 #20 tabs omeprazole 20 mg capsule,delayed 20 mg PO DAILY #90 caps 08/13/23 release Allergies Allergy/AdvReac Type Severity Reaction Status Date / Time Penicillins Allergy Intermediate Rash-as a Verified 10/14/23 07:53 teenager cocamidopropyl betaine Allergy Verified 10/14/23 07:53 Review of Systems Review of Systems Narrative: GENERAL: negative chills, fatigue, malaise, fever, sweats. HEENT: negative sinus pain, ear pain, sore throat RESPIRATORY: negative dyspnea, cough CARDIOVASCULAR: Positive chest pain, negative palpitations GASTROINTESTINAL: negative nausea, vomiting, abdominal pain : negative dysuria, frequency, hematuria MUSCULOSKELETAL: negative muscle or bony pain SKIN: negative rash, skin lesions NEUROLOGIC: Positive dysarthria, weakness, numbness negative headache ROS Unobtainable: All systems reviewed & are unremarkable except as noted in HPI and below Patient History Medical History SCOTTIE (obstructive sleep apnea) Obstructive sleep apnea of adult Multilevel lumbosacral spondylosis with radiculopathy Lumbar radiculopathy Degenerative joint disease of right hip Suspected sleep apnea LBBB (left bundle branch block) Chronic back pain (~1977) Tinnitus Hearing loss Cataracts, bilateral HLD (hyperlipidemia) Bilateral inguinal hernia Carpal tunnel syndrome Inguinal hernia Abdominal hernia CAD (coronary artery disease) Surgical History Hx of bilateral cataract extraction H/O vasectomy Hx of heart artery stent (~2005) Hx of bilateral inguinal hernia repair (11/07/20) Anesthesia Hx of cholecystectomy (~2019) Hx of neck surgery (~2018) Hx of carpal tunnel repair Family History Father Heart disease Sister Colon cancer Mother Cancer Grandmother Gallstones Social History marital status: household members: spouse occupational status: previously employed Smoking Status: Former smoker alcohol intake: current substance use type: does not use Smoking Status: Former smoker alcohol intake frequency: a few times a month Substance Use Type: does not use Exam Narrative Exam Narrative: GENERAL: in no distress, not toxic not dyspneic HEAD: Normocephalic. EYES: Pupils equal round ENT: Mucous membranes moist. NECK: Trachea midline. CARDIOVASCULAR: Regular rate and rhythm RESPIRATORY: Clear to auscultation. Breath sounds equal bilaterally. No wheezes, rales, or rhonchi. GASTROINTESTINAL: Abdomen soft, non-tender EXTREMITIES: No gross deformities. BACK: No flank tenderness. NEURO: AOx4. Clear speech no facial droop. ?Light touch intact to bilateral face hands and feet. 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 ?Strong bilateral patellar reflexes. ?No pronator drift. ? SKIN: Warm and dry PSYCH: Not anxious, is cooperative Initial Vital Signs Initial Vital Signs: Vital Signs Pulse Rate 93 H 10/08/23 11:13 Respiratory Rate 19 10/08/23 11:13 Pulse Oximetry 96 10/08/23 11:13 Course Orders Ordered: Discontinued Medications Aspirin (Aspirin 81 Mg Chew Tab) 324 mg PO NOW ONE Stop: 10/08/23 11:07 Last Admin: 10/08/23 11:44 Dose: 324 mg Documented By: JUAN Heparin Sodium (Porcine) (Heparin 5,000 Unit/Ml Vial) 5,000 unit 60 unit/kg (5000 unit) IV NOW ONE Stop: 10/08/23 14:26 Last Admin: 10/08/23 14:42 Dose: 5,000 unit Documented By: JUAN Sodium Chloride (Normal Saline 0.9%) 500 mls @ 1,000 mls/hr IV BOLUS ONE Stop: 10/08/23 12:24 Last Infusion: 10/08/23 13:29 Dose: Infused Documented By: Admin: 10/08/23 12:32 Dose: 1,000 mls/hr Documented By: JUAN Heparin Sodium/Dextrose (Heparin Drip) 25,000 unit in 500 mls @ 19.269 mls/hr IV CONT FRANCES; Protocol Last Titration: 10/08/23 18:51 Dose: 11.96 units/kg/hr, 19.2 mls/hr Documented By: JUAN Co-signed By: FARA Admin: 10/08/23 14:43 Dose: 11.96 units/kg/hr, 19.2 mls/hr Documented By: JUAN Co-signed By: ETELVINA Nitroglycerin (Nitroglycerin Oint 1 Inch/Gm Oint...G.) 1 inch TOP NOW ONE Stop: 10/08/23 11:56 Last Admin: 10/08/23 12:27 Dose: 1 inch Documented By: JUAN Vital Signs Vital signs: Vital Signs - 8 hr 10/08/23 11:13 10/08/23 11:21 10/08/23 11:21 Temperature Pulse Rate 93 H 91 H Respiratory Rate 19 18 Blood Pressure 140/82 Pulse Oximetry 96 96 Oxygen Delivery Method 10/08/23 11:25 10/08/23 11:30 10/08/23 12:00 Temperature 98.2 F Pulse Rate 86 87 79 Respiratory Rate 19 24 Blood Pressure 140/82 Pulse Oximetry 93 95 Oxygen Delivery Method Room Air 10/08/23 12:11 10/08/23 12:11 10/08/23 12:27 Temperature Pulse Rate 81 77 Respiratory Rate 23 Blood Pressure 139/88 139/88 Pulse Oximetry 96 Oxygen Delivery Method 10/08/23 12:30 10/08/23 12:30 10/08/23 12:35 Temperature Pulse Rate 77 72 Respiratory Rate 20 Blood Pressure 138/85 Pulse Oximetry 94 96 Oxygen Delivery Method 10/08/23 12:35 10/08/23 12:40 10/08/23 12:40 Temperature Pulse Rate 78 Respiratory Rate Blood Pressure 131/80 121/85 Pulse Oximetry 94 Oxygen Delivery Method 10/08/23 12:45 10/08/23 12:45 10/08/23 13:00 Temperature Pulse Rate 73 70 Respiratory Rate 16 Blood Pressure 137/85 Pulse Oximetry 96 94 Oxygen Delivery Method 10/08/23 13:00 10/08/23 13:16 10/08/23 13:16 Temperature Pulse Rate 69 Respiratory Rate Blood Pressure 123/77 135/80 Pulse Oximetry 94 Oxygen Delivery Method 10/08/23 13:30 10/08/23 13:30 10/08/23 13:45 Temperature Pulse Rate 70 71 Respiratory Rate 19 17 Blood Pressure 130/84 Pulse Oximetry 95 94 Oxygen Delivery Method 10/08/23 13:45 10/08/23 14:00 10/08/23 14:00 Temperature Pulse Rate 68 Respiratory Rate Blood Pressure 124/80 126/70 Pulse Oximetry 93 Oxygen Delivery Method 10/08/23 14:45 10/08/23 15:00 10/08/23 15:30 Temperature Pulse Rate 70 70 72 Respiratory Rate 22 20 Blood Pressure Pulse Oximetry 96 94 94 Oxygen Delivery Method 10/08/23 16:00 10/08/23 16:30 Temperature Pulse Rate 67 69 Respiratory Rate 18 22 Blood Pressure Pulse Oximetry 96 93 Oxygen Delivery Method MDM - Chest Pain Lab Data 10/08/23 11:21 10/08/23 11:21 Labs: Lab Results 10/08/23 10/08/23 10/08/23 Range/Units 11:21 13:19 15:43 WBC 7.1 (4.5-11.0) X10^3/uL RBC 4.88 (4.5-5.9) X10^6/uL Hgb 16.1 (13.5-17.5) g/dL Hct 47.1 (41-53) % MCV 96.5 (80-100) fL MCH 33.0 (26-34) PG MCHC 34.2 (30-36) % RDW 14.0 (11.6-14.8) % Plt Count 190 (150-400) X10^3/uL Neut % (Auto) 61.5 (50-75) % Lymph % (Auto) 22.4 L (25-40) % Preston % (Auto) 13.1 (3-14) % Eos % (Auto) 2.0 (2-4) % Baso % (Auto) 1.0 (0-2) % Neut # (Auto) 4400 (6187-4823) /uL Lymph # (Auto) 1600 (6612-2273) /uL Preston # (Auto) 900 (0-900) /uL Eos # (Auto) 100 (0-450) /uL Baso # (Auto) 100 (0-100) /uL PT 11.5 (9.4-12.5) SECONDS INR 1.0 (0.9-1.3) APTT 23 L (25.1-36.5) SECONDS Sodium 139 (137-145) mmol/L Potassium 4.3 (3.4-5.1) mmol/L Chloride 109 H (98-107) mmol/L Carbon Dioxide 21 L (22-32) mmol/L BUN 16 (9-20) mg/dL Creatinine 1.15 (0.66-1.25) mg/dL Estimated GFR > 60 (>60) mL/min BUN/Creatinine Ratio 13.9 (6-22) Glucose 121 H (80-110) mg/dL Calcium 9.5 (8.4-10.2) mg/dL Magnesium 1.9 (1.6-2.3) mg/dL Total Bilirubin 1.3 (0.2-1.3) mg/dL AST 37 (17-59) IU/L ALT 24 (<50) IU/L Alkaline Phosphatase 48 (38-126) U/L Total Creatine Kinase 92 75 100 (55-170) U/L Troponin I 0.014 0.042 H 0.330 H* (0.01-0.034) ng/mL Total Protein 7.8 (6.3-8.2) g/dL Albumin 4.7 (3.5-5.0) g/dL Globulin 3.1 (1.7-4.1) g/dL Albumin/Globulin Ratio 1.5 (1.0-2.8) Lipase 115 (23-300) U/L Imaging Data CT scan - head: Radiologist's Impression: [place] [address] CT Scan Report Signed Patient: Juan Matthews MR#: [id number] : 1945 Acct:[id number] Age/Sex: 78 / M Date of Service: 10/08/23 Loc: ED Accession Number: [id number] Procedure: CT head/brain wo con Ordering Provider: Johnathan Guillaume MD PROCEDURE: CT HEAD/BRAIN WO CON INDICATIONS: Dysarthria right side weakness TECHNIQUE: Noncontrast 4.5 mm thick angled axial sections acquired from the foramen magnum to the vertex, with coronal and sagittal reformats. For radiation dose reduction, the following was used: automated exposure control, adjustment of mA and/or kV according to patient size. COMPARISON: None. FINDINGS: Image quality: Diagnostic. CSF spaces: Basal cisterns are patent. No extra-axial fluid collections. The ventricles are symmetric in size and shape. Brain: No intracranial bleeds or masses. There is cerebral volume loss for age, with resultant ventricular and sulcal prominence. There are periventricular and deep white matter chronic small vessel ischemic changes. There is intracranial internal carotid artery atherosclerosis. Skull and face: Calvarium and visualized facial bones appear intact, without suspicious lesions. Sinuses: Visualized sinuses and mastoids are clear. IMPRESSION: No acute intracranial pathology. Dictated by: Imer Pittman M.D. on 10/08/2023 at 12:19 Approved by: Imer Pittman M.D. on 10/08/2023 at 12:22 CTA - brain/neck: Radiologist's Impression: [address] [address] [address] Scan Report Signed Patient: Juan Matthews MR#: [id number] : 1945 Acct:[id number] Age/Sex: 78 / M Date of Service: 10/08/23 Loc: ED Accession Number: [id number] Procedure: CT angio head and neck Ordering Provider: Johnathan Guillaume MD PROCEDURE: CT ANGIO HEAD AND NECK INDICATIONS: Dysarthria right side weakness TECHNIQUE: After the administration of intravenous contrast, 1 mm thick sections acquired from the aortic arch through the [place]. 3-dimensional wwsxnwy-jazlhvnhn-eydiiwlszv (MIP) and/or volume rendering reformats were acquired of the central intracranial vasculature and neck separately. For radiation dose reduction, the following was used: automated exposure control, adjustment of mA and/or kV according to patient size. COMPARISON: [facility], CT, CT HEAD/BRAIN WO CON, 10/08/2023, 12:00. FINDINGS: Image quality: Diagnostic. BRAIN: CSF spaces: Ventricles are normal in size and shape. Basal cisterns are patent. No extra-axial fluid collections. Brain: No significant abnormality of the brain can be seen. Skull and face: Calvarium and facial bones appear intact, without suspicious lesions. Orbits appear normal. Sinuses: Sinuses and mastoids are clear. HEAD CT ANGIOGRAPHY: Anterior circulation: Intracranial internal carotid arteries are normal in size and flow. The flow within the paired anterior cerebral arteries is normal and symmetric. The flow within the middle cerebral arteries is normal and symmetric. The anterior communicating artery is seen. No aneurysms are seen. Posterior circulation: Visualized portions of the vertebral arteries demonstrate normal caliber, and join to form a normal appearing basilar artery. Flow within the posterior cerebral arteries is normal and symmetric. No aneurysms are seen. NECK CT ANGIOGRAPHY: Carotid system: The great vessels demonstrate a conventional anatomy as they arise from the aortic arch. The origins of the common carotid arteries appear patent. The common carotid arteries demonstrate normal caliber and courses. The bifurcation regions are both widely patent. The internal carotid arteries demonstrate normal calibers and courses. Posterior circulation: The origins of the vertebral arteries both appear widely patent. The more superior extracranial portions of both vertebral arteries also demonstrate normal courses and calibers. They join to form a normal appearing basilar artery. Soft tissues: Visualized neck soft tissues demonstrate no suspicious abnormalities. Bones: No suspicious bony lesions. Visualized cervical spine appears normally aligned. IMPRESSION: No significant intracranial arterial abnormality is seen. No significant abnormality is seen within the arteries of the neck. Any quantitative measurements of stenosis were performed using NASCET criteria. Dictated by: Imer Pittman M.D. on 10/08/2023 at 12:22 Approved by: Imer Pittman M.D. on 10/08/2023 at 12:30 Chest x-ray: Radiologist's Impression: [address] [address] XRay Report Signed Patient: Juan Matthews MR#: [id number] : 1945 Acct:[id number] Age/Sex: 78 / M Date of Service: 10/08/23 Loc: ED Accession Number: [id number] Procedure: XR chest 1V Ordering Provider: Johnathan Guillaume MD PROCEDURE: XR CHEST 1V INDICATIONS: chest pain TECHNIQUE: One view of the chest was acquired. COMPARISON: None. FINDINGS: Surgical changes and devices: None. Lungs and pleura: Lungs are clear. No pleural effusions or pneumothorax. Mediastinum: Mediastinal contours appear normal. Heart size is normal. Bones and chest wall: No suspicious bony lesions. Overlying soft tissues appear unremarkable. IMPRESSION: No acute cardiopulmonary abnormality is seen. Dictated by: Imer Pittman M.D. on 10/08/2023 at 11:45 Approved by: Imer Pittman M.D. on 10/08/2023 at 11:46 MRI brain: Radiologist's Impression: [address] [address] Magnetic Resonance Report Signed Patient: Juan Matthews MR#: [id number] : 1945 Acct:[id number] Age/Sex: 78 / M Date of Service: 10/08/23 Loc: ED Accession Number: [id number] Procedure: MR head/brain wo con Ordering Provider: Johnathan Guillaume MD PROCEDURE: MR HEAD/BRAIN WO CON INDICATIONS: Right-sided weakness/dysarthria TECHNIQUE: Non-contrast axial T1 spin echo, axial T2 fast spin echo, sagittal and axial FLAIR, coronal T2 fast spin echo, axial gradient echo, axial diffusion and ADC through the brain. COMPARISON: [facility], CT, CT HEAD/BRAIN WO CON, 10/08/2023, 12:00. FINDINGS: Image quality: Excellent. CSF spaces: Ventricles appear symmetric in size and shape. Basal cisterns are patent. No extra-axial fluid collections. Brain: No intracranial bleeds or mass effects. There is cerebral volume loss for age. There are periventricular and deep white matter chronic small vessel ischemic changes. Brainstem appears normal. Diffusion-weighted images show very subtle signal abnormality present in the right parietal cortical ribbon focally. On the T2 weighted FLAIR imaging this corresponds to a larger area T2 signal abnormality in the right parietal cortical ribbon. 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 No acute infarcts. Otherwise unremarkable brain parenchyma for patient age. There is volume loss and very minimal small vessel ischemic change. Normal intravascular flow voids are present. Skull and face: Calvarial bone marrow is normal in signal. Orbits are normal. Sinuses: Sinuses and mastoids are clear. 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 Comment: There are no findings which correlate with lesions that would results in right-sided weakness. Comment: Findings were discussed with Dr. Guillaume at the time of study dictation. Dictated by: Imer Pittman M.D. on 10/08/2023 at 15:35 Approved by: Imer Pittman M.D. on 10/08/2023 at 15:49 MDM Narrative Medical decision making narrative: Patient here with . Complains of left-sided chest achy sharp pain nonreproducible it radiates to left arm. 3/10 pain. Occurred about 1 hour ago. Still having discomfort. No nausea dyspnea no syncope. No diaphoresis. Patient had Lisa stent placed 2005 in [place]. Has been doing well since then. Patient sees [facility] cardiology dr galvan, has appointment with him next week in the office. Last stress test February 15, 2021 here. Myocardial perfusion scan and echocardiogram were done. It was abnormal. However no heart catheterization following it. Has been doing well since then. In addition, September 20, 2023 patient was on vacation and had sudden onset while riding a bus of dysarthria as well as right upper extremity numbness and weakness. This lasted about 5 minutes. It resolved. Never had a headache. No prior history of stroke. After history and exam CBC CMP troponin EKG chest x-ray CT head CT angiogram head and neck aspirin normal saline cardiology consult, nitro paste MDM Medical records reviewed: February 15, 2021 echocardiogram and stress test Differential considered: Includes but not limited to PR STEMI non-STEMI angina TIA Lab Test results independently reviewed as above. Pertinent findings: Troponin 0.014, repeat 0.042, 3rd troponin 0.33 Independently reviewed EKG EKG normal sinus rhythm rate 95 left bundle-branch block which is not new. EKG from June 2022 shows left bundle-branch block Imaging studies independently reviewed: Chest x-ray CT head CT angiogram head and neck no acute finding Consultations: 2:20 p.m.. Spoke with Cardiology dr shafer, recommends keeping patient here for echocardiogram serial troponins, heparin, nuclear med stress test once troponins are clear. No transfer is indicated. He did review stress test from 3 years ago but findings on the echocardiogram/stress test not acute. No catheterization was indicated at that time 2:59 p.m.. Spoke with hospitalist, dr yu, would like 3rd troponin at 3:30 p.m. 4:25 p.m.. s/w dr yu, repeat troponin 0.33 he would like patient transferred 4:30 p.m.. Spoke with Cardiology, dr shafer, if hospitalist not comfortable admitting here then patient will need to be transferred to [facility] 5:30 p.m.. Spoke with [address], cardiology, dr yao, does not feel patient needs to be admitted but we can talk to their hospitalist team 5:37 p.m.. Spoke with [facility] hospitalist, Dr. nichole, she will accept patient 5:[address] transfer center called back and the hospitalist will not accept patient Treatments: Normal saline aspirin nitro paste heparin Re-evaluations: 2:45 p.m.. Patient doing well. Reviewed results with patient and . They do agree need for admission after my discussion with cardiology services. 4:45 p.m.. Updated patient and family will need to transfer due to rising troponin levels. Patient currently chest pain-free. He does understand MRI does show recent stroke that likely occurred in September. Discussion: Appropriate for transfer. I have reviewed with hospitalist here, does not want patient to be admitted here needs higher level of care. I did speak with cardiology services. Patient and family do understand need for transfer. Patient has received aspirin and heparin. Working diagnosis of non- STEMI and subacute stroke. Diagnosis: Atypical chest pain/TIA Critical Care Time Critical Care Time Attestation: Critical Care Time 35 minutes: Critical care time is separate from other billable procedures. This critical care time includes consultation with family and other consulting doctors, review of records, and interpretation of data from labs, EKGs, imaging, etc. Discharge Plan Departure Patient Disposition: [facility] Clinical Impression: Atypical chest pain Stroke Qualifiers: CVA mechanism: unspecified Qualified Code(s): I63.9 - Cerebral infarction, unspecified Prescriptions: No Action (DME) Parking Permit... See Rx Instructions .Route .MEDSUPPLY Qty: 1 0RF Rx Instructions: I find this patient to be medically disabled and qualified for disabled Parking as indicated, and signed, on the Accompanying Disabled parking Application for Individuals. rosuvastatin 10 mg tablet 10 mg PO DAILY Qty: 90 3RF gabapentin 300 mg capsule See Rx Instructions .ROUTE .COMPLEX Qty: 240 3RF Dose Instruction: TAKE 1 CAPSULE BY MOUTH THREE TIMES A DAY FOR NEUROPATHIC PAIN Rx Instructions: TAKE 1 CAPSULE BY MOUTH THREE TIMES A DAY FOR NEUROPATHIC PAIN sildenafil 50 mg tablet 50 mg PO DAILY PRN (Reason: sexual activity) Qty: 20 1RF Rx Instructions: administer 30 minutes to 4 hours before activity omeprazole 20 mg capsule,delayed release(DR/EC) 20 mg PO DAILY Qty: 90 3RF Rx Instructions: Take one capsule by mouth daily aspirin 81 mg tablet 81 mg PO DAILY lisinopril 5 mg tablet 5 mg PO DAILY Qty: 90 3RF metoprolol succinate 50 mg tablet extended release 24 hr 50 mg PO DAILY ticagrelor 90 mg tablet 90 mg PO Q12H multivitamin Tablet 1 tab PO DAILY cholecalciferol (vitamin D3) 25 mcg (1,000 unit) capsule 15,000 unit PO DAILY Referrals: Tim Claudio MD [Primary Care Provider] -
[2023-10-08 11:58] LABS: Troponin I 0.014 ng/mL (0.01-0.034)
[2023-10-08] MEDS: NITROGLYCERIN OINT 1 INCH/GM OINT...G. TOP (12:27)
[2023-10-08] MEDS: SODIUM CHLORIDE 0.9% 500 ML 1000 ML IV (12:32)
--- NOTE | 2023-10-08 12:42 | DI.MRI.S_ITS ---
PROCEDURE: MR HEAD/BRAIN WO CON INDICATIONS: Right-sided weakness/dysarthria TECHNIQUE: Non-contrast axial T1 spin echo, axial T2 fast spin echo, sagittal and axial FLAIR, coronal T2 fast spin echo, axial gradient echo, axial diffusion and ADC through the brain. COMPARISON: [facility], CT, CT HEAD/BRAIN WO CON, 10/08/2023, 12:00. FINDINGS: Image quality: Excellent. CSF spaces: Ventricles appear symmetric in size and shape. Basal cisterns are patent. No extra-axial fluid collections. Brain: No intracranial bleeds or mass effects. There is cerebral volume loss for age. There are periventricular and deep white matter chronic small vessel ischemic changes. Brainstem appears normal. Diffusion-weighted images show very subtle signal abnormality present in the right parietal cortical ribbon focally. On the T2 weighted FLAIR imaging this corresponds to a larger area T2 signal abnormality in the right parietal cortical ribbon. 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 No acute infarcts. Otherwise unremarkable brain parenchyma for patient age. There is volume loss and very minimal small vessel ischemic change. Normal intravascular flow voids are present. Skull and face: Calvarial bone marrow is normal in signal. Orbits are normal. Sinuses: Sinuses and mastoids are clear. 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 Comment: There are no findings which correlate with lesions that would results in right-sided weakness. Comment: Findings were discussed with Dr. Guillaume at the time of study dictation. Dictated by: Imer Pittman M.D. on 10/08/2023 at 15:35 Approved by: Imer Pittman M.D. on 10/08/2023 at 15:49
--- NOTE | 2023-10-08 12:58 | PC.NURSE ---
Pt reports cp starteing around 10:45. Pt states pain radiates down left arm. 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 pt denies sob.
--- NOTE | 2023-10-08 12:59 | PC.NURSE ---
pain unrelieved w/ nitro paste.
[2023-10-08 13:39] LABS: Creatine Kinase 75 U/L (55-170)
[2023-10-08 13:52] LABS: Troponin I 0.042 ng/mL (0.01-0.034)
[2023-10-08] MEDS: HEPARIN 5,000 UNIT/ML VIAL 5000 UNIT IV (14:42)
[2023-10-08] MEDS: HEPARIN DRIP 25,000 UNIT/500 ML IV.SOLN 19.2 UNIT IV (14:43)
[2023-10-08 16:01] LABS: Creatine Kinase 100 U/L (55-170)
--- NOTE | 2023-10-08 18:12 | PC.NURSE ---
Reassess; no change. Heparin running. Pt states no change in cp.
--- NOTE | 2023-10-08 19:00 | PC.NURSE ---
Pt reports while being on a bus in [place] he had a sudden onset of not being able to speak; but symptoms quickly resolved. Pt denies any lingering symptoms. Speech clear, upper and lower extremities move equally w/o deficits. Pt reports no visual changes or balance issues.
== END 2023-10-08 18:55 | disposition short-term general hospital (02) ==
PROVIDERS: Emergency Provider Emergency Medicine; Family Provider Family Medicine; PCP Family Medicine
DX: I63.9 Cerebral infarction, unspecified (principal); R07.89 Other chest pain; Z95.5 Presence of coronary angioplasty implant and graft; Z79.899 Other long term (current) drug therapy
CPT/HCPCS: 36415; 70450; 70496; 70498; 70551; 71045; 80053; 82550; 83690; 83735; 84484; 85025; 85610; 85730; 93005; 96361; 96365; 96366; 96375; 99284; 99291; J1644

== ENCOUNTER → 2023-10-14 08:41 | Outpatient (CLI) | payer MEDICARE, SELFPAY ==
[2022-11-27 10:29] VITALS: BMI 29.7
[2023-10-14 10:22] LABS: Alanine Aminotransferase 24 IU/L (<50); Albumin 4.5 g/dL (3.5-5.0); Albumin Globulin Ratio 1.7 (1.0-2.8); Alkaline Phosphatase 56 U/L (38-126); Aspartate Aminotransferase 28 IU/L (17-59); BUN Creatinine Ratio 14.1 (6-22); Bilirubin Total 1.2 mg/dL (0.2-1.3); Blood Urea Nitrogen 19 mg/dL (9-20); Calcium 9.8 mg/dL (8.4-10.2); Carbon Dioxide 26 mmol/L (22-32); Chloride 106 mmol/L (98-107); Estimated Glomerular Filt Rate 54 mL/min (>60); Globulin 2.7 g/dL (1.7-4.1); Glucose 100 mg/dL (80-110); HEMOLYSIS < 15 (0-50); Potassium 4.9 mmol/L (3.4-5.1); Sodium 140 mmol/L (137-145); Total Protein 7.2 g/dL (6.3-8.2)
== END ==
PROVIDERS: Family Provider Family Medicine; PCP Family Medicine; Referring Provider Internal Medicine Interventional Cardiology; Visit Provider Internal Medicine Interventional Cardiology
DX: Z12.5 Encounter for screening for malignant neoplasm of prostate (principal); I25.10 Atherosclerotic heart disease of native coronary artery without angina pectoris; I10 Essential (primary) hypertension
CPT/HCPCS: 36415; 80053; G0103

== ENCOUNTER → 2023-10-26 09:35 | Outpatient (CLI) | payer MEDICARE, SELFPAY ==
[2022-11-27 10:29] VITALS: BMI 29.7
[2023-10-26 11:09] LABS: Cholesterol 120 mg/dL (140-199); HDL Cholesterol 44 mg/dL (40-60); LDL Cholesterol Calculated 37 mg/dL (<100); Triglycerides 197 mg/dL (35-150)
== END ==
PROVIDERS: Family Provider Family Medicine; PCP Family Medicine; Referring Provider Internal Medicine Interventional Cardiology; Visit Provider Internal Medicine Interventional Cardiology
DX: I25.10 Atherosclerotic heart disease of native coronary artery without angina pectoris (principal)
CPT/HCPCS: 36415; 80061

== ENCOUNTER → 2023-12-02 07:43 | Outpatient (CLI) | payer MEDICARE, SELFPAY ==
[2022-11-27 10:29] VITALS: BMI 29.7
[2023-12-02 09:51] LABS: BUN Creatinine Ratio 17.2 (6-22); Blood Urea Nitrogen 20 mg/dL (9-20); Calcium 9.5 mg/dL (8.4-10.2); Carbon Dioxide 24 mmol/L (22-32); Chloride 109 mmol/L (98-107); Estimated Glomerular Filt Rate > 60 mL/min (>60); Glucose 97 mg/dL (80-110); HEMOLYSIS 20 (0-50); Potassium 4.4 mmol/L (3.4-5.1); Sodium 139 mmol/L (137-145)
== END ==
PROVIDERS: Family Provider Family Medicine; PCP Family Medicine; Referring Provider Internal Medicine Interventional Cardiology; Visit Provider Internal Medicine Interventional Cardiology
DX: I25.10 Atherosclerotic heart disease of native coronary artery without angina pectoris (principal)
CPT/HCPCS: 36415; 80048

== ENCOUNTER → 2024-03-02 09:19 | Outpatient (CLI) | payer MEDICARE, SELFPAY ==
[2022-11-27 10:29] VITALS: BMI 29.7
[2024-03-02 10:59] LABS: Cholesterol 123 mg/dL (140-199); HDL Cholesterol 55 mg/dL (40-60); LDL Cholesterol Calculated 48 mg/dL (<100); Triglycerides 102 mg/dL (35-150)
== END ==
PROVIDERS: Family Provider Family Medicine; PCP Family Medicine; Referring Provider Internal Medicine Interventional Cardiology; Visit Provider Internal Medicine Interventional Cardiology
DX: I25.10 Atherosclerotic heart disease of native coronary artery without angina pectoris (principal)
CPT/HCPCS: 36415; 80061

== ENCOUNTER → 2024-03-31 14:22 | Outpatient (CLI) | payer MEDICARE, SELFPAY ==
[2022-11-27 10:29] VITALS: BMI 29.7
--- NOTE | 2024-03-31 14:23 | DI.RAD.S_ITS ---
PROCEDURE: XR CERVICAL SPINE 2V OR 3V INDICATIONS: right shoulder, neck and chest pain TECHNIQUE: Three views (s) of the cervical spine were acquired. COMPARISON: None. FINDINGS: Cervical spine curvature and alignment: Normal. Bones: There are no osseous abnormalities. Disc spaces: Severe C3-4, moderate C4-5, severe C5-6 and C6-7 degenerative disc disease noted. There is mild C2-3 through C7-T1 degenerative facet disease. Intervertebral foramen: Grossly normal in width. Soft tissues: No soft tissue swelling, calcification or mass. IMPRESSION: Degeneration Dictated by: Edward Bright M.D. on 04/01/2024 at 15:55 Approved by: Edward Bright M.D. on 04/01/2024 at 15:56
--- NOTE | 2024-03-31 14:23 | DI.RAD.S_ITS ---
PROCEDURE: XR SHOULDER RT MIN 2V INDICATIONS: right shoulder, neck and chest pain TECHNIQUE: Three-view of the shoulder were acquired. COMPARISON: None. FINDINGS: Bones: There are no osseous abnormalities. Acromioclavicular and glenohumeral joints: Mild degeneration. Soft tissues: No soft tissue swelling, calcification or mass. IMPRESSION: Mild glenohumeral and acromioclavicular degeneration. Dictated by: Edward Bright M.D. on 04/01/2024 at 15:56 Approved by: Edward Bright M.D. on 04/01/2024 at 15:56
== END ==
PROVIDERS: Family Provider Family Medicine; PCP Family Medicine; Referring Provider Family Medicine; Visit Provider Family Medicine
DX: M50.31 Other cervical disc degeneration, high cervical region (principal); M47.812 Spondylosis without myelopathy or radiculopathy, cervical region; M19.011 Primary osteoarthritis, right shoulder; M54.2 Cervicalgia; M25.511 Pain in right shoulder; R07.9 Chest pain, unspecified
CPT/HCPCS: 72040; 73030

== ENCOUNTER 2024-04-08 10:15 | Outpatient (RCR) | payer MEDICARE, SELFPAY ==
[2022-11-27 10:29] VITALS: BMI 29.7
--- NOTE | 2024-03-30 15:41 | PC.NURSE ---
pt reports anterior muscular tenderness, radiating down both arms and hands. I could hardly do anything over the weekend. this RN called A triage, Peace GUERRERO. Notified her of pt's symptoms to pass onto Dr. Claudio
== END 2024-04-08 12:15 ==
LOC: CAR 10:15
PROVIDERS: Family Provider Family Medicine; PCP Family Medicine; Referring Provider Internal Medicine Cardiovascular Disease; Visit Provider Internal Medicine Cardiovascular Disease
DX: I21.4 Non-ST elevation (NSTEMI) myocardial infarction (principal)
CPT/HCPCS: 36415; 80061; 93798

== ENCOUNTER → 2024-06-22 14:56 | Outpatient (CLI) | payer MEDICARE, SELFPAY ==
[2022-11-27 10:29] VITALS: BMI 29.7
[2024-06-22 15:41] LABS: Influenza A - CEPHEID Flu A NEGATIVE (NEGATIVE); Influenza B - CEPHEID Flu B NEGATIVE (NEGATIVE); Respiratory Syncytial Virus Negative (Negative)
[2024-06-22 15:42] LABS: COVID-19 CEPHEID 4-PLEX PCR Negative (Negative)
== END ==
PROVIDERS: Family Provider Family Medicine; PCP Family Medicine; Visit Provider Physician Assistant Medical
DX: R05.9 Cough, unspecified (principal)
CPT/HCPCS: 0241U

== ENCOUNTER → 2024-06-22 15:26 | Outpatient (CLI) | payer MEDICARE, SELFPAY ==
[2022-11-27 10:29] VITALS: BMI 29.7
--- NOTE | 2024-06-22 15:27 | DI.RAD.S_ITS ---
PROCEDURE: XR CHEST 2V INDICATIONS: Cough TECHNIQUE: 2 views of the chest were acquired. COMPARISON: [facility], CR, XR CHEST 1V, 10/08/2023, 11:25. FINDINGS: Surgical changes and devices: Lead less pacemaking device Lungs and pleura: Lungs are clear. No pleural effusions or pneumothorax. Mediastinum: Mediastinal contours are normal. Heart size is normal. Bones and chest wall: No suspicious bony abnormalities. Soft tissues appear unremarkable. IMPRESSION: No acute cardiopulmonary abnormality is seen. Dictated by: Eugene Sousa M.D. on 06/22/2024 at 16:03 Approved by: Eugene Sousa M.D. on 06/22/2024 at 16:04
== END ==
PROVIDERS: Family Provider Family Medicine; PCP Family Medicine; Referring Provider Physician Assistant Medical; Visit Provider Physician Assistant Medical
DX: R05.9 Cough, unspecified (principal); Z95.0 Presence of cardiac pacemaker
CPT/HCPCS: 0241U; 71046

== ENCOUNTER → 2024-08-27 16:55 | Outpatient (CLI) | payer MEDICARE, SELFPAY ==
[2022-11-27 10:29] VITALS: BMI 29.7
--- NOTE | 2024-08-27 16:56 | DI.RAD.S_ITS ---
PROCEDURE: XR HAND LT MIN 3V INDICATIONS: bilateral hand pain TECHNIQUE: 3 views of the hand(s) acquired. COMPARISON: None. FINDINGS: Bones: No fractures or dislocations. Advanced degenerative changes are present within the 1st carpometacarpal, metacarpophalangeal and interphalangeal joints as well as within the 2nd through 5th distal interphalangeal joints. These changes include joint space narrowing, marginal osteophytosis and articular sclerosis. Carpal bones are normally aligned. No suspicious bony lesions. Soft tissues: No suspicious soft tissue calcifications. IMPRESSION: Polyarticular arthropathy, most notably within the 1st CMC, MCP and IP joints as well as within the 2nd through 5th DIP joints. No evidence of acute osseous abnormality. Dictated by: Ishmael Escalona M.D. on 08/27/2024 at 17:32 Approved by: Ishmael Escalona M.D. on 08/27/2024 at 17:33
--- NOTE | 2024-08-27 16:56 | DI.RAD.S_ITS ---
PROCEDURE: XR HAND RT MIN 3V INDICATIONS: bilateral hand pain TECHNIQUE: 3 views of the hand(s) acquired. COMPARISON: None. FINDINGS: Bones: No fractures or dislocations. Advanced degenerative changes are noted within the 1st interphalangeal and 2nd through 5th distal interphalangeal joints as well as within the 1st metacarpophalangeal and carpometacarpal joints. These changes are marked by joint space narrowing, marginal osteophytosis and articular sclerosis and there is moderate subluxation at the 1st metacarpophalangeal and interphalangeal joints. Carpal bones are normally aligned. No suspicious bony lesions. Soft tissues: No suspicious soft tissue calcifications. IMPRESSION: Polyarticular arthropathy most notably within the 1st CMC, MCP and IP joints as well as within the 2nd through 5th DIP joints. No evidence of acute osseous abnormality. Dictated by: Ishmael Escalona M.D. on 08/27/2024 at 17:30 Approved by: Ishmael Escalona M.D. on 08/27/2024 at 17:32
== END ==
LOC: RAD 16:55
PROVIDERS: PCP Family Medicine; Referring Provider Family Medicine; Visit Provider Family Medicine
DX: M18.0 Bilateral primary osteoarthritis of first carpometacarpal joints (principal); M19.042 Primary osteoarthritis, left hand; M19.041 Primary osteoarthritis, right hand; M79.644 Pain in right finger(s); M79.645 Pain in left finger(s); G89.29 Other chronic pain
CPT/HCPCS: 73130

== ENCOUNTER → 2024-08-28 09:45 | Outpatient (CLI) | payer MEDICARE, SELFPAY ==
[2022-11-27 10:29] VITALS: BMI 29.7
[2024-08-28 11:13] LABS: Add Manual Diff / Slide Review NO; Basophils Absolute Auto 100 /uL (0-100); Basophils Percent Auto 1.3 % (0-2); Eosinophils Absolute Auto 100 /uL (0-450); Eosinophils Percent Auto 1.7 % (2-4); Hematocrit 46.6 % (41-53); Hemoglobin 16.1 g/dL (13.5-17.5); Lymphocytes Absolute Auto 1100 /uL (1100-4500); Lymphocytes Percent Auto 18.5 % (25-40); Mean Corpuscular HGB Conc 34.5 % (30-36); Mean Corpuscular Hemoglobin 32.9 PG (26-34); Mean Corpuscular Volume 95.5 fL (80-100); Monocytes Absolute Auto 700 /uL (0-900); Monocytes Percent Auto 12.5 % (3-14); Neutrophils Absolute Auto 3900 /uL (1500-7000); Platelet Count 164 X10^3/uL (150-400); Red Blood Cell Count 4.88 X10^6/uL (4.5-5.9); Red Cell Distribution Width 14.5 % (11.6-14.8); White Blood Cell Count 5.8 X10^3/uL (4.5-11.0)
[2024-08-28 11:53] LABS: BUN Creatinine Ratio 13.5 (6-22); Blood Urea Nitrogen 19 mg/dL (9-20); Calcium 9.9 mg/dL (8.4-10.2); Carbon Dioxide 26 mmol/L (22-32); Chloride 106 mmol/L (98-107); Estimated Glomerular Filt Rate 51 mL/min (>60); Glucose 96 mg/dL (80-110); HEMOLYSIS < 15 (0-50); Potassium 4.9 mmol/L (3.4-5.1); Sodium 141 mmol/L (137-145)
[2024-08-28 12:03] LABS: Alanine Aminotransferase 23 IU/L (<50); Albumin 4.3 g/dL (3.5-5.0); Albumin Globulin Ratio 1.8 (1.0-2.8); Alkaline Phosphatase 47 U/L (38-126); Aspartate Aminotransferase 28 IU/L (17-59); BUN Creatinine Ratio 12.6 (6-22); Bilirubin Total 1.6 mg/dL (0.2-1.3); Blood Urea Nitrogen 18 mg/dL (9-20); Calcium 9.9 mg/dL (8.4-10.2); Carbon Dioxide 25 mmol/L (22-32); Chloride 106 mmol/L (98-107); Cholesterol 150 mg/dL (140-199); Estimated Glomerular Filt Rate 50 mL/min (>60); Globulin 2.4 g/dL (1.7-4.1); Glucose 96 mg/dL (80-110); HDL Cholesterol 47 mg/dL (40-60); HEMOLYSIS < 15 (0-50); LDL Cholesterol Calculated 75 mg/dL (<100); Sodium 140 mmol/L (137-145); Total Protein 6.7 g/dL (6.3-8.2); Triglycerides 139 mg/dL (35-150)
[2024-08-28 12:22] LABS: TSH w/ Reflex to FT4 3.39 uIU/mL (0.47-4.68)
[2024-08-28 12:31] LABS: Prostate Specific Antigen Scrn 3.43 ng/mL (0.1-4.0)
[2024-08-28 15:04] LABS: Creatinine Urine Random 106.17 mg/dL
[2024-08-28 15:10] LABS: Microalbumin Urine Random 0.6 mg/dL (0-1.6)
[2024-08-29 04:36] LABS: Apolipoprotein B 67 mg/dL (<90)
== END ==
LOC: LAB 09:46
PROVIDERS: PCP Family Medicine; Referring Provider Internal Medicine Interventional Cardiology; Visit Provider Internal Medicine Interventional Cardiology
DX: Z00.00 Encounter for general adult medical examination without abnormal findings (principal); I25.10 Atherosclerotic heart disease of native coronary artery without angina pectoris; Z12.5 Encounter for screening for malignant neoplasm of prostate; I10 Essential (primary) hypertension; M54.16 Radiculopathy, lumbar region; R41.3 Other amnesia
CPT/HCPCS: 36415; 80048; 80053; 80061; 82043; 82172; 82570; 84443; 85025; G0103

== ENCOUNTER 2024-10-11 09:23 | Emergency (ER) | payer MEDICARE, SELFPAY ==
[2022-11-27 10:29] VITALS: BMI 29.7
[2024-10-11 09:30] VITALS: BP 160/78; PULSE 72; RESP 20; O2SAT 98
[2024-10-11 09:34] VITALS: BP 160/78; PULSE 68; RESP 18; TEMP 36.6; O2SAT 97; BMI 27.1
--- NOTE | 2024-10-11 09:41 | PC.NURSE ---
Pt states that he monitors bp at home because he has hx of HTN, SD, cardiac stent placement x2 & stroke. Takes metropolol for bp management and blood thinner. Went to [facility] today because his bp has been higher than normal but states he is asymptomatic. Deneis cp, sob, dizziness, lightheadedness, n/v & pain. Bp at [facility] 160s systolic advised pt to come to ED for further evaluation. Pt ambulated into dept with steady gait. A&Ox4.
--- NOTE | 2024-10-11 09:45 | ED_ITS ---
HPI - General Adult General Chief complaint: Hypertension Stated complaint: [facility] referred: High BP 161/93, 67bp Time Seen by Provider: 10/11/24 09:45 Source: patient Mode of arrival: Ambulatory History of Present Illness HPI narrative: Patient is a 71-year-old male history of hypertension TIA coronary artery disease with stent presenting to day with elevated blood pressure. He takes his blood pressure once a day and records it. It was typically 130s. He had 1 elevated reading on October 01 in the 150s he had another 1 today 150/80. He had a brief episode of right-sided chest pain which he says resolved with burping and did not last long. It is completely gone now. He has no real headache he has no significant shortness of breath he was completely asymptomatic. Related Data Home Medications Medication Instructions Recorded Confirmed aspirin 81 mg tablet 81 mg PO DAILY 10/06/20 08/27/24 multivitamin 1 tab PO DAILY 10/19/20 08/27/24 cholecalciferol (vitamin D3) 25 15,000 unit PO DAILY 12/27/21 08/27/24 mcg (1,000 unit) capsule metoprolol succinate 50 mg 50 mg PO DAILY 10/14/23 08/27/24 tablet,extended release 24 hr empagliflozin 10 mg tablet 10 mg PO DAILY 03/31/24 08/27/24 (Jardiance) clopidogrel 75 mg tablet mg PO DAILY 06/22/24 08/27/24 pantoprazole 40 mg tablet,delayed mg PO DAILY 06/22/24 08/27/24 release sacubitril 24 mg-valsartan 26 mg tab PO 06/22/24 08/27/24 tablet (Entresto) Previous Rx's Medication Instructions Recorded Parking Permit... #1 ea 10/04/21 rosuvastatin 10 mg tablet 10 mg PO DAILY #90 tabs 03/26/22 sildenafil 50 mg tablet 50 mg PO DAILY PRN sexual activity 06/18/23 #20 tabs gabapentin 300 mg capsule See Rx Instructions .Route 03/16/24 .COMPLEX #240 caps Allergies Allergy/AdvReac Type Severity Reaction Status Date / Time Penicillins Allergy Intermediate Rash-as a Verified 08/27/24 16:29 teenager cocamidopropyl betaine Allergy Verified 08/27/24 16:29 Patient History Medical History (Updated 10/11/24 @ 10:20 by Krystle Mitchell DO) Chronic thumb pain, bilateral SCOTTIE (obstructive sleep apnea) Obstructive sleep apnea of adult Multilevel lumbosacral spondylosis with radiculopathy Lumbar radiculopathy Degenerative joint disease of right hip Suspected sleep apnea LBBB (left bundle branch block) Chronic back pain (~1977) Tinnitus Hearing loss Cataracts, bilateral HLD (hyperlipidemia) Bilateral inguinal hernia Carpal tunnel syndrome Inguinal hernia Abdominal hernia CAD (coronary artery disease) Surgical History Hx of bilateral cataract extraction H/O vasectomy Hx of heart artery stent (~2005) Hx of bilateral inguinal hernia repair (11/07/20) Anesthesia Hx of cholecystectomy (~2019) Hx of neck surgery (~2018) Hx of carpal tunnel repair Family History Father Heart disease Sister Colon cancer Mother Cancer Grandmother Gallstones Social History marital status: household members: spouse occupational status: previously employed Smoking Status: Never smoker alcohol intake: current substance use type: does not use Smoking Status: Never smoker alcohol intake frequency: a few times a month Exam Initial Vital Signs Initial Vital Signs: Vital Signs Pulse Rate 72 10/11/24 09:30 Respiratory Rate 20 10/11/24 09:30 Blood Pressure 160/78 H 10/11/24 09:30 Pulse Oximetry 98 10/11/24 09:30 Course Orders Ordered: ED Orders 10/11/24 09:55 EKG-12 Lead Stat Vital Signs Vital signs: Vital Signs - 8 hr 10/11/24 09:30 10/11/24 09:30 10/11/24 09:34 Temperature 97.9 F Pulse Rate 72 68 Respiratory Rate 20 18 Blood Pressure 160/78 H 160/78 H Pulse Oximetry 98 97 Oxygen Delivery Method Room Air 10/11/24 09:50 10/11/24 09:50 10/11/24 10:00 Temperature Pulse Rate 67 66 Respiratory Rate Blood Pressure 148/82 H Pulse Oximetry 97 96 Oxygen Delivery Method 10/11/24 10:00 Temperature Pulse Rate Respiratory Rate 18 Blood Pressure 142/80 H Pulse Oximetry Oxygen Delivery Method Medical Decision Making ECG Data Interpretation: Sinus rhythm rate 62 left bundle-branch block no Sgarbossa criteria no significant ST changes MDM Narrative Medical decision making narrative: Patient is 79-year-old male history of TIA CAD presenting to day with elevated blood pressure. He had a brief episode of right-sided chest pain which lasted less than a minute and has resolved. He was completely asymptomatic today. Blood pressure 160/78 which has already come down to 148. He is well and comfortable completely asymptomatic. EKGs today does not show any ischemic changes. At this time offered blood work but I do not think indicated. Discuss with him when to return to ED Discharge Plan Departure Patient Disposition: Home Clinical Impression: Hypertension Instructions: DI for High Blood Pressure Activity Restrictions/Additional Instructions: *You have been diagnosed with hypertension *What to do: At this time check your blood pressure as you have been doing. If it continues to be persistently high then talk to your providers about changing up your medication. Definitely worry more about symptoms including chest pain shortness of breath weakness headache or other signs *Continue to take medications as directed *Follow up with your primary care provider in 2-3 days or call [phone] *Return to ER if you should have if you should experience any of the above symptoms or any new, worsening or concerning symptoms Prescriptions: No Action pantoprazole 40 mg tablet,delayed release (DR/EC) PO DAILY clopidogrel 75 mg tablet PO DAILY sacubitril-valsartan [Entresto] 24-26 mg tablet PO (DME) Parking Permit... See Rx Instructions .Route .MEDSUPPLY Qty: 1 0RF Rx Instructions: I find this patient to be medically disabled and qualified for disabled Parking as indicated, and signed, on the Accompanying Disabled parking Application for Individuals. rosuvastatin 10 mg tablet 10 mg PO DAILY Qty: 90 3RF sildenafil 50 mg tablet 50 mg PO DAILY PRN (Reason: sexual activity) Qty: 20 1RF Rx Instructions: administer 30 minutes to 4 hours before activity gabapentin 300 mg capsule See Rx Instructions .ROUTE .COMPLEX Qty: 240 3RF Dose Instruction: TAKE 1 CAPSULE BY MOUTH THREE TIMES A DAY FOR NEUROPATHIC PAIN Rx Instructions: TAKE 1 CAPSULE BY MOUTH THREE TIMES A DAY FOR NEUROPATHIC PAIN aspirin 81 mg tablet 81 mg PO DAILY Jardiance 10 mg tablet 10 mg PO DAILY metoprolol succinate 50 mg tablet extended release 24 hr 50 mg PO DAILY multivitamin Tablet 1 tab PO DAILY cholecalciferol (vitamin D3) 25 mcg (1,000 unit) capsule 15,000 unit PO DAILY Referrals: Tim Claudio MD [Primary Care Provider] - Stand Alone Forms: Patient Portal/API/Survey
[2024-10-11 09:50] VITALS: BP 148/82; PULSE 67; O2SAT 97
--- NOTE | 2024-10-11 09:55 | EKG_ITS ---
[address] [address] [place] [address] Test Date: 2024-10-11 Pat Name: Juan Matthews Department: [facility] Room: Gender: Male [employer]: NORA : 1945 Requested By: Order Number: [id number] Reading MD: Edward Morrow MD Measurements Intervals [place] Rate: 62 P: 23 IA: 230 QRS: -44 QRSD: 164 T: 134 QT: 460 QTc: 466 Interpretive Statements Sinus rhythm with 1st degree AV block Left axis deviation Left bundle branch block NO SIGNIFICANT CHANGE FROM PRIOR TRACING Electronically Signed On 10-12-2024 7:27:13 PDT by Edward Morrow MD
[2024-10-11 10:00] VITALS: BP 142/80; PULSE 66; RESP 18; O2SAT 96
== END 2024-10-11 10:30 | disposition home or self-care (01) ==
PROVIDERS: Emergency Provider Emergency Medicine; PCP Family Medicine
DX: I10 Essential (primary) hypertension (principal); I25.10 Atherosclerotic heart disease of native coronary artery without angina pectoris; Z86.73 Personal history of transient ischemic attack (TIA), and cerebral infarction without residual deficits; R07.9 Chest pain, unspecified
CPT/HCPCS: 93005; 93010; 99281; 99283

== ENCOUNTER → 2025-02-25 09:05 | Outpatient (CLI) | payer MEDICARE, SELFPAY ==
[2022-11-27 10:29] VITALS: BMI 29.7
[2025-02-25 11:08] LABS: Blood Urea Nitrogen 18 mg/dL (9-20); Calcium 9.3 mg/dL (8.4-10.2); Carbon Dioxide 22 mmol/L (22-32); Chloride 107 mmol/L (98-107); Cholesterol 115 mg/dL (140-199); Estimated Glomerular Filt Rate > 60 mL/min (>60); Glucose 92 mg/dL (70-99); HDL Cholesterol 46 mg/dL (40-60); HEMOLYSIS < 15 (0-50); Potassium 4.5 mmol/L (3.4-5.1); Sodium 139 mmol/L (137-145); Triglycerides 164 mg/dL (35-150)
== END ==
PROVIDERS: Family Provider Family Medicine; PCP Family Medicine; Referring Provider Internal Medicine Interventional Cardiology; Visit Provider Internal Medicine Interventional Cardiology
DX: I25.10 Atherosclerotic heart disease of native coronary artery without angina pectoris (principal)
CPT/HCPCS: 36415; 80048; 80061

== ENCOUNTER → 2025-03-09 09:06 | Outpatient (CLI) | payer MEDICARE, SELFPAY ==
[2022-11-27 10:29] VITALS: BMI 29.7
[2025-03-09 10:07] LABS: Add Manual Diff / Slide Review NO; Hematocrit 44.9 % (41-53); Hemoglobin 15.5 g/dL (13.5-17.5); Lymphocytes Absolute Auto 1100 /uL (1100-4500); Mean Corpuscular HGB Conc 34.6 % (30-36); Mean Corpuscular Hemoglobin 33.1 PG (26-34); Mean Corpuscular Volume 95.7 fL (80-100); Platelet Count 181 X10^3/uL (150-400)
[2025-03-09 10:27] LABS: Alanine Aminotransferase 22 IU/L (<50); Albumin 4.5 g/dL (3.5-5.0); Albumin Globulin Ratio 1.7 (1.0-2.8); Alkaline Phosphatase 48 U/L (38-126); Blood Urea Nitrogen 14 mg/dL (9-20); Calcium 9.9 mg/dL (8.4-10.2); Carbon Dioxide 25 mmol/L (22-32); Chloride 105 mmol/L (98-107); Estimated Glomerular Filt Rate > 60 mL/min (>60); Globulin 2.6 g/dL (1.7-4.1); Glucose 87 mg/dL (70-99); HEMOLYSIS < 15 (0-50); Potassium 4.7 mmol/L (3.4-5.1); Sodium 139 mmol/L (137-145); Total Protein 7.1 g/dL (6.3-8.2)
[2025-03-09 10:47] LABS: Microalbumi Creatinin Ratio Ur 6.0 ug/mg CR (<30)
== END ==
PROVIDERS: Family Provider Family Medicine; PCP Family Medicine; Referring Provider Family Medicine; Visit Provider Family Medicine
DX: I10 Essential (primary) hypertension (principal); R94.4 Abnormal results of kidney function studies; M41.9 Scoliosis, unspecified; M47.816 Spondylosis without myelopathy or radiculopathy, lumbar region; I25.10 Atherosclerotic heart disease of native coronary artery without angina pectoris; M54.16 Radiculopathy, lumbar region; R19.5 Other fecal abnormalities
CPT/HCPCS: 36415; 80053; 82043; 82570; 85025

== ENCOUNTER → 2025-03-10 12:20 | Outpatient (CLI) | payer MEDICARE, SELFPAY ==
[2022-11-27 10:29] VITALS: BMI 29.7
== END ==
PROVIDERS: Family Provider Family Medicine; PCP Family Medicine; Referring Provider Family Medicine; Visit Provider Family Medicine
DX: M41.9 Scoliosis, unspecified (principal); M47.816 Spondylosis without myelopathy or radiculopathy, lumbar region; I25.10 Atherosclerotic heart disease of native coronary artery without angina pectoris; M54.16 Radiculopathy, lumbar region; R19.5 Other fecal abnormalities
CPT/HCPCS: 82274

== ENCOUNTER → 2025-03-12 08:29 | Outpatient (CLI) | payer MEDICARE, SELFPAY ==
[2022-11-27 10:29] VITALS: BMI 29.7
--- NOTE | 2025-03-12 08:30 | DI.RAD.S_ITS ---
PROCEDURE: XR SHOULDER RT MIN 2V INDICATIONS: right shoulder pain TECHNIQUE: 3 views of the shoulder were acquired. COMPARISON: [facility], , XR SHOULDER RT MIN 2V, 03/31/2024, 13:42. FINDINGS: Bones: No fractures or dislocations. No suspicious bony lesions. Visualized ribs appear intact. Mild glenohumeral and acromioclavicular degeneration. Soft tissues: No suspicious soft tissue calcifications. IMPRESSION: No acute bony abnormality. Mild glenohumeral acromioclavicular osteoarthrosis. If symptoms persist with conservative management, consider cross-sectional imaging such as CT or MRI. Approved by: Susanna Blanc M.D.,Ph.D. on 03/15/2025 at 0:56
== END ==
PROVIDERS: Family Provider Family Medicine; PCP Family Medicine; Referring Provider Family Medicine; Visit Provider Physical Medicine & Rehabilitation
DX: M19.011 Primary osteoarthritis, right shoulder (principal); M54.2 Cervicalgia; G89.29 Other chronic pain
CPT/HCPCS: 73030; 99214